=== PATIENT | female | born 1960 ===

== ENCOUNTER 2020-12-13 11:50 | Outpatient (REF) | payer OTHER, SELFPAY ==
--- NOTE | ~2020-12-13 | XR_ITS ---
EXAMINATION: XR ABDOMEN KUB CLINICAL INDICATION: Hematuria COMPARISON: None TECHNIQUE: AP x2 views of the abdomen. FINDINGS: There is a 3 x 4 mm calcification overlying the right medial 12th rib superimposed on upper pole right kidney possibly calculus. There are no other visible urinary tract calculi. The lung bases are clear. There is no gaseous dilatation of bowel or abnormal collections of gas. No acute bony abnormality. XR/XR KUB IMPRESSION: There is a 3 x 4 mm calcification overlying upper pole right kidney.
[2020-12-13 12:15] LABS: Urine Cytology See Pathology rpt
== END 2020-12-13 11:51 | disposition home or self-care (01) ==
LOC: HO.LAB 11:50
PROVIDERS: PCP Internal Medicine; Visit Provider Internal Medicine
DX: R31.9 Hematuria, unspecified (principal)
CPT/HCPCS: 74018; 88112

== ENCOUNTER 2021-01-05 10:13 | Outpatient (REF) | payer OTHER, SELFPAY ==
--- NOTE | ~2021-01-05 | MM_ITS ---
EXAMINATION: MM SCREENING DIGITAL BREAST TOMOSYNTHESIS, BILATERAL CLINICAL INFORMATION: Screening. Asymptomatic. Right lumpectomy for breast cancer 2013 and status post left reduction mammoplasty. COMPARISON: Mammography: 01/29/2020, 10/22/2018, 12/16/2017, 06/17/2017 TECHNIQUE: Digital breast tomosynthesis is performed in both the craniocaudal and mediolateral oblique views along with computer-aided detection (CAD). Synthesized 2D images are generated from the tomosynthesis. FINDINGS: There are scattered areas of fibroglandular density (ACR BI-RADS breast composition Category b). There are no significant masses, abnormal calcifications, or other abnormalities. There are postsurgical changes in both breasts. Surgical clips again seen on the right. Neither breast shows interval mass or architectural abnormality or abnormal calcifications. Bilateral breast calcifications are again noted. The axillary and skin contours are unremarkable. There are no significant changes from prior exams. MM/MM tomosynthesis screening BI IMPRESSION: No significant changes from prior studies. ASSESSMENT: BI-RADS 2: Benign RECOMMENDATION: Routine annual mammography screening. This patient's information was entered into a reminder system with a target due date for their next mammogram.
== END 2021-01-05 10:14 | disposition home or self-care (01) ==
LOC: HO.MAMMO 10:13
PROVIDERS: PCP Internal Medicine; Visit Provider Internal Medicine
DX: Z12.31 Encounter for screening mammogram for malignant neoplasm of breast (principal)
CPT/HCPCS: 77063; 77067

== ENCOUNTER 2021-01-08 10:44 | Emergency (ER) | payer OTHER, SELFPAY ==
--- NOTE | ~2021-01-08 | CT_ITS ---
EXAMINATION: CT ABDOMEN AND PELVIS WITHOUT CONTRAST CLINICAL INFORMATION: Gross hematuria COMPARISON: None TECHNIQUE: Multidetector volumetric imaging was performed from the superior aspect of the liver through the pubic symphysis. Sagittal and coronal reformatted images were obtained on the technologist's workstation. This CT examination was performed using dose optimization techniques as appropriate, variously including the following: *Automated exposure control *Adjustment of mA and/or kV according to patient size (this includes techniques or standardized protocols for targeted exams where dose is matched to indication/reason for exam; i.e. extremities or head) *Use of iterative reconstruction technique DLP: 574 mGy-cm FINDINGS: LUNG BASES: The visualized lung bases are unremarkable. LIVER, GALLBLADDER, AND BILIARY TREE: The liver is normal in size, shape, and attenuation. No focal hepatic lesion or biliary ductal dilatation is present. The gallbladder is unremarkable with no evidence of radiopaque gallstones, gallbladder wall thickening, or obvious pericholecystic inflammatory changes. PANCREAS: Unremarkable. SPLEEN: Unremarkable. ADRENAL GLANDS: Unremarkable. KIDNEYS AND URETERS: The kidneys are normal in size, shape, and attenuation. No hydronephrosis or hydroureter. Right upper pole 0.7 x 0.4 cm calculus is 9 cm from the posterior axillary line. No additional calculi are seen. BLADDER: Unremarkable. GASTROINTESTINAL TRACT: The stomach is unremarkable. Normal caliber small bowel. There is no obstruction. Normal appendix. No colonic wall thickening or acute inflammatory change. Scattered diverticulosis noted without diverticulitis. No free air. No free fluid. ABDOMINAL WALL: No significant hernia is appreciated. LYMPH NODES: Normal. VASCULAR: Normal caliber aorta with mild atherosclerotic calcification. PELVIC VISCERA: Heterogeneous uterus with lobulations. No adnexal mass. OSSEOUS STRUCTURES: No acute or suspicious osseous abnormality. Mild degenerative changes in the spine. Degenerative changes are seen at the hips. Subchondral cyst formation noted. CT/CT abdomen pelvis wo con IMPRESSION: No hydronephrosis. Nonobstructing right upper pole renal calculus. Somewhat lobulated appearance of the heterogeneous uterus. This could represent fibroids.
[2021-01-08 11:00] VITALS: BP 120/74; PULSE 92; RESP 16; TEMP 36.1; O2SAT 96; BMI 28.1
[2021-01-08 12:17] LABS: MANUAL DIFF FLAG NO
[2021-01-08 12:22] LABS: Glucose Urine UA NEG (NEG); Leukocyte Esterase Urine 2+ (NEG); Nitrite Urine NEG (NEG); PH 6.5 (5.0-8.0); Specific Gravity - Urine 1.015 (1.005-1.025); UACC Culture Trigger YES; Urine Blood 3+ (NEG); Urine Ketones NEG (NEG); Urine Protein TRACE MG/DL (NEG-TRACE)
[2021-01-08 12:23] LABS: Appearance Urine CLOUDY; Basophils Absolute Auto 0.1 X10*3/uL (0.0-0.2); Basophils Percent Auto 0.8 % (0-2); Color Urine YELLOW; Eosinophils Absolute Auto 0.2 X10*3/uL (0.0-0.4); Eosinophils Percent Auto 1.8 % (0-4); Hematocrit 39.3 % (37-47); Hemoglobin 12.6 g/dl (12.0-16.0); Imm Gran Abs Auto 0.03 X10*3/uL (0.00-0.03); Imm Gran Pct Auto 0.3 % (0.0-0.4); Lymphocytes Absolute Auto 2.9 X10*3/uL (1.2-4.9); Lymphocytes Percent Auto 28.2 % (20-40); Mean Corpuscular HGB Conc 32.1 g/dl (31.0-35.0); Mean Corpuscular Hemoglobin 28.4 pg (27.0-33.0); Mean Corpuscular Volume 88.7 fL (80-98); Monocytes Absolute Auto 0.6 X10*3/uL (0.1-1.2); Monocytes Percent Auto 5.9 % (2-11); Neutrophils Absolute Auto 6.5 X10*3/uL (2.0-8.3); Platelet Count 311 X10*3/uL (160-400); Red Blood Count 4.43 X10*6/uL (4.20-5.50); Red Cell Distribution Width 13.1 % (11.0-16.0); White Blood Count 10.3 X10*3/uL (4.8-10.8)
[2021-01-08 12:31] LABS: Squamous Epithelial Cell Urine 1+ /LPF; WBC Urine 30-49 /HPF (0-4)
[2021-01-08 12:32] LABS: Bacteria Urine TRACE /LPF; Renal Epithelial Cells Urine 1+ /LPF
[2021-01-08 12:49] LABS: Alanine Aminotransferase 20 U/L (0-31); Albumin Level 4.2 g/dL (3.5-5.0); Alkaline Phosphatase 91 U/L (39-117); Aspartate Amino Transferase 16 U/L (5-31); Bilirubin Total 0.3 mg/dL (0.0-1.0); Blood Urea Nitrogen 15 mg/dL (9-16); Creatinine Clr Calc Pharmacy 73.9; Estimated Glomerular Filt Rate > 60; Glucose Random 100 mg/dL (60-115); Total Protein 6.6 g/dL (6.5-8.0)
[2021-01-08 13:01] LABS: Anion Gap 12 (12-20); Carbon Dioxide 27 mmol/L (22-29); Chloride 105 mmol/L (96-108); Potassium 3.8 mmol/L (3.3-5.1); Sodium 140 mmol/L (135-145)
--- NOTE | 2021-01-08 15:18 | ED_ITS ---
HPI - Female Genitourinary General Chief complaint: Urogenital-Female Stated complaint: blood in urine Time Seen by Provider: 01/08/21 15:14 Source: patient Mode of arrival: ambulatory Limitations: no limitations History of Present Illness HPI Narrative: 60-year-old female walked to the emergency department for few weeks history of painless hematuria, patient was seen by her PCP who ordered outpatient x-ray KUB which showed 3 x 4 mm right upper pole kidney stone, patient was started on antibiotic with no improvement, patient stated that hematuria now is worsening, no abdominal pain, patient confirming that the blood is coming with the urine and not from her vagina. Related Data Home Medications Medication Instructions Recorded Confirmed atorvastatin 80 mg tablet 80 mg PO DAILY 12/13/20 01/02/21 calcium carbonate-vitamin D3 600 600 cap PO 12/13/20 12/13/20 mg calcium-200 unit capsule citalopram 10 mg tablet 10 mg PO DAILY 12/13/20 01/02/21 cyanocobalamin (vitamin B-12) 1,000 mcg PO DAILY 12/13/20 01/02/21 1,000 mcg capsule magnesium oxide 400 mg (241.3 mg 400 mg PO DAILY 12/13/20 01/02/21 magnesium) tablet tamoxifen 20 mg tablet 20 mg PO DAILY 12/13/20 01/02/21 trazodone 50 mg tablet 50 mg PO BEDTIME PRN 12/13/20 01/02/21 Previous Rx's Medication Instructions Recorded varenicline 0.5 mg (11)-1 mg (42) See Rx Instructions PO PER PKG DIR 12/13/20 tablets in a dose pack #53 ea cefuroxime axetil 500 mg PO BID #20 tab 01/08/21 Allergies Allergy/AdvReac Type Severity Reaction Status Date / Time No Known Allergies Allergy Verified 09/08/20 12:10 [No Known Allergies*] Review of Systems Review of Systems: All other systems are reviewed and are negative Constitutional: Reports as per HPI and Reports no additional constitutional complaints Eyes: Reports as per HPI and Reports no additional eye complaints Reports system reviewed and no additional complaints, except as documented Cardiovascular: Reports as per HPI and Reports no additional cardiovascular complaints Respiratory: Reports as per HPI and Reports no additional respiratory complaints Gastrointestinal: Reports as per HPI and Reports no additional gastrointestinal complaints Genitourinary: Reports no additional female genitourinary complaints Musculoskeletal: Reports no additional musculoskeletal complaints Skin/Breast: Reports system reviewed and no additional complaints, except as docu Psychiatric: Reports no additional psychiatric complaints Endocrine: Reports no additional endocrine complaints Hematologic/Lymphatic: Reports no additional hematologic/lymphatic complaints Allergic/Immunologic: Reports no additional allergic/immunologic complaints Reports system reviewed and no additional complaints, except as documented and Reports Abnormal speech present [facility] Past Medical History Medical History Anxiety High cholesterol Surgical History History of open reduction and internal fixation (ORIF) procedure History of reduction surgery of right breast Family History Family History Father Cancer Mother CVD (cardiovascular disease) Social History Social History Alcohol intake: current Alcohol intake frequency: holidays/special occasions only Smoking Status: Current every day smoker Use of substances other than those prescribed or required for medical reasons: No Advance Directives: No Advance Directives Information Provided: No Physical Exam Vital Signs: Vital Signs: Last Vital Signs Temp 98.6 F 01/08/21 15:59 Pulse 99 01/08/21 15:59 Resp 18 01/08/21 15:59 BP 110/76 01/08/21 15:59 Pulse Ox 98 01/08/21 15:59 Body Mass Index 28.1 Vital signs have been reviewed as appeared to be correct. Blood pressure normal. Heart rate normal. Respiration rate normal. Temperature normal. Oxygen saturation normal. Appearance: Alert. Oriented X3. No acute distress. Head: Normal external exam. Normocephalic. Atraumatic. No Acosta signs noted. No raccoon eyes noted Eyes: PERRLA. EOMI. Conjunctiva and sclera normal. Eyelids normal. ENT: TM's Normal. Pharynx normal. Uvula midline. Moist mucous membranes. No trismus noted. No drooling noted. No muffled voice noted. Neck: Normal inspection. Neck supple. FROM. No adenopathy. Thyroid Normal. No meningeal signs. No neck mass noted. CVS: Normal heart rate and rhythm. Heart sound normal. No murmurs noted. Pulses normal throughout. Respiratory: No respiratory distress. Painless inspiration. Breath sounds normal. No wheezes/rales/rhonchi noted. Chest nontender. No accessory muscle usage noted or decreased air movement noted. Abdomen: Soft and nontender. Bowel sounds normal in all 4 quadrants. No distention noted. No organomegaly noted. No visible injury noted. Back: No CVA tenderness. Full range of motion noted. Skin: Skin warm and dry. Normal skin color. Normal skin turgor. No rashes/lesions/lacerations noted. Extremities: No lower extremity edema. Extremities exhibit normal range of motion. Extremities nontender. Neuro: Oriented X 3. No motor deficit. No sensory deficit. Reflexes normal. Course Course Course Narrative: Assessment and plan. 60 years old female with painless hematuria, CT abdomen and pelvis not concerning of kidney stones, uterus concern of fibroid. Will start the patient on antibiotic, instructed to drink plenty of fluids, follow-up with urology/and OBGYN as an outpatient. MDM - Female Genitourinary Lab Data Attestation: I reviewed the patient's lab results. Result diagrams: 01/08/21 12:07 01/08/21 12:07 Labs: Lab Results 01/08/21 01/08/21 01/08/21 Range/Units 12:07 12:07 12:07 WBC 10.3 (4.8-10.8) X10*3/uL RBC 4.43 (4.20-5.50) X10*6/uL Hgb 12.6 (12.0-16.0) g/dl Hct 39.3 (37-47) % MCV 88.7 (80-98) fL MCH 28.4 (27.0-33.0) pg MCHC 32.1 (31.0-35.0) g/dl RDW 13.1 (11.0-16.0) % Plt Count 311 (160-400) X10*3/uL MPV 9.0 L (9.4-12.3) fL Immature Gran % (Auto) 0.3 (0.0-0.4) % Neut % (Auto) 63.0 (45-73) % Lymph % (Auto) 28.2 (20-40) % Garfield % (Auto) 5.9 (2-11) % Eos % (Auto) 1.8 (0-4) % Baso % (Auto) 0.8 (0-2) % Lymph # (Auto) 2.9 (1.2-4.9) X10*3/uL Garfield # (Auto) 0.6 (0.1-1.2) X10*3/uL Eos # (Auto) 0.2 (0.0-0.4) X10*3/uL Baso # (Auto) 0.1 (0.0-0.2) X10*3/uL Abs Immat Gran (auto) 0.03 (0.00-0.03) X10*3/uL Absolute Neuts (auto) 6.5 (2.0-8.3) X10*3/uL Absolute Nucleated RBC 0.000 (0.0-0.012) X10*3/uL Nucleated RBC % (auto) 0.0 (0.0-0.2) /100WBC Hold Blue Top SEE NOTE Sodium 140 (135-145) mmol/L Potassium 3.8 (3.3-5.1) mmol/L Chloride 105 (96-108) mmol/L Carbon Dioxide 27 (22-29) mmol/L Anion Gap 12 (12-20) BUN 15 (9-16) mg/dL Creatinine 0.89 (0.5-1.4) mg/dL Estim Creat Clear Calc 73.9 Estimated GFR > 60 Random Glucose 100 (60-115) mg/dL Calcium 9.0 (8.4-10.2) mg/dL Total Bilirubin 0.3 (0.0-1.0) mg/dL AST 16 (5-31) U/L ALT 20 (0-31) U/L Alkaline Phosphatase 91 (39-117) U/L Total Protein 6.6 (6.5-8.0) g/dL Albumin 4.2 (3.5-5.0) g/dL Urine Color Urine Appearance Urine pH (5.0-8.0) Ur Specific [place] (1.005-1.025) Urine Protein (NEG-TRACE) MG/DL Urine Glucose (UA) (NEG) MG/DL Urine Ketones (NEG) MG/DL Urine Blood (NEG) Urine Nitrite (NEG) Ur Leukocyte Esterase (NEG) Urine RBC (0) /HPF Urine WBC (0-4) /HPF Ur Squamous Epith Cells /LPF Ur Renal Epithelial Cell /LPF Urine Bacteria /LPF 01/08/21 Range/Units 12:07 WBC (4.8-10.8) X10*3/uL RBC (4.20-5.50) X10*6/uL Hgb (12.0-16.0) g/dl Hct (37-47) % MCV (80-98) fL MCH (27.0-33.0) pg MCHC (31.0-35.0) g/dl RDW (11.0-16.0) % Plt Count (160-400) X10*3/uL MPV (9.4-12.3) fL Immature Gran % (Auto) (0.0-0.4) % Neut % (Auto) (45-73) % Lymph % (Auto) (20-40) % Garfield % (Auto) (2-11) % Eos % (Auto) (0-4) % Baso % (Auto) (0-2) % Lymph # (Auto) (1.2-4.9) X10*3/uL Garfield # (Auto) (0.1-1.2) X10*3/uL Eos # (Auto) (0.0-0.4) X10*3/uL Baso # (Auto) (0.0-0.2) X10*3/uL Abs Immat Gran (auto) (0.00-0.03) X10*3/uL Absolute Neuts (auto) (2.0-8.3) X10*3/uL Absolute Nucleated RBC (0.0-0.012) X10*3/uL Nucleated RBC % (auto) (0.0-0.2) /100WBC Hold Blue Top Sodium (135-145) mmol/L Potassium (3.3-5.1) mmol/L Chloride (96-108) mmol/L Carbon Dioxide (22-29) mmol/L Anion Gap (12-20) BUN (9-16) mg/dL Creatinine (0.5-1.4) mg/dL Estim Creat Clear Calc Estimated GFR Random Glucose (60-115) mg/dL Calcium (8.4-10.2) mg/dL Total Bilirubin (0.0-1.0) mg/dL AST (5-31) U/L ALT (0-31) U/L Alkaline Phosphatase (39-117) U/L Total Protein (6.5-8.0) g/dL Albumin (3.5-5.0) g/dL Urine Color YELLOW Urine Appearance CLOUDY Urine pH 6.5 (5.0-8.0) Ur Specific [place] 1.015 (1.005-1.025) Urine Protein TRACE (NEG-TRACE) MG/DL Urine Glucose (UA) NEG (NEG) MG/DL Urine Ketones NEG (NEG) MG/DL Urine Blood 3+ H (NEG) Urine Nitrite NEG (NEG) Ur Leukocyte Esterase 2+ H (NEG) Urine RBC 15-29 H (0) /HPF Urine WBC 30-49 H (0-4) /HPF Ur Squamous Epith Cells 1+ /LPF Ur Renal Epithelial Cell 1+ /LPF Urine Bacteria TRACE /LPF Imaging Data CT scan - abdomen: Radiologist's impression: No hydronephrosis. Nonobstructing right upper pole renal calculus. Somewhat lobulated appearance of the heterogeneous uterus. This could represent fibroids. Discharge Plan Discharge Clinical Impression: Gross hematuria Patient Disposition: Home, Self-Care Instructions: Hematuria (ED) Prescriptions: New cefuroxime axetil 500 mg tablet 500 mg PO BID Qty: 20 RF: 0 No Action cyanocobalamin (vitamin B-12) 1,000 mcg capsule 1,000 mcg PO DAILY RF: 0 magnesium oxide 400 mg (241.3 mg magnesium) tablet 400 mg PO DAILY RF: 0 Calcium 600 + D(3) 600 mg calcium- 200 unit capsule 600 cap PO RF: 0 tamoxifen 20 mg tablet 20 mg PO DAILY RF: 0 atorvastatin 80 mg tablet 80 mg PO DAILY RF: 0 citalopram 10 mg tablet 10 mg PO DAILY RF: 0 trazodone 50 mg tablet 50 mg PO BEDTIME PRN (Reason: Sleep) RF: 0 Chantix Starting Month Box 0.5 mg (11)- 1 mg (42) tablets,dose pack See Rx Instructions PO PER PKG DIR Qty: 53 RF: 0 Referrals: Benji Matias MD [Physician] - 2 days Zoltan Weems MD [Primary Care Provider] - 2 days Fela Noble MD [Physician] - 2 days
[2021-01-08 15:59] VITALS: BP 110/76; PULSE 99; RESP 18; TEMP 37; O2SAT 98
--- NOTE | 2021-01-08 16:03 | PC.NURSE ---
patient a&ox3, labs drawn, urine obtained, ct performed, pt awaiting ct results, vss, will continue to monitor.
== END 2021-01-08 17:32 | disposition home or self-care (01) ==
PROVIDERS: Emergency Provider Emergency Medicine; PCP Internal Medicine
DX: R31.0 Gross hematuria (principal); N20.0 Calculus of kidney; F17.200 Nicotine dependence, unspecified, uncomplicated
CPT/HCPCS: 36415; 74176; 80053; 81001; 81003; 85025; 87086; 99284

== ENCOUNTER → 2021-01-23 15:19 | Outpatient (BNVA) | payer OTHER, SELFPAY | PROVIDERS: PCP Internal Medicine; Visit Provider Urology ==

== ENCOUNTER → 2021-02-02 10:11 | Outpatient (BNVA) | payer OTHER, SELFPAY | PROVIDERS: PCP Internal Medicine; Visit Provider Urology | DX: N20.0 Calculus of kidney (principal); R31.0 Gross hematuria | CPT/HCPCS: 52000; 81002 ==

== ENCOUNTER 2021-02-13 13:11 | Outpatient (REF) | payer OTHER, SELFPAY ==
[2021-02-15 21:36] LABS: HPV mRNA E6/E7 rflx Not Detected (Not Detected)
== END 2021-02-13 13:12 | disposition home or self-care (01) ==
LOC: HO.LAB 13:11
PROVIDERS: PCP Internal Medicine; Visit Provider Obstetrics & Gynecology
DX: Z01.411 Encounter for gynecological examination (general) (routine) with abnormal findings (principal); Z11.51 Encounter for screening for human papillomavirus (HPV); N95.0 Postmenopausal bleeding
CPT/HCPCS: 58100; 87624; 88142; 88305; 88341; 88342

== ENCOUNTER → 2021-02-20 15:01 | Outpatient (BNVA) | payer OTHER, SELFPAY | PROVIDERS: PCP Internal Medicine; Visit Provider Obstetrics & Gynecology ==

== ENCOUNTER 2021-02-21 06:56 | Day surgery (SDC) | payer OTHER, SELFPAY ==
[2021-02-14 13:24] VITALS: BMI 29.0
--- NOTE | ~2021-02-21 | XR_ITS ---
EXAMINATION: XR ABDOMEN KUB CLINICAL INDICATION: Nephrolithiasis COMPARISON: CT abdomen and pelvis noncontrast 01/08/2021, KUB 12/13/2020 TECHNIQUE: AP x 2 views of the abdomen. FINDINGS: Subcentimeter calculus upper pole right kidney again noted similar to prior exams. There are no other visible urinary tract calculi. Calcified phleboliths seen in the central pelvis. Bowel gas unremarkable. Lung bases clear. XR/XR KUB IMPRESSION: Right upper pole renal calculus stable from prior imaging.
[2021-02-21 07:25] VITALS: BP 119/68; PULSE 94; RESP 18; TEMP 36.1; O2SAT 98
[2021-02-21] MEDS: Lactated Ringers 1,000 ML 50 ML IV (07:38)
--- NOTE | 2021-02-21 08:17 | HO.ANESPROP2 ---
[facility] Active Problems Active Problems: All Active Problems (Updated 02/20/21 @ 15:22 by Fela Noble MD) Endometrioid adenocarcinoma (Acute) Nephrolithiasis (Acute) Overweight (BMI 25.0-29.9) (Acute) Anxiety (Acute) Insomnia (Acute) History of breast cancer (Acute) Peripheral polyneuropathy (Acute) Primary osteoarthritis of right hip (Acute) Vitamin D deficiency (Acute) Smoker (Acute) Pure hypercholesterolemia (Acute) Goiter (Acute) Breast cancer (Acute) Anxiety and depression (Acute) Hypercholesterolemia (Acute) Tobacco abuse (Acute) Hematuria (Acute) Renal calculus, right (Acute) Past Medical History Medical History Anxiety Endometrioid adenocarcinoma Goiter High cholesterol History of breast cancer Insomnia Overweight (BMI 25.0-29.9) Peripheral polyneuropathy Primary osteoarthritis of right hip Pure hypercholesterolemia Smoker Vitamin D deficiency Family History Family History Father Cancer Mother CVD (cardiovascular disease) Surgical History Surgical History History of open reduction and internal fixation (ORIF) procedure History of reduction surgery of right breast Social History Social History Alcohol intake: current Alcohol intake frequency: holidays/special occasions only Smoking Status: Current every day smoker Advance Directives Information Provided: No Gender identity: female Meds Allergies Allergy/AdvReac Type Severity Reaction Status Date / Time No Known Allergies Allergy Verified 02/20/21 15:02 [No Known Allergies*] Active Medications: Current Medications Generic Name Dose Route Start Last Admin Trade Name Freq PRN Reason Stop Dose Admin Lactated Ringer's 1,000 mls @ 50 mls/hr 02/21/21 07:15 02/21/21 07:38 Lr IV 50 mls/hr .Q20H DAVE Administration Home Medications Medication Instructions Recorded Confirmed Last Taken Type atorvastatin 80 mg tablet 80 mg PO DAILY 12/13/20 02/14/21 Unknown History calcium carbonate-vitamin D3 600 1 cap PO DAILY 12/13/20 02/14/21 Unknown History mg calcium-200 unit capsule citalopram 10 mg tablet 10 mg PO DAILY 12/13/20 02/14/21 Unknown History cyanocobalamin (vitamin B-12) 1,000 mcg PO DAILY 12/13/20 02/14/21 Unknown History 1,000 mcg capsule magnesium oxide 400 mg (241.3 mg 400 mg PO DAILY 12/13/20 02/14/21 Unknown History magnesium) tablet trazodone 50 mg tablet 50 mg PO BEDTIME PRN 12/13/20 02/14/21 Unknown History Exam Exam Date and Time: February 21, 2021 0817 Height,Weight and Vital Signs: Height 5 ft 6 in Weight 81.647 kg Last Vital Signs Temp 97 F 02/21/21 07:25 Pulse 94 02/21/21 07:25 Resp 18 02/21/21 07:25 BP 119/68 02/21/21 07:25 Pulse Ox 98 02/21/21 07:25 Airway Mallampati Class: II TM Dist: >3cm Neck ROM: Full Assessment and Plan Assessment Anesthesia Assessment: Anesthesia Plan Discussed and Chart Reviewed Final Anesthetic Review NPO: Yes ASA Class: III Final Preanesthetic Review: No Changes in Pt Med Stat, Meds/Allgs Chart Reviewed, Consent Obtained/Reviewed and Anes Risks/Benef Reviewed Patient Risk: Intermediate Procedure Risk: Low Assessment/Block/Sedation in SS: Assess/Block/Sedation-SS Anesthetic Plan Anesthetic Plan: MAC: Disposition: Standard PACU
--- NOTE | 2021-02-21 09:08 | MHC.SHP ---
Pre-Procedural Eval Section A The patient is an INPATIENT: No Changes since office visit: No Cold of Flu in the past 2 weeks, No New Medical Problems, No Changes in Medication and No Patient answered all questions The History & Physical has been completed within 30 days and I have reviewed it.: Yes Section B Chief Complaint: kidney stone Allergies: Allergies Allergy/AdvReac Type Severity Reaction Status Date / Time No Known Allergies Allergy Verified 02/20/21 15:02 [No Known Allergies*] Plan I have reviewed the history and physical and performed a pertinent physical examination on my patient. No changes have occurred unless specified.
--- NOTE | 2021-02-21 09:43 | PM.OP ---
Brief Operative Note Date of Service: 02/21/21 Pre-op diagnosis: right kidney stone Post-op diagnosis: same Procedure: right ESWL Surgeon: Benji Matias MD Anesthesia: MAC Estimated blood loss (mL): 0 Pathology: none sent Condition: stable Disposition: same day
--- NOTE | 2021-02-21 09:44 | W.PM.OPN ---
Operative Note Operative Note Date of Service: 02/21/21 Narrative: PreOperative Diagnosis: right Renal stones Post Operative Diagnosis: right Renal stones Procedure: ESWL Surgeon: Dr Benji Matias Anesthesia: mac/sedation Indications for procedure: They understand ESWL may be a staged procedure and subsequent intervention may be required based on imaging after ESWL. They also understand there is a risk of bleeding, infection, damage to adjacent organs. Procedure: After informed consent was verified the patient was brought to the operating room and placed in a supine position. Anesthesia was performed per protocol. Safety pause time-out was performed. Imaging was in the room and laterality confirmed. ESWL was performed. The 1st 500 shocks were performed at 60 hertz. These were performed with increasing power. Once maximum power was reached the rate was increased to 180 hertz. A total of 2500 shocks were given. Fluoroscopy showed stone disintegration. They tolerated procedure well and was transferred to the recovery area upon completion.
[2021-02-21 10:15] VITALS: BP 103/54; PULSE 90; RESP 16; TEMP 36.3; O2SAT 93
[2021-02-21 10:30] VITALS: BP 115/72; PULSE 83; RESP 16; O2SAT 95
== END 2021-02-21 11:33 ==
LOC: HO.SSS 06:56
PROVIDERS: PCP Internal Medicine; Visit Provider Urology
PROC: (CPT 50590; principal; 2021-02-21 08:40)
DX: N20.0 Calculus of kidney (principal); C50.911 Malignant neoplasm of unspecified site of right female breast; C54.1 Malignant neoplasm of endometrium; Z79.810 Long term (current) use of selective estrogen receptor modulators (SERMs); G62.9 Polyneuropathy, unspecified; E55.9 Vitamin D deficiency, unspecified; Z79.899 Other long term (current) drug therapy; F17.200 Nicotine dependence, unspecified, uncomplicated
CPT/HCPCS: 50590; 74018; J1885; J2250; J2405; J3010

== ENCOUNTER 2021-03-02 15:27 | Outpatient (REF) | payer OTHER, SELFPAY ==
--- NOTE | ~2021-03-02 | US_ITS ---
EXAMINATION: US THYROID CLINICAL INFORMATION: Nontoxic goiter, unspecified. COMPARISON: Ultrasound soft tissue head/neck thyroid dated 09/08/2018 and 12/16/2006. CT neck without contrast dated 09/12/2009. TECHNIQUE: Linear transducer grayscale and color Doppler examination with attention to the region of the thyroid. FINDINGS: SIZE: Measurements of the thyroid lobes and nodules are given in sagittal, anteroposterior and transverse dimensions respectively. Right Thyroid Lobe: 6.8 x 2.8 x 3.7 cm, volume 36 mL. Previously 8.9 x 2.9 x 2.7 cm, volume 36 mL. Parenchyma: The gland echotexture is homogeneous. Thyroid vascularity is normal. Left Thyroid Lobe: 8.0 x 3.8 x 4.0 cm, volume greater than or equal to 63 mL. Previously 9.8 x 3.8 x 3.6 cm, volume 70 mL. Parenchyma: The gland echotexture is homogeneous. Thyroid vascularity is normal. Isthmus: 1.8 cm in maximum AP dimension. Previously 1.6 cm. There are multiple right cystic nodules. These have peripheral calcifications and are suggestive of colloid cysts. Estimated total number of nodules greater than or equal to 1 cm: 2. [employer] nodules are described as follows: 1. Location: Left mid medial. Size: 1.6 x 1.4 x 1.4 cm, volume 1.6 mL. Previously: 2.0 x 1.0 x 1.3 cm, volume 1.4 mL. Nodule characteristics: Composition: Solid/almost completely solid (2). Echogenicity: Hyperechoic (1). Shape: Not taller than wide (0). Margins: Smooth (0). Echogenic Foci: None (0). ACR TI-RADS total points: 3 Previous: n/a. ACR TI-RADS category: 3 Previous: n/a. Significant change in size (>/= 20% in 2 dimensions and minimal increase of 2 mm or 50% or greater increase in volume): No Change in features: No Change in ACR TI-RADS risk category: No. 1. Location: Left inferior Size: 2.1 x 1.7 x 3.2 Cm, volume 3.2 mL. Previously: 2.5 x 2.2 x 2.4, volume Nodule characteristics: Composition: Mixed cystic and solid (1). Echogenicity: Undetermined (1) Shape: Not taller than wide (0). Margins: Smooth (0). Echogenic Foci: None (0). ACR TI-RADS total points: 2 Previous: n/a. ACR TI-RADS category: 1 Previous: n/a. Significant change in size (>/= 20% in 2 dimensions and minimal increase of 2 mm or 50% or greater increase in volume): No Change in features: No Change in ACR TI-RADS risk category: No. NODES: No lymphadenopathy is seen in the tissue surrounding the thyroid gland. US/US thyroid IMPRESSION: Enlarged thyroid gland with multiple nodules. The majority of nodules are compatible with colloid cysts. There are 2 nodules in the left medial lobe near the isthmus and inferior lobe that appear solid and complex cystic and are decreased in size from previous exam. ACR TI-RADS RECOMMENDATION REFERENCE: Ultrasound-guided fine-needle aspiration, followup ultrasound, no further follow up. * TR1 (0 point) and TR 2 (2 points): No FNA or follow up * TR3 (3 points): FNA if more than or equal to 2.5 cm in maximum dimension, followup ultrasound in 1, 3 and 5 years if 1.5 to 2.4 cm in maximum dimension. * TR4 (4-6 points): FNA if more than or equal to 1.5 cm in maximum dimension, followup ultrasound in 1, 2, 3 and 5 years if 1 to 1.4 cm in maximum dimension. * TR5 (more than or equal to 7 points): FNA if more than or equal to 1 cm in maximum dimension, followup ultrasound every year for 5 years if 0.5 to 0.9 cm in maximum dimension. * TR3, TR4 or TR5 nodules that are below the size threshold for follow up receive no follow up.
--- NOTE | ~2021-03-02 | US_ITS ---
EXAMINATION: US RETROPERITONEAL LIMITED (RENAL ONLY) CLINICAL INFORMATION: Calculus of kidney. COMPARISON: KUB dated 02/21/2021 and 12/13/2020. CT abdomen and pelvis without contrast dated 01/08/2021 TECHNIQUE: Real-time imaging of the kidneys. FINDINGS: RIGHT KIDNEY: 9.8 x 4.6 x 5.6 cm (SAG x AP x TRV). The kidney is normal in size, contour, and echogenicity. Renal cortical thickness is normal. There is a 2 x 5 mm echogenic density in the upper pole of the right kidney. Appearance is questionable for a stone as this is similar in location to previous CT and KUB. This does not demonstrate acoustic shadowing or twinkle artifact. No focal parenchymal lesions. No hydronephrosis. LEFT KIDNEY: 10.2 x 5.9 x 4.6 cm (SAG x AP x TRV). The kidney is normal in size, contour, and echogenicity. Renal cortical thickness is normal. No calculi or focal parenchymal lesions. No hydronephrosis. US/US renal BI IMPRESSION: Question small right upper pole renal stone.
== END 2021-03-02 15:28 | disposition home or self-care (01) ==
LOC: HO.US 15:27
PROVIDERS: Visit Provider Urology
DX: E04.9 Nontoxic goiter, unspecified (principal); N20.0 Calculus of kidney
CPT/HCPCS: 76536; 76775

== ENCOUNTER → 2021-03-15 11:44 | Outpatient (BNVA) | payer OTHER, SELFPAY | PROVIDERS: PCP Internal Medicine; Visit Provider Urology ==

== ENCOUNTER 2021-04-04 11:23 | Inpatient (IN) | payer OTHER, SELFPAY ==
--- NOTE | ~2021-04-04 | CT_ITS ---
EXAMINATION: CT ABDOMEN AND PELVIS WITHOUT CONTRAST CLINICAL INFORMATION: Right flank pain. COMPARISON: Right flank pain TECHNIQUE: Multidetector volumetric imaging was performed from the superior aspect of the liver through the pubic symphysis. Sagittal and coronal reformatted images were obtained on the technologist's workstation. This CT examination was performed using dose optimization techniques as appropriate, variously including the following: *Automated exposure control *Adjustment of mA and/or kV according to patient size (this includes techniques or standardized protocols for targeted exams where dose is matched to indication/reason for exam; i.e. extremities or head) *Use of iterative reconstruction technique DLP: 592 mGy-cm FINDINGS: LUNG BASES: There is bibasilar dependent atelectasis. The heart size is normal. LIVER, GALLBLADDER, AND BILIARY TREE: The liver is normal in size, shape, and attenuation. No focal hepatic lesion or biliary ductal dilatation is present. The gallbladder is unremarkable with no evidence of radiopaque gallstones, gallbladder wall thickening, or obvious pericholecystic inflammatory changes. PANCREAS: Unremarkable. SPLEEN: Unremarkable. ADRENAL GLANDS: Unremarkable. KIDNEYS AND URETERS: The kidneys are normal in size, shape, and attenuation. A 5 mm and a 4 mm obstructive 2 radiopaque calculi right distal ureter with mild hydroureteronephrosis. There is mild right mid ureteral fat stranding but no radiopaque calculi seen in the mid ureter. There is no left-sided hydronephrosis. BLADDER: Unremarkable. GASTROINTESTINAL TRACT: There is diffuse colonic diverticulosis without diverticulitis. There is scattered stool and gas seen throughout the colon. The small bowel loops are normal caliber. There is no free air or free fluid. ABDOMINAL WALL: No significant hernia is appreciated. LYMPH NODES: Normal. VASCULAR: Unremarkable. PELVIC VISCERA: Unremarkable. OSSEOUS STRUCTURES: No lytic or sclerotic process seen. CT/CT abdomen pelvis wo con IMPRESSION: 2 obstructed right distal ureteral stone with mild to moderate right hydroureteronephrosis. There is mild right periureteral fat stranding in the mid segment. Colonic diverticulosis without diverticulitis.
--- NOTE | ~2021-04-04 | FL_ITS ---
EXAMINATION: Intraoperative fluoroscopy CLINICAL INFORMATION: Right ureteral stone COMPARISON: CT abdomen pelvis April 04, 2021 TECHNIQUE: Intraoperative fluoroscopy was provided for use by Dr. Matias. A total of 1 image was saved to PACS. A radiologist was not present during imaging. Today's dictation is only for administrative purposes to document intraoperative fluoroscopic usage. TOTAL FLUOROSCOPIC TIME: 4.5 seconds FL/FL guidance in OR FINDINGS~\^^ Intraoperative fluoroscopy provided for use by Dr. Matias. Please see operative note for detailed findings.
[2021-04-04 12:13] VITALS: BP 113/76; PULSE 93; RESP 16; TEMP 37.1; O2SAT 96; BMI 28.1
[2021-04-04 12:51] LABS: MANUAL DIFF FLAG NO
[2021-04-04 12:55] LABS: Basophils Absolute Auto 0.1 X10*3/uL (0.0-0.2); Basophils Percent Auto 0.4 % (0-2); Eosinophils Absolute Auto 0.1 X10*3/uL (0.0-0.4); Eosinophils Percent Auto 0.9 % (0-4); Hematocrit 39.3 % (37-47); Hemoglobin 12.6 g/dl (12.0-16.0); Imm Gran Abs Auto 0.06 X10*3/uL (0.00-0.03); Imm Gran Pct Auto 0.4 % (0.0-0.4); Lymphocytes Absolute Auto 1.5 X10*3/uL (1.2-4.9); Lymphocytes Percent Auto 11.1 % (20-40); Mean Corpuscular HGB Conc 32.1 g/dl (31.0-35.0); Mean Corpuscular Hemoglobin 27.9 pg (27.0-33.0); Mean Corpuscular Volume 86.9 fL (80-98); Mean Platelet Volume 9.1 fL (9.4-12.3); Monocytes Absolute Auto 0.7 X10*3/uL (0.1-1.2); Monocytes Percent Auto 4.8 % (2-11); Neutrophils Absolute Auto 11.2 X10*3/uL (2.0-8.3); Neutrophils Percent Auto 82.4 % (45-73); Platelet Count 363 X10*3/uL (160-400); Red Blood Count 4.52 X10*6/uL (4.20-5.50); Red Cell Distribution Width 13.1 % (11.0-16.0); White Blood Count 13.5 X10*3/uL (4.8-10.8)
[2021-04-04 12:55] LABS: Glucose Urine UA NEG (NEG); Leukocyte Esterase Urine NEG (NEG); Nitrite Urine NEG (NEG); Urine Blood 1+ (NEG); Urine Ketones NEG (NEG); Urine Protein NEG (NEG-TRACE)
[2021-04-04 12:57] LABS: Appearance Urine CLEAR; Color Urine YELLOW
[2021-04-04 13:06] LABS: Bacteria Urine 1+ /LPF; Renal Epithelial Cells Urine 1+ /LPF; Squamous Epithelial Cell Urine 1+ /LPF
--- NOTE | 2021-04-04 13:31 | ED_ITS ---
HPI - Abdominal Pain General Chief Complaint: Abdominal Pain Stated Complaint: back pain Time Seen by Provider: 04/04/21 13:27 Source: patient Mode of arrival: ambulatory Limitations: no limitations History of Present Illness HPI narrative: 61 yo female with laparascopic vaginal total hysterectomy with lymph node removal for uterine cancer, plan for future radiation - patient was told it did not spread, had UTI after catheter placement completed cipro 2 days ago, catheter is out, at this time c/o n/v R flank pain for 4 days cannot keep PO down MD elicited complaint: abdominal pain Pertinent past history: kidney stones and past UTI Onset (ago): day(s) (4) Pain Consistency: constant Location: R flank Quality: stabbing Radiation: none Migration to: no migration Exacerbating factors: movement Relieving factors: nothing Context: recent antibiotic use and recent surgery/procedure Associated symptoms: nausea and vomiting Related Data Home Medications Medication Instructions Recorded Confirmed atorvastatin 80 mg tablet 80 mg PO DAILY 12/13/20 04/04/21 citalopram 10 mg tablet 10 mg PO DAILY 12/13/20 04/04/21 cyanocobalamin (vitamin B-12) 1,000 mcg PO DAILY 12/13/20 04/04/21 1,000 mcg capsule magnesium oxide 400 mg (241.3 mg 400 mg PO DAILY 12/13/20 04/04/21 magnesium) tablet trazodone 50 mg tablet 50 mg PO BEDTIME 12/13/20 04/04/21 acetaminophen 650 mg PO Q5H PRN 04/04/21 04/04/21 calcium carbonate 600 mg PO BEDTIME 04/04/21 04/04/21 cholecalciferol (vitamin D3) 25 mcg PO DAILY 04/04/21 04/04/21 [Vitamin D3] ibuprofen 600 mg PO Q6H PRN 04/04/21 04/04/21 sennosides-docusate sodium [Senna 1 tab PO DAILY 04/04/21 04/04/21 Plus] simethicone 80 mg PO QIDACHS PRN 04/04/21 04/04/21 varenicline [Chantix] 1 mg PO BID 04/04/21 04/04/21 Allergies Allergy/AdvReac Type Severity Reaction Status Date / Time No Known Allergies Allergy Verified 04/04/21 12:18 [No Known Allergies*] Review of Systems Review of Systems Constitutional : No Fever, No Chills ENT/Mouth : No sore throat Eyes: No Eye Pain, No Swelling, No Redness Cardiovascular : No Chest Pain, No SOB Respiratory : No Cough, No Sputum, No Wheezing Gastrointestinal : positive Nausea, positive Vomiting, No Diarrhea, positive abdominal pain Genitourinary : no Dysuria, no urinary frequency, no Hematuria, positive Flank Pain, no hesitancy Musculoskeletal : No joint pain, No Myalgias Skin : No Skin Lesions, No rash Neuro : No Weakness, No Numbness, No Headache Psych : No Anxiety/Panic, No Depression Heme/Lymph: No Bruising, No Lymphadenopathy Endocrine : No Polyuria, No Polydipsia All other systems reviewed and are negative Physical Exam Vital Signs: Vital Signs: Last Vital Signs Temp 98.8 F 04/04/21 12:13 Pulse 81 04/04/21 15:45 Resp 14 04/04/21 15:45 BP 114/64 04/04/21 15:45 Pulse Ox 96 04/04/21 12:13 Body Mass Index 28.1 Appearance: Alert. Oriented X3. No acute distress. Eyes: Pupils equal, round and reactive to light. ENT: Pharynx dry MM Neck: Normal inspection. Neck supple. CVS: Normal heart rate and rhythm. Pulses normal. Respiratory: No respiratory distress. Breath sounds normal. Abdomen: Soft and nontender. incisions c/d/i Back: R mild CVA ttp Skin: Skin warm and dry. Normal skin color. Normal skin turgor. Extremities: No lower extremity edema. No calf ttp Neuro: Oriented X 3. No motor deficit. No sensory deficit. Course Course Course Narrative: discussed with Dr. Matias hydrate and admit to medicine 330pm at this time possible infection in urine suspected 330pm given recent cipro, pain, nausea/vomiting and WBC count it could be masked added on ceftriaxone MDM - Abdominal Pain MDM Narrative Medical decision making narrative: 61 yo female with laparascopic vaginal total hysterectomy with lymph node removal for uterine cancer, plan for future radiation - patient was told it did not spread, had UTI after catheter placement completed cipro 2 days ago, catheter is out, at this time c/o n/v R flank pain for 4 days cannot keep PO down at this time labs, IVF, IV morphine for pain CT scan for renal colic, UA for UTI dispo per results and findings. Lab Data Result diagrams: 04/04/21 12:45 04/04/21 12:45 Labs: Lab Results 04/04/21 04/04/21 04/04/21 Range/Units 12:41 12:45 12:45 WBC 13.5 H (4.8-10.8) X10*3/uL RBC 4.52 (4.20-5.50) X10*6/uL Hgb 12.6 (12.0-16.0) g/dl Hct 39.3 (37-47) % MCV 86.9 (80-98) fL MCH 27.9 (27.0-33.0) pg MCHC 32.1 (31.0-35.0) g/dl RDW 13.1 (11.0-16.0) % Plt Count 363 (160-400) X10*3/uL MPV 9.1 L (9.4-12.3) fL Immature Gran % (Auto) 0.4 (0.0-0.4) % Neut % (Auto) 82.4 H (45-73) % Lymph % (Auto) 11.1 L (20-40) % [place] % (Auto) 4.8 (2-11) % Eos % (Auto) 0.9 (0-4) % Baso % (Auto) 0.4 (0-2) % Lymph # (Auto) 1.5 (1.2-4.9) X10*3/uL [place] # (Auto) 0.7 (0.1-1.2) X10*3/uL Eos # (Auto) 0.1 (0.0-0.4) X10*3/uL Baso # (Auto) 0.1 (0.0-0.2) X10*3/uL Abs Immat Gran (auto) 0.06 H (0.00-0.03) X10*3/uL Absolute Neuts (auto) 11.2 H (2.0-8.3) X10*3/uL Absolute Nucleated RBC 0.000 (0.0-0.012) X10*3/uL Nucleated RBC % (auto) 0.0 (0.0-0.2) /100WBC Hold Blue Top Sodium 136 (135-145) mmol/L Potassium 4.4 (3.3-5.1) mmol/L Chloride 100 (96-108) mmol/L Carbon Dioxide 27 (22-29) mmol/L Anion Gap 13 (12-20) BUN 18 H (9-16) mg/dL Creatinine 1.61 H (0.5-1.4) mg/dL Estim Creat Clear Calc 40.3 Estimated GFR 33 Random Glucose 99 (60-115) mg/dL Lactic Acid (0.5-2.0) mmol/L Calcium 9.8 D (8.4-10.2) mg/dL Magnesium (1.6-2.6) mg/dL Total Bilirubin (0.0-1.0) mg/dL Direct Bilirubin (0.0-0.5) mg/dL AST (5-31) U/L ALT (0-31) U/L Alkaline Phosphatase (39-117) U/L Total Protein (6.5-8.0) g/dL Albumin (3.5-5.0) g/dL Lipase (8-78) U/L Urine Color YELLOW Urine Appearance CLEAR Urine pH 6.0 (5.0-8.0) Ur Specific [place] 1.010 (1.005-1.025) Urine Protein NEG (NEG-TRACE) MG/DL Urine Glucose (UA) NEG (NEG) MG/DL Urine Ketones NEG (NEG) MG/DL Urine Blood 1+ H (NEG) Urine Nitrite NEG (NEG) Ur Leukocyte Esterase NEG (NEG) Urine RBC 5-9 H (0) /HPF Urine WBC 1-4 (0-4) /HPF Ur Squamous Epith Cells 1+ /LPF Ur Renal Epithelial Cell 1+ /LPF Urine Bacteria 1+ /LPF COVID-19 (THAIS) (Negative) COVID-19 Clin Com 04/04/21 04/04/21 04/04/21 Range/Units 14:10 14:49 14:49 WBC (4.8-10.8) X10*3/uL RBC (4.20-5.50) X10*6/uL Hgb (12.0-16.0) g/dl Hct (37-47) % MCV (80-98) fL MCH (27.0-33.0) pg MCHC (31.0-35.0) g/dl RDW (11.0-16.0) % Plt Count (160-400) X10*3/uL MPV (9.4-12.3) fL Immature Gran % (Auto) (0.0-0.4) % Neut % (Auto) (45-73) % Lymph % (Auto) (20-40) % [place] % (Auto) (2-11) % Eos % (Auto) (0-4) % Baso % (Auto) (0-2) % Lymph # (Auto) (1.2-4.9) X10*3/uL [place] # (Auto) (0.1-1.2) X10*3/uL Eos # (Auto) (0.0-0.4) X10*3/uL Baso # (Auto) (0.0-0.2) X10*3/uL Abs Immat Gran (auto) (0.00-0.03) X10*3/uL Absolute Neuts (auto) (2.0-8.3) X10*3/uL Absolute Nucleated RBC (0.0-0.012) X10*3/uL Nucleated RBC % (auto) (0.0-0.2) /100WBC Hold Blue Top SEE NOTE Sodium (135-145) mmol/L Potassium (3.3-5.1) mmol/L Chloride (96-108) mmol/L Carbon Dioxide (22-29) mmol/L Anion Gap (12-20) BUN (9-16) mg/dL Creatinine (0.5-1.4) mg/dL Estim Creat Clear Calc Estimated GFR Random Glucose (60-115) mg/dL Lactic Acid (0.5-2.0) mmol/L Calcium (8.4-10.2) mg/dL Magnesium 2.0 (1.6-2.6) mg/dL Total Bilirubin 0.5 (0.0-1.0) mg/dL Direct Bilirubin 0.2 (0.0-0.5) mg/dL AST 17 (5-31) U/L ALT 16 (0-31) U/L Alkaline Phosphatase 82 (39-117) U/L Total Protein 6.8 (6.5-8.0) g/dL Albumin 4.2 (3.5-5.0) g/dL Lipase 30 (8-78) U/L Urine Color Urine Appearance Urine pH (5.0-8.0) Ur Specific [place] (1.005-1.025) Urine Protein (NEG-TRACE) MG/DL Urine Glucose (UA) (NEG) MG/DL Urine Ketones (NEG) MG/DL Urine Blood (NEG) Urine Nitrite (NEG) Ur Leukocyte Esterase (NEG) Urine RBC (0) /HPF Urine WBC (0-4) /HPF Ur Squamous Epith Cells /LPF Ur Renal Epithelial Cell /LPF Urine Bacteria /LPF COVID-19 (THAIS) Negative (Negative) COVID-19 Clin Com See Note 04/04/21 04/04/21 Range/Units 14:49 15:13 WBC (4.8-10.8) X10*3/uL RBC (4.20-5.50) X10*6/uL Hgb (12.0-16.0) g/dl Hct (37-47) % MCV (80-98) fL MCH (27.0-33.0) pg MCHC (31.0-35.0) g/dl RDW (11.0-16.0) % Plt Count (160-400) X10*3/uL MPV (9.4-12.3) fL Immature Gran % (Auto) (0.0-0.4) % Neut % (Auto) (45-73) % Lymph % (Auto) (20-40) % [place] % (Auto) (2-11) % Eos % (Auto) (0-4) % Baso % (Auto) (0-2) % Lymph # (Auto) (1.2-4.9) X10*3/uL [place] # (Auto) (0.1-1.2) X10*3/uL Eos # (Auto) (0.0-0.4) X10*3/uL Baso # (Auto) (0.0-0.2) X10*3/uL Abs Immat Gran (auto) (0.00-0.03) X10*3/uL Absolute Neuts (auto) (2.0-8.3) X10*3/uL Absolute Nucleated RBC (0.0-0.012) X10*3/uL Nucleated RBC % (auto) (0.0-0.2) /100WBC Hold Blue Top Sodium (135-145) mmol/L Potassium (3.3-5.1) mmol/L Chloride (96-108) mmol/L Carbon Dioxide (22-29) mmol/L Anion Gap (12-20) BUN (9-16) mg/dL Creatinine (0.5-1.4) mg/dL Estim Creat Clear Calc Estimated GFR Random Glucose (60-115) mg/dL Lactic Acid 1.0 (0.5-2.0) mmol/L Calcium (8.4-10.2) mg/dL Magnesium (1.6-2.6) mg/dL Total Bilirubin (0.0-1.0) mg/dL Direct Bilirubin (0.0-0.5) mg/dL AST (5-31) U/L ALT (0-31) U/L Alkaline Phosphatase (39-117) U/L Total Protein (6.5-8.0) g/dL Albumin (3.5-5.0) g/dL Lipase (8-78) U/L Urine Color STRAW Urine Appearance CLEAR Urine pH 6.0 (5.0-8.0) Ur Specific [place] <= 1.005 (1.005-1.025) Urine Protein NEG (NEG-TRACE) MG/DL Urine Glucose (UA) NEG (NEG) MG/DL Urine Ketones NEG (NEG) MG/DL Urine Blood TRACE (NEG) Urine Nitrite NEG (NEG) Ur Leukocyte Esterase NEG (NEG) Urine RBC 0-2 (0) /HPF Urine WBC 0 (0-4) /HPF Ur Squamous Epith Cells 1+ /LPF Ur Renal Epithelial Cell /LPF Urine Bacteria 1+ /LPF COVID-19 (THAIS) (Negative) COVID-19 Clin Com Discharge Plan Discharge Clinical Impression: DEAN (acute kidney injury), Ureterolithiasis Leukocytosis Qualifiers: Leukocytosis type: unspecified Qualified Code(s): D72.829 - Elevated white blood cell count, unspecified Vomiting Qualifiers: Vomiting type: unspecified Vomiting Intractability: non-intractable Nausea presence: with nausea Qualified Code(s): R11.2 - Nausea with vomiting, unspecified Patient Disposition: Admitted As Inpatient [facility] Past Medical History Attestation statement: The following information was validated with the patient. Medical History Anxiety Endometrioid adenocarcinoma Goiter High cholesterol History of breast cancer Insomnia Overweight (BMI 25.0-29.9) Peripheral polyneuropathy Primary osteoarthritis of right hip Pure hypercholesterolemia Smoker Vitamin D deficiency Surgical History H/O: hysterectomy History of open reduction and internal fixation (ORIF) procedure History of reduction surgery of right breast Family History Family History Father Cancer Mother CVD (cardiovascular disease) Social History Social History Alcohol intake: current Alcohol intake frequency: holidays/special occasions only Patient Tobacco Use Status: Never used Tobacco Use of substances other than those prescribed or required for medical reasons: No Advance Directives: Yes Advance Directives Information Provided: No Advance Directives on File: No Patient : No Gender identity: female
[2021-04-04 13:36] LABS: Anion Gap 13 (12-20); Blood Urea Nitrogen 18 mg/dL (9-16); Calcium 9.8 mg/dL (8.4-10.2); Carbon Dioxide 27 mmol/L (22-29); Chloride 100 mmol/L (96-108); Creatinine Clr Calc Pharmacy 40.3; Estimated Glomerular Filt Rate 33; Glucose Random 99 mg/dL (60-115); Potassium 4.4 mmol/L (3.3-5.1); Sodium 136 mmol/L (135-145)
[2021-04-04 14:00] VITALS: BP 108/60; PULSE 78; RESP 16
[2021-04-04] MEDS: ondansetron HCL 4 MG/2 ML VIAL IVPUSH ×2 (14:00→15:38)
[2021-04-04] MEDS: Morphine Sulfate 4 MG/ML CARTRIDGE IVPUSH (14:00)
[2021-04-04] MEDS: 0.9 % Sodium Chloride 1,000 ML 999 ML IVCONT ×2 (14:05→15:43)
--- NOTE | 2021-04-04 14:30 | HE.PHANOTE ---
Pharmacy Consult ? Medication Reconciliation Pharmacy has completed the medication reconciliation and the following issue requires provider intervention: patient reports the she ran out of Atorvastatin 80mg. She has not taken it for over 3 weeks. Arabella Yates, TevinD
[2021-04-04 14:33] LABS: COVID-19 Test Negative (Negative)
[2021-04-04 15:22] LABS: Alanine Aminotransferase 16 U/L (0-31); Albumin Level 4.2 g/dL (3.5-5.0); Alkaline Phosphatase 82 U/L (39-117); Aspartate Amino Transferase 17 U/L (5-31); Bilirubin Direct 0.2 mg/dL (0.0-0.5); Bilirubin Total 0.5 mg/dL (0.0-1.0); Lipase 30 U/L (8-78); Total Protein 6.8 g/dL (6.5-8.0)
[2021-04-04] MEDS: Tamsulosin HCL 0.4 MG CAPSULE PO (15:25)
[2021-04-04] MEDS: methylPREDNISolone Sod Succ 125 MG/2 ML VIAL 60 MG IVPUSH (15:27)
[2021-04-04 15:30] LABS: Glucose Urine UA NEG (NEG); Leukocyte Esterase Urine NEG (NEG); Nitrite Urine NEG (NEG); Specific Gravity - Urine <= 1.005 (1.005-1.025); Urine Blood TRACE (NEG); Urine Ketones NEG (NEG); Urine Protein NEG (NEG-TRACE)
[2021-04-04 15:31] LABS: Appearance Urine CLEAR; Color Urine STRAW
[2021-04-04] MEDS: HYDROmorphone HCl 0.5 MG/0.5 ML SYRINGE IVPUSH (15:38)
[2021-04-04 15:40] LABS: Bacteria Urine 1+ /LPF; RBC Urine 0-2 /HPF (0); Squamous Epithelial Cell Urine 1+ /LPF; WBC Urine 0 /HPF (0-4)
[2021-04-04] MEDS: cefTRIAXone sodium 1 GM in 0.9 % Sodium Chloride 50 ML IV (15:43)
[2021-04-04 15:45] VITALS: BP 114/64; PULSE 81; RESP 14
--- NOTE | 2021-04-04 17:01 | PM.IMHP ---
History of Present Illness Date of Service: 04/04/21 <GEORGE Paul - Last Filed: 04/04/21 17:11> Chief Complaint: Right flank pain <GEORGE Paul Last Filed: 04/04/21 17:11> This is a 61-year-old female who presents to the emergency department with right flank pain. The pain started on Friday and is associated with nausea and decreased appetite. She denies any associated fever, chills, dysuria, hematuria. On February [address] Matias. Three weeks ago she underwent total abdominal hysterectomy followed by treatment for urinary tract infection. She has some residual abdominal pain from her surgery. She had been doing well until Friday. Today her lab work was significant for leukocytosis of 13.5 and a creatinine of 1.6 with a baseline of 0.9. She had a CT scan of the abdomen and pelvis which showed to obstructed right distal ureteral stones with mild to moderate right hydroureteronephrosis. The case was discussed with Urology who recommended admission to the medical service with Urology intervention in the morning. She was treated with Antiemetics, pain medication, empiric antibiotics as well as Flomax in the decision was made to admit her to the medical service. <GEORGE Paul - Last Filed: 04/04/21 17:11> Review of Systems Review of Systems: Yes all other systems are reviewed and are negative <GEORGE Paul - Last Filed: 04/04/21 17:11> Constitutional: Constitutional: Denies chills and Denies fever(s) <GEORGE Paul Last Filed: 04/04/21 17:11> Cardiovascular: Cardiovascular: Denies chest pain <GEORGE Paul Last Filed: 04/04/21 17:11> Respiratory: Respiratory: Denies cough <GEORGE Paul Last Filed: 04/04/21 17:11> Gastrointestinal: Gastrointestinal: Denies diarrhea, Reports nausea and Denies vomiting <GEORGE Paul Last Filed: 04/04/21 17:11> Genitourinary: Genitourinary: Denies hematuria, Denies dysuria, Denies urinary incontinence and Denies urinary urgency <GEORGE Paul - Last Filed: 04/04/21 17:11> [facility] Medical History: Medical History Anxiety Endometrioid adenocarcinoma Goiter High cholesterol History of breast cancer Insomnia Overweight (BMI 25.0-29.9) Peripheral polyneuropathy Primary osteoarthritis of right hip Pure hypercholesterolemia Smoker Vitamin D deficiency <GEORGE Paul - Last Filed: 04/04/21 17:11> Functional capacity: independent ambulation <GEORGE Paul - Last Filed: 04/04/21 17:11> Family History: Family History Father Cancer Mother CVD (cardiovascular disease) <GEORGE Paul - Last Filed: 04/04/21 17:11> Family history: reviewed and not pertinent <GEORGE Paul - Last Filed: 04/04/21 17:11> Surgical History: Surgical History H/O: hysterectomy History of open reduction and internal fixation (ORIF) procedure History of reduction surgery of right breast <GEORGE Paul - Last Filed: 04/04/21 17:11> Social History: Social History (Updated 04/04/21 @ 17:05 by GEORGE Paul) Alcohol intake: current Alcohol intake frequency: holidays/special occasions only Patient Tobacco Use Status: Current someday Tobacco user Tobacco use type: Cigarette Use of substances other than those prescribed or required for medical reasons: No Advance Directives: Yes Advance Directives Information Provided: No Advance Directives on File: No Patient : No Gender identity: female <GEORGE Paul - Last Filed: 04/04/21 17:11> Meds Allergies/Adverse reactions: Allergies Allergy/AdvReac Type Severity Reaction Status Date / Time No Known Allergies Allergy Verified 04/04/21 12:18 [No Known Allergies*] <GEORGE Paul - Last Filed: 04/04/21 17:11> Active Medications: Current Medications Generic Name Dose Route Start Last Admin Trade Name Freq PRN Reason Stop Dose Admin Morphine Sulfate 2 mg 04/04/21 16:53 Morphine Sulfate 2 Mg/Ml Cartridge IVPUSH Q4H PRN Pain, Severe (Pain Scale 7-10) Oxycodone HCl 5 mg 04/04/21 16:53 Oxycodone Hcl Immed Release 5 Mg Tablet PO Q6H PRN Pain, Moderate (Pain Scale 4-6 Pharmacy Consult 1 each 04/04/21 13:40 Consult Rx Perform Med Rec MISCELLANE ONCE PRN Consult order <GEORGE Paul - Last Filed: 04/04/21 17:11> Home medications: Home Medications Medication Instructions Recorded Confirmed Last Taken Type atorvastatin 80 mg tablet 80 mg PO DAILY 12/13/20 04/04/21 03/12/21 History citalopram 10 mg tablet 10 mg PO DAILY 12/13/20 04/04/21 04/04/21 History cyanocobalamin (vitamin B-12) 1,000 mcg PO DAILY 12/13/20 04/04/21 04/04/21 History 1,000 mcg capsule magnesium oxide 400 mg (241.3 mg 400 mg PO DAILY 12/13/20 04/04/21 04/04/21 History magnesium) tablet trazodone 50 mg tablet 50 mg PO BEDTIME 12/13/20 04/04/21 04/04/21 History acetaminophen 650 mg PO Q5H PRN 04/04/21 04/04/21 04/04/21 History calcium carbonate 600 mg PO BEDTIME 04/04/21 04/04/21 04/04/21 History cholecalciferol (vitamin D3) 25 mcg PO DAILY 04/04/21 04/04/21 04/04/21 History [Vitamin D3] ibuprofen 600 mg PO Q6H PRN 04/04/21 04/04/21 04/04/21 History sennosides-docusate sodium [Senna 1 tab PO DAILY 04/04/21 04/04/21 04/04/21 History Plus] simethicone 80 mg PO QIDACHS PRN 04/04/21 04/04/21 04/04/21 History varenicline [Chantix] 1 mg PO BID 04/04/21 04/04/21 04/04/21 History <GEORGE Paul - Last Filed: 04/04/21 17:11> Physical Exam Vital Signs and Narrative: Vital Signs: Last Vital Signs Temp 98.8 F 04/04/21 12:13 Pulse 81 04/04/21 15:45 Resp 14 04/04/21 15:45 BP 114/64 04/04/21 15:45 Pulse Ox 96 04/04/21 12:13 Body Mass Index 28.1 <GEORGE Paul - Last Filed: 04/04/21 17:11> Const: General: alert and awake <GEORGE Paul - Last Filed: 04/04/21 17:11> Nutritional Appearance: well nourished <GEORGE Paul - Last Filed: 04/04/21 17:11> Orientation/consciousness: patient oriented x3 <GEORGE Paul - Last Filed: 04/04/21 17:11> HENMT: Head: Yes normocephalic and Yes atraumatic <GEORGE Paul - Last Filed: 04/04/21 17:11> Eyes: Sclerae: sclerae normal <GEORGE Paul - Last Filed: 04/04/21 17:11> Chest: Chest palpation & inspection: normal inspection of the chest <GEORGE Paul - Last Filed: 04/04/21 17:11> Resp: Effort & Inspection: normal respiratory effort and no respiratory distress <GEORGE Paul - Last Filed: 04/04/21 17:11> Auscultation: clear to auscultation bilaterally <GEORGE Paul - Last Filed: 04/04/21 17:11> Cardio: Rate: regular rate <GEORGE Paul - Last Filed: 04/04/21 17:11> Rhythm: regular rhythm <GEORGE Paul - Last Filed: 04/04/21 17:11> GI: Other: Steri-Strips present from previous laparoscopic procedure. Abdomen is soft, nondistended, nontender <GEORGE Paul - Last Filed: 04/04/21 17:11> Palpation (GI): Soft to palpation and nontender <GEORGE Paul - Last Filed: 04/04/21 17:11> : General: Yes CVA tenderness on the right <GEORGE Paul - Last Filed: 04/04/21 17:11> Back/Spine/Pelvis: Back: CVA tenderness <GEORGE Paul - Last Filed: 04/04/21 17:11> Neuro: General: patient oriented x3 <GEORGE Paul - Last Filed: 04/04/21 17:11> Cranial nerves: Yes CN's II-XII intact bilaterally and Yes Bilaterally intact EOM present <GEORGE Paul - Last Filed: 04/04/21 17:11> Results Labs CBC and Chem 7: : 04/04/21 12:45 04/04/21 12:45 <GEORGE Paul - Last Filed: 04/04/21 17:11> Labs: Laboratory Results - last 24 hr 04/04/21 04/04/21 04/04/21 12:41 12:45 12:45 MCV 86.9 MCH 27.9 MCHC 32.1 RDW 13.1 Plt Count 363 MPV 9.1 L Immature Gran % (Auto) 0.4 Neut % (Auto) 82.4 H Lymph % (Auto) 11.1 L [place] % (Auto) 4.8 Eos % (Auto) 0.9 Baso % (Auto) 0.4 Lymph # (Auto) 1.5 [place] # (Auto) 0.7 Eos # (Auto) 0.1 Baso # (Auto) 0.1 Abs Immat Gran (auto) 0.06 H Absolute Neuts (auto) 11.2 H Absolute Nucleated RBC 0.000 Nucleated RBC % (auto) 0.0 Hold Blue Top Anion Gap 13 Estim Creat Clear Calc 40.3 Estimated GFR 33 Random Glucose 99 Lactic Acid Calcium 9.8 D Magnesium Total Bilirubin Direct Bilirubin AST ALT Alkaline Phosphatase Total Protein Albumin Lipase Urine Color YELLOW Urine Appearance CLEAR Urine pH 6.0 Ur Specific [place] 1.010 Urine Protein NEG Urine Glucose (UA) NEG Urine Ketones NEG Urine Blood 1+ H Urine Nitrite NEG Ur Leukocyte Esterase NEG Urine RBC 5-9 H Urine WBC 1-4 Ur Squamous Epith Cells 1+ Ur Renal Epithelial Cell 1+ Urine Bacteria 1+ COVID-19 (THAIS) COVID-19 Clin Com 04/04/21 04/04/21 04/04/21 14:10 14:49 14:49 MCV MCH MCHC RDW Plt Count MPV Immature Gran % (Auto) Neut % (Auto) Lymph % (Auto) [place] % (Auto) Eos % (Auto) Baso % (Auto) Lymph # (Auto) [place] # (Auto) Eos # (Auto) Baso # (Auto) Abs Immat Gran (auto) Absolute Neuts (auto) Absolute Nucleated RBC Nucleated RBC % (auto) Hold Blue Top SEE NOTE Anion Gap Estim Creat Clear Calc Estimated GFR Random Glucose Lactic Acid Calcium Magnesium 2.0 Total Bilirubin 0.5 Direct Bilirubin 0.2 AST 17 ALT 16 Alkaline Phosphatase 82 Total Protein 6.8 Albumin 4.2 Lipase 30 Urine Color Urine Appearance Urine pH Ur Specific [place] Urine Protein Urine Glucose (UA) Urine Ketones Urine Blood Urine Nitrite Ur Leukocyte Esterase Urine RBC Urine WBC Ur Squamous Epith Cells Ur Renal Epithelial Cell Urine Bacteria COVID-19 (THAIS) Negative COVID-19 [employer] Com See Note 04/04/21 04/04/21 14:49 15:13 MCV MCH MCHC RDW Plt Count MPV Immature Gran % (Auto) Neut % (Auto) Lymph % (Auto) [place] % (Auto) Eos % (Auto) Baso % (Auto) Lymph # (Auto) [place] # (Auto) Eos # (Auto) Baso # (Auto) Abs Immat Gran (auto) Absolute Neuts (auto) Absolute Nucleated RBC Nucleated RBC % (auto) Hold Blue Top Anion Gap Estim Creat Clear Calc Estimated GFR Random Glucose Lactic Acid 1.0 Calcium Magnesium Total Bilirubin Direct Bilirubin AST ALT Alkaline Phosphatase Total Protein Albumin Lipase Urine Color STRAW Urine Appearance CLEAR Urine pH 6.0 Ur Specific [place] <= 1.005 Urine Protein NEG Urine Glucose (UA) NEG Urine Ketones NEG Urine Blood TRACE Urine Nitrite NEG Ur Leukocyte Esterase NEG Urine RBC 0-2 Urine WBC 0 Ur Squamous Epith Cells 1+ Ur Renal Epithelial Cell Urine Bacteria 1+ COVID-19 (THAIS) COVID-19 [employer] Com <GEORGE Paul - Last Filed: 04/04/21 17:11> Imaging Radiologist's Impressions: Impressions Abdomen/Pelvis CT 04/04/21 13:41 IMPRESSION: 2 obstructed right distal ureteral stone with mild to moderate right hydroureteronephrosis. There is mild right periureteral fat stranding in the mid segment. Colonic diverticulosis without diverticulitis. <GEORGE Paul - Last Filed: 04/04/21 17:11> Assessment and Plan (1) DEAN (acute kidney injury): Status: Acute <GEORGE Paul - Last Filed: 04/04/21 17:11> (2) Hydronephrosis with obstructing calculus: Status: Acute <GEORGE Paul - Last Filed: 04/04/21 17:11> This is a 61-year-old female with history of endometrial adenocarcinoma status post laparoscopic hysterectomy who presents the emergency department with right flank pain and nausea found to have DEAN and to obstructing renal stones Right Hydroureteronephrosis due to obstructing stones -flomax -pain management, antiemetics -empiric abx -urology consult -NPO at midnight Hyperlipidemia -continue statin Tobacco dependence Has recently quit smoking -continue Chantix DVT prophylaxis-mechanical devices Code status-full code Attending-Dr. Lawler <GEORGE Paul - Last Filed: 04/04/21 17:11> Addendum to documentation by midlevel I saw and examined the patient and participated in the mcpherson portion of the E/M service. I agree with the history and exam as documented by GEORGE. Has hydronephrosis, possible UTI, will admit for work up and IV Abx otherwise I agree with above <Jose Lawler MD - Last Filed: 04/04/21 17:46>
[2021-04-04] MEDS: Morphine Sulfate 2 MG/ML CARTRIDGE IVPUSH ×2 (18:23→22:37)
[2021-04-04] MEDS: Lactated Ringers 1,000 ML 80 ML IVCONT (18:43)
[2021-04-04 19:36] VITALS: BP 113/62; PULSE 77; RESP 20; TEMP 36.2; O2SAT 94
[2021-04-04] MEDS: traZODone HCL 50 MG TABLET PO (21:46)
[2021-04-04 22:38] VITALS: BP 109/64; PULSE 75; RESP 20
[2021-04-04 22:59] VITALS: BP 112/62; PULSE 85; RESP 20
[2021-04-05] VITALS (19 sets, daily range): BP systolic 92–116; BP diastolic 50–69; PULSE 65–83; RESP 15–20; TEMP 36.1–37; O2SAT 93–100
[2021-04-05] MEDS: ondansetron HCL 4 MG/2 ML VIAL IVPUSH (00:41)
[2021-04-05] MEDS: Lactated Ringers 1,000 ML 80 ML IVCONT ×2 (06:11→20:56)
[2021-04-05 07:15] LABS: MANUAL DIFF FLAG NO
[2021-04-05 07:20] LABS: Basophils Percent Auto 0.2 % (0-2); Hematocrit 34.5 % (37-47); Hemoglobin 11.2 g/dl (12.0-16.0); Imm Gran Abs Auto 0.07 X10*3/uL (0.00-0.03); Imm Gran Pct Auto 0.6 % (0.0-0.4); Lymphocytes Percent Auto 8.6 % (20-40); Mean Corpuscular HGB Conc 32.5 g/dl (31.0-35.0); Mean Corpuscular Hemoglobin 28.4 pg (27.0-33.0); Mean Corpuscular Volume 87.6 fL (80-98); Mean Platelet Volume 9.3 fL (9.4-12.3); Monocytes Absolute Auto 0.3 X10*3/uL (0.1-1.2); Monocytes Percent Auto 2.9 % (2-11); Neutrophils Absolute Auto 10.3 X10*3/uL (2.0-8.3); Neutrophils Percent Auto 87.7 % (45-73); Platelet Count 326 X10*3/uL (160-400); Red Blood Count 3.94 X10*6/uL (4.20-5.50); Red Cell Distribution Width 12.8 % (11.0-16.0); White Blood Count 11.8 X10*3/uL (4.8-10.8)
[2021-04-05 08:02] LABS: Anion Gap 13 (12-20); Blood Urea Nitrogen 19 mg/dL (9-16); Carbon Dioxide 26 mmol/L (22-29); Chloride 105 mmol/L (96-108); Creatinine Clr Calc Pharmacy 47.3; Estimated Glomerular Filt Rate 39; Glucose Random 108 mg/dL (60-115); Potassium 4.6 mmol/L (3.3-5.1); Sodium 139 mmol/L (135-145)
[2021-04-05 08:13] LABS: Calcium 9.1 mg/dL (8.4-10.2)
--- NOTE | 2021-04-05 08:28 | P.CNUR_ITS ---
History of Present Illness Consult details Consult date: 04/05/21 Narrative: Ellyn is a pleasant 61-year-old female. Known nephrolithiasis Underwent right ESWL in February 2021 Ultrasound in shown small fragments It appears the fragments have descended down into her right ureteric orifice. CT scan shows distal ureteric stone with mild hydroureteronephrosis [facility] with elevated creatinine, elevated white count Was admitted for 24 hours of hydration Given stone location and degree of hydronephrosis recommend intervention with ureteroscopy laser lithotripsy and stone removal Had recently undergone hysterectomy for uterine cancer [facility] Past Medical History Medical History Anxiety Endometrioid adenocarcinoma Goiter High cholesterol History of breast cancer Insomnia Overweight (BMI 25.0-29.9) Peripheral polyneuropathy Primary osteoarthritis of right hip Pure hypercholesterolemia Smoker Vitamin D deficiency Functional capacity: independent ambulation Family History Family History Father Cancer Mother CVD (cardiovascular disease) Family history: reviewed and not pertinent Surgical History Surgical History H/O: hysterectomy History of open reduction and internal fixation (ORIF) procedure History of reduction surgery of right breast Social History Social History (Updated 04/04/21 @ 17:05 by GEORGE Paul) Household Members: Family Alcohol intake: current Alcohol intake frequency: holidays/special occasions only Patient Tobacco Use Status: Current someday Tobacco user Tobacco use type: Cigarette Smoked in Last 30 Days: Yes Patient Given Instructions on How to Stop Smoking: Yes Date Education Initiated: 04/04/21 Second Hand Smoke Exposure: Yes Use of substances other than those prescribed or required for medical reasons: No Currently Displaying Signs/Symptoms of Drug Intoxication Withdrawal: No Have you been hit, kicked, punched, or otherwise hurt by someone within the past year? If so, by whom?: No Do you feel safe in your current relationship?: Yes Is there a partner from a previous relationship who is making you feel unsafe now?: No Are you made to feel afraid or neglected: No Advance Directives: Yes Advance Directives Information Provided: No Advance Directives on File: No Do you have thoughts of harming others: None Do you have a plan to hurt others: No Plan Nutrition Risks: No Nutritional Risk Patient : No : No Gender identity: female Meds Allergies Allergy/AdvReac Type Severity Reaction Status Date / Time No Known Allergies Allergy Verified 04/04/21 12:18 [No Known Allergies*] Active Medications: Current Medications Generic Name Dose Route Start Last Admin Trade Name Freq PRN Reason Stop Dose Admin Acetaminophen 650 mg 04/04/21 17:57 Acetaminophen 325 Mg Tablet PO Q6H PRN Pain, Mild (Pain Scale 1-3) Atorvastatin Calcium 80 mg 04/05/21 09:00 Atorvastatin Calcium 80 Mg Tablet PO DAILY [facility] Calcium Carbonate 500 mg 04/04/21 21:00 04/04/21 21:46 Calcium Carbonate 500 Mg Tablet PO 500 mg BEDTIME [facility] Administration Cyanocobalamin 1,000 mcg 04/05/21 09:00 Cyanocobalamin (Vitamin B-12) 1,000 Mcg Tablet PO DAILY [facility] Escitalopram Oxalate 5 mg 04/05/21 09:00 Escitalopram Oxalate 5 Mg Tablet PO DAILY [facility] Ceftriaxone Sodium 1 gm/ 50 mls @ 100 mls/hr 04/05/21 16:00 Sodium Chloride IV Q24H [facility] Lactated Ringer's 1,000 mls @ 80 mls/hr 04/04/21 17:57 04/05/21 06:11 Lr IVCONT 80 mls/hr .[id number] [facility] Administration Levofloxacin 500 mg 04/05/21 09:00 Levofloxacin 500 Mg Tablet PO 04/05/21 09:01 ONCE ONE Magnesium Oxide 400 mg 04/05/21 09:00 Magnesium Oxide 400 Mg Tablet PO DAILY [facility] Morphine Sulfate 2 mg 04/04/21 16:53 04/04/21 22:37 Morphine Sulfate 2 Mg/Ml Cartridge IVPUSH 2 mg Q4H PRN Administration Pain, Severe (Pain Scale 7-10) Non-Formulary Medication 1 mg 04/04/21 21:00 Varenicline [Chantix] PO BID [facility] Ondansetron HCl 4 mg 04/04/21 17:57 04/05/21 00:41 Ondansetron Hcl 4 Mg/2 Ml Vial IVPUSH 4 mg Q8H PRN Administration Nausea and Vomiting Oxycodone HCl 5 mg 04/04/21 16:53 Oxycodone Hcl Immed Release 5 Mg Tablet PO Q6H PRN Pain, Moderate (Pain Scale 4-6 Pharmacy Consult 1 each 04/04/21 13:40 Consult Rx Perform Med Rec MISCELLANE ONCE PRN Consult order Senna/Docusate Sodium 1 tab 04/05/21 09:00 Sennosides/Docusate Sodium Tablet PO DAILY [facility] Simethicone 80 mg 04/04/21 17:57 Simethicone 80 Mg Tab.Chew PO QIDACHS PRN Gastric Reflux Sodium Chloride 3 ml 04/05/21 00:00 04/05/21 07:58 0.9 % Sodium Chloride Flush 3 Ml Syringe IVFLUSH Not Given QSHIFT [facility] Tamsulosin HCl 0.4 mg 04/05/21 09:00 Tamsulosin Hcl 0.4 Mg Capsule PO DAILY [facility] Trazodone HCl 50 mg 04/04/21 21:00 04/04/21 21:46 Trazodone Hcl 50 Mg Tablet PO 50 mg BEDTIME [facility] Administration Vitamin D 25 mcg 04/05/21 09:00 Cholecalciferol (Vitamin D3) 25 Mcg Tablet PO DAILY [facility] Home Medications Medication Instructions Recorded Confirmed Last Taken Type atorvastatin 80 mg tablet 80 mg PO DAILY 12/13/20 04/04/21 03/12/21 History citalopram 10 mg tablet 10 mg PO DAILY 12/13/20 04/04/21 04/04/21 History cyanocobalamin (vitamin B-12) 1,000 mcg PO DAILY 12/13/20 04/04/21 04/04/21 History 1,000 mcg capsule magnesium oxide 400 mg (241.3 mg 400 mg PO DAILY 12/13/20 04/04/21 04/04/21 History magnesium) tablet trazodone 50 mg tablet 50 mg PO BEDTIME 12/13/20 04/04/21 04/04/21 History acetaminophen 650 mg PO Q5H PRN 04/04/21 04/04/21 04/04/21 History calcium carbonate 600 mg PO BEDTIME 04/04/21 04/04/21 04/04/21 History cholecalciferol (vitamin D3) 25 mcg PO DAILY 04/04/21 04/04/21 04/04/21 History [Vitamin D3] ibuprofen 600 mg PO Q6H PRN 04/04/21 04/04/21 04/04/21 History sennosides-docusate sodium [Senna 1 tab PO DAILY 04/04/21 04/04/21 04/04/21 History Plus] simethicone 80 mg PO QIDACHS PRN 04/04/21 04/04/21 04/04/21 History varenicline [Chantix] 1 mg PO BID 04/04/21 04/04/21 04/04/21 History Physical Exam Vital Signs: Vital Signs: Last Vital Signs Temp 97.5 F 04/05/21 07:24 Pulse 71 04/05/21 07:24 Resp 18 04/05/21 07:24 BP 105/55 L 04/05/21 07:24 Pulse Ox 94 04/05/21 07:24 Body Mass Index 28.1 Const: General: cooperative, healthy appearing, comfortable and no acute distress Nutritional Appearance: average body habitus Orientation/consciousness: oriented to person, oriented to place and oriented to time Eyes: General: appearance normal, both eyes and all related structures Chest: Chest palpation & inspection: normal inspection of the chest Resp: Effort & Inspection: normal respiratory effort Cardio: Rate: regular rate GI: Inspection: Yes normal to inspection Skin: Hair: normal Neuro: General: oriented to person, oriented to place and oriented to time Extrem: General: Yes normal to inspection Results Labs Result diagrams: 04/05/21 06:38 04/05/21 06:38 Labs: Abnormal lab results 04/04/21 04/04/21 04/04/21 Range/Units 12:41 12:45 12:45 WBC 13.5 H (4.8-10.8) X10*3/uL RBC (4.20-5.50) X10*6/uL Hgb (12.0-16.0) g/dl Hct (37-47) % MPV 9.1 L (9.4-12.3) fL Immature Gran % (Auto) (0.0-0.4) % Neut % (Auto) 82.4 H (45-73) % Lymph % (Auto) 11.1 L (20-40) % Lymph # (Auto) (1.2-4.9) X10*3/uL Abs Immat Gran (auto) 0.06 H (0.00-0.03) X10*3/uL Absolute Neuts (auto) 11.2 H (2.0-8.3) X10*3/uL BUN 18 H (9-16) mg/dL Creatinine 1.61 H (0.5-1.4) mg/dL Urine Blood 1+ H (NEG) Urine RBC 5-9 H (0) /HPF 04/05/21 04/05/21 Range/Units 06:38 06:38 WBC 11.8 H (4.8-10.8) X10*3/uL RBC 3.94 L (4.20-5.50) X10*6/uL Hgb 11.2 L (12.0-16.0) g/dl Hct 34.5 L (37-47) % MPV 9.3 L (9.4-12.3) fL Immature Gran % (Auto) 0.6 H (0.0-0.4) % Neut % (Auto) 87.7 H (45-73) % Lymph % (Auto) 8.6 L (20-40) % Lymph # (Auto) 1.0 L (1.2-4.9) X10*3/uL Abs Immat Gran (auto) 0.07 H (0.00-0.03) X10*3/uL Absolute Neuts (auto) 10.3 H (2.0-8.3) X10*3/uL BUN 19 H (9-16) mg/dL Creatinine (0.5-1.4) mg/dL Urine Blood (NEG) Urine RBC (0) /HPF Short CBC 04/04/21 04/05/21 Range/Units 12:45 06:38 WBC 13.5 H 11.8 H (4.8-10.8) X10*3/uL Hgb 12.6 11.2 L (12.0-16.0) g/dl Hct 39.3 34.5 L (37-47) % Plt Count 363 326 (160-400) X10*3/uL BMP 04/04/21 04/05/21 12:45 06:38 Sodium 136 139 Potassium 4.4 4.6 Chloride 100 105 Carbon Dioxide 27 26 BUN 18 H 19 H Creatinine 1.61 H 1.37 Calcium 9.8 D 9.1 D Liver Function 04/04/21 Range/Units 14:49 Total Bilirubin 0.5 (0.0-1.0) mg/dL Direct Bilirubin 0.2 (0.0-0.5) mg/dL AST 17 (5-31) U/L ALT 16 (0-31) U/L Alkaline Phosphatase 82 (39-117) U/L Albumin 4.2 (3.5-5.0) g/dL Urine 04/04/21 04/04/21 Range/Units 12:41 15:13 Urine Color YELLOW STRAW Urine Appearance CLEAR CLEAR Urine pH 6.0 6.0 (5.0-8.0) Ur Specific [place] 1.010 <= 1.005 (1.005-1.025) Urine Protein NEG NEG (NEG-TRACE) MG/DL Urine Glucose (UA) NEG NEG (NEG) MG/DL All other labs normal. Assessment and Plan (1) Hydronephrosis with obstructing calculus: Status: Acute (2) DEAN (acute kidney injury): Status: Acute (3) Nephrolithiasis: Status: Acute Ureteroscopy We discussed the nature of the decision and reasonable alternatives for performing the above surgery. Interventions include chemical dissolution, ESWL, ureteroscopy with laser lithotripsy and stent placement, PCNL. Options such as medical therapy were discussed. The relative uncertainties and benefits related to each alternate procedure were adequately discussed. General surgical risks including, but not limited to, pain, bleeding, infection, myocardial infarction, pulmonary embolus, deep vein thrombosis and cerebrovascular accident which may result in further hospitalization were discussed. Full disclosure of the procedure as well as all major risks, benefits and complications were discussed including but not limited to damage to the urethra, bladder and kidney infection, damage to the ureter, stent migration or malposition, scarring to the renal pelvis, remnant stone fragments, subsequent stone passage with need for secondary procedures. The overall secondary procedur e rate is approximately 10-15%. The success rate of the procedure was discussed. Success of the procedure in the short-term does not necessarily guarantee that long-term success will be maintained. Suitable follow up will need to be maintained. The patient showed understanding of discussion and wishes to proceed with - cystoscopy, retrograde, ureteroscopy, possible lithotripsy/stone basketing and stent on the right side Procedures Date of Service Date of Service: 04/05/21
[2021-04-05] MEDS: levoFLOXacin 500 MG TABLET PO (10:34)
[2021-04-05] MEDS: Morphine Sulfate 2 MG/ML CARTRIDGE IVPUSH (10:35)
--- NOTE | 2021-04-05 11:03 | P.PNIM_ITS ---
Subjective Subjective Date of Service: 04/05/21 <GEORGE Paul - Last Filed: 04/05/21 11:11> 04/05/21 <Jose Lawler MD - Last Filed: 04/05/21 18:12> Interval History: seen and examined this morning Still having right flank pain Denies nausea, vomiting <GEORGE Paul - Last Filed: 04/05/21 11:11> Review of Systems Review of Systems: Yes all other systems are reviewed and are negative <GEORGE Paul - Last Filed: 04/05/21 11:11> Constitutional Constitutional: Denies chills and Denies fever(s) <GEORGE Paul - Last Filed: 04/05/21 11:11> Cardiovascular Cardiovascular: Denies chest pain <GEORGE Paul - Last Filed: 04/05/21 11:11> Respiratory Respiratory: Denies cough <GEORGE Paul - Last Filed: 04/05/21 11:11> Gastrointestinal Gastrointestinal: Denies diarrhea, Denies nausea and Denies vomiting <GEORGE Paul - Last Filed: 04/05/21 11:11> Physical Exam Vital Signs: Vital Signs: Last Vital Signs Temp 97.5 F 04/05/21 07:24 Pulse 71 04/05/21 07:24 Resp 18 04/05/21 07:24 BP 105/55 L 04/05/21 07:24 Pulse Ox 94 04/05/21 07:24 Body Mass Index 28.1 <GEORGE Paul - Last Filed: 04/05/21 11:11> Const: General: alert and awake <GEORGE Paul - Last Filed: 04/05/21 11:11> Nutritional Appearance: well nourished <GEORGE Paul - Last Filed: 04/05/21 11:11> Orientation/consciousness: patient oriented x3 <GEORGE Paul - Last Filed: 04/05/21 11:11> HENMT: Head: Yes normocephalic and Yes atraumatic <GEORGE Paul - Last Filed: 04/05/21 11:11> Eyes: Sclerae: sclerae normal <GEORGE Paul Last Filed: 04/05/21 11:11> Chest: Chest palpation & inspection: normal inspection of the chest <GEORGE Paul Last Filed: 04/05/21 11:11> Resp: Effort & Inspection: normal respiratory effort and no respiratory distress <GEORGE Paul Last Filed: 04/05/21 11:11> Auscultation: clear to auscultation bilaterally <GEORGE Paul Last Filed: 04/05/21 11:11> Cardio: Rate: regular rate <GEORGE Paul Last Filed: 04/05/21 11:11> Rhythm: regular rhythm <GEORGE Paul Last Filed: 04/05/21 11:11> GI: Other: Steri-Strips present from previous laparoscopic procedure. Abdomen is soft, nondistended, nontender <GEORGE Paul Last Filed: 04/05/21 11:11> Palpation (GI): Soft to palpation and nontender <GEORGE Paul ast Filed: 04/05/21 11:11> : General: Yes CVA tenderness on the right <GEORGE Paul Last Filed: 04/05/21 11:11> Back/Spine/Pelvis: Back: CVA tenderness <GEORGE Paul Last Filed: 04/05/21 11:11> Neuro: General: patient oriented x3 <GEORGE Paul Last Filed: 04/05/21 11:11> Cranial nerves: Yes CN's II-XII intact bilaterally and Yes Bilaterally intact EOM present <GEORGE Paul Last Filed: 04/05/21 11:11> Objective Data Current Medications Generic Name Dose Route Start Last Admin Trade Name Freq PRN Reason Stop Dose Admin Acetaminophen 650 mg 04/04/21 17:57 Acetaminophen 325 Mg Tablet PO Q6H PRN Pain, Mild (Pain Scale 1-3) Atorvastatin Calcium 80 mg 04/05/21 09:00 04/05/21 10:27 Atorvastatin Calcium 80 Mg Tablet PO Not Given DAILY [facility] Calcium Carbonate 500 mg 04/04/21 21:00 04/04/21 21:46 Calcium Carbonate 500 Mg Tablet PO 500 mg BEDTIME [facility] Administration Cyanocobalamin 1,000 mcg 04/05/21 09:00 04/05/21 10:27 Cyanocobalamin (Vitamin B-12) 1,000 Mcg Tablet PO Not Given DAILY [facility] Escitalopram Oxalate 5 mg 04/05/21 09:00 04/05/21 10:27 Escitalopram Oxalate 5 Mg Tablet PO Not Given DAILY [facility] Ceftriaxone Sodium 1 gm/ 50 mls @ 100 mls/hr 04/05/21 16:00 Sodium Chloride IV Q24H [facility] Lactated Ringer's 1,000 mls @ 80 mls/hr 04/04/21 17:57 04/05/21 06:11 Lr IVCONT 80 mls/hr .[id number] [facility] Administration Magnesium Oxide 400 mg 04/05/21 09:00 04/05/21 10:27 Magnesium Oxide 400 Mg Tablet PO Not Given DAILY [facility] Morphine Sulfate 2 mg 04/04/21 16:53 04/05/21 10:35 Morphine Sulfate 2 Mg/Ml Cartridge IVPUSH 2 mg Q4H PRN Administration Pain, Severe (Pain Scale 7-10) Non-Formulary Medication 1 mg 04/04/21 21:00 Varenicline [Chantix] PO BID [facility] Ondansetron HCl 4 mg 04/04/21 17:57 04/05/21 00:41 Ondansetron Hcl 4 Mg/2 Ml Vial IVPUSH 4 mg Q8H PRN Administration Nausea and Vomiting Oxycodone HCl 5 mg 04/04/21 16:53 Oxycodone Hcl Immed Release 5 Mg Tablet PO Q6H PRN Pain, Moderate (Pain Scale 4-6 Pharmacy Consult 1 each 04/04/21 13:40 Consult Rx Perform Med Rec MISCELLANE ONCE PRN Consult order Senna/Docusate Sodium 1 tab 04/05/21 09:00 04/05/21 10:27 Sennosides/Docusate Sodium Tablet PO Not Given DAILY [facility] Simethicone 80 mg 04/04/21 17:57 Simethicone 80 Mg Tab.Chew PO QIDACHS PRN Gastric Reflux Sodium Chloride 3 ml 04/05/21 00:00 04/05/21 07:58 0.9 % Sodium Chloride Flush 3 Ml Syringe IVFLUSH Not Given QSHIFT [facility] Tamsulosin HCl 0.4 mg 04/05/21 09:00 04/05/21 10:28 Tamsulosin Hcl 0.4 Mg Capsule PO Not Given DAILY [facility] Trazodone HCl 50 mg 04/04/21 21:00 04/04/21 21:46 Trazodone Hcl 50 Mg Tablet PO 50 mg BEDTIME [facility] Administration Vitamin D 25 mcg 04/05/21 09:00 04/05/21 10:27 Cholecalciferol (Vitamin D3) 25 Mcg Tablet PO Not Given DAILY [facility] <GEORGE Paul - Last Filed: 04/05/21 11:11> Labs CBC & Chem 7: : 04/05/21 06:38 04/05/21 06:38 <GEORGE Paul - Last Filed: 04/05/21 11:11> Assessment and Plan (1) DEAN (acute kidney injury): Status: Acute <GEORGE Paul - Last Filed: 04/05/21 11:11> (2) Hydronephrosis with obstructing calculus: Status: Acute <GEORGE Paul - Last Filed: 04/05/21 11:11> Assessment and Plan: This is a 61-year-old female with history of endometrial adenocarcinoma status post laparoscopic hysterectomy who presents the emergency department with right flank pain and nausea found to have DEAN and 2 obstructing renal stones Right Hydroureteronephrosis due to obstructing stones -flomax -pain management, antiemetics -empiric abx -seen by urology, procedure planned for this afternoon DEAN r/t above & decreased PO intake SCr down from 1.61 to 1.37. -IVF -follow renal function Hyperlipidemia -continue statin Tobacco dependence Has recently quit smoking -continue Chantix DVT prophylaxis-mechanical devices Code status-full code Attending-Dr. Lawler <GEORGE Paul - Last Filed: 04/05/21 11:11> I have seen and evaluated this patient. I have discussed the case and its management with the [facility] [employer] and I agree with the findings and plan as documented in the [employer] [employer] [employer]?s note <Jose Lawler MD - Last Filed: 04/05/21 18:12>
--- NOTE | 2021-04-05 14:02 | MHC.CM.PN ---
CM MET WITH PT WHO REPORTS SHE LIVES AT HOME WITH HER SON AND DAUGHTER AND IS INDEPENDENT WITH CARE AND MOBILITY. PT REPORTS SHE IS ACTIVE WITH [facility] FOR ONE TIME A WEEK GROUP HOME VISITS. PT REPORTS SHE HAS NO DME. PT CONFIRMS HER PCP IS WEN PETERSEN. SHE REPORTS SHE DOES NOT HAVE A HCP COMPLETED YET BUT SHE DOES HAVE THE DOCUMENT AND PLANS TO COMPLETE IT. CURRENT DC PLAN IS HOME WITH NO SERVICES FAMILY WILL TRANSPORT
[2021-04-05] MEDS: 0.9 % Sodium Chloride Flush 3 ML SYRINGE IVFLUSH (16:04)
[2021-04-05] MEDS: cefTRIAXone sodium 1 GM in 0.9 % Sodium Chloride 50 ML IV (16:04)
--- NOTE | 2021-04-05 16:51 | P.CONAN_ITS ---
[facility] Active Problems Active Problems: All Active Problems (Updated 04/04/21 @ 17:07 by GEORGE Trevino) Hydronephrosis with obstructing calculus (Acute) Breast cancer (Acute) Anxiety and depression (Acute) Hypercholesterolemia (Acute) Tobacco abuse (Acute) Hematuria (Acute) Renal calculus, right (Acute) Nephrolithiasis (Acute) DEAN (acute kidney injury) (Acute) Leukocytosis (Acute) Vomiting (Acute) Ureterolithiasis (Acute) Endometrioid adenocarcinoma (Acute) Overweight (BMI 25.0-29.9) (Acute) Anxiety (Acute) Insomnia (Acute) History of breast cancer (Acute) Peripheral polyneuropathy (Acute) Primary osteoarthritis of right hip (Acute) Vitamin D deficiency (Acute) Smoker (Acute) Pure hypercholesterolemia (Acute) Goiter (Acute) Past Medical History Medical History Anxiety Endometrioid adenocarcinoma Goiter High cholesterol History of breast cancer Insomnia Overweight (BMI 25.0-29.9) Peripheral polyneuropathy Primary osteoarthritis of right hip Pure hypercholesterolemia Smoker Vitamin D deficiency Functional capacity: independent ambulation Family History Family History Father Cancer Mother CVD (cardiovascular disease) Surgical History Surgical History H/O: hysterectomy History of open reduction and internal fixation (ORIF) procedure History of reduction surgery of right breast Social History Social History Household Members: Family Alcohol intake: current Alcohol intake frequency: holidays/special occasions only Patient Tobacco Use Status: Current someday Tobacco user Tobacco use type: Cigarette Smoked in Last 30 Days: Yes Patient Given Instructions on How to Stop Smoking: Yes Date Education Initiated: 04/04/21 Second Hand Smoke Exposure: Yes Use of substances other than those prescribed or required for medical reasons: No Currently Displaying Signs/Symptoms of Drug Intoxication Withdrawal: No Have you been hit, kicked, punched, or otherwise hurt by someone within the past year? If so, by whom?: No Do you feel safe in your current relationship?: Yes Is there a partner from a previous relationship who is making you feel unsafe now?: No Are you made to feel afraid or neglected: No Advance Directives: Yes Advance Directives Information Provided: No Advance Directives on File: No Do you have thoughts of harming others: None Do you have a plan to hurt others: No Plan Nutrition Risks: No Nutritional Risk Patient : No : No service: No Current occupational status: employed Gender identity: female Meds Allergies Allergy/AdvReac Type Severity Reaction Status Date / Time No Known Allergies Allergy Verified 04/04/21 12:18 [No Known Allergies*] Active Medications: Current Medications Generic Name Dose Route Start Last Admin Trade Name Freq PRN Reason Stop Dose Admin Acetaminophen 650 mg 04/04/21 17:57 Acetaminophen 325 Mg Tablet PO Q6H PRN Pain, Mild (Pain Scale 1-3) Acetaminophen 650 mg 04/05/21 16:50 Acetaminophen 325 Mg Tablet PO ONCE PRN Pain, Mild (Pain Scale 1-3) Atorvastatin Calcium 80 mg 04/05/21 09:00 04/05/21 10:27 Atorvastatin Calcium 80 Mg Tablet PO Not Given DAILY [facility] Calcium Carbonate 500 mg 04/04/21 21:00 04/04/21 21:46 Calcium Carbonate 500 Mg Tablet PO 500 mg BEDTIME DAVE Administration Cyanocobalamin 1,000 mcg 04/05/21 09:00 04/05/21 10:27 Cyanocobalamin (Vitamin B-12) 1,000 Mcg Tablet PO Not Given DAILY DAVE Escitalopram Oxalate 5 mg 04/05/21 09:00 04/05/21 10:27 Escitalopram Oxalate 5 Mg Tablet PO Not Given DAILY DAVE Fentanyl 50 mcg 04/05/21 16:50 Fentanyl Citrate/Pf 100 Mcg/2 Ml Vial IVPUSH Q5M PRN Pain, Severe (Pain Scale 7-10) Ceftriaxone Sodium 1 gm/ 50 mls @ 100 mls/hr 04/05/21 16:00 04/05/21 16:04 Sodium Chloride IV 100 mls/hr Q24H DAVE Administration Lactated Ringer's 1,000 mls @ 80 mls/hr 04/04/21 17:57 04/05/21 16:08 Lr IVCONT 0 mls/hr .[id number] DAVE Infusion Magnesium Oxide 400 mg 04/05/21 09:00 04/05/21 10:27 Magnesium Oxide 400 Mg Tablet PO Not Given DAILY DAVE Morphine Sulfate 2 mg 04/04/21 16:53 04/05/21 10:35 Morphine Sulfate 2 Mg/Ml Cartridge IVPUSH 2 mg Q4H PRN Administration Pain, Severe (Pain Scale 7-10) Non-Formulary Medication 1 mg 04/04/21 21:00 Varenicline [Chantix] PO BID DAVE Ondansetron HCl 4 mg 04/04/21 17:57 04/05/21 00:41 Ondansetron Hcl 4 Mg/2 Ml Vial IVPUSH 4 mg Q8H PRN Administration Nausea and Vomiting Ondansetron HCl 4 mg 04/05/21 16:50 Ondansetron Hcl 4 Mg/2 Ml Vial IVPUSH ONCE PRN Nausea and Vomiting Oxycodone HCl 5 mg 04/04/21 16:53 Oxycodone Hcl Immed Release 5 Mg Tablet PO Q6H PRN Pain, Moderate (Pain Scale 4-6 Oxycodone HCl 5 mg 04/05/21 16:50 Oxycodone Hcl Immed Release 5 Mg Tablet PO ONCE PRN Pain, Severe (Pain Scale 7-10) Pharmacy Consult 1 each 04/04/21 13:40 Consult Rx Perform Med Rec MISCELLANE ONCE PRN Consult order Senna/Docusate Sodium 1 tab 04/05/21 09:00 04/05/21 10:27 Sennosides/Docusate Sodium Tablet PO Not Given DAILY [facility] Simethicone 80 mg 04/04/21 17:57 Simethicone 80 Mg Tab.Chew PO QIDACHS PRN Gastric Reflux Sodium Chloride 3 ml 04/05/21 00:00 04/05/21 16:04 0.9 % Sodium Chloride Flush 3 Ml Syringe IVFLUSH 3 ml QSHIFT [facility] Administration Tamsulosin HCl 0.4 mg 04/05/21 09:00 04/05/21 10:28 Tamsulosin Hcl 0.4 Mg Capsule PO Not Given DAILY [facility] Trazodone HCl 50 mg 04/04/21 21:00 04/04/21 21:46 Trazodone Hcl 50 Mg Tablet PO 50 mg BEDTIME [facility] Administration Vitamin D 25 mcg 04/05/21 09:00 04/05/21 10:27 Cholecalciferol (Vitamin D3) 25 Mcg Tablet PO Not Given DAILY [facility] Home Medications Medication Instructions Recorded Confirmed Last Taken Type atorvastatin 80 mg tablet 80 mg PO DAILY 12/13/20 04/04/21 03/12/21 History citalopram 10 mg tablet 10 mg PO DAILY 12/13/20 04/04/21 04/04/21 History cyanocobalamin (vitamin B-12) 1,000 mcg PO DAILY 12/13/20 04/04/21 04/04/21 History 1,000 mcg capsule magnesium oxide 400 mg (241.3 mg 400 mg PO DAILY 12/13/20 04/04/21 04/04/21 History magnesium) tablet trazodone 50 mg tablet 50 mg PO BEDTIME 12/13/20 04/04/21 04/04/21 History acetaminophen 650 mg PO Q5H PRN 04/04/21 04/04/21 04/04/21 History calcium carbonate 600 mg PO BEDTIME 04/04/21 04/04/21 04/04/21 History cholecalciferol (vitamin D3) 25 mcg PO DAILY 04/04/21 04/04/21 04/04/21 History [Vitamin D3] ibuprofen 600 mg PO Q6H PRN 04/04/21 04/04/21 04/04/21 History sennosides-docusate sodium [Senna 1 tab PO DAILY 04/04/21 04/04/21 04/04/21 History Plus] simethicone 80 mg PO QIDACHS PRN 04/04/21 04/04/21 04/04/21 History varenicline [Chantix] 1 mg PO BID 04/04/21 04/04/21 04/04/21 History Exam Exam Date and Time: April 05, 2021 1651 Height,Weight and Vital Signs: Height 5 ft 7 in Weight 81.647 kg Last Vital Signs Temp 97.8 F 04/05/21 16:29 Pulse 74 04/05/21 16:29 Resp 20 04/05/21 16:29 BP 107/53 L 04/05/21 16:29 Pulse Ox 95 04/05/21 16:29 Pertinent Lab Results Pertinent Lab Results: Laboratory Tests 04/04/21 04/04/21 04/04/21 12:41 12:45 12:45 WBC 13.5 H RBC 4.52 Hgb 12.6 Hct 39.3 MCV 86.9 MCH 27.9 MCHC 32.1 RDW 13.1 Plt Count 363 MPV 9.1 L Immature Gran % (Auto) 0.4 Neut % (Auto) 82.4 H Lymph % (Auto) 11.1 L [place] % (Auto) 4.8 Eos % (Auto) 0.9 Baso % (Auto) 0.4 Lymph # (Auto) 1.5 [place] # (Auto) 0.7 Eos # (Auto) 0.1 Baso # (Auto) 0.1 Abs Immat Gran (auto) 0.06 H Absolute Neuts (auto) 11.2 H Absolute Nucleated RBC 0.000 Nucleated RBC % (auto) 0.0 Hold Blue Top Sodium 136 Potassium 4.4 Chloride 100 Carbon Dioxide 27 Anion Gap 13 BUN 18 H Creatinine 1.61 H Estim Creat Clear Calc 40.3 Estimated GFR 33 Random Glucose 99 Lactic Acid Calcium 9.8 D Magnesium Total Bilirubin Direct Bilirubin AST ALT Alkaline Phosphatase Total Protein Albumin Lipase Urine Color YELLOW Urine Appearance CLEAR Urine pH 6.0 Ur Specific [place] 1.010 Urine Protein NEG Urine Glucose (UA) NEG Urine Ketones NEG Urine Blood 1+ H Urine Nitrite NEG Ur Leukocyte Esterase NEG Urine RBC 5-9 H Urine WBC 1-4 Ur Squamous Epith Cells 1+ Ur Renal Epithelial Cell 1+ Urine Bacteria 1+ COVID-19 (THAIS) COVID-[employer] 04/04/21 04/04/21 04/04/21 14:10 14:49 14:49 WBC RBC Hgb Hct MCV MCH MCHC RDW Plt Count MPV Immature Gran % (Auto) Neut % (Auto) Lymph % (Auto) [place] % (Auto) Eos % (Auto) Baso % (Auto) Lymph # (Auto) [place] # (Auto) Eos # (Auto) Baso # (Auto) Abs Immat Gran (auto) Absolute Neuts (auto) Absolute Nucleated RBC Nucleated RBC % (auto) Hold Blue Top SEE NOTE Sodium Potassium Chloride Carbon Dioxide Anion Gap BUN Creatinine Estim Creat Clear Calc Estimated GFR Random Glucose Lactic Acid Calcium Magnesium 2.0 Total Bilirubin 0.5 Direct Bilirubin 0.2 AST 17 ALT 16 Alkaline Phosphatase 82 Total Protein 6.8 Albumin 4.2 Lipase 30 Urine Color Urine Appearance Urine pH Ur Specific [place] Urine Protein Urine Glucose (UA) Urine Ketones Urine Blood Urine Nitrite Ur Leukocyte Esterase Urine RBC Urine WBC Ur Squamous Epith Cells Ur Renal Epithelial Cell Urine Bacteria COVID-19 (THAIS) Negative COVID-[employer] See Note 04/04/21 04/04/21 04/05/21 14:49 15:13 06:38 WBC 11.8 H RBC 3.94 L Hgb 11.2 L Hct 34.5 L MCV 87.6 MCH 28.4 MCHC 32.5 RDW 12.8 Plt Count 326 MPV 9.3 L Immature Gran % (Auto) 0.6 H Neut % (Auto) 87.7 H Lymph % (Auto) 8.6 L [place] % (Auto) 2.9 Eos % (Auto) 0.0 Baso % (Auto) 0.2 Lymph # (Auto) 1.0 L [place] # (Auto) 0.3 Eos # (Auto) 0.0 Baso # (Auto) 0.0 Abs Immat Gran (auto) 0.07 H Absolute Neuts (auto) 10.3 H Absolute Nucleated RBC 0.000 Nucleated RBC % (auto) 0.0 Hold Blue Top Sodium Potassium Chloride Carbon Dioxide Anion Gap BUN Creatinine Estim Creat Clear Calc Estimated GFR Random Glucose Lactic Acid 1.0 Calcium Magnesium Total Bilirubin Direct Bilirubin AST ALT Alkaline Phosphatase Total Protein Albumin Lipase Urine Color STRAW Urine Appearance CLEAR Urine pH 6.0 Ur Specific [place] <= 1.005 Urine Protein NEG Urine Glucose (UA) NEG Urine Ketones NEG Urine Blood TRACE Urine Nitrite NEG Ur Leukocyte Esterase NEG Urine RBC 0-2 Urine WBC 0 Ur Squamous Epith Cells 1+ Ur Renal Epithelial Cell Urine Bacteria 1+ COVID-19 (THAIS) COVID-19 [employer] Com 04/05/21 06:38 WBC RBC Hgb Hct MCV MCH MCHC RDW Plt Count MPV Immature Gran % (Auto) Neut % (Auto) Lymph % (Auto) [place] % (Auto) Eos % (Auto) Baso % (Auto) Lymph # (Auto) [place] # (Auto) Eos # (Auto) Baso # (Auto) Abs Immat Gran (auto) Absolute Neuts (auto) Absolute Nucleated RBC Nucleated RBC % (auto) Hold Blue Top Sodium 139 Potassium 4.6 Chloride 105 Carbon Dioxide 26 Anion Gap 13 BUN 19 H Creatinine 1.37 Estim Creat Clear Calc 47.3 Estimated GFR 39 Random Glucose 108 Lactic Acid Calcium 9.1 D Magnesium Total Bilirubin Direct Bilirubin AST ALT Alkaline Phosphatase Total Protein Albumin Lipase Urine Color Urine Appearance Urine pH Ur Specific [place] Urine Protein Urine Glucose (UA) Urine Ketones Urine Blood Urine Nitrite Ur Leukocyte Esterase Urine RBC Urine WBC Ur Squamous Epith Cells Ur Renal Epithelial Cell Urine Bacteria COVID-19 (THAIS) COVID-19 Clin Com Airway Mallampati Class: II TM Dist: >3cm Neck ROM: Full Assessment and Plan Assessment Anesthesia Assessment: Anesthesia Plan Discussed and Chart Reviewed Final Anesthetic Review NPO: Yes ASA Class: III Final Preanesthetic Review: No Changes in Pt Med Stat, Meds/Allgs Chart Reviewed, Consent Obtained/Reviewed and Anes Risks/Benef Reviewed Patient Risk: Intermediate Procedure Risk: Low Assessment/Block/Sedation in SS: Assess/Block/Sedation-SS Anesthetic Plan Anesthetic Plan: GA Disposition: Standard PACU
[2021-04-05] MEDS: fentaNYL citrate/PF 100 MCG/2 ML VIAL 50 MCG IVPUSH ×3 (16:59→18:18)
--- NOTE | 2021-04-05 19:24 | MHC.SHP ---
Pre-Procedural Eval Section A The patient is an INPATIENT: Yes Changes since office visit: No Cold of Flu in the past 2 weeks, No New Medical Problems, No Changes in Medication and No Patient answered all questions The History & Physical has been completed within 30 days and I have reviewed it.: Yes Section B Chief Complaint: back pain Allergies: Allergies Allergy/AdvReac Type Severity Reaction Status Date / Time No Known Allergies Allergy Verified 04/04/21 12:18 [No Known Allergies*] Plan Diagnosis/Plan: Unchanged (Right retrograde, ureteroscopy, stone basketing, laser, stent) I have reviewed the history and physical and performed a pertinent physical examination on my patient. No changes have occurred unless specified.
--- NOTE | 2021-04-05 20:02 | W.PM.OPN ---
Operative Note Operative Note Date of Service: 04/05/21 Narrative: PreOperative Diagnosis: Right distal ureteric stones with hydronephrosis Post Operative Diagnosis: Right distal ureteric stones with hydronephrosis Procedure: - right cystoscopy, retrograde - dilatation of ureteric orifice under fluoroscopy - right ureteroscopy,stone basketing Surgeon: Dr Benji Matias Anesthesia: General Indications for procedure: This is a 61-year-old female. Underwent ESWL for right kidney stones approximately 8 weeks ago. Re-presented to the emergency room yesterday with right-sided flank pain. CT showed distal ureteric stones with mild hydroureteronephrosis. Elevated creatinine. Recommendation for surgical intervention. Procedure: After informed consent was verified patient was brought to the operating placed in supine position. Anesthesia was administered per protocol. Patient was placed in modified dorsal lithotomy position and prepped and draped in a sterile fashion. Safety pause time-out and side of surgery confirmed. Antibiotics confirmed. Twenty-two Sinhala cystoscope inserted per urethra. Bladder was examined. It was normal. Both ureteric orifices normal position. Right ureteric orifice was cannulated and a retrograde examination was performed. Filling defects seen in distal portion of the right ureter. Sensor guidewire placed. Cystoscope removed. [place] dilator used under fluoroscopy to dilate ureteric orifice. Semi rigid short ureteral scope placed alongside wire. Stones were encountered. There were 3 fragments that had clearly come down after the ESWL. We were able to use a flat wire basket to remove these fragments and they were sent for pathology. There were multiple passes involved. Since there was minimal dilatation of the ureter a decision was made not to leave a stent. Her bladder was emptied in its entirety. She tolerated the procedure well was extubated in operating room and transferred in a stable condition to the recovery area. Pathology: Stones Drains:
--- NOTE | 2021-04-05 20:11 | P.DS_ITS ---
DS: Providers Provider Date of Service: 04/05/21 Date of admission: 04/04/21 16:53 Primary care physician: Zoltan Weems MD Consults: 04/04/21 17:57 Consult to Urology Routine Consulting Provider: Benji Matias Reason for consultation: 2 obstructed right distal ureteral stones Has provider been notified: No Underwent ureteroscopy with stone removal 04/05/2021 - see operative note for more details DS: Diagnosis Discharge Diagnosis (1) Hydronephrosis with obstructing calculus: Status: Acute Problem details: Stent placed DS: Medications Discharge Medications Home Medications: Home Medications Medication Instructions Recorded Confirmed atorvastatin 80 mg tablet 80 mg PO DAILY 12/13/20 04/04/21 citalopram 10 mg tablet 10 mg PO DAILY 12/13/20 04/04/21 cyanocobalamin (vitamin B-12) 1,000 mcg PO DAILY 12/13/20 04/04/21 1,000 mcg capsule magnesium oxide 400 mg (241.3 mg 400 mg PO DAILY 12/13/20 04/04/21 magnesium) tablet trazodone 50 mg tablet 50 mg PO BEDTIME 12/13/20 04/04/21 Chantix 1 mg PO BID 04/04/21 04/04/21 acetaminophen 650 mg PO Q5H PRN 04/04/21 04/04/21 calcium carbonate 600 mg PO BEDTIME 04/04/21 04/04/21 cholecalciferol (vitamin D3) 25 mcg PO DAILY 04/04/21 04/04/21 [Vitamin D3] ibuprofen 600 mg PO Q6H PRN 04/04/21 04/04/21 sennosides-docusate sodium [Senna 1 tab PO DAILY 04/04/21 04/04/21 Plus] simethicone 80 mg PO QIDACHS PRN 04/04/21 04/04/21 Previous Rx's Medication Instructions Recorded tamsulosin 0.4 mg PO DAILY 14 Days #14 cap 04/05/21 tramadol 50 mg PO Q6H PRN 7 Days #14 tab 04/05/21 trimethoprim 100 mg PO Q12H 10 Days #20 tab 04/05/21 DS: Summary Time Spent with Patient Time attestation: Total time spent providing and/or coordinating discharge services: Discharge coordination time: Less than 30 minutes Quality: Stroke Does the patient have a stroke diagnosis?: No Physical Exam Vital Signs: Vital Signs: Last Vital Signs Temp 98.6 F 04/05/21 20:00 Pulse 65 04/05/21 20:05 Resp 18 04/05/21 20:05 BP 112/58 L 04/05/21 20:05 Pulse Ox 93 04/05/21 20:05 Body Mass Index 28.1 DS: Data Data Completed and Pending Pending studies at discharge: Pending at discharge 04/05/21 19:58 Surgical Path [Surgical] [PTH] Routine Labs on day of discharge: Laboratory Results - last 24 hr 04/05/21 04/05/21 06:38 06:38 WBC 11.8 H RBC 3.94 L Hgb 11.2 L Hct 34.5 L MCV 87.6 MCH 28.4 MCHC 32.5 RDW 12.8 Plt Count 326 MPV 9.3 L Immature Gran % (Auto) 0.6 H Neut % (Auto) 87.7 H Lymph % (Auto) 8.6 L [place] % (Auto) 2.9 Eos % (Auto) 0.0 Baso % (Auto) 0.2 Lymph # (Auto) 1.0 L [place] # (Auto) 0.3 Eos # (Auto) 0.0 Baso # (Auto) 0.0 Abs Immat Gran (auto) 0.07 H Absolute Neuts (auto) 10.3 H Absolute Nucleated RBC 0.000 Nucleated RBC % (auto) 0.0 Sodium 139 Potassium 4.6 Chloride 105 Carbon Dioxide 26 Anion Gap 13 BUN 19 H Creatinine 1.37 Estim Creat Clear Calc 47.3 Estimated GFR 39 Random Glucose 108 Calcium 9.1 D Preliminary micro results at discharge 04/04/21 14:49 Blood Culture - Preliminary Blood - Venous No growth after 24 hours. 04/04/21 14:07 Blood Culture - Preliminary Blood - Venous No growth after 24 hours. Discharge Plan Discharge Patient Disposition: Home, Self-Care Discharge Diagnosis: obstructing distal right stone with DEAN Referrals: Zoltan Weems MD [Primary Care Provider] - None Benji Matias MD [Physician] - 1 Month (With renal ultrasound and labs prior) Discharge Medications: New tramadol 50 mg Tablet 50 mg PO Q6H PRN (Reason: Pain, Moderate (Pain Scale 4-6) 7 Days Qty: 14 RF: 0 tamsulosin 0.4 mg Capsule 0.4 mg PO DAILY 14 Days Qty: 14 RF: 0 trimethoprim 100 mg tablet 100 mg PO Q12H 10 Days Qty: 20 RF: 0 Continued acetaminophen 325 mg Tablet 650 mg PO Q5H PRN (Reason: Pain) RF: 0 sennosides-docusate sodium [Senna Plus] 8.6-50 mg Tablet 1 tab PO DAILY RF: 0 calcium carbonate 600 mg calcium (1,500 mg) Tablet 600 mg PO BEDTIME RF: 0 ibuprofen 600 mg Tablet 600 mg PO Q6H PRN (Reason: Pain) RF: 0 simethicone 80 mg Tablet,Chewable 80 mg PO QIDACHS PRN (Reason: Gastric Reflux) RF: 0 Chantix 1 mg Tablet 1 mg PO BID RF: 0 cholecalciferol (vitamin D3) [Vitamin D3] 25 mcg (1,000 unit) Tablet 25 mcg PO DAILY RF: 0 cyanocobalamin (vitamin B-12) 1,000 mcg capsule 1,000 mcg PO DAILY RF: 0 magnesium oxide 400 mg (241.3 mg magnesium) tablet 400 mg PO DAILY RF: 0 atorvastatin 80 mg tablet 80 mg PO DAILY RF: 0 citalopram 10 mg tablet 10 mg PO DAILY RF: 0 trazodone 50 mg tablet 50 mg PO BEDTIME RF: 0 Discharge Orders: Discharge Order (Routine); Ordered 04/05/21 Ordered By: Benji Matias Diet: advance to usual diet Activity on Discharge: As tolerated Stand Alone Forms: Patient Portal Discharge page Care Plan Goals: Manage stones Health Concerns: Manage stones Plan of Treatment: Manage stones Assessment: Manage stones
[2021-04-05] MEDS: traZODone HCL 50 MG TABLET PO (20:55)
[2021-04-05] MEDS: Acetaminophen 325 MG TABLET 650 MG PO (20:55)
[2021-04-05] MEDS: Phenazopyridine HCL 100 MG TABLET PO (21:04)
[2021-04-06 03:45] VITALS: BP 110/59; PULSE 63; RESP 17; TEMP 36.2; O2SAT 94
--- NOTE | 2021-04-06 06:47 | HO.POSTANES ---
Post Anesthesia Evaluation Post Anesthesia Evaluation Vital Signs: Vital Signs Temp Pulse Resp BP Pulse Ox 04/06/21 03:45 97.2 F 63 17 110/59 L 94 04/05/21 23:51 97.0 F 70 15 92/60 94 04/05/21 20:38 97.2 F 65 20 116/60 100 04/05/21 20:30 68 16 110/61 96 04/05/21 20:15 98.6 F 69 18 113/50 L 96 04/05/21 20:10 67 18 104/56 L 94 04/05/21 20:05 65 18 112/58 L 93 04/05/21 20:00 98.6 F 70 15 110/59 L 94 Anesthesia: General Mental Status: Awake Pain Control: Satisfactory Nausea/Vomiting: None Hydration: Adequate Anesthesia-Related Issues: No Anes. Related Issues
[2021-04-06 07:01] LABS: Hematocrit 34.6 % (37-47); Hemoglobin 10.9 g/dl (12.0-16.0); Mean Corpuscular HGB Conc 31.5 g/dl (31.0-35.0); Mean Corpuscular Hemoglobin 27.9 pg (27.0-33.0); Mean Corpuscular Volume 88.5 fL (80-98); Mean Platelet Volume 11.2 fL (9.4-12.3); Platelet Count 197 X10*3/uL (160-400); Red Blood Count 3.91 X10*6/uL (4.20-5.50); Red Cell Distribution Width 13.4 % (11.0-16.0); White Blood Count 8.7 X10*3/uL (4.8-10.8)
[2021-04-06 07:22] LABS: Anion Gap 13 (12-20); Blood Urea Nitrogen 20 mg/dL (9-16); Carbon Dioxide 25 mmol/L (22-29); Chloride 108 mmol/L (96-108); Creatinine Clr Calc Pharmacy 52.4; Estimated Glomerular Filt Rate 44; Glucose Random 81 mg/dL (60-115); Potassium 4.6 mmol/L (3.3-5.1); Sodium 141 mmol/L (135-145)
[2021-04-06 07:46] VITALS: BP 117/61; PULSE 63; RESP 18; TEMP 36.4; O2SAT 95
--- NOTE | 2021-04-06 08:39 | MHC.CM.PN ---
DISCHARGE HOME WITH THE RESUMPTION OF HER PREVIOUS VNA ORDERS FOR NRUSIGN , VIA [employer] FAXED OVER THE H/P D/C SUMMARY AND D/C INSTRUCTIONS PATIENT INSTRUCTED TO CALL PCP FOR POST HOSPITAL DISCHARGE FOLLOW UP TRANSPORTATION FAMILY FOLLOW UP WITH UROLOGIST INDICATED ON THE DISCHARGE INSTRUCTIONS
[2021-04-06] MEDS: Tamsulosin HCL 0.4 MG CAPSULE PO (09:20)
--- NOTE | 2021-04-06 10:18 | HO.PM.IMPN ---
Subjective Subjective Date of Service: 04/06/21 <GEORGE Paul - Last Filed: 04/06/21 10:23> 04/06/21 <Jose Lawler MD - Last Filed: 04/06/21 11:20> Interval History: seen and examined this morning feels well, no abdominal pain, nausea, vomiting Tolerating regular diet <GEORGE Paul - Last Filed: 04/06/21 10:23> Physical Exam Vital Signs: Vital Signs: Last Vital Signs Temp 97.6 F 04/06/21 07:46 Pulse 63 04/06/21 07:46 Resp 18 04/06/21 07:46 BP 117/61 04/06/21 07:46 Pulse Ox 95 04/06/21 07:46 Body Mass Index 28.1 <GEORGE Paul - Last Filed: 04/06/21 10:23> Const: General: alert and awake <GEORGE Paul - Last Filed: 04/06/21 10:23> Nutritional Appearance: well nourished <GEORGE Paul - Last Filed: 04/06/21 10:23> Orientation/consciousness: patient oriented x3 <GEORGE Paul - Last Filed: 04/06/21 10:23> HENMT: Head: Yes normocephalic and Yes atraumatic <GEORGE Paul - Last Filed: 04/06/21 10:23> Eyes: Sclerae: sclerae normal <GEORGE Paul - Last Filed: 04/06/21 10:23> Chest: Chest palpation & inspection: normal inspection of the chest <GEORGE Paul - Last Filed: 04/06/21 10:23> Resp: Effort & Inspection: normal respiratory effort and no respiratory distress <GEORGE Paul Last Filed: 04/06/21 10:23> Auscultation: clear to auscultation bilaterally <GEORGE Paul Last Filed: 04/06/21 10:23> Cardio: Rate: regular rate <GEORGE Paul Last Filed: 04/06/21 10:23> Rhythm: regular rhythm <GEORGE Paul Last Filed: 04/06/21 10:23> GI: Other: Steri-Strips present from previous laparoscopic procedure. Abdomen is soft, nondistended, nontender <GEORGE Paul Last Filed: 04/06/21 10:23> Palpation (GI): Soft to palpation and nontender <GEORGE Paul Last Filed: 04/06/21 10:23> Neuro: General: patient oriented x3 <GEORGE Paul Last Filed: 04/06/21 10:23> Cranial nerves: Yes CN's II-XII intact bilaterally and Yes Bilaterally intact EOM present <GEORGE Paul Last Filed: 04/06/21 10:23> Objective Data Current Medications Generic Name Dose Route Start Last Admin Trade Name Freq PRN Reason Stop Dose Admin Acetaminophen 650 mg 04/04/21 17:57 Acetaminophen 325 Mg Tablet PO Q6H PRN Pain, Mild (Pain Scale 1-3) Acetaminophen 650 mg 04/05/21 16:50 Acetaminophen 325 Mg Tablet PO ONCE PRN Pain, Mild (Pain Scale 1-3) Atorvastatin Calcium 80 mg 04/05/21 09:00 04/06/21 09:22 Atorvastatin Calcium 80 Mg Tablet PO Not Given DAILY DAVE Calcium Carbonate 500 mg 04/04/21 21:00 04/05/21 20:57 Calcium Carbonate 500 Mg Tablet PO 500 mg BEDTIME DAVE Administration Cyanocobalamin 1,000 mcg 04/05/21 09:00 04/06/21 09:22 Cyanocobalamin (Vitamin B-12) 1,000 Mcg Tablet PO Not Given DAILY DAVE Escitalopram Oxalate 5 mg 04/05/21 09:00 04/06/21 09:22 Escitalopram Oxalate 5 Mg Tablet PO Not Given DAILY DAVE Fentanyl 50 mcg 04/05/21 16:50 04/05/21 18:18 Fentanyl Citrate/Pf 100 Mcg/2 Ml Vial IVPUSH 50 mcg Q5M PRN Administration Pain, Severe (Pain Scale 7-10) Ceftriaxone Sodium 1 gm/ 50 mls @ 100 mls/hr 04/05/21 16:00 04/05/21 18:22 Sodium Chloride IV Infused Q24H DAVE Infusion Lactated Ringer's 1,000 mls @ 80 mls/hr 04/04/21 17:57 04/06/21 09:22 Lr IVCONT Not Given .[id number] [facility] Magnesium Oxide 400 mg 04/05/21 09:00 04/06/21 09:22 Magnesium Oxide 400 Mg Tablet PO Not Given DAILY [facility] Morphine Sulfate 2 mg 04/04/21 16:53 04/05/21 10:35 Morphine Sulfate 2 Mg/Ml Cartridge IVPUSH 2 mg Q4H PRN Administration Pain, Severe (Pain Scale 7-10) Non-Formulary Medication 1 mg 04/04/21 21:00 Varenicline [Chantix] PO BID [facility] Ondansetron HCl 4 mg 04/04/21 17:57 04/05/21 00:41 Ondansetron Hcl 4 Mg/2 Ml Vial IVPUSH 4 mg Q8H PRN Administration Nausea and Vomiting Ondansetron HCl 4 mg 04/05/21 16:50 Ondansetron Hcl 4 Mg/2 Ml Vial IVPUSH ONCE PRN Nausea and Vomiting Oxycodone HCl 5 mg 04/04/21 16:53 Oxycodone Hcl Immed Release 5 Mg Tablet PO Q6H PRN Pain, Moderate (Pain Scale 4-6 Oxycodone HCl 5 mg 04/05/21 16:50 Oxycodone Hcl Immed Release 5 Mg Tablet PO ONCE PRN Pain, Severe (Pain Scale 7-10) Pharmacy Consult 1 each 04/04/21 13:40 Consult Rx Perform Med Rec MISCELLANE ONCE PRN Consult order Senna/Docusate Sodium 1 tab 04/05/21 09:00 04/06/21 09:23 Sennosides/Docusate Sodium Tablet PO Not Given DAILY [facility] Simethicone 80 mg 04/04/21 17:57 Simethicone 80 Mg Tab.Chew PO QIDACHS PRN Gastric Reflux Sodium Chloride 3 ml 04/05/21 00:00 04/06/21 09:22 0.9 % Sodium Chloride Flush 3 Ml Syringe IVFLUSH Not Given QSHIFT [facility] Tamsulosin HCl 0.4 mg 04/05/21 09:00 04/06/21 09:20 Tamsulosin Hcl 0.4 Mg Capsule PO 0.4 mg DAILY DAVE Administration Tramadol HCl 50 mg 04/05/21 20:01 Tramadol Hcl 50 Mg Tablet PO Q6H PRN Pain, Moderate (Pain Scale 4-6 Trazodone HCl 50 mg 04/04/21 21:00 04/05/21 20:55 Trazodone Hcl 50 Mg Tablet PO 50 mg BEDTIME DAVE Administration Vitamin D 25 mcg 04/05/21 09:00 04/06/21 09:22 Cholecalciferol (Vitamin D3) 25 Mcg Tablet PO Not Given DAILY DAVE <GEORGE Paul - Last Filed: 04/06/21 10:23> Labs CBC & Chem 7: : 04/06/21 06:16 04/06/21 06:16 <GEORGE Paul - Last Filed: 04/06/21 10:23> Microbiology Microbiology Results: Microbiology 04/04/21 14:49 Blood - Venous Blood Culture - Preliminary No growth after 24 hours. 04/04/21 14:07 Blood - Venous Blood Culture - Preliminary No growth after 24 hours. <GEORGE Paul - Last Filed: 04/06/21 10:23> Assessment and Plan (1) DEAN (acute kidney injury): Status: Acute <GEORGE Paul - Last Filed: 04/06/21 10:23> (2) Hydronephrosis with obstructing calculus: Status: Acute <GEORGE Paul - Last Filed: 04/06/21 10:23> Assessment and Plan: This is a 61-year-old female with history of endometrial adenocarcinoma status post laparoscopic hysterectomy who presents the emergency department with right flank pain and nausea found to have DEAN and 2 obstructing renal stones Right Hydroureteronephrosis due to obstructing stones Underwent cystoscopy with right ureteroscopy and stone basketing with removal of stones yesterday with Dr. Matias Outpatient follow up with Dr. Matias DEAN improving Pt eager to return home Hyperlipidemia -continue statin Tobacco dependence Has recently quit smoking -continue Chantix DVT prophylaxis-mechanical devices Code status-full code Attending-Dr. Lawler <GEORGE Paul - Last Filed: 04/06/21 10:23> I saw patient and discussed with GEORGE and I agree with finding, management and plan. Uro has discharged patient and to follow up on outpatient basisis <Jose Lawler MD - Last Filed: 04/06/21 11:20>
== END 2021-04-06 10:38 | disposition home or self-care (01) | DRG 446 ==
LOC: HO.ED 15:35 → HO.EDOVER 17:31 → HO.S3 18:39
PROVIDERS: Urology; Admitting Provider Physician Assistant Medical; Emergency Provider Emergency Medicine; PCP Internal Medicine; Visit Provider Internal Medicine
PROC: 0TC68ZZ Extirpation of Matter from Right Ureter, Via Natural or Artificial Opening Endoscopic (ICD-10-PCS; principal; 2021-04-05 16:40)
DX: N13.6 Pyonephrosis (principal); N17.9 Acute kidney failure, unspecified; E78.5 Hyperlipidemia, unspecified; D72.829 Elevated white blood cell count, unspecified; F17.210 Nicotine dependence, cigarettes, uncomplicated; Z20.822 Contact with and (suspected) exposure to COVID-19; Z87.442 Personal history of urinary calculi; Z85.42 Personal history of malignant neoplasm of other parts of uterus; Z87.440 Personal history of urinary (tract) infections; Z71.6 Tobacco abuse counseling; Z79.1 Long term (current) use of non-steroidal anti-inflammatories (NSAID); Z79.899 Other long term (current) drug therapy
CPT/HCPCS: 36415; 74176; 80048; 80076; 81001; 82365; 83605; 83690; 83735; 85025; 85027; 87040; 87635; 88300; 96365; 96375; 99285; C1769; J0696; J1170; J2270; J2405; J2930; J3010; Q9967

== ENCOUNTER 2021-05-03 11:24 | Outpatient (REF) | payer OTHER, SELFPAY ==
--- NOTE | ~2021-05-03 | US_ITS ---
EXAMINATION: US RETROPERITONEAL LIMITED (RENAL ONLY) CLINICAL INFORMATION: Calculus of kidney. COMPARISON: CT abdomen and pelvis 04/04/2021. Renal ultrasound 03/02/2021. KUB 02/21/2021 and 12/13/2020. TECHNIQUE: Real-time imaging of the kidneys. FINDINGS: RIGHT KIDNEY: 9.5 x 4.6 x 4.9 cm (SAG x AP x TRV). The kidney is normal in size, contour, and echogenicity. Renal cortical thickness is normal. No calculi or focal parenchymal lesions. No hydronephrosis. LEFT KIDNEY: 10.3 x 5.0 x 3.7 cm (SAG x AP x TRV). The kidney is normal in size, contour, and echogenicity. Renal cortical thickness is normal. No calculi or focal parenchymal lesions. No hydronephrosis. US/US renal BI IMPRESSION: Normal renal ultrasound.
== END 2021-05-03 11:25 | disposition home or self-care (01) ==
LOC: HO.US 11:24
PROVIDERS: PCP Internal Medicine; Visit Provider Urology
DX: N20.0 Calculus of kidney (principal)
CPT/HCPCS: 76775

== ENCOUNTER → 2021-05-11 14:35 | Outpatient (BNVA) | payer OTHER, SELFPAY | PROVIDERS: PCP Internal Medicine; Visit Provider Urology ==

== ENCOUNTER 2021-08-07 07:50 | Outpatient (REF) | payer OTHER, SELFPAY ==
--- NOTE | ~2021-08-07 | US_ITS ---
EXAMINATION: US RETROPERITONEAL LIMITED (RENAL ONLY) CLINICAL INFORMATION: Calculus of kidney. COMPARISON: Bilateral renal ultrasound dated 05/03/2021 and 03/02/2021. CT abdomen and pelvis without contrast dated 04/04/2021. KUB dated 02/21/2021 and 12/13/2020. TECHNIQUE: Real-time imaging of the kidneys. FINDINGS: RIGHT KIDNEY: 10.3 x 4.6 x 4.3 cm (SAG x AP x TRV). The kidney is normal in size, contour, and echogenicity. Renal cortical thickness is normal. No calculi or focal parenchymal lesions. No hydronephrosis. LEFT KIDNEY: 11.2 x 5.3 x 5.1 cm (SAG x AP x TRV). The kidney is normal in size, contour, and echogenicity. Renal cortical thickness is normal. No calculi or focal parenchymal lesions. No hydronephrosis. US/US renal BI IMPRESSION: Normal renal ultrasound.
== END 2021-08-07 07:51 | disposition home or self-care (01) ==
LOC: HO.US 07:50
PROVIDERS: PCP Internal Medicine; Visit Provider Urology
DX: N20.0 Calculus of kidney (principal)
CPT/HCPCS: 76775

== ENCOUNTER → 2021-09-21 11:24 | Outpatient (BNVA) | payer OTHER, SELFPAY | PROVIDERS: PCP Internal Medicine; Visit Provider Urology ==

== ENCOUNTER 2022-01-15 08:27 | Outpatient (REF) | payer OTHER, SELFPAY ==
[2022-01-15 09:49] LABS: MANUAL DIFF FLAG NO
[2022-01-15 10:30] LABS: Basophils Absolute Auto 0.1 X10*3/uL (0.0-0.2); Basophils Percent Auto 0.8 % (0-2); Eosinophils Absolute Auto 0.2 X10*3/uL (0.0-0.4); Eosinophils Percent Auto 2.7 % (0-4); Hematocrit 38.2 % (37.0-47.0); Hemoglobin 12.1 g/dl (12.0-16.0); Imm Gran Abs Auto 0.02 X10*3/uL (0.00-0.03); Imm Gran Pct Auto 0.3 % (0.0-0.4); Lymphocytes Absolute Auto 0.9 X10*3/uL (1.2-4.9); Lymphocytes Percent Auto 12.7 % (20-40); Mean Corpuscular HGB Conc 31.7 g/dl (31.0-35.0); Mean Corpuscular Hemoglobin 28.3 pg (27.0-33.0); Mean Corpuscular Volume 89.5 fL (80.0-98.0); Mean Platelet Volume 9.3 fL (9.4-12.3); Monocytes Absolute Auto 0.5 X10*3/uL (0.1-1.2); Monocytes Percent Auto 7.4 % (2-11); Neutrophils Absolute Auto 5.4 x10*3/uL (2.0-8.3); Neutrophils Percent Auto 76.1 % (45-73); Platelet Count 311 X10*3/uL (160-400); Red Blood Count 4.27 X10*6/uL (4.20-5.50); Red Cell Distribution Width 14.4 % (11.0-16.0); White Blood Count 7.1 X10*3/uL (4.8-10.8)
[2022-01-15 11:15] LABS: Alanine Aminotransferase 58 U/L (0-31); Albumin Level 4.3 g/dL (3.5-5.0); Alkaline Phosphatase 145 U/L (39-117); Anion Gap 14 (12-20); Aspartate Amino Transferase 36 U/L (5-31); Bilirubin Total 0.3 mg/dL (0.0-1.0); Blood Urea Nitrogen 19 mg/dL (9-16); C Reactive Protein 1.51 mg/dL (< or = 0.50); Calcium 9.8 mg/dL (8.4-10.2); Carbon Dioxide 26 mmol/L (22-29); Chloride 104 mmol/L (96-108); Cholesterol 155 mg/dL; Estimated Glomerular Filt Rate 36; Glucose Fasting 88 mg/dL (60-99); HDL Cholesterol 43 mg/dL; LDL Cholesterol Calculated 84 mg/dl; Potassium 4.3 mmol/L (3.3-5.1); Sodium 140 mmol/L (135-145); Total Protein 7.1 g/dL (6.5-8.0); Triglycerides 144 mg/dL
[2022-01-15 11:18] LABS: Free T4 (Free Thyroxine) 0.92 ng/dL (0.71-1.85); Thyroid Stimulating Hormone 1.29 uIU/mL (0.32-4.0); Vitamin D 25-OH Total 31.7 ng/mL (>30)
[2022-01-15 11:38] LABS: Folate 7.3 ng/mL (> or = 4.0); Vitamin B12 1630 pg/mL (200-900)
[2022-01-16 22:41] LABS: Transglutaminase Ab IgG <1.0 U/mL; Transglutaminase IgA <1.0 U/mL
== END 2022-01-15 08:28 | disposition home or self-care (01) ==
LOC: HO.LAB 08:27
PROVIDERS: PCP Internal Medicine; Referring Provider Internal Medicine; Visit Provider Nurse Practitioner Family
DX: R10.11 Right upper quadrant pain (principal); R14.0 Abdominal distension (gaseous); G62.9 Polyneuropathy, unspecified; E04.9 Nontoxic goiter, unspecified; E78.00 Pure hypercholesterolemia, unspecified; E55.9 Vitamin D deficiency, unspecified; I10 Essential (primary) hypertension; R19.7 Diarrhea, unspecified; K58.2 Mixed irritable bowel syndrome
CPT/HCPCS: 36415; 80053; 80061; 82306; 82607; 82746; 84439; 84443; 85025; 86140; 86364

== ENCOUNTER 2022-02-01 11:53 | Outpatient (REF) | payer OTHER, SELFPAY ==
--- NOTE | ~2022-02-01 | MM_ITS ---
EXAMINATION: MM SCREENING DIGITAL BREAST TOMOSYNTHESIS, BILATERAL CLINICAL INFORMATION: Breast cancer status post right lumpectomy 2013. Left reduction mammoplasty, 2014. Due for yearly. COMPARISON: Mammography: 01/05/2021, 12/31/2019, 10/22/2018 TECHNIQUE: Digital breast tomosynthesis is performed in both the craniocaudal and mediolateral oblique views along with computer-aided detection (CAD). Synthesized 2D images are generated from the tomosynthesis. FINDINGS: There are scattered areas of fibroglandular density (ACR BI-RADS breast composition Category b). There is minor scarring consistent with the prior surgery. Parenchymal pattern is similar to prior studies. There is no developing density or interval mass or architectural abnormality. Surgical clips are again seen on the right and there are scattered benign round and rim and dystrophic calcifications, predominantly on the right. There are no significant changes from prior studies. MM/MM tomosynthesis screening BI IMPRESSION: No mammographic evidence of malignancy. ASSESSMENT: BI-RADS 2: Benign RECOMMENDATION: Routine annual mammography screening. This patient's information was entered into a reminder system with a target due date for their next mammogram.
== END 2022-02-01 11:54 | disposition home or self-care (01) ==
LOC: HO.MAMMO 11:53
PROVIDERS: Visit Provider Internal Medicine
DX: Z12.31 Encounter for screening mammogram for malignant neoplasm of breast (principal)
CPT/HCPCS: 77063; 77067

== ENCOUNTER 2022-09-02 15:30 | Outpatient (REF) | payer OTHER, SELFPAY ==
--- NOTE | ~2022-09-02 | US_ITS ---
EXAMINATION: US RETROPERITONEAL LIMITED (RENAL ONLY) CLINICAL INFORMATION: Calculus of kidney. COMPARISON: Renal ultrasound 08/07/2021 and 05/03/2021. CT abdomen and pelvis 04/04/2021. X-ray abdomen KUB 02/21/2021. TECHNIQUE: Real-time imaging of the kidneys. FINDINGS: RIGHT KIDNEY: 10.6 x 6.0 x 5.4 cm (SAG x AP x TRV). The kidney is normal in size, contour, and echogenicity. Renal cortical thickness is normal. No calculi or focal parenchymal lesions. No hydronephrosis. LEFT KIDNEY: 10.5 x 5.7 x 4.7 cm (SAG x AP x TRV). The kidney is normal in size, contour, and echogenicity. Renal cortical thickness is normal. No calculi or focal parenchymal lesions. No hydronephrosis. US/US renal BI IMPRESSION: Normal renal ultrasound. No stone seen.
== END 2022-09-02 15:31 | disposition home or self-care (01) ==
LOC: HO.US 15:30
PROVIDERS: PCP Internal Medicine; Visit Provider Urology
DX: N20.0 Calculus of kidney (principal)
CPT/HCPCS: 76775

== ENCOUNTER 2023-06-25 15:17 | Outpatient (AMB) | payer OTHER, SELFPAY ==
[2023-06-25 15:24] VITALS: BP 120/82; PULSE 92; O2SAT 98; BMI 26.9
--- NOTE | 2023-06-25 15:24 | MHC.PC.OV ---
Vital Signs 06/25/23 15:24 Height 5 ft 6 in Weight 166 lb 6 oz BMI 26.9 BP 120/82 Blood Pressure Location Lt brachial Position Sitting Pulse 92 Pulse Source Pulse Oximeter Pulse Oximetry (%) 98 Oxygen Delivery Method Room Air Intake Visit Reasons: 4 month f/u Sprayer Automatic Spray Machine Required: No Accompanied by: Self / Same As Patient Allergies No Known Allergies [No Known Allergies*] Allergy (Verified 06/25/23 22:22) Medication List - Last Reconciled 06/25/23 by Zoltan Weems MD acetaminophen 650 mg PO Q5H PRN albuterol sulfate 90 mcg/actuation (Ventolin HFA) 2 puffs inhalation Q6H PRN 30 days apixaban (Eliquis) 5 mg PO BID atorvastatin 80 mg PO DAILY calcium carbonate 600 mg PO BEDTIME cefpodoxime 200 mg PO Q12H cholecalciferol (vitamin D3) (Vitamin D3) 25 mcg PO DAILY citalopram 10 mg PO DAILY 30 days cyanocobalamin (vitamin B-12) 1,000 mcg PO DAILY furosemide 10 mg PO DAILY gabapentin 300 mg PO BID gabapentin 400 mg PO BEDTIME magnesium oxide 400 mg PO DAILY methylcellulose (laxative) (Citrucel) 500 mg PO DAILY morphine ER 30 mg PO BID PRN potassium chloride ER 10 mEq PO DAILY pyridoxine (vitamin B6) 100 mg PO DAILY simethicone (Gas Relief (simethicone)) 125 mg PO TID-QID PRN trazodone 50 - 100 mg (1 - 2 x 50 mg) PO BEDTIME PRN 90 days varenicline 0.5 mg PO BID 3 days varenicline 1 mg PO BID 28 days Tobacco use date assessed: 06/25/23 Dental Screening Dental Screen Date: 06/25/23 Did you have a dental visit in the last 12 months?: Yes Did you have a dental problem in the last 6 months where you did not have access to dental care?: No Was dental information given to patient?: Patient has dentist HPI 4 month f/u HPI Details Patient comes in today for her follow up visit States that she currently feels okay although she still has some good days and bad days Relates (+) nausea, occasional vomiting and abdominal pain/discomfort every so often but feels that she is doing well overall States that she eats okay and has not lost any weight and in fact has gained some weight lately She completed her most recent radiation therapy for recurrent metastatic endometrial cancer on 04/03/[address] done at the time revealed a significant interval decrease in the size of the known metastases involving the infrarenal IVC She is scheduled for a PET scan next friday at [facility] for her 3 month follow-up and the results of these will help determine her need for adjuvant chemotherapy or not She also had a Bx of her thyroid nodule at [facility] last week - results came back benign She denies any headaches or dizziness Denies any chest pains, no shortness of breath Has no follow-up labs done recently although she states that she just had some labs done at [facility] a few weeks ago and was advised that her labs all came back okay Needs a few of her Rx refilled today [facility] Medical History Anxiety 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 Goiter History of breast cancer Insomnia Overweight (BMI 25.0-29.9) Peripheral polyneuropathy Primary osteoarthritis of right hip Pure hypercholesterolemia Smoker Vitamin D deficiency Surgical History H/O: hysterectomy (~03/13/21) History of open reduction and internal fixation (ORIF) procedure History of reduction surgery of right breast Family History Father Cancer Mother CVD (cardiovascular disease) Social History Household Members: Family Housing: House Alcohol intake: current Alcohol intake frequency: holidays/special occasions only Patient Tobacco Use Status: Current everyday Tobacco user Tobacco use type: Cigarette Cigarettes Per Day: 5 e-Cigarette/Vaping Use: Never Used Second Hand Smoke Exposure: Yes service: No Current occupational status: employed 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 1. Little interest or pleasure in doing things: nearly every day 2. Feeling down, depressed, or hopeless: nearly every day 3. Trouble falling or staying asleep, or sleeping too much: not at all 4. Feeling tired or having little energy: not at all 5. Poor appetite or overeating: not at all 6. Feeling bad about yourself - or that you are a failure or have let yourself or your family down: not at all 7. Trouble concentrating on things, such as reading the newspaper or watching television: not at all 8. Moving or speaking so slowly that other people could have noticed. Or the opposite - being so fidgety or restless that you have been moving around a lot more than usual: not at all 9. Thoughts that you would be better off or of hurting yourself in some way: not at all Total score: 6 Depression Screening Interpretation: Positive Depression Screening Follow-up: Existing condition and In treatment [address]5039 - PHQ-9 Billing: Yes Source: Developed by Drs. Shay Chen, Charley Xiong, Russ Franco and colleagues, with an educational caridad from [employer]. Thrive Questionnaire Date Thrive assessed: 06/25/23 I am a: Patient What is your living situation today?: I have a steady place to live Within the past 12 months, did the food you bought not last and you didn't have the money to get more?: Never true Within the past 12 months, did you worry whether your food would run out before you got money to buy more?: Never true Do you have trouble paying for medicines?: No Do you have trouble getting transportation to medical appointments?: No Do you have trouble paying your heating and electricity bill?: No Do you have trouble taking care of your child, family member or friend?: No Do you have trouble with day-to-day activities such as bathing, preparing meals, shopping, managing finances, etc.?: No Are you currently unemployed and looking for a job?: No Are you interested in more education?: No Please select the resources that you would like help with: None Currently or been in a relationship where the following occur: no concerns reported AUDIT C Alcohol Use Questionnaire (AUDIT-C) 1. How often do you have a drink containing alcohol?: Monthly or less 2. How many drinks containing alcohol do you have on a typical day when you are drinking?: 1 or 2 3. How often do you have six or more drinks on one occasion?: Never Total Score: 1 Score Reviewed/Action Taken: Yes GABRIEL-7 AMB Questionnaire GABRIEL-7 Date GABRIEL - 7 assessed: 06/25/23 Feeling nervous, anxious, or on edge: 0 = Not at all Not being able to stop or control worryin = Not at all Worrying too much about different things: 0 = Not at all Trouble relaxin = Not at all Being so restless that it is hard to sit still: 0 = Not at all Becoming easily annoyed or irritable: 0 = Not at all Feeling afraid as if something awful might happen: 0 = Not at all Total GABRIEL-7 score (0-4 normal; 5-9 mild; 10-14 moderate; 15-21 severe): 0 Source: Developed by Drs. Shay Chen, Charley Xiong, Russ Franco and colleagues, with an educational caridad from [employer]. Review of Systems Const Denies chills, Reports fatigue, Denies fever(s) and Denies headache(s) ENT Denies dysphagia, Denies dizziness, Denies otalgia, Denies headache(s), Denies odynophagia and Denies sore throat Card Denies chest pain, Denies palpitations and Reports dyspnea (at times, mild) Resp Denies chest congestion, Denies cough, Reports dyspnea (at times, mild) and Denies wheezing GI Denies abdominal pain, Reports bloating (at times), Denies constipation, Denies dysphagia, Denies heartburn, Reports diarrhea (often postprandial), Reports nausea (on and off), Denies odynophagia and Denies vomiting Denies difficulty voiding, Denies nocturia and Denies dysuria Musc Reports back pain (on and off) Neuro Denies dizziness and Denies headache(s) Endo Reports fatigue and Denies palpitations Aller/Immun Denies wheezing Physical exam (Primary Care) Vital Signs: Last Vital Signs Pulse 92 06/25/23 15:24 BP 120/82 06/25/23 15:24 Pulse Ox 98 06/25/23 15:24 Oxygen Delivery Method Room Air 06/25/23 15:24 BMI result Body Mass Index 26.9 Tobacco/Smoking Status: Tobacco use Status Tobacco use date assessed 06/25/23 06/25/23 15:34 Patient Tobacco Use Status Current everyday Tobacco 06/25/23 15:34 Tobacco use type Cigarette 06/25/23 15:34 e-Cigarette/Vaping Use Never Used 06/25/23 15:34 PHQ-9: PHQ-9 Score PHQ-9: Total score 6 06/25/23 22:24 Depression Screening Interpretation: Positive Depression Screening Follow-up: Existing condition and In treatment Thrive Assessment: Date of Thrive Assessment Date Thrive assessed 06/25/23 06/25/23 15:34 Currently or been in a relationship where the following occur: no concerns reported Const General: no acute distress and alert HENMT Ears: TM's normal bilaterally and EAC's normal Throat: Yes posterior oropharynx normal and Yes tonsils normal (no TP congestion) Neck Neck: Yes no lymphadenopathy and Yes supple Thyroid: diffusely enlarged Resp Auscultation: clear to auscultation bilaterally, no rales and no wheezes Cardio Rate: regular rate Rhythm: regular rhythm Heart sounds: no murmurs GI Palpation (GI): Soft to palpation, nontender, no guarding and No hepatosplenomegaly present Auscultation: normal bowel sounds Skin General skin exam: no rashes or lesions noted Extrem General: Yes no clubbing, cyanosis or edema Assessment and Plan Assessment & Plan (1) Deep vein thrombosis of iliac vein of right lower extremity: Comment: Most likely provoked DVT secondary to recurrent endometrioid adenocarcinoma Code(s): I82.421 - Acute embolism and thrombosis of right iliac vein Plan: Incidentally seen on outpatient CT in January 2023 - (+) thrombus in the right iliac vein, extending through the distal IVC and common iliac vein bifurcation Continue Eliquis 5 mg BID (2) Endometrioid adenocarcinoma: Comment: S/P radical hysterectomy, bilateral salpingo-oophorectomy and lymph node dissection by Dr. Arturo Nye on 03/13/2021 - pathology came out as endometrioid adenocarcinoma of the endometrium with extensive squamous cell differentiation, FIGO grade 3 - underwent adjuvant radiation therapy Follow up CT and Bx done in 2021 revealed (+) RECURRENT DISEASE Plan: (+) recurrent disease, despite completing chemotherapy with Pembrolizumab, Carboplatin and Paclitaxel and concurrent immunotherapy Has been previously advised that her cancer is now incurable and that the goal of treatment is to prolong her life and reduce her cancer volume and symptoms Was also on immunotherapy as part of a clinical trial ([id number]) but this was discontinued and she has recently opted for aggressive radiation therapy to her PA vitaliy chain - she has been reportedly advised of potential damage to the small bowels given their proximity to the treatment area She completed her most recent radiation therapy for recurrent metastatic endometrial cancer on 04/03/[address] done at the time revealed a significant interval decrease in the size of the known metastases involving the infrarenal IVC She is scheduled for a PET scan next Friday at [facility] for her 3 month follow-up and the results of these will help determine her need for adjuvant chemotherapy or not Follow-up with gynecologic oncology and radiation oncology as scheduled (3) Goiter: Code(s): E04.9 - Nontoxic goiter, unspecified Plan: Thyroid US done back in September 2018 revealed (+) multiple cystic nodules bilaterally Repeat US done in February 2021 showed enlarged thyroid gland with multiple nodules - the majority of nodules are compatible with colloid cysts and there are 2 nodules in the left medial lobe near the isthmus and inferior lobe that appear solid and complex cystic and are decreased in size from previous exam Biopsies done in the past were all reportedly benign She had another thyroid biopsy done last week that also came back benign Recent thyroid US done on 09/27/2022 at [facility] revealed a generalized thyromegaly with multiple colloid cysts within both lobes and the isthmus, especially in the midportion of the right lobe. There is a 1.6 cm TI-RADS category 4 nodule in the lower pole of the left lobe and a 1 year follow-up exam is recommended to assess stability of this States that her TFTs redone at [facility] a few months ago were reportedly within normal limits Follow up with [facility] Endocrinology as scheduled (4) Pure hypercholesterolemia: Code(s): E78.00 - Pure hypercholesterolemia, unspecified Plan: Continue Atorvastatin 80 mg QD States that she had some follow-up labs done at [facility] a few weeks ago that were reportedly normal (5) History of breast cancer: Code(s): Z85.3 - Personal history of malignant neoplasm of breast Plan: Tamoxifen 20 mg QD has been held due to her recurrent endometrial cancer Follow up with oncology as scheduled for continuing surveillance (6) Anxiety: Code(s): F41.9 - Anxiety disorder, unspecified Plan: Continue Citalopram 10 mg QD and Lorazepam 1 mg 2 to 3 times a day as needed (7) Smoker: Code(s): F17.200 - Nicotine dependence, unspecified, uncomplicated Plan: Counseled again on smoking cessation Plan Follow up in 3 months Medications: Refilled citalopram 10 mg PO DAILY 30 days 90 tabs 1RF atorvastatin 80 mg PO DAILY 90 tabs 1RF trazodone 50 - 100 mg (1 - 2 x 50 mg) PO BEDTIME 90 days PRN 180 tabs 1RF insomnia Coding Level of Care Code Est Pt Level 3 (21737) Diagnoses Deep vein thrombosis of iliac vein of right lower extremity I82.421 Endometrioid adenocarcinoma Goiter E04.9 Pure hypercholesterolemia E78.00 History of breast cancer Z85.3 Anxiety F41.9 Smoker F17.200
== END 2023-06-25 16:27 | disposition home or self-care (01) ==
PROVIDERS: PCP Internal Medicine; Visit Provider Internal Medicine
DX: E04.9 Nontoxic goiter, unspecified (principal); F41.9 Anxiety disorder, unspecified; F17.210 Nicotine dependence, cigarettes, uncomplicated; Z85.3 Personal history of malignant neoplasm of breast; I82.421 Acute embolism and thrombosis of right iliac vein; E78.00 Pure hypercholesterolemia, unspecified
CPT/HCPCS: 99213

== ENCOUNTER 2023-08-08 13:30 | Outpatient (REF) | payer OTHER, SELFPAY | END 2023-08-08 13:31 | disposition home or self-care (01) | LOC: HO.US 13:30 | PROVIDERS: PCP Internal Medicine; Visit Provider Urology | DX: N20.0 Calculus of kidney (principal) | CPT/HCPCS: 76775 ==

== ENCOUNTER 2023-09-19 13:34 | Outpatient (AMB) | payer OTHER, SELFPAY ==
--- NOTE | 2023-09-19 13:38 | MHC.OFFVIS ---
Intake Intake Visit Reasons: 1Y US(SET) Intake Note: Patient is Present for Follow Up Urology Medication: Vitamin B6 Antibiotic Allergies:None Blood Thinners: Eliquis Allergies No Known Allergies [No Known Allergies*] Allergy (Verified 09/29/23 17:01) Medication List - Last Reconciled 11/05/23 by Benji Matias MD acetaminophen 650 mg PO Q5H PRN albuterol sulfate 90 mcg/actuation (Ventolin HFA) 2 puffs inhalation Q6H PRN 30 days apixaban (Eliquis) 5 mg PO BID atorvastatin 80 mg PO DAILY calcium carbonate 600 mg PO BEDTIME cholecalciferol (vitamin D3) (Vitamin D3) 25 mcg PO DAILY citalopram 10 mg PO DAILY 30 days cyanocobalamin (vitamin B-12) 1,000 mcg PO DAILY gabapentin 400 mg PO BEDTIME pyridoxine (vitamin B6) 100 mg PO DAILY trazodone 50 - 100 mg (1 - 2 x 50 mg) PO BEDTIME PRN 90 days HPI HPI Comments History of Present Illness Details Ellyn is a pleasant female. She is a patient of Dr. 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 been diagnosed as uterine cancer Twelve month follow-up Imaging shows no stones Encouraged lemon juice, encourage fluids Last scan shows no recurrence of endometrial cancer Has enrolled for immunotherapy trial Nephrolithiasis Minimal symptoms Imaging - 01/21 CT SCAN right 9 mm stone - 02/21 renal ultrasound 4 mm - 05/23 renal ultrasound no evidence of stones - 08/23 renal ultrasound no evidence of stones - 08/24 renal ultrasound no evidence of stones - 08/25 renal ultrasound evidence of stones Intervention - 02/21 R ESWL - 04/23 right ureteroscopy for distal stone Cytology - NAD Cystoscopy - February 2021 NAD Therapeutic plan - encourage fluids PFSH Medical History 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 Overweight (BMI 25.0-29.9) Insomnia History of breast cancer Peripheral polyneuropathy Primary osteoarthritis of right hip Vitamin D deficiency Smoker Pure hypercholesterolemia Goiter Anxiety Surgical History H/O: hysterectomy (~03/13/21) History of reduction surgery of right breast History of open reduction and internal fixation (ORIF) procedure Family History Father Cancer Mother CVD (cardiovascular disease) Social History Household Members: Family Housing: House Alcohol intake: current Alcohol intake frequency: holidays/special occasions only Patient Tobacco Use Status: Current everyday Tobacco user Tobacco use type: Cigarette Cigarettes Per Day: 5 e-Cigarette/Vaping Use: Never Used Second Hand Smoke Exposure: Yes service: No Current occupational status: employed 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 Gender identity: Female Cognitive needs: No Hearing needs: No Vision needs: No Review of Systems Const Denies chills and Denies fever(s) Card Reports no additional complaints and Denies syncope Resp Denies cough GI Denies abdominal pain and Denies heartburn Reports as per HPI and Denies change in libido Neuro Denies syncope Psych Denies change in libido Endo Denies change in libido Physical Exam Const General: cooperative, healthy appearing, comfortable and no acute distress Orientation/consciousness: patient oriented x3 HEENT Face and sinus: Yes normal facial exam Mouth: moist mucous membranes Neck Neck: Yes normal visual inspection, Yes full ROM and Yes trachea midline Chest Chest palpation & inspection: normal inspection of the chest Resp Effort & Inspection: normal respiratory effort, able to speak in complete sentences and no respiratory distress GI Inspection: Yes normal to inspection Back/Spine/Pelvis Cervical Spine: normal cervical lordosis Thoracic/Lumbar Spine: thoracic and lumbar spine normal to inspection Skin General skin exam: no rashes or lesions noted Neuro General: patient oriented x3, gait normal, tone normal and moves all extremities Extrem General: Yes normal to inspection and Yes capillary refill normal Assessment & Plan Assessment & Plan (1) Nephrolithiasis: Comment: 02/21 right ESWL, 04/23 right ureteroscopy for fragments Code(s): N20.0 - Calculus of kidney Plan Continue to follow Refill vitamin B6 Patient Instructions: Imaging studies, laboratory and physical exam results were discussed and reviewed in detail. No major barriers to patient understanding were identified. An opportunity to ask questions regarding the treatment plan was provided. All questions were answered. The patient expressed understanding and agreement with the above treatment plan. The patient is aware they should contact our office by phone for worsening of their current condition or the appearance of new urologic symptoms. Compliance is encouraged with any medications and followup testing that is ordered. It is a privilege to participate in the urologic care of your patient. If you have any questions or concerns regarding treatment for the above conditions, or other urologic issues, please do not hesitate to contact me. The office telephone contact is [phone]. This note is constructed using voice recognition software. While every effort has been made to ensure accuracy ct scan technician errors may have been included. Yours sincerely, Dr Benji Matias MD, [facility] - Urology Providers of Expert, Compassionate Care for the Genitourinary System Coding Level of Care Code Est Pt Level 4 (79317) Diagnoses Nephrolithiasis N20.0
== END 2023-09-19 14:08 | disposition home or self-care (01) ==
PROVIDERS: Visit Provider Urology
DX: N20.0 Calculus of kidney (principal)
CPT/HCPCS: 99213

== ENCOUNTER → 2023-09-19 13:34 | Outpatient (BNVA) | payer OTHER, SELFPAY | PROVIDERS: Visit Provider Urology ==

== ENCOUNTER 2023-09-29 16:44 | Outpatient (AMB) | payer OTHER, SELFPAY ==
[2023-09-29 16:46] VITALS: BP 118/80; PULSE 102; O2SAT 96; BMI 27.8
--- NOTE | 2023-09-29 16:46 | MHC.PC.OV ---
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 Accompanied by: Self / Same As Patient Allergies No Known Allergies [No Known Allergies*] Allergy (Verified 01/30/24 17:06) Medication List - Last Reconciled 09/29/23 by Zoltan Weems MD acetaminophen 650 mg PO Q5H PRN albuterol sulfate 90 mcg/actuation (Ventolin HFA) 2 puffs inhalation Q6H PRN 30 days apixaban (Eliquis) 5 mg PO BID atorvastatin 80 mg PO DAILY calcium carbonate 600 mg PO BEDTIME cholecalciferol (vitamin D3) (Vitamin D3) 25 mcg PO DAILY citalopram 10 mg PO DAILY 30 days cyanocobalamin (vitamin B-12) 1,000 mcg PO DAILY gabapentin 400 mg PO BEDTIME pyridoxine (vitamin B6) 100 mg PO DAILY trazodone 50 - 100 mg (1 - 2 x 50 mg) PO BEDTIME PRN 90 days Tobacco use date assessed: 09/29/23 Dental Screening Dental Screen Date: 09/29/23 Did you have a dental visit in the last 12 months?: Yes Did you have a dental problem in the last 6 months where you did not have access to dental care?: No Was dental information given to patient?: Patient has dentist HPI endometrial CA, hyperlipidemia, depression HPI Details Patient comes in today for her follow up visit States that she has been on no other Tx since her radiation therapy was completed back on 04/03/23 Reports that her recent PET CT done on 09/18/23 showed no change/progression in her cancer Her next follow up appointment with Dr. Nye in on 12/04/23 and she will reportedly be getting a repeat chest CT done around that time Recalls that she passed some blood clot twice while urinating sometime in July to August 2023 - does not know if these are due to kidney stones; states that these have not recurred since and she's had no acute urinary symptoms or flank pains lately States that she feels okay overall She denies any headaches or dizziness Denies any chest pains, no SOB No nausea/vomiting, no abdominal pain Relates (+) on and off loose stools and thinks that these are a consequence of her radiation therapy earlier this year Her her follow up labs done in July 2023 at [facility] - to discuss her results [facility] Medical History 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 Overweight (BMI 25.0-29.9) Insomnia History of breast cancer Peripheral polyneuropathy Primary osteoarthritis of right hip Vitamin D deficiency Smoker Pure hypercholesterolemia Goiter Anxiety Surgical History H/O: hysterectomy (~03/13/21) History of reduction surgery of right breast History of open reduction and internal fixation (ORIF) procedure Family History Father Cancer Mother CVD (cardiovascular disease) Social History Household Members: Family Housing: House Alcohol intake: current Alcohol intake frequency: holidays/special occasions only Patient Tobacco Use Status: Current everyday Tobacco user Tobacco use type: Cigarette Cigarette Packs Per Day: 0.5 Cigarettes Per Day: 10 e-Cigarette/Vaping Use: Never Used Second Hand Smoke Exposure: Yes service: No Current occupational status: employed 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 1. Little interest or pleasure in doing things: nearly every day 2. Feeling down, depressed, or hopeless: nearly every day 3. Trouble falling or staying asleep, or sleeping too much: not at all 4. Feeling tired or having little energy: not at all 5. Poor appetite or overeating: not at all 6. Feeling bad about yourself - or that you are a failure or have let yourself or your family down: not at all 7. Trouble concentrating on things, such as reading the newspaper or watching television: not at all 8. Moving or speaking so slowly that other people could have noticed. Or the opposite - being so fidgety or restless that you have been moving around a lot more than usual: not at all 9. Thoughts that you would be better off or of hurting yourself in some way: not at all Total score: 6 Depression Screening Interpretation: Positive Depression Screening Follow-up: Existing condition and In treatment Depression Screening Done: Yes 56701 - PHQ-9 Billing: Yes Source: Developed by Drs. Shay Chen, Charley Xiong, Russ Franco and colleagues, with an educational caridad from [employer]. Thrive Questionnaire Date Thrive assessed: 09/29/23 I am a: Patient What is your living situation today?: I have a steady place to live Within the past 12 months, did the food you bought not last and you didn't have the money to get more?: Never true Within the past 12 months, did you worry whether your food would run out before you got money to buy more?: Never true Do you have trouble paying for medicines?: No Do you have trouble getting transportation to medical appointments?: No Do you have trouble paying your heating and electricity bill?: No Do you have trouble taking care of your child, family member or friend?: No Do you have trouble with day-to-day activities such as bathing, preparing meals, shopping, managing finances, etc.?: No Are you currently unemployed and looking for a job?: No Are you interested in more education?: No Please select the resources that you would like help with: None Currently or been in a relationship where the following occur: no concerns reported AUDIT C Alcohol Use Questionnaire (AUDIT-C) 1. How often do you have a drink containing alcohol?: Monthly or less 2. How many drinks containing alcohol do you have on a typical day when you are drinking?: 1 or 2 3. How often do you have six or more drinks on one occasion?: Never Total Score: 1 Score Reviewed/Action Taken: Yes GABRIEL-7 AMB Questionnaire GABRIEL-7 Date GABRIEL - 7 assessed: 09/29/23 Feeling nervous, anxious, or on edge: 0 = Not at all Not being able to stop or control worryin = Not at all Worrying too much about different things: 0 = Not at all Trouble relaxin = Not at all Being so restless that it is hard to sit still: 0 = Not at all Becoming easily annoyed or irritable: 0 = Not at all Feeling afraid as if something awful might happen: 0 = Not at all Total GABRIEL-7 score (0-4 normal; 5-9 mild; 10-14 moderate; 15-21 severe): 0 Source: Developed by Drs. Shay Chen, Charley Xiong, Russ Franco and colleagues, with an educational caridad from [employer]. Review of Systems Const Denies chills, Reports fatigue, Denies fever(s) and Denies headache(s) ENT Denies dysphagia, Denies dizziness, Denies otalgia, Denies headache(s), Denies neck pain, Denies odynophagia and Denies sore throat Card Denies chest pain, Denies palpitations and Reports dyspnea (at times, mild) Resp Denies chest congestion, Denies cough, Reports dyspnea (at times, mild) and Denies wheezing GI Denies abdominal pain, Denies constipation, Denies dysphagia, Denies heartburn, Reports diarrhea (often postprandial - states this depends mostly on what she eats), Denies nausea, Denies odynophagia and Denies vomiting Denies difficulty voiding, Denies nocturia, Denies dysuria and Denies urinary urgency Musc Denies back pain and Denies neck pain Skin/Breast Denies rash Neuro Denies dizziness and Denies headache(s) Endo Reports fatigue and Denies palpitations Aller/Immun Denies wheezing Physical exam (Primary Care) Vital Signs: Last Vital Signs Pulse 102 H 09/29/23 16:46 BP 118/80 09/29/23 16:46 Pulse Ox 96 09/29/23 16:46 Oxygen Delivery Method Room Air 09/29/23 16:46 BMI result Body Mass Index 27.8 Tobacco/Smoking Status: Tobacco use Status Tobacco use date assessed 09/29/23 09/29/23 16:54 Patient Tobacco Use Status Current everyday Tobacco 09/29/23 16:49 Tobacco use type Cigarette 09/29/23 16:49 e-Cigarette/Vaping Use Never Used 09/29/23 16:49 PHQ-9: PHQ-9 Score PHQ-9: Total score 6 09/29/23 17:17 Depression Screening Interpretation: Positive Depression Screening Follow-up: Existing condition and In treatment Thrive Assessment: Date of Thrive Assessment Date Thrive assessed 09/29/23 09/29/23 16:54 Currently or been in a relationship where the following occur: no concerns reported Const General: no acute distress and alert HENMT Ears: TM's normal bilaterally and EAC's normal Throat: Yes posterior oropharynx normal and Yes tonsils normal (no TP congestion) Neck Neck: Yes no lymphadenopathy and Yes supple Thyroid: diffusely enlarged and nontender Resp Auscultation: clear to auscultation bilaterally, no rales and no wheezes Cardio Rate: regular rate Rhythm: regular rhythm Heart sounds: no murmurs GI Palpation (GI): Soft to palpation and nontender Auscultation: normal bowel sounds General: Yes no CVA tenderness Back/Spine/Pelvis Back: no CVA tenderness Skin Rashes: no rashes Extrem General: Yes no clubbing, cyanosis or edema Assessment and Plan Assessment & Plan (1) Endometrioid adenocarcinoma: Comment: S/P radical hysterectomy, bilateral salpingo-oophorectomy and lymph node dissection by Dr. Arturo Nye on 03/13/2021 - pathology came out as endometrioid adenocarcinoma of the endometrium with extensive squamous cell differentiation, FIGO grade 3 - underwent adjuvant radiation therapy Follow up CT and Bx done in 2021 revealed (+) RECURRENT DISEASE Plan: (+) recurrent disease, despite completing chemotherapy with Pembrolizumab, Carboplatin and Paclitaxel and concurrent immunotherapy She has been previously advised that her cancer is now incurable and that the goal of treatment is to prolong her life and reduce her cancer volume and symptoms She was also on immunotherapy as part of a clinical trial ([id number]) but this was discontinued and she has recently opted for aggressive radiation therapy to her PA vitaliy chain - she has been reportedly advised of potential damage to the small bowels given their proximity to the treatment area She completed her most recent radiation therapy for recurrent metastatic endometrial cancer on 04/03/[address] done at the time revealed a significant interval decrease in the size of the known metastases involving the infrarenal IVC She is scheduled for a PET scan next Friday at [facility] for her 3 month follow-up and the results of these will help determine her need for adjuvant chemotherapy or not Follow-up with gynecologic oncology and radiation oncology as scheduled (2) Deep vein thrombosis of iliac vein of right lower extremity: Comment: Most likely provoked DVT secondary to recurrent endometrioid adenocarcinoma Code(s): I82.421 - Acute embolism and thrombosis of right iliac vein Qualifiers: Chronicity: unspecified Qualified Code(s): I82.421 - Acute embolism and thrombosis of right iliac vein Plan: Incidentally seen on outpatient CT in January 2023 - (+) thrombus in the right iliac vein, extending through the distal IVC and common iliac vein bifurcation Continue Eliquis 5 mg BID (3) Goiter: Code(s): E04.9 - Nontoxic goiter, unspecified Plan: Thyroid US done back in September 2018 revealed (+) multiple cystic nodules bilaterally Repeat US done in February 2021 showed enlarged thyroid gland with multiple nodules - the majority of nodules are compatible with colloid cysts and there are 2 nodules in the left medial lobe near the isthmus and inferior lobe that appear solid and complex cystic and are decreased in size from previous exam Biopsies done in the past were all reportedly benign She had another thyroid biopsy done in June 2023 that also reportedly came back benign Recent thyroid US done on 09/27/2022 at [facility] revealed a generalized thyromegaly with multiple colloid cysts within both lobes and the isthmus, especially in the midportion of the right lobe. There is a 1.6 cm TI-RADS category 4 nodule in the lower pole of the left lobe and a 1 year follow-up exam is recommended to assess stability of this States that her TFTs redone at [facility] a few months ago were reportedly within normal limits Follow up with [facility] as scheduled (4) Pure hypercholesterolemia: Code(s): E78.00 - Pure hypercholesterolemia, unspecified Plan: Continue Atorvastatin 80 mg QD States that she had some follow-up labs done at [facility] a few weeks ago that were reportedly normal Reinforced low cholesterol diet (5) History of breast cancer: Code(s): Z85.3 - Personal history of malignant neoplasm of breast Plan: Tamoxifen 20 mg QD has been held due to her recurrent endometrial cancer Follow up with oncology as scheduled for continuing surveillance (6) Anxiety: Code(s): F41.9 - Anxiety disorder, unspecified Plan: Continue Citalopram 10 mg QD and Lorazepam 1 mg 2 to 3 times a day as needed (7) Smoker: Code(s): F17.200 - Nicotine dependence, unspecified, uncomplicated Plan: Counseled again on smoking cessation Plan Follow up in 4 months Orders: Orders UA CC w/rflx Micro + Cult 4 Months R30.0 - Dysuria Vitamin D 25-OH Total 4 Months E55.9 - Vitamin D deficiency, unspecified Complete Blood Count Auto Diff 4 Months I10 - Essential (primary) hypertension Comprehensive [place]. Panel Fast 4 Months E78.00 - Pure hypercholesterolemia, unspecified Lipid Panel 4 Months E78.00 - Pure hypercholesterolemia, unspecified TSH reflex Free T4 4 Months E78.00 - Pure hypercholesterolemia, unspecified Coding Level of Care Code Est Pt Level 4 (96069) Diagnoses Endometrioid adenocarcinoma Deep vein thrombosis (DVT) of iliac vein of right lower extremity, unspecified chronicity I82.421 Chronicity: unspecified Goiter E04.9 Pure hypercholesterolemia E78.00 History of breast cancer Z85.3 Anxiety F41.9 Smoker F17.200
== END 2023-09-29 17:20 | disposition home or self-care (01) ==
PROVIDERS: PCP Internal Medicine; Visit Provider Internal Medicine
DX: I82.421 Acute embolism and thrombosis of right iliac vein (principal); E04.9 Nontoxic goiter, unspecified; E78.00 Pure hypercholesterolemia, unspecified; Z85.3 Personal history of malignant neoplasm of breast; F41.9 Anxiety disorder, unspecified; F17.200 Nicotine dependence, unspecified, uncomplicated
CPT/HCPCS: 99499

== ENCOUNTER 2024-01-30 16:48 | Outpatient (AMB) | payer OTHER, SELFPAY ==
--- NOTE | 2024-01-30 16:50 | A.OFFPC_ITS ---
Vital Signs 01/30/24 16:52 Height 5 ft 6 in Weight 181 lb 8 oz BMI 29.3 BP 110/58 L Blood Pressure Location Lt brachial Position Sitting Pulse 84 Pulse Source Pulse Oximeter Pulse Oximetry (%) 98 Oxygen Delivery Method Room Air Intake Visit Reasons: endometrial CA, hyperlipidemia, neuropathy Intake Note: Patient is here to follow up on Endometrial CA, Hyperlipidemia, Neuropathy. 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 Miner Blasting: Not Required per policy Accompanied by: Self / Same As Patient Allergies No Known Allergies [No Known Allergies*] Allergy (Verified 01/30/24 17:06) Medication List - Last Reconciled 01/30/24 by Zoltan Weems MD acetaminophen 650 mg PO Q5H PRN albuterol sulfate 90 mcg/actuation (Ventolin HFA) 2 puffs inhalation Q6H PRN 30 days apixaban (Eliquis) 5 mg PO BID atorvastatin 80 mg PO DAILY calcium carbonate 600 mg PO BEDTIME cholecalciferol (vitamin D3) (Vitamin D3) 25 mcg PO DAILY citalopram 10 mg PO DAILY 30 days cyanocobalamin (vitamin B-12) 1,000 mcg PO DAILY gabapentin 400 mg PO BEDTIME pyridoxine (vitamin B6) 100 mg PO DAILY trazodone 50 - 100 mg (1 - 2 x 50 mg) PO BEDTIME PRN 90 days Tobacco use date assessed: 01/30/24 Dental Screening Dental Screen Date: 01/30/24 Did you have a dental visit in the last 12 months?: Yes Did you have a dental problem in the last 6 months where you did not have access to dental care?: No Was dental information given to patient?: Patient has dentist HPI endometrial CA, hyperlipidemia, neuropathy HPI Details Patient comes in today for her follow up visit States that she currently feels okay but reports experiencing increasing pain in both of her legs, especially at night, and has noticed that she has been having a hard time walking much lately due to her leg symptoms Had a follow up chest CT done last month that came out negative States that she is scheduled for a repeat PET scan again in a couple of month for follow up She denies any headaches or dizziness Denies any chest pains, no SOB No nausea/vomiting, no abdominal pain No change in bowel habits noted Needs a few of her Rx refilled She had some follow up labs done at [facility] last week and brought in copies of her lab results for review Admits that she has not been compliant with her diet recently (has been eating a lot of popcorn as well lately) and has gained a lot of weight as a result [facility] Medical History 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 Overweight (BMI 25.0-29.9) Insomnia History of breast cancer Peripheral polyneuropathy Primary osteoarthritis of right hip Vitamin D deficiency Smoker Pure hypercholesterolemia Goiter Anxiety Surgical History H/O: hysterectomy (~03/13/21) History of reduction surgery of right breast History of open reduction and internal fixation (ORIF) procedure Family History Father Cancer Mother CVD (cardiovascular disease) Social History Household Members: Family Housing: House Alcohol intake: current Alcohol intake frequency: holidays/special occasions only Patient Tobacco Use Status: Current everyday Tobacco user Tobacco use type: Cigarette Cigarette Packs Per Day: 0.5 Cigarettes Per Day: 10 e-Cigarette/Vaping Use: Never Used Second Hand Smoke Exposure: Yes service: No Current occupational status: employed 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 1. Little interest or pleasure in doing things: not at all 2. Feeling down, depressed, or hopeless: not at all 3. Trouble falling or staying asleep, or sleeping too much: not at all 4. Feeling tired or having little energy: not at all 5. Poor appetite or overeating: not at all 6. Feeling bad about yourself - or that you are a failure or have let yourself or your family down: not at all 7. Trouble concentrating on things, such as reading the newspaper or watching television: not at all 8. Moving or speaking so slowly that other people could have noticed. Or the opposite - being so fidgety or restless that you have been moving around a lot more than usual: not at all 9. Thoughts that you would be better off or of hurting yourself in some way: not at all Total score: 0 Depression Screening Interpretation: Negative Depression Screening Done: Yes 75407 - PHQ-9 Billing: Yes Source: Developed by Drs. Shay Chen, Charley Xiong, Russ Franco and colleagues, with an educational caridad from [employer]. Thrive Questionnaire Date Thrive assessed: 01/30/24 I am a: Patient What is your living situation today?: I have a steady place to live Within the past 12 months, did the food you bought not last and you didn't have the money to get more?: Never true Within the past 12 months, did you worry whether your food would run out before you got money to buy more?: Never true Do you have trouble paying for medicines?: No Do you have trouble getting transportation to medical appointments?: No Do you have trouble paying your heating and electricity bill?: No Do you have trouble taking care of your child, family member or friend?: No Do you have trouble with day-to-day activities such as bathing, preparing meals, shopping, managing finances, etc.?: No Are you currently unemployed and looking for a job?: No Are you interested in more education?: No Currently or been in a relationship where the following occur: no concerns reported THRIVE Score: 0 AUDIT C Alcohol Use Questionnaire (AUDIT-C) 1. How often do you have a drink containing alcohol?: Monthly or less 2. How many drinks containing alcohol do you have on a typical day when you are drinking?: 1 or 2 3. How often do you have six or more drinks on one occasion?: Never Total Score: 1 Score Reviewed/Action Taken: Yes GABRIEL-7 AMB Questionnaire GABRIEL-7 Date GABRIEL - 7 assessed: 01/30/24 Feeling nervous, anxious, or on edge: 0 = Not at all Not being able to stop or control worryin = Not at all Worrying too much about different things: 0 = Not at all Trouble relaxin = Not at all Being so restless that it is hard to sit still: 0 = Not at all Becoming easily annoyed or irritable: 0 = Not at all Feeling afraid as if something awful might happen: 0 = Not at all Total GABRIEL-7 score (0-4 normal; 5-9 mild; 10-14 moderate; 15-21 severe): 0 Source: Developed by Drs. Shay Chen, Charley Xiong, Russ Franco and colleagues, with an educational caridad from [employer]. Review of Systems Const Denies chills, Reports fatigue, Denies fever(s) and Denies headache(s) ENT Denies dysphagia, Denies dizziness, Denies otalgia, Denies headache(s), Denies neck pain, Denies odynophagia and Denies sore throat Card Denies chest pain, Denies palpitations and Denies dyspnea Resp Denies chest congestion, Denies cough, Denies dyspnea and Denies wheezing GI Denies abdominal pain, Denies constipation, Denies dysphagia, Denies heartburn, Reports diarrhea (often postprandial - states this depends mostly on what she eats), Denies nausea, Denies odynophagia and Denies vomiting Denies difficulty voiding, Denies nocturia, Denies dysuria and Denies urinary urgency Musc Denies back pain and Denies neck pain Skin/Breast Denies rash Neuro Denies dizziness and Denies headache(s) Endo Reports fatigue and Denies palpitations Aller/Immun Denies wheezing Physical exam (Primary Care) Vital Signs: Last Vital Signs Pulse 84 01/30/24 16:52 BP 110/58 L 01/30/24 16:52 Pulse Ox 98 01/30/24 16:52 Oxygen Delivery Method Room Air 01/30/24 16:52 BMI result Body Mass Index 29.3 Tobacco/Smoking Status: Tobacco use Status Tobacco use date assessed 01/30/24 01/30/24 16:58 Patient Tobacco Use Status Current everyday Tobacco 01/30/24 16:58 Tobacco use type Cigarette 01/30/24 16:58 e-Cigarette/Vaping Use Never Used 01/30/24 16:58 PHQ-9: PHQ-9 Score PHQ-9: Total score 0 01/31/24 22:36 Depression Screening Interpretation: Negative Thrive Assessment: Date of Thrive Assessment Date Thrive assessed 01/30/24 01/30/24 16:58 Currently or been in a relationship where the following occur: no concerns reported Const General: no acute distress and alert HENMT Ears: TM's normal bilaterally and EAC's normal Throat: Yes posterior oropharynx normal and Yes tonsils normal (no TP congestion) Neck Neck: Yes no lymphadenopathy and Yes supple Thyroid: diffusely enlarged and nontender Resp Auscultation: clear to auscultation bilaterally, no rales and no wheezes Cardio Rate: regular rate Rhythm: regular rhythm Heart sounds: no murmurs GI Palpation (GI): Soft to palpation and nontender Auscultation: normal bowel sounds General: Yes no CVA tenderness Back/Spine/Pelvis Back: no CVA tenderness Skin Rashes: no rashes Extrem General: Yes no clubbing, cyanosis or edema Assessment and Plan Assessment & Plan (1) Lower extremity pain, bilateral: Code(s): M79.604 - Pain in right leg; M79.605 - Pain in left leg Plan: Discussed that this is most likely due to expected progression of her neuropathy Can consider sending her for EMG & NCV for further evaluation/confirmation - patient declined offer at this time Will start her on a trial of Duloxetine 30 mg QD to see if this will help with her symptoms - have advised patient to stop taking her Citalopram 10 mg when she starts Duloxetine Continue Gabapentin 400 mg Q HS - prefers not to take this during the day as it makes her feel tired and drowsy so unable to increase dosing at this time (2) Deep vein thrombosis of iliac vein of right lower extremity: Comment: Most likely provoked DVT secondary to recurrent endometrioid adenocarcinoma Code(s): I82.421 - Acute embolism and thrombosis of right iliac vein Qualifiers: Chronicity: unspecified Qualified Code(s): I82.421 - Acute embolism and thrombosis of right iliac vein Plan: Incidentally seen on outpatient CT in January 2023 - (+) thrombus in the right iliac vein, extending through the distal IVC and common iliac vein bifurcation Continue Eliquis 5 mg BID (3) Endometrioid adenocarcinoma: Comment: S/P radical hysterectomy, bilateral salpingo-oophorectomy and lymph node dissection by Dr. Arturo Nye on 03/13/2021 - pathology came out as endometrioid adenocarcinoma of the endometrium with extensive squamous cell differentiation, FIGO grade 3 - underwent adjuvant radiation therapy Follow up CT and Bx done in 2021 revealed (+) RECURRENT DISEASE Plan: (+) recurrent disease, despite completing chemotherapy with Pembrolizumab, Carboplatin and Paclitaxel and concurrent immunotherapy Has been previously advised that her cancer is now incurable and that the goal of treatment is to prolong her life and reduce her cancer volume and symptoms Was also on immunotherapy as part of a clinical trial ([id number]) but this was discontinued and she has recently opted for aggressive radiation therapy to her PA vitaliy chain - she has been reportedly advised of potential damage to the small bowels given their proximity to the treatment area She completed her most recent radiation therapy for recurrent metastatic endometrial cancer on 04/03/[address] done at the time revealed a significant interval decrease in the size of the known metastases involving the infrarenal IVC Her PET scan done at [facility] in October 2023 (for her 3 month follow-up) came out negative and she is scheduled for her repeat PET scan in a couple of months for her next follow up surveillance imaging Chest CT done on 11/19/2023 revealed was stable with NO progression of her cancer Follow-up with gynecologic oncology and radiation oncology as scheduled (4) Goiter: Code(s): E04.9 - Nontoxic goiter, unspecified Plan: Thyroid US done back in September 2018 revealed (+) multiple cystic nodules bilaterally Repeat US done in February 2021 showed enlarged thyroid gland with multiple nodules - the majority of nodules are compatible with colloid cysts and there are 2 nodules in the left medial lobe near the isthmus and inferior lobe that appear solid and complex cystic and are decreased in size from previous exam Biopsies done in the past were all reportedly benign She had another thyroid biopsy done in September 2023 that also came back benign Recent thyroid US done on 09/27/2022 at [facility] revealed a generalized thyromegaly with multiple colloid cysts within both lobes and the isthmus, especially in the midportion of the right lobe. There is a 1.6 cm TI-RADS category 4 nodule in the lower pole of the left lobe and a 1 year follow-up exam is recommended to assess stability of this Her most recent TFTs redone at [facility] a few months ago were reportedly within normal limits Follow up with [facility] Endocrinology as scheduled (5) Pure hypercholesterolemia: Code(s): E78.00 - Pure hypercholesterolemia, unspecified Plan: Results of her labs done at [facility] last week reviewed and discussed with patient - advised that these again did not include a fasting lipid profile Reinforced low cholesterol diet Continue Atorvastatin 80 mg QD Will recheck her labs and fasting lipids in 4 months for follow up (6) History of breast cancer: Code(s): Z85.3 - Personal history of malignant neoplasm of breast Plan: Tamoxifen 20 mg QD has been held due to her recurrent endometrial cancer Follow up with oncology as scheduled for continuing surveillance Repeat chest CT done in November 2023 showed NO progression of her cancer (7) Anxiety: Code(s): F41.9 - Anxiety disorder, unspecified Plan: Continue Lorazepam 1 mg 2 to 3 times a day as needed She was also on Citalopram 10 mg QD but as she is being started on Duloxetine for her increasing neuropathic symptoms in her legs, have advised her to stop taking this when she starts taking Duloxetine 30 mg QD (8) Smoker: Code(s): F17.200 - Nicotine dependence, unspecified, uncomplicated Plan: Counseled again on smoking cessation Plan Follow up in 4 months Orders: Orders Complete Blood Count Auto Diff 4 Months D64.9 - Anemia, unspecified, M79.604 - Pain in right leg, M79.605 - Pain in left leg Comprehensive [place]. Panel Fast 4 Months E78.00 - Pure hypercholesterolemia, unspecified, M79.604 - Pain in right leg, M79.605 - Pain in left leg Lipid Panel 4 Months E78.00 - Pure hypercholesterolemia, unspecified, M79.604 - Pain in right leg, M79.605 - Pain in left leg TSH reflex Free T4 4 Months E78.00 - Pure hypercholesterolemia, unspecified, M79.604 - Pain in right leg, M79.605 - Pain in left leg UA CC w/rflx Micro + Cult 4 Months M79.604 - Pain in right leg, M79.605 - Pain in left leg, R30.0 - Dysuria Vitamin D 25-OH Total 4 Months E55.9 - Vitamin D deficiency, unspecified, M79.604 - Pain in right leg, M79.605 - Pain in left leg C Reactive Protein 4 Months M79.604 - Pain in right leg, M79.605 - Pain in left leg Vitamin B12 and Folate 4 Months E53.8 - Deficiency of other specified B group vitamins, M79.604 - Pain in right leg, M79.605 - Pain in left leg Erythrocyte Sedimentation Rate 4 Months M79.604 - Pain in right leg, M79.605 - Pain in left leg, M79.7 - Fibromyalgia Medications: New acetaminophen 650 mg (2 x 325 mg) PO Q5H PRN 90 tabs 5RF Pain duloxetine 30 mg PO DAILY 90 days 90 caps 3RF Changed From pyridoxine (vitamin B6) 100 mg PO DAILY To pyridoxine (vitamin B6) 100 mg PO DAILY 90 days 90 tabs 3RF From cyanocobalamin (vitamin B-12) 1,000 mcg PO DAILY To cyanocobalamin (vitamin B-12) 1,000 mcg PO DAILY 90 days 90 caps 3RF Refilled atorvastatin 80 mg PO DAILY 90 tabs 3RF Coding Level of Care Code Est Pt Level 4 (28801) Diagnoses Lower extremity pain, bilateral M79.604; M79.605 Deep vein thrombosis (DVT) of iliac vein of right lower extremity, unspecified chronicity I82.421 Chronicity: unspecified Endometrioid adenocarcinoma Goiter E04.9 Pure hypercholesterolemia E78.00 History of breast cancer Z85.3 Anxiety F41.9 Smoker F17.200
[2024-01-30 16:52] VITALS: BP 110/58; PULSE 84; O2SAT 98; BMI 29.3
== END 2024-01-30 17:30 | disposition home or self-care (01) ==
PROVIDERS: PCP Internal Medicine; Visit Provider Internal Medicine
DX: M79.604 Pain in right leg (principal); M79.605 Pain in left leg; I82.421 Acute embolism and thrombosis of right iliac vein; E04.9 Nontoxic goiter, unspecified; E78.00 Pure hypercholesterolemia, unspecified; Z85.3 Personal history of malignant neoplasm of breast; F41.9 Anxiety disorder, unspecified; F17.200 Nicotine dependence, unspecified, uncomplicated
CPT/HCPCS: 99214

== ENCOUNTER → 2024-07-13 10:25 | Outpatient (RCR) | payer OTHER, SELFPAY ==
[2021-01-02 08:04] LABS: MANUAL DIFF FLAG NO
[2021-01-02 08:05] VITALS: BP 121/68; PULSE 98; RESP 12; TEMP 36.1; O2SAT 97; BMI 29.0
--- NOTE | 2021-01-02 08:13 | PM.HEMONCPN ---
Medical Summary - Medical Summary Date of Service: 01/02/21 Chief complaint: Follow-up For breast cancer. Medical Summary: DIAGNOSIS: Breast carcinoma 2.9 x 1.7 cm. ER positive, DC positive, HER-2/va negative. CURRENT THERAPY: 1. Neoadjuvant chemotherapy started January 26, 2014 and dose-dense AC x4, completed on March 09, 2014. 2. Weekly Taxol started on January 21, 2014, completed on June 08, 2014. 3. Lumpectomy on July 19, [address] Margot Coulter at [facility]. PATHOLOGY: Pathology showed infiltrating ductal carcinoma 1.7 cm, grade 2 with DCIS. Reexcision of inferior superolateral and lateral subcutaneous margins were all negative and lymph nodes were negative. No lymphatic invasion. No blood vessel invasion. No lymphoplasmacytic response. Stage [id number]. CURRENT THERAPY: Tamoxifen 20 mg started July 2014. Interval History Interval history: This is a pleasant 60-year-old lady, here for a follow-up visit. She tells me that since November she has noted blood in the urine. Her urine is mostly red in color. She has had pain towards the right side of her back. She denies any dysuria nor suprapubic pain. Denies fever nor chills. She had an x-ray taken on 12/13: There is a 3 x 4 mm calcification overlying upper pole right kidney. She denies any major complaints. She has residual numbness in her feet. Sometimes she notices her legs swell up. Left more than right. She uses compression socks. She denies any breast related complaints. She denies headache no dizziness. Denies chest pain or trouble breathing. No abdominal pain nausea vomiting heartburn indigestion. Bowels are working without any gross blood in it. She does not have a good appetite. She cannot eat a big helping. She has gained some weight. Energy level is low. She is in good spirits. Rest of the review of systems is unremarkable. She tells me that she has been working. She works at the [employer]. They have been only seeing clients by appointment. Other than that she has been home. Review of Systems - Constitutional Reports no additional constitutional complaints - Eyes Reports no additional eye complaints - ENT Reports no additional ear, nose, mouth, and throat complaints - Cardiovascular Reports no additional cardiovascular complaints - Respiratory Reports no additional respiratory complaints - Gastrointestinal Reports no additional gastrointestinal complaints - Genitourinary Reports no additional female genitourinary complaints - Musculoskeletal Reports no additional musculoskeletal complaints - Integumentary/Breasts Skin/Breast: Reports no additional skin complaints - Neurologic Reports no additional neurologic complaints - Psychiatric Reports no additional psychiatric complaints - Endocrine Reports no additional endocrine complaints - Hematologic/Lymphatic Reports no additional hematologic/lymphatic complaints - Allergic/Immunologic Reports no additional allergic/immunologic complaints PMFSH Family History: Family History (Last Updated 09/08/20 @ 12:11 by JOSE EDUARDO Henderson) Father Cancer Mother CVD (cardiovascular disease) Surgical History: Surgical History (Last Updated 09/08/20 @ 12:11 by JOSE EDUARDO Henderson) History of open reduction and internal fixation (ORIF) procedure History of reduction surgery of right breast Home Medications and Allergies Home Medications Medication Instructions Recorded Confirmed Type atorvastatin 80 mg tablet 80 mg PO DAILY 12/13/20 01/02/21 History calcium carbonate-vitamin D3 600 600 cap PO 12/13/20 12/13/20 History mg calcium-200 unit capsule citalopram 10 mg tablet 10 mg PO DAILY 12/13/20 01/02/21 History cyanocobalamin (vitamin B-12) 1,000 mcg PO DAILY 12/13/20 01/02/21 History 1,000 mcg capsule magnesium oxide 400 mg (241.3 mg 400 mg PO DAILY 12/13/20 01/02/21 History magnesium) tablet tamoxifen 20 mg tablet 20 mg PO DAILY 12/13/20 01/02/21 History trazodone 50 mg tablet 50 mg PO BEDTIME PRN 12/13/20 01/02/21 History Allergies Allergy/AdvReac Type Severity Reaction Status Date / Time No Known Allergies Allergy Verified 09/08/20 12:10 [No Known Allergies*] Exam Vital signs: Vital Signs Temp 97 F 01/02/21 08:05 Pulse 98 01/02/21 08:05 Resp 12 01/02/21 08:05 BP 121/68 01/02/21 08:05 Pulse Ox 97 01/02/21 08:05 Intake & Output 01/01/21 01/02/21 01/02/21 18:59 06:59 18:59 Other: Weight 83.9 kg [place] Weight in Grams [id number] Weight 83.9 kg Body Mass Index 29.0 - Constitutional Present: no acute distress - Routine HEENT Exam Head: Present: normal inspection Eye: Present: normal appearance ENT: Present: mucous membranes moist - Routine Neck Exam Present: full ROM - Routine Respiratory Exam Present: CTAB - Routine Cardiovascular Exam Cardiovascular: Present: RRR, S1, S2 - Routine Abdominal Exam Present: soft, nontender - Routine Rectal Exam Patient deferred: digital exam - Routine Extremities Exam Present: nontender - Routine Back/Spine/Pelvis Exam Back/Spine: Present: full ROM - Routine Skin Exam Present: intact - Routine Neurological Exam Present: alert, oriented X3 - Routine Psychiatric Exam Present: normal affect Data - Labs CBC & Chem 7: 01/02/21 08:03 01/02/21 08:03 Progress Note: A/P (1) Breast cancer Problem details: 12/[address] Perez Status: Acute Assessment and plan: This is a 60 year-old with Breast Cancer, ypT1c, pN0, i negative. ER +, DC+, Her 2 va _. The patient completed at neoadjuvant chemotherapy followed by surgery and is currently on antiestrogen therapy with Tamoxifen, since July 2014. She is on Tamoxifen for 7 years now. She has been tolerating it well. She had Bilateral mammography in December was benign. She is scheduled for repeat mammogram on Friday. She had a bone density back in July. That revealed a T-score of -1.8. It has improved. Previous bone density from 2015 revealed a T-score of -2. She had been started on Zometa for osteopenia. She did not like the side effects. She does not wish to get it again. I had offered to switch to Denusumab. However, she declined. She is clinically well. We have discussed the option of switching over to an aromatase inhibitor, however she said she feels comfortable taking the Tamoxifen. So does not wish to switch. She has had hematuria lately. PLAN: She will continue the Tamoxifen since she is tolerating it well. She was advised to take calcium and vitamin D supplements. I will proceed with an ultrasound of the kidneys and bladder, to look for any stones or other problems. Will refer her for further urological evaluation. An appointment has been set up with Dr. Parsons for 01/23. She will return in 6 months for a followup visit. Cc: Zoltan Weems M.D. Margot Coulter M.D. Dr. Benji parsons. - Time Spent With Patient Total time spent is greater than 50% in coordination of care (as documented) at patient's floor/unit and/or counseling patient: 25 - 35 minutes
[2021-01-02 08:20] LABS: Basophils Absolute Auto 0.1 X10*3/uL (0.0-0.2); Eosinophils Absolute Auto 0.3 X10*3/uL (0.0-0.4); Eosinophils Percent Auto 3.1 % (0-4); Hematocrit 40.4 % (37-47); Hemoglobin 13.2 g/dl (12.0-16.0); Imm Gran Abs Auto 0.02 X10*3/uL (0.00-0.03); Imm Gran Pct Auto 0.2 % (0.0-0.4); Lymphocytes Absolute Auto 2.4 X10*3/uL (1.2-4.9); Lymphocytes Percent Auto 24.6 % (20-40); Mean Corpuscular HGB Conc 32.7 g/dl (31.0-35.0); Mean Corpuscular Hemoglobin 29.2 pg (27.0-33.0); Mean Corpuscular Volume 89.4 fL (80-98); Mean Platelet Volume 9.4 fL (9.4-12.3); Monocytes Absolute Auto 0.6 X10*3/uL (0.1-1.2); Monocytes Percent Auto 6.2 % (2-11); Neutrophils Absolute Auto 6.2 X10*3/uL (2.0-8.3); Neutrophils Percent Auto 64.9 % (45-73); Platelet Count 315 X10*3/uL (160-400); Red Blood Count 4.52 X10*6/uL (4.20-5.50); Red Cell Distribution Width 13.1 % (11.0-16.0); White Blood Count 9.6 X10*3/uL (4.8-10.8)
[2021-01-02 08:57] LABS: Alanine Aminotransferase 20 U/L (0-31); Albumin Level 4.2 g/dL (3.5-5.0); Alkaline Phosphatase 95 U/L (39-117); Anion Gap 12 (12-20); Aspartate Amino Transferase 17 U/L (5-31); Bilirubin Total 0.6 mg/dL (0.0-1.0); Blood Urea Nitrogen 11 mg/dL (9-16); Calcium 9.2 mg/dL (8.4-10.2); Carbon Dioxide 28 mmol/L (22-29); Chloride 104 mmol/L (96-108); Creatinine Clr Calc Pharmacy 67.9; Estimated Glomerular Filt Rate 58; Glucose Random 99 mg/dL (60-115); Sodium 140 mmol/L (135-145); Total Protein 6.8 g/dL (6.5-8.0)
[2021-01-02 09:17] LABS: Vitamin D 25-OH Total 42.2 ng/mL (>30)
--- NOTE | 2021-01-02 09:54 | MHC.HEMONCMA ---
Patient present to f/u on breast cancer. History reviewed, labs drawn and urology appointment was made for 01/23/21 @ 3:15 pm. Patient also to f/u in 6 months. Ultrasound also ordered.
[2021-01-03 12:38] LABS: CA 27.29 11 U/mL (<38)
--- NOTE | 2021-01-05 08:44 | MHC.HEMONCMA ---
U/S order placed through order teacher assistant.
--- NOTE | 2021-03-02 12:45 | MHC.HEMONC ---
Pt called to say that she is scheduled for Lap Hyst next week by Dr Nye at [facility]. She has new dx endometrial cancer. She wanted to know what to do re: Tamoxifen. I spoke with Dr Mittal and she said she should hold Tamoxifen and that she should come in for f/u after that. I scheduled her for f/u later in March to see Dr Mittal. Pt aware of all of this.
--- NOTE | 2021-03-23 11:33 | P.PNHO_ITS ---
Medical Summary - Medical Summary Date of Service: 03/23/21 Chief complaint: Follow-up for: Breast cancer. Medical Summary: DIAGNOSIS: Breast carcinoma 2.9 x 1.7 cm. ER positive, IN positive, HER-2/va negative. CURRENT THERAPY: 1. Neoadjuvant chemotherapy started January 26, 2014 and dose-dense AC x4, completed on March 09, 2014. 2. Weekly Taxol started on January 21, 2014, completed on June 08, 2014. 3. Lumpectomy on July 19, [address] Margot Coulter at [facility]. PATHOLOGY: Pathology showed infiltrating ductal carcinoma 1.7 cm, grade 2 with DCIS. Reexcision of inferior superolateral and lateral subcutaneous margins were all negative and lymph nodes were negative. No lymphatic invasion. No blood vessel invasion. No lymphoplasmacytic response. Stage [id number]. CURRENT THERAPY: Tamoxifen 20 mg started July 2014. Interval History Interval history: This is a pleasant 60-year-old lady, here for a follow-up visit. She developed postmenopausal bleeding. In January she had a CT scan of the abdomen which revealed: No hydronephrosis. Nonobstructing right upper pole renal calculus. Somewhat lobulated appearance of the heterogeneous uterus. This could represent fibroids. She had an endometrial biopsy done on 02/13. This revealed: Endometrial carcinoma with squamous differentiation, favor endometrioid adenocarcinoma, FIGO grade 2. Immunostain for vimentin, ER, p.r. and CEA show patchy positivity within the tumor cells. Strong just immuno positivity 1st P 16 in the tumor cells raise the possibility of a high-grade serous component. CT scan of the abdomen from [facility] revealed: Peritoneum, omentum and mesentery: No ascites or pneumoperitoneum. No omental or mesenteric lesions. Lymph nodes: Enlarged left para-aortic lymph node now measuring 1.2 cm in short axis. Abdominal and pelvic wall: Unremarkable. Reproductive organs: Heterogeneously enhancing endometrial mass measuring 4.2 x 3.9 x 3.8 cm. Extends through more than 50% of the myometrium with focal region of hypoattenuation extending to the serosal surface. She saw Dr. Nye. She underwent gynecological surgery on March 13. Final pathology: Pelvic washings: Negative for malignant cells. Uterus, cervix, bilateral ovaries and fallopian tubes, sentinel lymph nodes, left pelvic and right pelvic lymph nodes, right para-aortic and left para- aortic, radical hysterectomy, bilateral salpingo-oophorectomy and lymph node dissection. 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 Histologic grade: Grade 3. Myometrial invasion: Present. Depth of invasion: 24 mm. Myometrial thickness: 25 mm. Percentage of myometrial invasion: 90%. Lymphovascular space invasion: Present, extensive. Uterine serosal involvement: Not identified. Lower uterine segment involvement: Not identified. Cervical stromal involvement: Not identified. Peritoneal/ascitic fluid: Negative for malignant cells. Other tissue involvement: Lymphovascular tumor invasion is present in posterior parametrium. This does not change tumor staging. Margins: Ectocervical/vaginal cuff margin: Not involved by carcinoma. Parametrial margin: Not involved by carcinoma. Regional lymph nodes: [place] lymph nodes right pelvic: Number examined 1: Number positive 0. [place] lymph node right periaortic: Number examined: 1. Number positive 0. Lymph node left para-aortic: Number examined: 1. Number positive: 0. Cervix: Squamous it atrophy. Chronic cervicitis with reactive epithelial changes. Ovaries: Right serous cystadenofibroma. Left surface epithelium inclusion cyst. Fallopian tube: Right: Mesonephric cyst. Transitional cell metaplasia. Left: Cystic waulthard rest. . Ancillary testing: MSI panel was performed. Demonstrated preserved a nuclear expression of MLH1, MSH2, MSH6, and p.m. S to in the tumor cells. Stage: pT1b. pN0. : It appeared that the surgery was complete and successful achieving negative margins. No lymph node involvement. Stage: 1 B. Radiation has been recommended. No chemotherapy. She is still recuperating from the surgery. The surgery was laparoscopic. Her pain is well controlled. She denies any other major complaints. She has good energy level. She denies any breast related complaints. She denies headache no dizziness. Denies chest pain or trouble breathing. No abdominal pain nausea vomiting heartburn indigestion. Bowels are working without any gross blood in it. She does not have a good appetite. She cannot eat a big helping. She has lost some weight. She is in reasonable spirits. Rest of the review of systems is unremarkable. . Review of Systems - Constitutional Reports system reviewed and no additional complaints, except as documented, Reports lack of energy - Eyes Reports system reviewed and no additional complaints, except as documented, Denies blurry vision - ENT Reports system reviewed and no additional complaints, except as documented - Cardiovascular Reports system reviewed and no additional complaints, except as documented, De nies chest pain at rest - Respiratory Reports no additional respiratory complaints, Denies chest congestion - Gastrointestinal Reports system reviewed and no additional complaints, except as documented, Reports abdominal pain, Reports change in bowel habits - Genitourinary Reports no additional female genitourinary complaints - Musculoskeletal Reports system reviewed and no additional complaints, except as documented, Reports back pain - Integumentary/Breasts Skin/Breast: Reports no additional skin complaints, Denies bleeding lesions - Neurologic Reports system reviewed and no additional complaints, except as documented - Psychiatric Reports system reviewed and no additional complaints, except as documented, Reports anxiety - Endocrine Reports no additional endocrine complaints, Denies excessive sweating - Hematologic/Lymphatic Reports system reviewed and no additional complaints, except as documented, Denies easy bruising - Allergic/Immunologic Reports system reviewed and no additional complaints, except as documented, Reports GI upset with certain foods PMFSH Medical History: Medical History (Last Reviewed 03/23/21 @ 11:43 by Zeinab Pace) Anxiety Endometrioid adenocarcinoma Goiter High cholesterol History of breast cancer Insomnia Overweight (BMI 25.0-29.9) Peripheral polyneuropathy Primary osteoarthritis of right hip Pure hypercholesterolemia Smoker Vitamin D deficiency Functional capacity: independent ambulation Patient : No Family History: Family History (Last Reviewed 03/23/21 @ 11:43 by Zeinab Pace) Father Cancer Mother CVD (cardiovascular disease) Surgical History: Surgical History (Last Reviewed 03/23/21 @ 11:43 by Zeinab Pace) H/O: hysterectomy History of open reduction and internal fixation (ORIF) procedure History of reduction surgery of right breast Social History: Social History (Last Reviewed 03/23/21 @ 11:43 by Zeinab Pace) Alcohol History: Alcohol intake: current Alcohol History Details: Alcohol intake frequency: holiday/special occasion Tobacco History: Smoking Status: Current every day smoker Nutrition Assessment: Patient : No Sex/Gender Assessment: Gender identity: female Smoking status: Current every day smoker Oncology Screenings - ECOG Performance Status ECOG Performance Status: 0 Home Medications and Allergies Home Medications Medication Instructions Recorded Confirmed Type atorvastatin 80 mg tablet 80 mg PO DAILY 12/13/20 02/14/21 History calcium carbonate-vitamin D3 600 1 cap PO DAILY 12/13/20 03/23/21 History mg calcium-200 unit capsule citalopram 10 mg tablet 10 mg PO DAILY 12/13/20 02/14/21 History cyanocobalamin (vitamin B-12) 1,000 mcg PO DAILY 12/13/20 02/14/21 History 1,000 mcg capsule magnesium oxide 400 mg (241.3 mg 400 mg PO DAILY 12/13/20 02/14/21 History magnesium) tablet trazodone 50 mg tablet 50 mg PO BEDTIME PRN 12/13/20 02/14/21 History Allergies Allergy/AdvReac Type Severity Reaction Status Date / Time No Known Allergies Allergy Verified 02/20/21 15:02 [No Known Allergies*] Exam Vital signs: Vital Signs Temp 97 F 01/02/21 08:05 Pulse 98 01/02/21 08:05 Resp 12 01/02/21 08:05 BP 121/68 01/02/21 08:05 Pulse Ox 97 01/02/21 08:05 Weight 83.9 kg Body Mass Index 29.0 - Constitutional Present: no acute distress - Routine HEENT Exam Head: Present: normal inspection Eye: Present: normal appearance ENT: Present: mucous membranes moist - Routine Neck Exam Present: full ROM - Routine Respiratory Exam Present: CTAB - Routine Cardiovascular Exam Cardiovascular: Present: RRR, S1, S2 - Routine Abdominal Exam Present: soft, nontender - Routine Rectal Exam Patient deferred: digital exam - Routine Extremities Exam Present: nontender - Routine Back/Spine/Pelvis Exam Back/Spine: Present: full ROM - Routine Skin Exam Present: intact - Routine Neurological Exam Present: alert, oriented X3 - Routine Psychiatric Exam Present: normal affect Data - Labs CBC & Chem 7: 01/02/21 08:03 01/02/21 08:03 Labs: 01/02/21 08:03 CA 27.29 Routine Complete Blood Count Auto Diff Routine Comprehensive Met. Panel Routine Vitamin D 25-OH Total Routine Laboratory Last Values WBC 9.6 X10*3/uL (4.8-10.8) 01/02/21 08:03 RBC 4.52 X10*6/uL (4.20-5.50) 01/02/21 08:03 Hgb 13.2 g/dl (12.0-16.0) 01/02/21 08:03 Hct 40.4 % (37-47) 01/02/21 08:03 MCV 89.4 fL (80-98) 01/02/21 08:03 MCH 29.2 pg (27.0-33.0) 01/02/21 08:03 MCHC 32.7 g/dl (31.0-35.0) 01/02/21 08:03 RDW 13.1 % (11.0-16.0) 01/02/21 08:03 Plt Count 315 X10*3/uL (160-400) 01/02/21 08:03 MPV 9.4 fL (9.4-12.3) 01/02/21 08:03 Immature Gran % (Auto) 0.2 % (0.0-0.4) 01/02/21 08:03 Neut % (Auto) 64.9 % (45-73) 01/02/21 08:03 Lymph % (Auto) 24.6 % (20-40) 01/02/21 08:03 [place] % (Auto) 6.2 % (2-11) 01/02/21 08:03 Eos % (Auto) 3.1 % (0-4) 01/02/21 08:03 Baso % (Auto) 1.0 % (0-2) 01/02/21 08:03 Lymph # (Auto) 2.4 X10*3/uL (1.2-4.9) 01/02/21 08:03 [place] # (Auto) 0.6 X10*3/uL (0.1-1.2) 01/02/21 08:03 Eos # (Auto) 0.3 X10*3/uL (0.0-0.4) 01/02/21 08:03 Baso # (Auto) 0.1 X10*3/uL (0.0-0.2) 01/02/21 08:03 Abs Immat Gran (auto) 0.02 X10*3/uL (0.00-0.03) 01/02/21 08:03 Absolute Neuts (auto) 6.2 X10*3/uL (2.0-8.3) 01/02/21 08:03 Absolute Nucleated RBC 0.000 X10*3/uL (0.0-0.012) 01/02/21 08:03 Nucleated RBC % (auto) 0.0 /100WBC (0.0-0.2) 01/02/21 08:03 Sodium 140 mmol/L (135-145) 01/02/21 08:03 Potassium 4.0 mmol/L (3.3-5.1) 01/02/21 08:03 Chloride 104 mmol/L (96-108) 01/02/21 08:03 Carbon Dioxide 28 mmol/L (22-29) 01/02/21 08:03 Anion Gap 12 (12-20) 01/02/21 08:03 BUN 11 mg/dL (9-16) 01/02/21 08:03 Creatinine 0.98 mg/dL (0.5-1.4) 01/02/21 08:03 Estim Creat Clear Calc 67.9 01/02/21 08:03 Estimated GFR 58 01/02/21 08:03 Random Glucose 99 mg/dL (60-115) 01/02/21 08:03 Calcium 9.2 mg/dL (8.4-10.2) 01/02/21 08:03 Total Bilirubin 0.6 mg/dL (0.0-1.0) 01/02/21 08:03 AST 17 U/L (5-31) 01/02/21 08:03 ALT 20 U/L (0-31) 01/02/21 08:03 Alkaline Phosphatase 95 U/L (39-117) 01/02/21 08:03 Total Protein 6.8 g/dL (6.5-8.0) 01/02/21 08:03 Albumin 4.2 g/dL (3.5-5.0) 01/02/21 08:03 CA 27-29 11 U/mL (<38) 01/02/21 08:03 25-OH Vitamin D Total 42.2 ng/mL (>30) 01/02/21 08:03 Progress Note: A/P (1) Breast cancer Problem details: 12/[address] Perez Status: Acute Assessment and plan: Database: From for 02/28: CBC: WBC 10.9, HGB 12.4, HCT 38.9, PLT 350. CMP: Lytes: WNL. BUN 13, BUILDING CLEANER 1.3, Ca L9 0.5, ALP 4.1. LFTs: 0.2/95/22/25. CA 125:16. This is a 60 year-old with Breast Cancer, ypT1c, pN0, i negative. ER +, IN+, Her 2 va _. The patient completed at neoadjuvant chemotherapy followed by surgery and is cu rrently on antiestrogen therapy with Tamoxifen, since July 2014. She is on Tamoxifen for 7 years now. She has been tolerating it well. She had Bilateral mammography in December was benign. She is scheduled for repeat mammogram on Friday. She had a bone density back in July. That revealed a T-score of -1.8. It has improved. Previous bone density from 2015 revealed a T-score of -2. She had been started on Zometa for osteopenia. She did not like the side effects. She does not wish to get it again. I had offered to switch to Denusumab. However, she declined. She is recuperating from her endometrial carcinoma surgery. The tamoxifen was on hold the since end of February, while she was undergoing the workup, for postmenopausal bleeding. In the past, we have discussed the option of switching over to an aromatase inhibitor, however she said she feels comfortable taking the Tamoxifen. Now that she has had hysterectomy, it would be reasonable to resume the tamoxifen. She has been on it for 6 and half years. Needs it for another 3 in a half. PLAN: She will resume the Tamoxifen, in a couple of weeks. She was advised to take calcium and vitamin D supplements. She will return in 2 months for a followup visit. Cc: Zoltan Weems M.D. Margot Coulter M.D. Dr. Benji parsons. (2) Endometrioid adenocarcinoma Problem details: Scheduled for consult with [facility] [employer] [facility] Onc 02/26 Status: Acute Assessment and plan: 60-year-old lady with recent diagnosis of endometrial carcinoma. Status post TAHBSO. Surgery was March 13. She still in the process of recuperating. PLAN: I have summarized her pat pathology records from [facility], in [place]. She had stage pT1b, endometrial carcinoma. That is early stage and reassuring. Further radiation therapy is being planned, over the next 4-6 weeks. I have advised her to hold the Tamoxifen for another couple weeks. Then to resume it, now that uterus has already been removed. There is no further concerns. She will return in a couple months for a follow-up visit. Thank you CC: Dr. Nye. - Time Spent With Patient Total time spent is greater than 50% in coordination of care (as documented) at patient's floor/unit and/or counseling patient: 25 - 35 minutes
[2021-03-23 11:41] VITALS: BP 113/57; PULSE 92; RESP 12; TEMP 36.8; O2SAT 96; BMI 28.0
--- NOTE | 2021-03-23 13:27 | MHC.HEMONCMA ---
Pt presents to f/u on breast cancer. History reviewed and pt to return in 4 months.
[2021-07-03 09:06] VITALS: BP 105/64; PULSE 93; RESP 20; TEMP 36.4; O2SAT 98; BMI 27.3
[2021-07-03 09:14] LABS: MANUAL DIFF FLAG NO
[2021-07-03 09:19] LABS: Basophils Percent Auto 0.5 % (0-2); Eosinophils Absolute Auto 0.2 X10*3/uL (0.0-0.4); Eosinophils Percent Auto 3.3 % (0-4); Hematocrit 39.2 % (37-47); Hemoglobin 12.8 g/dl (12.0-16.0); Imm Gran Abs Auto 0.03 X10*3/uL (0.00-0.03); Imm Gran Pct Auto 0.5 % (0.0-0.4); Lymphocytes Absolute Auto 0.4 X10*3/uL (1.2-4.9); Lymphocytes Percent Auto 6.7 % (20-40); Mean Corpuscular HGB Conc 32.7 g/dl (31.0-35.0); Mean Corpuscular Hemoglobin 28.8 pg (27.0-33.0); Mean Corpuscular Volume 88.3 fL (80-98); Monocytes Absolute Auto 0.6 X10*3/uL (0.1-1.2); Monocytes Percent Auto 8.9 % (2-11); Neutrophils Absolute Auto 5.1 X10*3/uL (2.0-8.3); Neutrophils Percent Auto 80.1 % (45-73); Platelet Count 246 X10*3/uL (160-400); Red Blood Count 4.44 X10*6/uL (4.20-5.50); Red Cell Distribution Width 14.6 % (11.0-16.0); White Blood Count 6.4 X10*3/uL (4.8-10.8)
[2021-07-03 09:34] LABS: Alanine Aminotransferase 43 U/L (0-31); Albumin Level 4.3 g/dL (3.5-5.0); Alkaline Phosphatase 108 U/L (39-117); Anion Gap 11 (12-20); Aspartate Amino Transferase 26 U/L (5-31); Bilirubin Total 0.8 mg/dL (0.0-1.0); Blood Urea Nitrogen 13 mg/dL (9-16); Calcium 9.6 mg/dL (8.4-10.2); Carbon Dioxide 27 mmol/L (22-29); Chloride 105 mmol/L (96-108); Creatinine Clr Calc Pharmacy 72.7; Estimated Glomerular Filt Rate > 60; Glucose Random 96 mg/dL (60-115); Potassium 3.8 mmol/L (3.3-5.1); Sodium 139 mmol/L (135-145); Total Protein 6.9 g/dL (6.5-8.0)
--- NOTE | 2021-07-03 10:02 | P.PNHO_ITS ---
Medical Summary - Medical Summary Date of Service: 07/03/21 Chief complaint: Follow-up for: 1. Endometrial carcinoma. 2. History of breast cancer. Medical Summary: DIAGNOSIS: Breast carcinoma 2.9 x 1.7 cm. ER positive, OH positive, HER-2/va negative. CURRENT THERAPY: 1. Neoadjuvant chemotherapy started January 26, 2014 and dose-dense AC x4, completed on March 09, 2014. 2. Weekly Taxol started on January 21, 2014, completed on June 08, 2014. 3. Lumpectomy on July 19, [address] Margot Coulter at [facility]. PATHOLOGY: Pathology showed infiltrating ductal carcinoma 1.7 cm, grade 2 with DCIS. Reexcision of inferior superolateral and lateral subcutaneous margins were all negative and lymph nodes were negative. No lymphatic invasion. No blood vessel invasion. No lymphoplasmacytic response. Stage [id number]. CURRENT THERAPY: Tamoxifen 20 mg started July 2014. Completed XRT to pelvis yesterday, under the care of Dr. Penaloza at [facility]. Interval History Interval history: This is a pleasant 61 year-old lady, here for a follow-up visit. She tells me that she completed her last radiation therapy yesterday. She got it over 28 days. She had some GI upset with the it. She felt rather gassy. She had some medication at home that she took which helped. It does not appear to be related to her diet. She also developed diarrhea. Especially first thing in the morning for 2 hours she would go back and forth to the bathroom. She has been taking Imodium for that. She just feels tired. Denies any skin changes related to the radiation. She denies any breast related complaints. She denies headache no dizziness. Denies chest pain or trouble breathing. No abdominal pain nausea vomiting heartburn indigestion. Bowels are working without any gross blood in it. She does not have a good appetite. She cannot eat a big helping. She has lost some weight. She is in reasonable spirits. Rest of the review of systems is unremarkable. She has follow-up appointments scheduled. She has an appointment with Dr. Nye on 08/02. She was advised to use a dilator twice a week for 10-15 minutes to prevent vaginal wall stricture. She has a tele visit with the radiation therapist on 08/08. She has an appointment with Dr. Parsons in September. She has an ultrasound of the kidneys scheduled on 08/23. Previous history: She developed postmenopausal bleeding. In January she had a CT scan of the abdomen which revealed: No hydronephrosis. Nonobstructing right upper pole renal calculus. Somewhat lobulated appearance of the heterogeneous uterus. This could represent fibroids. She had an endometrial biopsy done on 02/13. This revealed: Endometrial carcinoma with squamous differentiation, favor endometrioid adenocarcinoma, FIGO grade 2. Immunostain for vimentin, ER, p.r. and CEA show patchy positivity within the tumor cells. Strong just immuno positivity 1st P 16 in the tumor cells raise the possibility of a high-grade serous component. CT scan of the abdomen from [facility] revealed: Peritoneum, omentum and mesentery: No ascites or pneumoperitoneum. No omental or mesenteric lesions. Lymph nodes: Enlarged left para-aortic lymph node now measuring 1.2 cm in short axis. Abdominal and pelvic wall: Unremarkable. Reproductive organs: Heterogeneously enhancing endometrial mass measuring 4.2 x 3.9 x 3.8 cm. Extends through more than 50% of the myometrium with focal region of hypoattenuation extending to the serosal surface. She saw Dr. Nye. She underwent gynecological surgery on March 13. Final pathology: Pelvic washings: Negative for malignant cells. Uterus, cervix, bilateral ovaries and fallopian tubes, sentinel lymph nodes, left pelvic and right pelvic lymph nodes, right para-aortic and left para-aorti c, radical hysterectomy, bilateral salpingo-oophorectomy and lymph node dissection. 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 Histologic grade: Grade 3. Myometrial invasion: Present. Depth of invasion: 24 mm. Myometrial thickness: 25 mm. Percentage of myometrial invasion: 90%. Lymphovascular space invasion: Present, extensive. Uterine serosal involvement: Not identified. Lower uterine segment in volvement: Not identified. Cervical stromal involvement: Not identified. Peritoneal/ascitic fluid: Negative for malignant cells. Other tissue involvement: Lymphovascular tumor invasion is present in posterior parametrium. This does not change tumor staging. Margins: Ectocervical/vaginal cuff margin: Not involved by carcinoma. Parametrial margin: Not involved by carcinoma. Regional lymph nodes: [place] lymph nodes right pelvic: Number examined 1: Number positive 0. [place] lymph node right periaortic: Number examined: 1. Number positive 0. Lymph node left para-aortic: Number examined: 1. Number positive: 0. Cervix: Squamous it atrophy. Chronic cervicitis with reactive epithelial changes. Ovaries: Right serous cystadenofibroma. Left surface epithelium inclusion cyst. Fallopian tube: Right: Mesonephric cyst. Transitional cell metaplasia. Lef t: Cystic waulthard rest. . Ancillary testing: MSI panel was performed. Demonstrated preserved a nuclear expression of MLH1, MSH2, MSH6, and p.m. S to in the tumor cells. Stage: pT1b. pN0. : It appeared that the surgery was complete and successful achieving negative margins. No lymph node involvement. Stage: 1 B. Radiation has been recommended. No chemotherapy. . Review of Systems - Constitutional Reports system reviewed and no additional complaints, except as documented, Reports fatigue, Reports lack of energy, Reports poor appetite, Reports weight loss - Eyes Reports system reviewed and no additional complaints, except as documented - ENT Reports system reviewed and no additional complaints, except as documented - Cardiovascular Reports system reviewed and no additional complaints, except as documented - Respiratory Reports no additional respiratory complaints - Gastrointestinal Reports system reviewed and no additional complaints, except as documented - Genitourinary Reports no additional female genitourinary complaints - Musculoskeletal Reports system reviewed and no additional complaints, except as documented - Integumentary/Breasts Skin/Breast: Reports no additional skin complaints - Neurologic Reports system reviewed and no additional complaints, except as documented - Psychiatric Reports system reviewed and no additional complaints, except as documented - Endocrine Reports no additional endocrine complaints - Hematologic/Lymphatic Reports system reviewed and no additional complaints, except as documented - Allergic/Immunologic Reports system reviewed and no additional complaints, except as documented PMFSH Medical History: Medical History (Last Reviewed 07/03/21 @ 09:14 by Candi Doe) Anxiety Endometrioid adenocarcinoma Goiter High cholesterol History of breast cancer Insomnia Overweight (BMI 25.0-29.9) Peripheral polyneuropathy Primary osteoarthritis of right hip Pure hypercholesterolemia Smoker Vitamin D deficiency Functional capacity: independent ambulation Patient : No Family History: Family History (Last Reviewed 07/03/21 @ 09:14 by Candi Doe) Father Cancer Mother CVD (cardiovascular disease) Surgical History: Surgical History (Last Reviewed 07/03/21 @ 09:14 by Candi Doe) H/O: hysterectomy Onset Date: ~03/13/21 History of open reduction and internal fixation (ORIF) procedure History of reduction surgery of right breast Social History: Social History (Last Reviewed 07/03/21 @ 09:14 by Candi Doe) Living Situation History: Household Members: Family Housing: House Alcohol History: Alcohol intake: current Alcohol History Details: Alcohol intake frequency: holiday/special occasion Tobacco History: Patient Tobacco Use Status: Current everyday Tobacco Tobacco use type: Cigarette Nutrition Assessment: Patient : No Occupation Assessmet: service: No Current occupational status: employed 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 Sex/Gender Assessment: Gender identity: Female Oncology Screenings - ECOG Performance Status ECOG Performance Status: 0 Home Medications and Allergies Home Medications Medication Instructions Recorded Confirmed Type citalopram 10 mg tablet 10 mg PO DAILY 12/13/20 07/03/21 History cyanocobalamin (vitamin B-12) 1,000 mcg PO DAILY 12/13/20 07/03/21 History 1,000 mcg capsule magnesium oxide 400 mg (241.3 mg 400 mg PO DAILY 12/13/20 07/03/21 History magnesium) tablet acetaminophen 325 mg tablet 650 mg PO Q5H PRN 04/04/21 07/03/21 History calcium carbonate 600 mg calcium 600 mg PO BEDTIME 04/04/21 07/03/21 History (1,500 mg) tablet cholecalciferol (vitamin D3) 25 25 mcg PO DAILY 04/04/21 07/03/21 History mcg (1,000 unit) tablet (Vitamin D3) ibuprofen 600 mg tablet 600 mg PO Q6H PRN 04/04/21 07/03/21 History simethicone 80 mg chewable tablet 80 mg PO QIDACHS PRN 04/04/21 07/03/21 History Allergies Allergy/AdvReac Type Severity Reaction Status Date / Time No Known Allergies Allergy Verified 05/11/21 15:00 [No Known Allergies*] Exam Vital signs: Vital Signs Temp 97.6 F 07/03/21 09:06 Pulse 93 07/03/21 09:06 Resp 20 07/03/21 09:06 BP 105/64 07/03/21 09:06 Pulse Ox 98 07/03/21 09:06 Intake & Output 07/02/21 07/03/21 07/03/21 18:59 06:59 18:59 Other: Weight 79.2 kg Weight in Grams [id number] Weight 79.2 kg Body Mass Index 27.3 - Constitutional Present: no acute distress - Routine HEENT Exam Head: Present: normal inspection Eye: Present: normal appearance ENT: Present: mucous membranes moist - Routine Neck Exam Present: full ROM - Routine Respiratory Exam Present: CTAB - Routine Cardiovascular Exam Cardiovascular: Present: RRR, S1, S2 - Routine Abdominal Exam Present: soft, nontender - Routine Rectal Exam Patient deferred: digital exam - Routine Extremities Exam Present: nontender - Routine Back/Spine/Pelvis Exam Back/Spine: Present: full ROM - Routine Skin Exam Present: intact - Routine Neurological Exam Present: alert, oriented X3 - Routine Psychiatric Exam Present: normal affect Data - Labs CBC & Chem 7: 07/03/21 09:10 07/03/21 09:10 Labs: 01/02/21 08:03 CA 27.29 Routine Complete Blood Count Auto Diff Routine Comprehensive Met. Panel Routine Vitamin D 25-OH Total Routine Laboratory Last Values WBC 9.6 X10*3/uL (4.8-10.8) 01/02/21 08:03 RBC 4.52 X10*6/uL (4.20-5.50) 01/02/21 08:03 Hgb 13.2 g/dl (12.0-16.0) 01/02/21 08:03 Hct 40.4 % (37-47) 01/02/21 08:03 MCV 89.4 fL (80-98) 01/02/21 08:03 MCH 29.2 pg (27.0-33.0) 01/02/21 08:03 MCHC 32.7 g/dl (31.0-35.0) 01/02/21 08:03 RDW 13.1 % (11.0-16.0) 01/02/21 08:03 Plt Count 315 X10*3/uL (160-400) 01/02/21 08:03 MPV 9.4 fL (9.4-12.3) 01/02/21 08:03 Immature Gran % (Auto) 0.2 % (0.0-0.4) 01/02/21 08:03 Neut % (Auto) 64.9 % (45-73) 01/02/21 08:03 Lymph % (Auto) 24.6 % (20-40) 01/02/21 08:03 [place] % (Auto) 6.2 % (2-11) 01/02/21 08:03 Eos % (Auto) 3.1 % (0-4) 01/02/21 08:03 Baso % (Auto) 1.0 % (0-2) 01/02/21 08:03 Lymph # (Auto) 2.4 X10*3/uL (1.2-4.9) 01/02/21 08:03 [place] # (Auto) 0.6 X10*3/uL (0.1-1.2) 01/02/21 08:03 Eos # (Auto) 0.3 X10*3/uL (0.0-0.4) 01/02/21 08:03 Baso # (Auto) 0.1 X10*3/uL (0.0-0.2) 01/02/21 08:03 Abs Immat Gran (auto) 0.02 X10*3/uL (0.00-0.03) 01/02/21 08:03 Absolute Neuts (auto) 6.2 X10*3/uL (2.0-8.3) 01/02/21 08:03 Absolute Nucleated RBC 0.000 X10*3/uL (0.0-0.012) 01/02/21 08:03 Nucleated RBC % (auto) 0.0 /100WBC (0.0-0.2) 01/02/21 08:03 Sodium 140 mmol/L (135-145) 01/02/21 08:03 Potassium 4.0 mmol/L (3.3-5.1) 01/02/21 08:03 Chloride 104 mmol/L (96-108) 01/02/21 08:03 Carbon Dioxide 28 mmol/L (22-29) 01/02/21 08:03 Anion Gap 12 (12-20) 01/02/21 08:03 BUN 11 mg/dL (9-16) 01/02/21 08:03 Creatinine 0.98 mg/dL (0.5-1.4) 01/02/21 08:03 Estim Creat Clear Calc 67.9 01/02/21 08:03 Estimated GFR 58 01/02/21 08:03 Random Glucose 99 mg/dL (60-115) 01/02/21 08:03 Calcium 9.2 mg/dL (8.4-10.2) 01/02/21 08:03 Total Bilirubin 0.6 mg/dL (0.0-1.0) 01/02/21 08:03 AST 17 U/L (5-31) 01/02/21 08:03 ALT 20 U/L (0-31) 01/02/21 08:03 Alkaline Phosphatase 95 U/L (39-117) 01/02/21 08:03 Total Protein 6.8 g/dL (6.5-8.0) 01/02/21 08:03 Albumin 4.2 g/dL (3.5-5.0) 01/02/21 08:03 CA 27-29 11 U/mL (<38) 01/02/21 08:03 25-OH Vitamin D Total 42.2 ng/mL (>30) 01/02/21 08:03 Assessment and Plan Patient Active problem list reviewed?: Yes (1) Breast cancer Problem details: 12/[address] Perez Status: Acute Assessment and plan: Database: From for 02/28: CBC: WBC 10.9, HGB 12.4, HCT 38.9, PLT 350. CMP: Lytes: WNL. 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 LFTs: 0.2//. CA 125:16. This is a 60 year-old with Breast Cancer, ypT1c, pN0, i negative. ER +, OH+, Her 2 va _. The patient completed at neoadjuvant chemotherapy followed by surgery and is currently on antiestrogen therapy with Tamoxifen, since July 2014. She is on Tamoxifen for 7 years now. She has been tolerating it well. She had Bilateral mammography in December was benign. She is scheduled for repeat mammogram on Friday. She had a bone density back in July. That revealed a T-score of -1.8. It has improved. Previous bone density from 2016 revealed a T-score of -2. She had been started on Zometa for osteopenia. She did not like the side effects. She does not wish to get it again. I had offered to switch to Denusumab. However, she declined. She is recuperating from her endometrial carcinoma surgery. The tamoxifen was on hold the since end of February, while she was undergoing the workup, for postmenopausal bleeding. In the past, we have discussed the option of switching over to an aromatase inhibitor, however she said she feels comfortable taking the Tamoxifen. Now that she has had hysterectomy, it would be reasonable to resume the tamoxifen. She has been on it for 6 and half years. Needs it for another 3 in a half. I had advised her to hold the Tamoxifen for another couple weeks. Then to resume it, now that uterus has already been removed. There is no further concerns. PLAN: However the patient is rather afraid of restarting it. She is worried about potential more toxicity. I offered her an AI however she is very reluctant to consider it at this point. She would like to review the information and then decide. She will call me back with a decision. She was advised to take calcium and vitamin D supplements. She will return in 6 months for a followup visit. Cc: Zoltan Weems M.D. Margot Coulter M.D. Dr. Benji parsons. (2) Endometrioid adenocarcinoma Problem details: S/P radical hysterectomy, bilateral salpingo-oophorectomy and lymph node dissection by Dr. Arturo Nye on 03/13/2021 - pathology came out as endometrioid adenocarcinoma of the endometrium with extensive squamous cell differentiation, FIGO grade 3 Status: Acute Assessment and plan: 61 year-old lady with recent diagnosis of endometrial carcinoma. Status post TAHB. Surgery was March 13. I have summarized her pat pathology records from [facility], in [place]. She had stage pT1b, endometrial carcinoma. That is early stage and reassuring. She received adjuvant radiation therapy just completed it yesterday. PLAN: I have advised her to hold the Tamoxifen for another couple weeks. Then to resume it, now that uterus has already been removed. There is no further concerns. However the patient is rather afraid of restarting it. She is worried about potential more toxicity. I offered her an AI however she is very reluctant to consider it at this point. She would like to review the information and then decide. She will call me back with a decision. She would like to return in 6 months for a follow-up visit. Thank you CC: Dr. Nye. - Time Spent With Patient Time Spent with Patient (in minutes): 35
--- NOTE | 2021-07-03 16:18 | MHC.HEMONCMA ---
Pt came in for onc follow up and states she is doing well. clinical summary was updated and labs were drawn. pt will be in 6 months for follow up on 01/01/2022.
[2021-07-05 14:11] LABS: CA 27.29 <10 U/mL (<38)
--- NOTE | 2022-01-01 09:44 | HE.ONCSEC ---
PATIENT CALLED TO CANCEL 01/11/22 APPT . SHE STATED THAT SHE HAS OTHER HEALTH ISSUES GOING ON AND NEEDS TO DEAL W/ THAT FIRST ETC THEN SHE WILL CALL BACK TO MAKE AN APPT WITH TO FILL HER IN ABOUT WHAT'S GOING ON . I TOLD PATIENT TO MAKE A FOLLLOW BUT INSISTED SHE WILL DEFINITLEY CALL BACK TO MAKE A APPT .
--- NOTE | 2022-01-01 09:46 | HE.ONCSEC ---
PATIENT CALLED TO CANCEL 01/11/22 APPT . PT STATED SHE HAS OTHER HEALTH ISSUES THAT SHE NEEDS TO DEAL W/ FIRST . SHE STATES SHE WILL CALL BACK TO RESCHEDULE W/ TO FILL HER IN ONCE SHE HAS THE CHANCE .
== END | disposition home or self-care (01) ==
LOC: HO.ONC 01-02 07:56
PROVIDERS: PCP Internal Medicine; Visit Provider Internal Medicine Medical Oncology
DX: Z85.3 Personal history of malignant neoplasm of breast (principal); Z85.42 Personal history of malignant neoplasm of other parts of uterus; M85.80 Other specified disorders of bone density and structure, unspecified site; Z92.21 Personal history of antineoplastic chemotherapy; Z92.3 Personal history of irradiation; Z90.710 Acquired absence of both cervix and uterus; Z90.722 Acquired absence of ovaries, bilateral
CPT/HCPCS: 36415; 80053; 82306; 85025; 86300; 99214

== ENCOUNTER 2024-08-30 15:31 | Outpatient (AMB) | payer OTHER, SELFPAY ==
--- NOTE | 2024-08-30 15:35 | A.OFFPC_ITS ---
Vital Signs 08/30/24 15:36 Height 5 ft 6 in Weight 171 lb 8 oz BMI 27.7 BP 120/70 Blood Pressure Location Lt brachial Position Sitting Pulse 80 Pulse Source Pulse Oximeter Pulse Oximetry (%) 97 Oxygen Delivery Method Room Air Intake Visit Reasons: 3M - F/U - see comments Intake Note: Patient is here to follow up on Hypercholesterolemia, Hx of brfeast cancer. Pt decline flu shot today. 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: No Gullet Slitter: Not Required per policy Accompanied by: Self / Same As Patient Allergies duloxetine Allergy (Intermediate, Verified 08/30/24 16:37) Stomach Upset Medication List - Last Reconciled 08/30/24 by Zoltan Weems MD acetaminophen 650 mg (2 x 325 mg) PO Q5H PRN albuterol sulfate 90 mcg/actuation (Ventolin HFA) 2 puffs inhalation Q6H PRN 30 days apixaban (Eliquis) 5 mg PO BID atorvastatin 80 mg PO DAILY calcium carbonate 600 mg PO BEDTIME cholecalciferol (vitamin D3) (Vitamin D3) 25 mcg PO DAILY cyanocobalamin (vitamin B-12) 1,000 mcg PO DAILY 90 days everolimus (antineoplastic) 10 mg PO DAILY gabapentin 300 mg PO TID letrozole 2.5 mg PO DAILY mometasone 0.1% 1 appl topical DAILY PRN oxycodone 5 mg PO Q6H PRN prochlorperazine maleate 10 mg PO Q6H PRN pyridoxine (vitamin B6) 100 mg PO DAILY 90 days trazodone 50 - 100 mg (1 - 2 x 50 mg) PO BEDTIME PRN 90 days Tobacco use date assessed: 08/30/24 Fall risk assessment: No Falls in past year Last assessed Fall Risk: 08/30/24 Dental Screening Dental Screen Date: 01/30/24 [facility] Medical History 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 Overweight (BMI 25.0-29.9) Insomnia History of breast cancer Peripheral polyneuropathy Primary osteoarthritis of right hip Vitamin D deficiency Smoker Pure hypercholesterolemia Goiter Anxiety Surgical History H/O: hysterectomy (~05/11/21) History of reduction surgery of right breast History of open reduction and internal fixation (ORIF) procedure Family History Father Cancer Mother CVD (cardiovascular disease) Social History Household Members: Family Housing: House Alcohol intake: current Alcohol intake frequency: holidays/special occasions only Patient Tobacco Use Status: Current everyday Tobacco user Tobacco use type: Cigarette Cigarette Packs Per Day: 0.5 Cigarettes Per Day: 10 e-Cigarette/Vaping Use: Never Used Second Hand Smoke Exposure: Yes service: No Current occupational status: employed 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 Shay Chen, Charley Xiong, Russ Franco and colleagues, with an educational caridad from [employer]. Physical exam (Primary Care) Vital Signs: Last Vital Signs Pulse 80 08/30/24 15:36 BP 120/70 08/30/24 15:36 Pulse Ox 97 08/30/24 15:36 Oxygen Delivery Method Room Air 08/30/24 15:36 BMI result Body Mass Index 27.7 Tobacco/Smoking Status: Tobacco use Status Tobacco use date assessed 08/30/24 08/30/24 15:46 Patient Tobacco Use Status Current everyday Tobacco 08/30/24 15:46 Tobacco use type Cigarette 08/30/24 15:46 e-Cigarette/Vaping Use Never Used 08/30/24 15:46 Thrive Assessment: Date of Thrive Assessment Date Thrive assessed 01/30/24 08/30/24 15:46 Results AMB Hemoglobin A1c AMB Hemoglobin A1c 6.5 % Last Edit by JOSE EDUARDO Ace on 08/30/24 16:37 Coding Assessment & Plan Assessment & Plan Orders: Orders AMB Hemoglobin A1c Today Z13.9 - Encounter for screening, unspecified Complete Blood Count Auto Diff 4 Months D64.9 - Anemia, unspecified Comprehensive [place]. Panel Fast 4 Months E78.00 - Pure hypercholesterolemia, unspecified UA CC w/rflx Micro + Cult 4 Months R30.0 - Dysuria Hemoglobin A1c 4 Months E11.9 - Type 2 diabetes mellitus without complications Lipid Panel 4 Months E78.00 - Pure hypercholesterolemia, unspecified TSH reflex Free T4 4 Months E78.00 - Pure hypercholesterolemia, unspecified Vitamin D 25-OH Total 4 Months E55.9 - Vitamin D deficiency, unspecified Medications: New mometasone 0.1% 1 appl topical DAILY PRN 45 grams 2RF rash Refilled atorvastatin 80 mg PO DAILY 90 tabs 3RF trazodone 50 - 100 mg (1 - 2 x 50 mg) PO BEDTIME 90 days PRN 180 tabs 1RF insomnia
[2024-08-30 15:36] VITALS: BP 120/70; PULSE 80; O2SAT 97; BMI 27.7
== END 2024-08-30 16:49 | disposition home or self-care (01) ==
LOC: HO.HMCH 15:32
PROVIDERS: PCP Internal Medicine; Visit Provider Internal Medicine
DX: Z13.9 Encounter for screening, unspecified (principal)

== ENCOUNTER → 2024-08-30 15:31 | Outpatient (BNVA) | payer OTHER, SELFPAY | PROVIDERS: PCP Internal Medicine; Visit Provider Internal Medicine | DX: G62.9 Polyneuropathy, unspecified (principal); I82.421 Acute embolism and thrombosis of right iliac vein; E04.9 Nontoxic goiter, unspecified; E78.00 Pure hypercholesterolemia, unspecified; R73.01 Impaired fasting glucose; E55.9 Vitamin D deficiency, unspecified; R21 Rash and other nonspecific skin eruption; G47.00 Insomnia, unspecified; F41.9 Anxiety disorder, unspecified; F17.200 Nicotine dependence, unspecified, uncomplicated; Z85.3 Personal history of malignant neoplasm of breast; Z85.42 Personal history of malignant neoplasm of other parts of uterus; Z79.01 Long term (current) use of anticoagulants; Z79.899 Other long term (current) drug therapy; Z90.710 Acquired absence of both cervix and uterus; Z90.722 Acquired absence of ovaries, bilateral | CPT/HCPCS: 83036 ==

== ENCOUNTER 2024-11-10 13:23 | Outpatient (REF) | payer OTHER, SELFPAY ==
[2024-11-10 18:00] LABS: Appearance Urine Clear; Color Urine Yellow; Glucose Urine UA Negative (Negative); Leukocyte Esterase Urine Negative (Negative); Nitrite Urine Negative (Negative); Specific Gravity - Urine 1.025 (1.005-1.025); UMIC TRIGGER UACC YES; Urine Blood Small (1+) (Negative); Urine Ketones Negative (Negative); Urine Protein 300 (3+) mg/dL (Neg-Trace)
[2024-11-10 18:31] LABS: Bacteria Urine None Seen (None Seen); Hyaline Casts Urine 0-2 /LPF (0-2); RBC Urine 0-2 /HPF (0-2); WBC Urine 0-5 /HPF (0-5)
== END 2024-11-10 13:24 | disposition home or self-care (01) ==
LOC: HO.HKASLDS 13:23
PROVIDERS: Visit Provider Nurse Practitioner Family
DX: R39.9 Unspecified symptoms and signs involving the genitourinary system (principal)
CPT/HCPCS: 81001; 87086

== ENCOUNTER 2024-11-11 10:14 | Outpatient (REF) | payer OTHER, SELFPAY ==
--- OUTSIDE RECORDS SUMMARY | 2024-11-11 10:48 | XMS_ITS | Continuity of Care Document ---
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 Name Role Phone Dank DE LEÓN, Zoltan Black Primary Care Physician [phone] [place] [facility] [place](s): 10/08/24 - 11/07/24 [facility] [address] [place] [id number] Encounter Type: Triage Allergies, Adverse Reactions, Alerts No Known Allergies Immunizations Given and Recorded Vaccine Date Status Refusal Reason SARS-CoV-2 (COVID-19) mRNA-1273 vaccine 04/19/21 G iven SARS-CoV-2 (COVID-19) mRNA-1273 vaccine 04/19/21 R ecorded SARS-CoV-2 (COVID-19) mRNA-1273 vaccine 03/22/21 G iven SARS-CoV-2 (COVID-19) mRNA-1273 vaccine 03/22/21 R ecorded Problem List Condition Confirmation Course Effective Dates Status H ealth Status Informant Anxiety Confirmed Active Hematuria Confirmed Active Breast asymmetry between [place] breast and reconstructed breast Confirmed Active Diarrhea Confirmed Active Chemotherapy induced diarrhea Confirmed Active Recurrent carcinoma of endometrium Confirmed Active Goiter Confirmed Active History of insomnia Confirmed Active Shingles rash Confirmed Active Elevated cholesterol Confirmed Active Endometrial cancer Confirmed Active Malignant tumor of breast Confirmed Active Elevated triglycerides with high cholesterol Confirmed Active Neck pain, acute Confirmed Active Neuropathic pain Confirmed Active Chemotherapy-induced neuropathy Confirmed Active Osteoarthritis of right hip Confirmed Active Peripheral polyneuropathy Confirmed Active Chest congestion Confirmed Active 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 UTI symptoms Confirmed Active Vitamin D deficiency Confirmed Active Social History Social History Type Response Smoking Status 5-9 cigarettes (betw een 11/06 to 11/04 pack)/day in last 30 days; Other: around 5 cigaretts per day, in the process of quitting; entered on: 07/29/22 Sex Female Sex Representation Female (finding) Patient Care team information Care Team Personnel Name: Jessica Keith RN Position: S RN Member Role: Primary Care Nurse Name: Meryl Balderrama RN Position: S RN Member Role: Primary Care Nurse Name: Dank DE LEÓN, Zoltan Black Position: Reference Physician Member Role: PCP Address: [address] [place] [address] [place] [id number] Telecom: Name: Kadie Norris RN Position: S RN Member Role: Primary Care Nurse Name: Nisha Miller RN Position: S RN Member Role: Primary Care Nurse Name: Sandra Root RN Position: S RN Member Role: Primary Care Nurse Name: Stella Chacko RN Position: S Onco RN Member Role: Primary Care Nurse Name: Guillermina Bradford RN Position: S Onco RN Member Role: Primary Care Nurse Name: Anita Maldonado RN Position: S RN Member Role: Primary Care Nurse Name: Gilmar Trevizo RN Position: S Onco RN Member Role: Primary Care Nurse Name: Maria T Gaston LPN Position: S RN Member Role: Primary Care Nurse Name: Libby Zaman LPN Position: S RN Member Role: Primary Care Nurse Name: Anibal Courtney RN Position: S RN Member Role: Primary Care Nurse Care Team Related Persons Name: ASHISH, PATRICE Name: CLIVE DELUCA Name: TREVA DELUCA Name: LEO DELUCA Insurance Providers Guarantor name: EMERALD SANDRINE Health Plan Information #: 1 Payer: [facility] HMO [employer] Member Number: NA Policy Number: NA Group Number: NA Health Plan Information #: 2 Payer: [employer] FF NON BHP HMO Member Number: NA Policy Number: NA Group Number: NA
--- OUTSIDE RECORDS SUMMARY | 2024-11-11 10:48 | XMS_ITS | Continuity of Care Document ---
Author Organization [facility] ter Address [address] [place] [id number]- Care Team Providers Care Chief Deputy Clerk/Bailiff Name Role Phone Zoltan Weems MD Primary Care Phys[id number] Date(s): 10/15/24 - 10/17/[address] [address]- Discharge Disposition: A-D/C Home Attending Physician: Arturo Nye MD Admitting Physician: Arturo Nye MD Referring Physician: Arturo Nye MD Encounter Type: Disch IP Allergies, Adverse Reactions, Alerts No Known Allergies [...] Active Hematuria Confirmed Active Breast asymmetry between [place] breast and reconstructed breast Confirmed Active Diarrhea [...] Confirmed Active Vitamin D deficiency Confirmed Active Results Radiology Reports * Exam Date Time Procedure Performing Provider Status 10/16/24 3:[address] Abdomen and Pelvi s W/O Contrast Shweta Skinner; Ivon (Verified) Notes: (CT Abdomen and Pelvis W/O Contrast) Reason For Exam: Hx recurrent endometrial cancer. Flank pain, rule-out pyelonephritis. Cough.;Pain RESULT: CT Abdomen and Pelvis W/O Contrast CT Chest W/O Contrast, CT Abdomen and Pelvis W/O Contrast INDICATION: Reason: Pain; Hx recurrent endometrial cancer. Flank pain, rule-out pyelonephritis. Cough.; Clinical Question(s): Other:; Order Comment: TECHNIQUE: Helical CT scan of the chest, abdomen, and pelvis without IV contrast, formatted in 3 planes. This study was performed without oral contrast. Weight-based protocol was performed using automatic exposure control. CTDIvol Body: 7.10 mGy, DLP Body: 511 mGy*cm. COMPARISON: 06/14/2024 CT angiography of the chest, abdomen and pelvis. FINDINGS: Evaluation of the abdominal and pelvic viscera is suboptimal without intravenous contrast. Can Runner view findings, lines and tubes: Right-sided chest port terminates at the lower SVC. Trachea and airways: Patent without evidence of tracheal or endobronchial lesion. Lungs and pleura: Mild dependent atelectasis. No focal consolidation. Numerous tiny nodules predominantly in the upper lobes, best appreciated on the MIP images, similar to prior study. No effusion or pneumothorax. Mediastinum and janel: No mass or hematoma. No mediastinal or hilar lymphadenopathy. No esophageal abnormality. Asymmetric enlargement of the left thyroid lobe, previously evaluated with thyroid ultrasound. Heart: Heart is normal in size. No pericardial effusion. Mild coronary artery calcification. Aorta: Mild vascular calcification but no aneurysm. Pulmonary arteries: Normal caliber. Chest wall soft tissues: Posttreatment changes in the right breast. Diaphragm: Intact. Liver: Normal in attenuation and morphology. No suspicious lesion. Gallbladder: No CT evidence of gallbladder pathology. Bile ducts: No biliary ductal dilation. Spleen: Normal in size. Pancreas: No suspicious lesion or ductal dilatation. Adrenal glands: No nodule. Kidneys and ureters: No right hydronephrosis or calculi. Mild left hydronephrosis, new from prior study. No obstructing etiology is seen on noncontrast CT. No renal or ureteral calculi. Bladder: Bladder is underdistended and demonstrates moderate diffuse wall thickening, similar to prior study. Correlate with urinalysis. Reproductive organs: Prior hysterectomy. No adnexal masses. Stomach, small bowel, and large bowel: The stomach is normal. The small bowel is normal in caliber,with no evidence of bowel obstruction. The rectum is normal. Mild colonic diverticulosis predominantly affecting the sigmoid colon, without evidence of an acute diverticulitis. Appendix: No evidence of acute appendicitis. Peritoneum and retroperitoneum: Trace perihepatic and pelvic ascites, new from prior study. Mild presacral soft tissue thickening, unchanged. No omental or mesenteric lesions. Lymph nodes: Ill-defined soft tissue thickening in the retroperitoneum (image 131 series 201) corresponding to previously seen ill-defined retroperitoneal lymph nodes, similar to the prior examination. A discrete left periaortic lymph node (image 119 series 201) measures 0.8 cm, unchanged. Blood vessels: Mild vascular calcifications but no aneurysm. Abdominal and pelvic wall soft tissues: No acute abnormality. Bones: No acute abnormality. Degenerative changes of the spine. IMPRESSION: CT chest No acute findings in the chest. CT abdomen and pelvis 1. Mild left hydronephrosis, new from prior CT. The left ureter difficult to follow beyond the siteof ill-defined retroperitoneal soft tissue thickening, and some degree of obstruction of the left ureter at this level is not excluded, particularly if patient is having left-sided flank pain and this finding is not transient. 2. Trace abdominal and pelvic ascites, new from prior study of uncertain etiology, though given history of endometrial cancer, malignant ascites is not excluded. 3. Moderate bladder wall thickening could be part related to underdistention. Correlate with urinalysis. Preliminary findings were reported by virtual radiology. The virtual radiology report did not describe the finding of new left-sided hydronephrosis. An actionable message ([facility]) has been communicated via the [employer] system on 10/16/2024 9:25 AM, Message ID [id number]. WSN: [id number] Ordering Physician: Fela Milian Dictated By: Leon Ibanez MD Dictated Date/Time: 10/16/24 9:27 am Reviewed By: Leon Ibanez MD Signed By: Leon Ibanez MD Signed Date/Time: 10/16/24 9:27 am Transcribed By: MARKOS Transcribed Date/Time: 10/16/24 9:07 am * Exam Date Time Procedure Performing Provider Status 10/16/24 3:[address] Chest W/O Contrast Verena Skinner gh; Auth (Verified) Notes: (CT Chest W/O Contrast) Reason For Exam: Hx recurrent endometrial cancer. Flank pain, rule-out pyelonephritis. Cough.;Pain RESULT: CT Chest W/O Contrast CT Chest W/O Contrast, CT Abdomen and Pelvis W/O Contrast INDICATION: Reason: Pain; Hx recurrent endometrial cancer. Flank pain, rule-out pyelonephritis. Cough.; Clinical Question(s): Other:; Order Comment: TECHNIQUE: Helical CT scan of the chest, abdomen, and pelvis without IV contrast, formatted in 3 planes. This study was performed without oral contrast. Weight-based protocol was performed using automatic exposure control. CTDIvol Body: 7.10 mGy, DLP Body: 511 mGy*cm. COMPARISON: 06/14/2024 CT angiography of the chest, abdomen and pelvis. FINDINGS: Evaluation of the abdominal and pelvic viscera is suboptimal without intravenous contrast. Can Runner view findings, lines and tubes: Right-sided chest port terminates at the lower SVC. Trachea and airways: Patent without evidence of tracheal or endobronchial lesion. Lungs and pleura: Mild dependent atelectasis. No focal consolidation. Numerous tiny nodules predominantly in the upper lobes, best appreciated on the MIP images, similar to prior study. No effusion or pneumothorax. Mediastinum and janel: No mass or hematoma. No mediastinal or hilar lymphadenopathy. No esophageal abnormality. Asymmetric enlargement of the left thyroid lobe, previously evaluated with thyroid ultrasound. Heart: Heart is normal in size. No pericardial effusion. Mild coronary artery calcification. Aorta: Mild vascular calcification but no aneurysm. Pulmonary arteries: Normal caliber. Chest wall soft tissues: Posttreatment changes in the right breast. Diaphragm: Intact. Liver: Normal in attenuation and morphology. No suspicious lesion. Gallbladder: No CT evidence of gallbladder pathology. Bile ducts: No biliary ductal dilation. Spleen: Normal in size. Pancreas: No suspicious lesion or ductal dilatation. Adrenal glands: No nodule. Kidneys and ureters: No right hydronephrosis or calculi. Mild left hydronephrosis, new from prior study. No obstructing etiology is seen on noncontrast CT. No renal or ureteral calculi. Bladder: Bladder is underdistended and demonstrates moderate diffuse wall thickening, similar to prior study. Correlate with urinalysis. Reproductive organs: Prior hysterectomy. No adnexal masses. Stomach, small bowel, and large bowel: The stomach is normal. The small bowel is normal in caliber,with no evidence of bowel obstruction. The rectum is normal. Mild colonic diverticulosis predominantly affecting the sigmoid colon, without evidence of an acute diverticulitis. Appendix: No evidence of acute appendicitis. Peritoneum and retroperitoneum: Trace perihepatic and pelvic ascites, new from prior study. Mild presacral soft tissue thickening, unchanged. No omental or mesenteric lesions. Lymph nodes: Ill-defined soft tissue thickening in the retroperitoneum (image 131 series 201) corresponding to previously seen ill-defined retroperitoneal lymph nodes, similar to the prior examination. A discrete left periaortic lymph node (image 119 series 201) measures 0.8 cm, unchanged. Blood vessels: Mild vascular calcifications but no aneurysm. Abdominal and pelvic wall soft tissues: No acute abnormality. Bones: No acute abnormality. Degenerative changes of the spine. IMPRESSION: CT chest No acute findings in the chest. CT abdomen and pelvis 1. Mild left hydronephrosis, new from prior CT. The left ureter difficult to follow beyond the siteof ill-defined retroperitoneal soft tissue thickening, and some degree of obstruction of the left ureter at this level is not excluded, particularly if patient is having left-sided flank pain and this finding is not transient. 2. Trace abdominal and pelvic ascites, new from prior study of uncertain etiology, though given history of endometrial cancer, malignant ascites is not excluded. 3. Moderate bladder wall thickening could be part related to underdistention. Correlate with urinalysis. Preliminary findings were reported by virtual radiology. The virtual radiology report did not describe the finding of new left-sided hydronephrosis. An actionable message ([facility]) has been communicated via the [employer] system on 10/16/2024 9:25 AM, Message ID [id number]. WSN: [id number] Ordering Physician: Fela Milian Dictated By: Leon Ibanez MD Dictated Date/Time: 10/16/24 9:27 am Reviewed By: Leon Ibanez MD Signed By: Leon Ibanez MD Signed Date/Time: 10/16/24 9:27 am Transcribed By: MARKOS Transcribed Date/Time: 10/16/24 9:07 am Vital Signs Most recent to oldest [Reference Range]: 1 2 3 4 Oxygen Saturation [94-100 %] 94 % (10/17/24 4:00 AM) 97 % (10/16/24 7:00 PM) 98 % (10/16/24 4:41 PM) Pulse Rate [55-90 bpm] 102 bpm *H* (10/17/24 4:00 AM) 99 bpm *H* (10/16/24 7:00 PM) 91 bpm *H* (10/16/24 4:41 PM) Blood Pressure [90-138/55-84 mm Hg] 120/80mm Hg (10/17/24 4:00 AM) 133/73mm Hg (10/16/24 7:00 PM) 127/78mm Hg (10/16/24 4:41 PM) Respiratory Rate [16-30 br/min] 16 br/min (10/17/24 10:03 AM) 18 br/min (10/17/24 4:00 AM) 20 br/min (10/16/24 9:36 PM) 20 br/min (10/16/24 9:36 PM) Temperature [96.8-100.4 DegF] 97.5 DegF (10/17/24 4:00 AM) 97.9 DegF (10/16/24 7:00 PM) 98.4 DegF (10/16/24 4:41 PM) Mode of Delivery (Oxygen) Room air (10/17/24 4:00 AM) Room air (10/16/24 7:00 PM) Room air (10/16/24 4:41 PM) Blood pressure sites Arm, left (10/17/24 4:00 AM) Arm, left (10/16/24 7:00 PM) Arm, right (10/16/24 4:41 PM) Temperature Route Axillary (10/17/24 4:00 AM) Oral (10/16/24 7:00 PM) Oral (10/16/24 4:41 PM) Social History Social History Type Response Smoking Status 5-9 cigarettes (betw een 1/4 to 1/2 pack)/day in last 30 days; Other: around 5 cigaretts per day, in the process of quitting; entered on: 07/29/22 Sex Female Sex Representation Female (finding) History and physical note * Fela Milian MD: MODIFY, PERFORM, MODIFY Event Display: History and Physical Hospital Authored Date: [id number] Patient: ??EMERALD DELUCA ? Age:??64 Years?Sex:??Female?:??1960?? History of Present Illness Patient is a 64 yo with recurrent endometrial cancer??directly admitted after office visit in the setting of flank pain and fevers. ?? She reports flank pain and urgency since before . She was initially treated with Macrobid 3 weeks ago for suspected UTI with no improvement in her symptoms, and her urinalysis was never sent for culture. She was also prescribed Pyridium, which initially helped but then stopped working. She notes worsening of her symptoms over the past few days, now with fevers (101 this morning before Tylenol), chills, and tremors. She is also now having cough, congestion, and chest pain. She did have some spit-up with coughing when she first got here, but she has otherwise had no nausea or vomiting. She has been tolerating liquids, but she has not had much appetite for food. She denies any other symptoms. She notes her Everolimus has been held for the past 7 days due to her symptoms, and she does not want to restart this until she is feeling better.? TREATMENT HISTORY: 1.??Robotic modified radical hysterectomy, bilateral salpingo-oophorectomy, pelvic, para-aortic andsentinel lymphadenectomy on 03/13/[address] 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 -??Primary Tumor Features: ??A.?Histologic Grade:?FIGO grade 3 ??B.?Myometrial Invasion:??Present. ?1.?Depth of invasion: 24 mm ?2.?Myometrial thickness: 25 mm ?3.?Percentage of myometrial invasion: 90% ??C.??Lymphovascular space invasion:??Present, extensive. ?? -??FIGO Stage (FIGO 2015):?IB 2.??Radiation treatment; EBRT from 05/24/21- 07/02/[address] scan Dec 2021 4. Initiated treatment with GY-018 on 02/11/22 [1] - 10/2022 Progression 5. GY012, Olaparib/Capivasertib 6. Doxil 1 cycle 7. Radiation to PA nodes-??02/18/2023 - 04/03/2023 (44 days) 8. Recurrence on imaging in May 2024 9. Initiation of Letrozole 2.5mg/Everolimus 10mg- 07/27/24 Review of Systems Negative except as stated in above HPI. Physical Exam Vitals & Measurements T:??98.5?F?? HR:??131??(Peripheral)?? RR:??18?? BP:??155/89?? SpO2:??97%?? Constitutional:??Normal affect, no acute distress, well-developed. Resting comfortably in bed. Respiratory:??No increased work of breathing. Lungs clear to auscultation, breath sounds equal bilaterally without crackles or wheezing.? Cardiovascular:??Regular rate and rhythm. No audible murmurs.?? Abdomen/GI:??Soft, non-tender throughout, non-distended. No guarding or rebound tenderness.??Patient's abdomen feels hot to touch.?? :??Mild bilateral CVA tenderness. Extremities:??No edema in bilateral lower extremities. Skin:??No rash or jaundice. Normal for ethnicity. Neurological/Psychiatric:??Appearance appropriate, mood and affect stable. Answers questions appropriately. Assessment/Plan Assessment:??Patient is a 64 yo with recurrent endometrial cancer??directly admitted after office visit in the setting of flank pain and fevers concerning for pyelonephritis. Upon admission, she is febrile to 102.9, tachycardic to 130s, and mildly hypertensive to 150s/80s. Discussed plan to obtain CT abdomen/pelvis without contrast to evaluate for both pyelonephritis, as well as nephrolithiasis. CBC w/ differential, CMP, and urine studies ordered.??We will also obtain CT chest to complete interval survey. Given upper respiratory symptoms and chest pain, we will also obtain respiratory panel, EKG, and troponin. At this time, she is tolerating??fluids and small amounts of food, no indication for IVF. At this time, we will manage the fever with Tylenol. Will consider starting antibiotics pending what work-up reveals regarding the etiology of the patient's fever. ?? Plan discussed with Dr. Nye, attending. ?? Fever (R50.9):? Flank pain (R10.9):? - Diet: Regular - (p) CT chest/abdomen/pelvis without contrast - (p) Urinalysis, urine culture - (p) CBC w/ differential, CMP - Pain management: Tylenol 975mg q6 hr. Oxycodone 5mg q6 hr PRN.?? - Anti-emetics: IV Compazine 10mg q6 hr PRN - Bowel regimen: Miralax,??Senna daily - Code status: Full code (confirmed on admission) ?? Recurrent carcinoma of endometrium (C54.1):? - Currently on Letrozole 2.5 mg daily (not on formulary) and Everolimus 10 mg daily (Held for past week in setting of symptoms) ?? Chest pain (R07.9):? - (p) EKG, troponin on admission ?? Cough (R05.9):? - (p) Respiratory panel ?? History of DVT (deep vein thrombosis) (Z86.718):? - Continue home Eliquis (Ordered for 5mg BID as prescribed, but patient reports she only takes thisnightly) ?? 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 - Continue home gabapentin ?? Elevated cholesterol (E78.00):? - Continue home atorvastatin ?? Anxiety (F41.9):? - Continue home Trazadone ?? VTE Prophylaxis:? - Continue home Eliquis due to hx??of DVT ?VTE Prophylaxis Assessment:??VTE Prophylaxis Ordered ? Addendum at 0130 on 10/16/24: Patient's respiratory panel returned with Rhinovirus, which could explain her fever, and her repeattemperature is 98.5. She also has an DEAN (Cr 1.52, up from 1.26 on 09/20). UA??suggestive of infection or stone (no squams,??24 WBC, 14 RBC, 1+ leukocyte). EKG??sinus tachycardia, but troponin was 32. She is already on telemetry due to K 2.8 (being repleted), and another troponin is ordered stat atthis time. Curbsided cardiology, who believes her elevated troponin may be related to pleuritis in the setting of upper respiratory illness. They??recommend reaching back out to them if her troponin is >40.??Her CT C/A/P without contrast is still pending. Given DEAN, will administer 1L fluid bolus followed by mIVF??(ok'd for??bolus per cardiology). We will also monintor I/Os??(no urine output recorded yet). ?? Dr. Nye, attending, updated on plan. ?? OB History History?(2,0,0,2)? # 1 ?Baby 1 ?Outcome Date:??2100 ?Outcome or Result:??Unknown Outcome ?Gest Age:??-- ? Outcome:??-- ? Sex:??-- ?? # 2 ?Baby 1 ?Outcome Date:??2100 ?Outcome or Result:??Unknown Outcome ?Gest Age:??-- ? Outcome:??-- ? 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) Neck pain, acute: (Medical) Neuropathic pain: (Medical) Osteoarthritis of right hip: (Medical) Peripheral polyneuropathy: (Medical) Recurrent carcinoma of endometrium: (Medical) Shingles rash: (Medical) UTI symptoms: (Medical) Vitamin D deficiency: (Medical) Procedure/Surgical History Left Breast Reduction for symmetry: 02/2015 [place] lymph node biopsy: 07/19/14 Excisional biopsy of breast with preoperative localization: 07/19/14 ORIF - Open reduction and internal fixation of fracture Home Medications Acetaminophen: 975 mg = 3 tablet, By Mouth, Every 6 hours apixaban: 5 mg = 1 tablet, By Mouth, 2 times a day Ascorbic Acid Atorvastatin: 80 mg = 1 tablet, By Mouth, Daily at bedtime Barium Sulfate: See Instructions, If scan before 12PM; drink one bottle before bed, second bottle 90 mins before scan. If scan after noon; drink one bottle at 8 AM, second bottle 90 mins before scan.If scan after 4PM; drink one bottle 6 hours before, second bottle 90 mins before scan. Cholecalciferol: 1,000 International_Units, By Mouth, Daily Cyanocobalamin: 1,000 mcg, By Mouth, Daily in AM Durable Medical Equipment (Juzo Dynamic knee high compression socks): See Instructions, size 2 regular, [id number] pairs everolimus: 10 mg = 1 tablet, By Mouth, Daily Gabapentin: 1 capsule, By Mouth, 2 times a day, I capsule in anand morning and 2 capsules at bedtime Letrozole: 2.5 mg = 1 tablet, By Mouth, Daily Lidocaine/Prilocaine Topical: 1 application, Topically, Once Oxycodone: 5 mg = 1 tablet, By Mouth, Every 6 hours, PRN (for pain) Polyethylene Glycol 3350: 17 Gm, By Mouth, Daily, dissolve in water before taking PROCHLORperazine: 10 mg = 1 tablet, By Mouth, Every 6 hours, PRN (Nausea) Pt.'s Own Meds: MAGNESIUM 500MG AM ;250 MG PM, By Mouth Senna: 1 tablet, By Mouth, Daily at bedtime Trazodone: 50 mg = 1 tablet, By Mouth, Daily at bedtime Allergies NKA No Known Medication Allergies Social History Alcohol Use: Past. Electronic Cigarette/Vaping Electronic Cigarette Use: Never. Employment/School Status: Employed. Exercise Regular exercise: No. Home/Environment Lives with: Spouse. Nutrition/Health Diet: Regular. Caffeine intake amount: coke 2 a day. Other Name: [place] descent. Sexual Other contraceptive use: post menopausal. Substance Abuse Use: Never. Tobacco Use: 5-9 cigarettes (between 1/4 to 1/2 pack)/day in last 30 days. Other: around 5 cigaretts per day, in the process of quitting. Family History Mother: Heart disease Father: Cancer Hospital Progress note * Fela Milian MD: PERFORM Event Display: Progress Note Hospital Authored Date: Patient: ??EMERALD DELUCA ? Age:??64 Years?Sex:??Female?:??1960?? Subjective In to see patient for morning rounds. She reports her pain is ok this morning. She is still tolerating mostly water. Denies any chest pain, shortness of breath, nausea, or vomiting. No other symptomsor concerns this morning.?? Review of Systems Negative except as stated in above HPI. Physical Exam Vitals & Measurements T:??98.4?F?? HR:??90??(Peripheral)?? RR:??16?? BP:??112/66?? SpO2:??94%?? Constitutional:??Normal affect, no acute distress, well-developed. Resting comfortably in bed. Respiratory:??No increased work of breathing. Lungs clear to auscultation with slightly diminished breath sounds in bilateral upper lung [place], otherwise clear without any wheezing or crackles. Cardiovascular:??Regular rate and rhythm. No audible murmurs.?? Abdomen/GI:??Soft, non-tender throughout, non-distended. No guarding or rebound tenderness.?? Extremities:??No edema in bilateral lower extremities. Mild lower back (lumbar paraspinal muscles) tenderness bilaterally. Skin:??No rash or jaundice. Normal for ethnicity. Neurological/Psychiatric:??Appearance appropriate, mood and affect stable. Answers questions appropriately. Assessment/Plan Assessment:??Patient is a 64 yo with recurrent endometrial cancer??admitted in the setting of flankpain and fevers initially concerning for pyelonephritis or nephrolithiasis.??The patient was initially febrile to 102.9 during admission, but she tested positive for Rhinovirus and has remained afebrile since receiving Tylenol. Urinalysis with signs of possible UTI (+WBC, +RBCs), with urine culturepending. She did undergo CT chest/abdomen/pelvis with no acute findings other than a few very tiny nodules in bilateral upper lung lobes. No evidence of nephrolithiasis. Of note, the patient also hasan DEAN and is now receiving IVF, with repeat labs pending for this morning.? Regarding patient's elevated troponin, this was stable on repeat (went from 32 to 29), and she no longer has any chest pain. She remains on telemetry for hypokalemia, will continue telemetry until labs show improvement in electrolytes.?? The patient's pain is currently well controlled. Will consider starting antibiotics depending on patient's fever course. ?? Plan to be discussed with Dr. Nye, attending. ?? Fever (R50.9):? Flank pain (R10.9):? - Diet: Regular - CT chest/abdomen/pelvis without contrast: No acute findings. Few 3mm or less nodules in bilateralupper lung lobes. Small amount ascites. - Urinalysis with possible infection. (p) Urine culture, collected 10/15. - (p) CBC w/ differential, CMP this morning - Pain management: Tylenol 975mg q6 hr. Oxycodone 5mg q6 hr PRN.?? - Anti-emetics: IV Compazine 10mg q6 hr PRN - Bowel regimen: Miralax,??Senna daily ?? Recurrent carcinoma of endometrium (C54.1):? - Currently on Letrozole 2.5 mg daily (not on formulary) and Everolimus 10 mg daily (Held for past week in setting of symptoms) ?? DEAN (acute kidney injury) (N17.9):? - Cr 1.52 on admission - s/p 1L fluid bolus, continue 120 mL/hr - Monitor I/Os - (p) Repeat Cr this AM - Avoid nephrotoxic medications ?? Chest pain (R07.9):? - Resolved - EKG: Sinus tachycardia - Troponin 32 --> 29. s/p curbside cardiology, likely from pleuritis and??nothing further to do.Re-contact if troponin >40. - Continue telemetry until proven improvement in hypokalemia ?? Cough (R05.9):? - Positive Rhinovirus, likely source of fever - Contact precautions ?? History of DVT (deep vein thrombosis) (Z86.718):? - Continue home Eliquis (Ordered for 5mg BID as prescribed, but patient reports she only takes thisnightly) ?? 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 - Continue home gabapentin ?? Elevated cholesterol (E78.00):? - Continue home atorvastatin ?? Anxiety (F41.9):? - Continue home Trazodone ?? VTE Prophylaxis:? - Continue home Eliquis due to hx??of DVT ?VTE Prophylaxis Assessment:??VTE Prophylaxis Ordered ?? Intake and Output Intake and Output Results?? This visit (24 hour periods starting at 07:00 EST)? 10/15/24 *?? 10/14/24?? 10/13/24?? Total Summary?Intake mL?? 1,573.34?? --?? --?Output mL?? --?? --?? --?Fluid Balance ?? 1,573.34?? --?? --?? Intake (2)?Lactated Ringers Injection 1,000 mL mL?? 1,000?? --?? --?Potassium Chloride mL?? 573.34?? --?? --?Total?? 1,573.34?? --?? --?? Output (0)? Counts (1)?Urine Count ?? 4?? --?? --? * This column has not completed the indicated time period.?? Note * Mason Larson: PERFORM Event Display: Discharge/Transfer Note Hospital Authored Date: [id number] Nursing Discharge Note Entered On: 10/17/2024 13:51 EST Performed On: 10/17/2024 13:50 EST by Mason Larson Nursing Discharge Note 2 Discharge Time : 10/17/2024 12:00 EST Discharge Level of Care at Discharge : Home/Correction/Foster Care Patient Left Unit Via : Ambulance Patient Accompanied Off Unit with : Responsible adult DC Instructions Provided & Signed by Pt : Yes Patient Understands D/C Instructions : Yes Patient Instructions Discharge Signed : Yes Did Pt have Specialty Bed or Wound Vac : Yes Mason Larson - 10/17/2024 13:50 EST * Michel Larry DO: PERFORM Event Display: Discharge/Transfer Note Hospital Authored Date: [id number] Patient: ??EMERALD DELUCA ? Age:??64 Years?Sex:??Female?:??1960?? Admit Date Admission Date: 10/15/2024 Discharge Date 10/17/2024 Discharge Diagnoses 1.??Chemotherapy-induced neuropathy, 10/16/2024 2.??Elevated cholesterol, 10/16/2024 3.??Recurrent carcinoma of endometrium, 10/16/2024 DEAN (acute kidney injury), 10/16/2024 Anxiety, 10/16/2024 Cancer related pain, 10/15/2024 Chest pain, 10/16/2024 Cough, 10/16/2024 Fever, 10/16/2024 Flank pain, 10/16/2024 History of DVT (deep vein thrombosis), 10/16/2024 [facility] Course Patient is a 64 yo with recurrent endometrial cancer??directly admitted after office visit in the setting of flank pain and fevers concerning for pyelonephritis. Upon admission, she is febrile to 102.9, tachycardic to 130s, and mildly hypertensive to 150s/80s. She had no leukocytosis, but UA was notable for WBCs and RBCs, CT abdomen and pelvis performed and negative for acute intra-abdominal process but did demonstrate mild left hydronephrosis, but she did test positive for Rhinovirus. The patient also had an DEAN upon admission.?? She also had hypokalemia for which she was repleted and placedon telemetry for. Her Hypokalemia improved and she was taken off telemetry.?? Objective/Physical Exam on Day of Discharge Vitals & Measurements T:??97.9?F?? HR:??99??(Peripheral)?? RR:??17?? BP:??133/73?? SpO2:??97%?? General: pleasant, alert, cooperative, NAD HEENT: Normocephalic/atraumatic Cardiac: Regular rate and rhythm.?? No murmurs Respiratory: unlabored breathing, clear to auscultation bilaterally Abdominal: Soft, non-distended. No guarding or rebound. Neurologic: No focal neurological deficits.??Moves all extremities spontaneously. Extremities: Symmetrical muscle bulk, no visible erythema or edema.?? Psych: Mood and affect stable, appearance appropriate, good eye contact, talkative ?? Assessment/Plan Assessment:??Patient is a 64 yo with recurrent endometrial cancer??admitted in the setting of flankpain and fevers initially concerning for pyelonephritis or nephrolithiasis.??The patient was initially febrile to 102.9 during admission, but she tested positive for Rhinovirus and has remained afebrile since receiving Tylenol. Urinalysis with signs of possible UTI (+WBC, +RBCs), with urine culturepending. She did undergo CT chest/abdomen/pelvis with mild left hydronephrosis but no evidence of stone or obstruction. It also demonstrated??tiny nodules in bilateral upper lung lobes. Of note, the patient also has an DEAN and is now receiving IVF, with repeat labs pending for this morning.? Regarding patient's elevated troponin, this was stable on repeat (went from 32 to 29), and she no longer has any chest pain.?? On 10/16 she received repletion for electrolyte derangement and her hypokalemia improved that she was taken off telemetry.??She has remained afebrile throughout the remainder of her hospitalization.??Her DEAN has been downtrending but not??resolved.??She??may be a candidate for discharge today pending her??a.m. labs??which are still pending. ?? Suspect that her fever was related??to rhinovirus rather than any??underlying bacterial infection or pyelonephritis as??she has continued to improve??throughout hospitalization without??antibiotics. ?? Plan to be discussed with Dr. Nye, attending. ?? Discharge Planning:? Flank pain (R10.9):? - Diet: Regular - CT chest/abdomen/pelvis without contrast: Mild??left??hydronephrosis.??No acute findings. Few 3mmor less nodules in bilateral upper lung lobes. Small amount ascites. - Urinalysis with possible infection. (p) Urine culture, collected 10/15. - (p) CBC w/ differential, CMP this morning - Pain management: Tylenol 975mg q6 hr. Oxycodone 5mg q6 hr PRN.?? - Anti-emetics: IV Compazine 10mg q6 hr PRN - Bowel regimen: Miralax,??Senna daily ?? Fever (R50.9):??- Likely secondary to rhinovirus - Afebrile throughout rest of hospitalization without any antibioics ?? 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 - Continue home gabapentin ?? Elevated cholesterol (E78.00):? - Continue home atorvastatin ?? Recurrent carcinoma of endometrium (C54.1):? - Holding Letrozole and??Everolimus ?? History of DVT (deep vein thrombosis) (Z86.058):? - Continue home Eliquis (Ordered for 5mg BID as prescribed, but patient reports she only takes thisnightly) ?? Chest pain (R07.9):? - Resolved - EKG: Sinus tachycardia - Troponin 32 --> 29. s/p curbside cardiology, likely from pleuritis and??nothing further to do.Re-contact if troponin >40. - s/p telemertry ?? Cough (R05.9):? - Positive Rhinovirus, likely source of fever - Contact precautions ?? Anxiety (F41.9):? - Continue home Trazadone ?? DEAN (acute kidney injury) (N17.9):? - Cr 1.52 on admission --> 1.46 - s/p 1L fluid bolus, continue 120 mL/hr - Monitor I/Os - (p) Repeat Cr this AM - Avoid nephrotoxic medications ?? VTE Prophylaxis:? - Continue home Eliquis due to hx??of DVT ?VTE Prophylaxis Assessment:??VTE Prophylaxis Ordered ?? Discharge Medications ???Acetaminophen (acetaminophen 325 mg oral tablet)???Ascorbic Acid???Atorvastatin (atorvastatin 80mg oral tablet)???Barium Sulfate (Readi-Cat 2 Smoothie Creamy Vanilla 2% oral suspension)???Cholecalciferol (Vitamin D3)???Cyanocobalamin (Vitamin B12)???Durable Medical Equipment (Juzo Dynamic knee high compression socks)???Gabapentin (gabapentin 300 mg oral capsule)???Letrozole (letrozole 2.5 mg oral tablet)???Lidocaine/Prilocaine Topical (lidocaine-prilocaine 2.5%-2.5% topical cream)???Oxycodone (oxyCODONE 5 mg oral tablet)???PROCHLORperazine (prochlorperazine 10 mg oral tablet)???Polyethylene Glycol 3350 (MiraLax oral powder for reconstitution)???Pt.'s Own Meds (Patient's Own Meds)???Senna (senna - oral tablet)???Trazodone (trazodone 50 mg oral tablet)???apixaban (Eliquis 5 mg oral tablet)???everolimus (everolimus 10 mg oral tablet) Immunizations during Hospitalization Vaccine Date Status SARS-CoV-2 (COVID-19) mRNA-1273 vaccine 04/19/2021 Given SARS-CoV-2 (COVID-19) mRNA-1273 vaccine 04/19/2021 Recorded SARS-CoV-2 (COVID-19) mRNA-1273 vaccine 03/22/2021 Given SARS-CoV-2 (COVID-19) mRNA-1273 vaccine 03/22/2021 Recorded * Marsha Mason: PERFORM Event Display: Patient Education/Instruction Authored Date: [id number] Inpatient Adult Discharge Instructions. [address] [address] Name: EMERALD DELUCA : 1960?? Visit: 10/15/2024 19:02?? Current Date: 10/17/2024 11:47 ?? Account: [id number]?? Inpatient Adult Discharge Instructions We would like to thank you for allowing us to assist you with your healthcare needs. The following includes patient education materials and information regarding your injury/illness. Our entire staffstrives to provide an excellent experience for our patients and their families. PLEASE ENSURE YOU FOLLOW-UP PER THE INSTRUCTIONS BELOW! ?? YOUR OPINION IS IMPORTANT TO US! Please complete the survey you may receive by mail or email. Your feedback will be used to make improvements to the healthcare experiences of our patients and their families. Surveys are administered by [employer] ?? If further treatment with your primary care physician or another doctor is recommended, it is important for you to keep the appointment. Call your primary care physician or return to the Emergency Department immediately if your condition worsens, fails to improve, or new symptoms develop. If you need to find a doctor, you can call [facility] Link for a referral at [phone] or toll free at [phone] ([phone]) or log in to [email or web address].. ?? [facility], in keeping with [facility] guidance, no longer requires face masks for staff, patientsor visitors in most situations. Similiar to time spent indoors at other locations, there is the chance that you were exposed to repiratory viruses during your time with us (such as flu or COVID-19). If you develop symptoms concerning for a viral respiratory infection, please seek testing (and treatment if indicated) from your medical provider or home test kit. ?? You can view and manage your care through the patient portal or by using a health care merline of your choosing. [employer] is a website that allows you to securely view your medical information including your hospital discharge summary, office visit summaries, medications and follow-up visits. You can also request appointments, renew medications, and request access to your medical information using a health care merline of your choosing, or just ask a question. You can enroll at [email or web address] or register during your next office visit. You have been discharged from [facility], Patient Care Unit: S3??. If you have any questions regarding these instructions, including results of studies pending, afteryou leave, please call us and we will be happy to assist you 26/05. [facility] Your Care Team Attending Physician Arturo Nye MD?? Consulting Providers Arturo Nye MD?? Discharging Providers Rosalinda Guzman MD Your Diagnosis Chemotherapy-induced neuropathy Elevated cholesterol Recurrent carcinoma of endometrium DEAN (acute kidney injury) Anxiety Cancer related pain Chest pain Cough Fever Flank pain History of DVT (deep vein thrombosis) Tests Performed Below is a partial list of the tests performed during your hospitalization. You may have had other tests and procedures not included in this list. Please discuss all test results with your provider. Basic Metabolic Panel Calcium Ionized CBC CBC w/ Differential Comprehensive Metabolic Panel High Sensitivity Troponin T HOLD GEL TUBE Magnesium Level Phosphorus Level Respiratory Pathogen PCR with COVID-19 Troponin T, High Sensitivity Urinalysis Complete Urine Culture Urine Culture Result Chest CT W/O Contrast CT Abdomen and Pelvis W/O Contrast Basic Metabolic Panel?? CBC?? CBC w/ Differential?? CT Abdomen and Pelvis W/O Contrast?? CT Chest W/O Contrast (Chest CT W/O Contrast)?? Complete Urinalysis (Urinalysis Complete)?? Comprehensive Metabolic Panel?? High??Sensitivity??Troponin T (Troponin T, High Sensitivity)?? Hold Gel Top Tube (HOLD GEL TUBE)?? Ionized Calcium (Calcium Ionized)?? Magnesium Level?? Phosphorus Level?? Respiratory Pathogen PCR with COVID-19?? Urine Culture?? Urine Culture Result?? Primary Care Provider Zoltan Weems MD? Advance Directive Health Care Proxy on File No Patient refuses to discuss Discharge Vitals Temperature: 97.5 DegF Pulse Rate:??102 bpm??High Respiratory Rate: 18 br/min Systolic Blood Pressure: 120 mm Hg Diastolic Blood Pressure: 80 mm Hg Oxygen Saturation: 94 % Studies Pending All studies ordered during this hospital stay have been completed unless listed below. Please discuss all pending results with your provider listed above in these instructions. ?? CBC?? Comprehensive Metabolic Panel?? Ionized Calcium (Calcium Ionized)?? Magnesium Level?? Phosphorus Level?? What to do next Instructions From Your Doctor ?? Orders? 10/17/24 10:35:00 EST?? 10/17/24 6:28:00 EST?? Discharge Medications EMERALD DELUCA :1960 Visit Date:10/15/2024 Medications: Please continue your medications until treatment is completed or stopped by your provider. Medications not listed below should be discontinued. Discuss any questions related to medications with your provider. What How Much When Why Instructions Next Dose Unchanged Acetaminophen (acetaminophen 325 mg oral tablet) 3 tab(s) Oral Every 6 hours as needed Unchanged apixaban (Eliquis 5 mg oral tablet) 1 tab(s) Oral Twice a day 10/17 9pm Unchanged Ascorbic Acid Unchanged Atorvastatin (atorvastatin 80 mg oral tablet) 1 tab(s) Oral Daily at Bedtime 10/17 9pm Unchanged Barium Sulfate (Readi-Cat 2 Smoothie Creamy Vanilla 2% oral suspension) See instructions If scan before 12PM; drink one bottle before bed, second bottle 90 mins before scan. If scan after noon; drink one bottle at 8 AM, second bottle 90 mins before scan. If scan after 4PM; drink one bottle 6 hours before, second bottle 90 mins before scan. ?? Unchanged Cholecalciferol (Vitamin D3) 1,000 International Unit Oral Daily 10/18 9am Unchanged Cyanocobalamin (Vitamin B12) 1,000 Microgram Oral Daily in the morning 10/18 9am Unchanged Durable Medical Equipment (Juzo Dynamic knee high compression socks) See instructions Endometrial ca Lymphedema size 2 regular, 30-40mmHg 2 pairs ?? Unchanged everolimus (everolimus 10 mg oral tablet) 1 tab(s) Oral Daily 10/18 9am Unchanged Gabapentin (gabapentin 300 mg oral capsule) 1 capsule Oral Twice a day I capsule in anand morning and 2 capsules at bedtime ?? 10/17 9pm Unchanged Letrozole (letrozole 2.5 mg oral tablet) 1 tab(s) Oral Daily 10/18 9am Unchanged Lidocaine/ Prilocaine Topical (lidocaine-prilocaine 2.5%-2.5% topical cream) 1 merline Topically Once Unchanged Oxycodone (oxyCODONE 5 mg oral tablet) 1 tab(s) Oral Every 6 hours as needed for for pain Cancer related pain as needed Unchanged Polyethylene Glycol 3350 (MiraLax oral powder for reconstitution) 17 gram Oral Daily dissolve in water before taking ?? Unchanged PROCHLORperazine (prochlorperazine 10 mg oral tablet) 1 tab(s) Oral Every 6 hours as needed for Nausea as needed Unchanged Pt.'s Own Meds (Patient's Own Meds) MAGNESIUM 500MG AM ;250 MG PM Oral Unchanged Senna (senna - oral tablet) 1 tab(s) Oral Daily at Bedtime 10/17 9pm Unchanged Trazodone (trazodone 50 mg oral tablet) 1 tab(s) Oral Daily at Bedtime 10/17 9pm Prescription Given During Visit No new medications prescribed at time of discharge.?? Laboratory Results Below is a partial list of the most recent Laboratory test results done prior to this discharge. You may have had other tests and procedures not included in this list. Please discuss all test resultswith your provider. Basic Metabolic Panel (10/17/2024) ???Sodium - 141 mmol/L???Potassium - 3.7 mmol/L???Chloride - 104 mmol/L???Bicarbonate Level - 26 mmol/L???Anion Gap - 11???Glucose Level - 106 mg/dL???BUN - 17 mg/dL???Creatinine-Blood - 1.31 mg/dL???Estimated GFR Creatinine - 45 ML/MIN/1.73 M2???Calcium - 8.6 mg/dL Calcium Ionized (10/16/2024) ???Calcium, Ionized pH Corrected - 1.21 mmol/L CBC (10/17/2024) ???WBC - 5.8 k/mm3???RBC - 3.48 m/mm3???Hgb - 9.2 Gm/dL???Hct - 29.3 %???MCV - 84.2 femtoliters???MCH - 26.4 pg???MCHC - 31.4 Gm/dL???Platelet Count - 229 k/mm3???RDW-SD - 43.8 femtoliters???MPV - 9.4 femtoliters???Nucleated RBC (Automated) - 0.0 #/100 WBC'S???Abs. NRBC - 0.0 k/mm3 CBC w/ Differential (10/15/2024) ???WBC - 7.8 k/mm3???RBC - 3.49 m/mm3???Hgb - 9.5 Gm/dL???Hct - 29.0 %???MCV - 83.1 femtoliters???MCH - 27.2 pg???MCHC - 32.8 Gm/dL???Platelet Count - 240 k/mm3???RDW-SD - 42.4 femtoliters???MPV - 9.9 femtoliters???Nucleated RBC (Automated) - 0.0 #/100 WBC'S???Abs. NRBC - 0.0 k/mm3???Abs. Neut - 6.7 k/mm3???Abs. Lymph - 0.5 k/mm3???Abs. [place] - 0.5 k/mm3???Abs. Eo - 0.1 k/mm3???Abs. Baso - 0.0 k/mm3???Neut % - 85.7 %???Lymph % - 6.4 %???[place] % - 6.2 %???Eos % - 1.0 %???Baso % - 0.3 %???Imm Gran - 0.4 %???Abs. Imm Gran - 0.0 k/mm3 Comprehensive Metabolic Panel (10/16/2024) ???Sodium - 139 mmol/L???Potassium - 3.3 mmol/L???Chloride - 104 mmol/L???Bicarbonate Level - 25 mmol/L???Anion Gap - 10???Glucose Level - 121 mg/dL???BUN - 16 mg/dL???Creatinine-Blood - 1.46 mg/dL???Estimated GFR Creatinine - 40 ML/MIN/1.73 M2???Calcium - 8.6 mg/dL???Protein, Total - 5.6 Gm/dL???Albumin - 3.3 Gm/dL???AG Ratio - 1.4???Alkaline Phosphatase - 150 units/L???AST (SGOT) - 26 units/L???ALT (SGPT) - 34 units/L???Bilirubin, Total - 0.5 mg/dL High Sensitivity Troponin T (10/15/2024) ???High Sensitivity Troponin (HSTnT) - 32 ng/L HOLD GEL TUBE (10/15/2024) ???Hold Gel Top - SPECIMEN DISCARDED AFTER 1 WEEK Magnesium Level (10/17/2024) ???Magnesium - 2.0 mg/dL Phosphorus Level (10/17/2024) ???Phosphorus - 2.2 mg/dL Respiratory Pathogen PCR with COVID-19 (10/15/2024) ???Adenovirus by PCR - NEGATIVE???Coronavirus 229E by PCR (not COVID-19) - NEGATIVE???Coronavirus HKU1 by PCR (not COVID-19) - NEGATIVE???Coronavirus NL63 by PCR (not COVID-19) - NEGATIVE???Coronavirus OC43 by PCR (not COVID-19) - NEGATIVE???Human Metapneumovirus by PCR - NEGATIVE???Rhinovirus/Enterovirus by PCR - POSITIVE???Influenza A by PCR - NEGATIVE???Influenza B by PCR - NEGATIVE???Parainfluenza 1 by PCR - NEGATIVE???Parainfluenza 2 by PCR - NEGATIVE???Parainfluenza 3 by PCR - NEGATIVE???Parainfluenza 4 by PCR - NEGATIVE???RSV by PCR - NEGATIVE???Bordetella Pertussis by PCR - NEGATIVE??? Chlamydophila Pneumoniae by PCR - NEGATIVE???Mycoplasma Pneumoniae by PCR - NEGATIVE???COVID-19 (SARS-CoV-2) by PCR - NEGATIVE???Bordetella Parapertussis by PCR - NEGATIVE Troponin T, High Sensitivity (10/16/2024) ???High Sensitivity Troponin (HSTnT) - 29 ng/L Urinalysis Complete (10/15/2024) ???Appear/Color, Urine - LIGHT YELLOW???Specific [place], Urine - 1.011???pH, Urine - 6.0???Albumin, Urine - 1+???Glucose, Urine - NEGATIVE???Ketones, Urine - NEGATIVE???Bilirubin, Urine - NEGATIVE???Hemoglobin, Urine - 2+???Nitrite, Urine - NEGATIVE???Leukocyte, Urine - 1+???Urobilinogen - NORMAL???WBC's, Urine - 24 /HPF? ?RBC's, Urine - 14 /HPF? ?Bacteria - SLIGHT? ?Squamous Epith - <1 /HPF? ?Mucus - SLIGHT Urine Culture (10/15/2024) ???Urine Culture Results - Preliminary report???Urine Culture Specimen Source - URINE Urine Culture Result (10/15/2024) ???Urine Culture Isolate 1 - Gram negative rods You will be contacted within 72 hours with your results. Allergies (NKA means No Known Allergies) NKA No Known Medication Allergies Problems Active Problems??(22) Anxiety?? Breast asymmetry between [place] breast and reconstructed breast?? Chemotherapy induced diarrhea?? Chemotherapy-induced neuropathy?? Chest congestion?? Diarrhea?? Elevated cholesterol?? Elevated triglycerides with high cholesterol?? Endometrial cancer?? Goiter?? Hematuria?? History of insomnia?? Malignant tumor of breast?? 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 Neck pain, acute?? Neuropathic pain?? Osteoarthritis of right hip?? Peripheral polyneuropathy?? Recurrent carcinoma of endometrium?? Shingles rash?? UTI symptoms?? Vitamin D deficiency?? Education Materials Below is the list of Educational Leaflet Providered with your Discharge Instructions. Valuables and Belongings I fully understand and agree that [facility] accepts no responsibility for all my personal property including clothing, toilet articles, radios, jewelry, dentures, hearing aids, rings, money, or any other property that is in my possession or is brought to me after admission. I understand certain valuables may be placed in a hospital safe for a short period of time. I understand that the hospital is not liable for loss or damage due to accident, fire, or other natural occurrence while said property is in the safe. I accept full responsibility for any personal property that I keep with me, and will not hold the hospital responsible in case of loss or disappearance. I acknowledge that i have been encouraged to send valuables and belongings home. ?? Review of Valuable and Belonging List: With patient Date for Pt to Sign Valuables/Belongings: 10/16/24 02:19:00 ?? Other Discharge Information ? Pulmonary Rehab Status?? Pulmonary Rehab Discharge Status?? Respiratory Rate: 18 br/min ? Common Emergency Awareness Tips IS IT A STROKE? Act FAST and Check for these signs: FACE Does the face look uneven? ARM Does one arm drift down? SPEECH Does their speech sound strange? TIME Call at any sign of stroke ?? Heart Attack Signs Chest discomfort: Most heart attacks involve discomfort in the center of the chest and lasts more than a few minutes, or goes away and comes back. It can feel like uncomfortable pressure, squeezing, fullness or pain. Discomfort in upper body: Symptoms can include pain or discomfort in one or both arms, back, neck, jaw or stomach. Shortness of breath: With or without discomfort. Other signs: Breaking out in a cold sweat, nausea, or lightheaded. Remember, MINUTES DO MATTER. If you experience any of these heart attack warning signs, call to get immediate medical attention! ?? Smoking can increase your chances of developing chronic health problems and can cause harmful effects to other family members in your house. If you smoke, you are strongly encouraged to quit. Please call [facility] Link at [phone] or [phone]-[facility] ([phone]) or log in to [email or web address] for referrals to smoking cessation programs. ?? 539 Suicide & Crisis Lifeline is available 26/05 if you or someone you know needs to find a reason to keep living. By calling 408 you'll be connected to a skilled, trained counselor at a crisis center in your area. INPATIENT DISCHARGE INSTRUCTIONS SIGNATURE PAGE SANDRINEGENESIS DozierA Location:[facility] Registration Date and Time:10/15/2024 19:02 EST Primary Care Physician: Dank DE LEÓN, Zoltan Black, Attending Physician: Popeye DE LEÓN, Arturo Wick, I EMERALD DELUCA, have received the above patient education materials/instructions and have verbalized understanding. If ambulance or transport services are being used I further acknowledge being given a choice of service. ?? If you need to contact me, please call me at this number: . Patient/Systems Accountant Name: Patient/Systems Accountant Signature: Relationship to Patient: Witness Name/Signature: Date: Patient Care team information Care Team Personnel Name: Jessica Keith RN Position: S RN Member Role: Primary Care Nurse Name: Meryl Balderrama RN Position: S RN Member Role: Primary Care Nurse Name: Dank DE LEÓN, Zoltan Black Position: Reference Physician Member Role: PCP Address: [address] [place] [address] [address] [place] [id number] Telecom: Name: Kadie Norris RN Position: S RN Member Role: Primary Care Nurse Name: Nisha Miller RN Position: S RN Member Role: Primary Care Nurse Name: Sandra Root RN Position: [facility] RN Member Role: Primary Care Nurse Name: Stella Cahcko RN Position: [facility] [place] RN Member Role: Primary Care Nurse Name: Guillermina Bradford RN Position: [facility] [employer] RN Member Role: Primary Care Nurse Name: Anita Maldonado RN Position: S RN Member Role: Primary Care Nurse Name: Gilmar Trevizo RN Position: [facility] Onco RN Member Role: Primary Care Nurse Name: Maria T Gaston LPN Position: [facility] RN Member Role: Primary Care Nurse Name: Libby Zaman LPN Position: [facility] RN Member Role: Primary Care Nurse Name: Anibal Courtney RN Position: [facility] RN Member Role: Primary Care Nurse Care Team Related Persons Name: PATRICE HINOJOSA Name: CLIVE DELUCA Name: TREVA DELUCA Name: LEO DELUCA Insurance Providers Guarantor name: EMERALD DELUCA Health Plan Information #: 1 Payer: [employer] O [employer] Member Number: [id number] Policy Number: NA Group Number: [id number] Health Plan Information #: 2 Payer: [employer] O [employer] Member Number: [id number] Policy Number: NA Group Number: NA Health Plan Information #: 3 Payer: HNE FF NON BHP HMO Member Number: NA Policy Number: NA Group Number: NA
--- OUTSIDE RECORDS SUMMARY | 2024-11-11 10:48 | XMS_ITS | Continuity of Care Document ---
Author Organization [facility] ACQUISITION CONSULTANT Oncolog y Address [address] [place] [address]- Care Team Providers Care Studio Director Name Role Phone Dank DE LEÓN, Zoltan Black Primary Care Physician Encounter [facility] [place] Date(s): 09/29/24 - 10/29/24 [facility] ACQUISITION CONSULTANT Oncology [address] [place] [id number] Encounter Type: Triage Allergies, Adverse Reactions, Alerts [...] Active Hematuria Confirmed Active Breast asymmetry between [place] breast and reconstructed breast Confirmed Active Diarrhea [...] Position: Reference Physician Member Role: PCP Address: [address] [place] [address] [place] [id number] Telecom: Name: Kadie Norris RN Position: S [...]
--- OUTSIDE RECORDS SUMMARY | 2024-11-11 10:48 | XMS_ITS | Continuity of Care Document ---
Author Organization [facility] SHRINK PIT OPERATOR Oncolog y Address [address] [place] [address]- Care Team Providers Care Film Librarian Name Role Phone Zoltan Weems MD Primary Care Physician Encounter [facility] [place] Date(s): 09/27/24 - 10/27/24 [facility] SHRINK PIT OPERATOR Oncology [address] [place] [id number] Encounter Type: Triage Allergies, Adverse Reactions, Alerts [...] Active Hematuria Confirmed Active Breast asymmetry between [place] breast and reconstructed breast Confirmed Active Diarrhea [...] RN Member Role: Primary Care Nurse Name: Zoltan Weems MD Position: Reference Physician Member Role: PCP Address: [address] [place] [address] [place] [address] Telecom: Name: Kadie Norris RN Position: S [...]
--- OUTSIDE RECORDS SUMMARY | 2024-11-11 10:48 | XMS_ITS | Continuity of Care Document ---
Author Organization [facility] ancer Care Address [address] [place] [address]- Care Team Providers Care Abrasive Band Winder Name Role Phone Zoltan Weems MD Primary Care Physician Encounter [facility] [place] [place] Date(s): 09/16/24 - 10/16/24 [facility] [address] [place] [id number] Attending Physician: Shaylee Hi Admitting Physician: AdmtrShaylee Referring Physician: Admtr, [id number] Encounter Type: Triage Allergies, Adverse Reactions, Alerts [...] Active Hematuria Confirmed Active Breast asymmetry between [place] breast and reconstructed breast Confirmed Active Diarrhea [...] Care team information Care Team Personnel Name: eJssica Keith RN Position: S RN Member Role: Primary Care Nurse Name: Meryl Balderrama RN Position: S RN Member Role: Primary Care Nurse Name: Dank DE LEÓN, Zoltan Black Position: Reference Physician Member Role: PCP Address: [address] [place] [address] [address] [place] [address] Telecom: Name: Kadie Norris RN Position: S [...]
== END 2024-11-11 10:15 | disposition home or self-care (01) ==
LOC: HO.LAB 10:14
PROVIDERS: Visit Provider Nurse Practitioner Family
DX: Z13.89 Encounter for screening for other disorder (principal)

== ENCOUNTER 2024-12-03 08:31 | Outpatient (AMB) | payer OTHER, SELFPAY ==
--- NOTE | 2024-12-03 08:33 | A.OFFVIS_ITS ---
Intake Visit Reasons: UTI/ kidney infection Intake Note: Patient is present for UTI/KIDNEY INFECTION Urology Medication:VITAMIN B6,VITAMIN B12 Antibiotic Allergy:DULOXETINE Blood Thinner:APIXABAN Agile Business Analyst Required: No Allergies duloxetine Allergy (Intermediate, Verified 12/03/24 08:35) Stomach Upset Medication List - Last Reconciled 12/03/24 by Benji Matias MD acetaminophen 650 mg (2 x 325 mg) PO Q5H PRN albuterol sulfate 90 mcg/actuation (Ventolin HFA) 2 puffs inhalation Q6H PRN 30 days apixaban (Eliquis) 5 mg PO BID ascorbic acid (vitamin C) 1 g PO DAILY 90 days atorvastatin 80 mg PO DAILY calcium carbonate 600 mg PO BEDTIME cholecalciferol (vitamin D3) (Vitamin D3) 25 mcg PO DAILY cyanocobalamin (vitamin B-12) 1,000 mcg PO DAILY 90 days estradiol 0.01%(0.1mg/gram) pea-sized to urethra daily for 2 weeks then 3 times a week 30 days everolimus (antineoplastic) 10 mg PO DAILY gabapentin 300 mg PO TID letrozole 2.5 mg PO DAILY methenamine hippurate 1 g PO DAILY 90 days mometasone 0.1% 1 appl topical DAILY PRN oxycodone 5 mg PO Q6H PRN prochlorperazine maleate 10 mg PO Q6H PRN pyridoxine (vitamin B6) 100 mg PO DAILY 90 days trazodone 50 - 100 mg (1 - 2 x 50 mg) PO BEDTIME PRN 90 days HPI Comments Details: Ellyn is a pleasant female. She is a patient of Dr. 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 Last seen just over a year ago No recent imaging Has been on therapy for recurrence of endometrial cancer Recent pyelonephritis CT scan with question left hydronephrosis Has vitaliy disease Given setting of high-risk immunosuppression and pyelonephritis recommend vitamin-C and methenamine chemo suppression Also would recommend topical urethral estrogen Recent data supports use of topical estrogen in setting of genitourinary syndrome of menopause Large scale data from [facility] shows no increase in recurrence rate for breast, ovarian, or uterine cancer Nephrolithiasis Minimal symptoms Imaging - 01/21 CT SCAN right 9 mm stone - 02/21 renal ultrasound 4 mm - 05/23 renal ultrasound no evidence of stones - 08/23 renal ultrasound no evidence of stones - 08/24 renal ultrasound no evidence of stones - 08/25 renal ultrasound evidence of stones Intervention - 02/21 R ESWL - 04/23 right ureteroscopy for distal stone Cytology - NAD Cystoscopy - February 2021 NAD Therapeutic plan - encourage fluids PFSH Medical History 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 Overweight (BMI 25.0-29.9) Insomnia History of breast cancer Peripheral polyneuropathy Primary osteoarthritis of right hip Vitamin D deficiency Smoker Pure hypercholesterolemia Goiter Anxiety Surgical History H/O: hysterectomy (~03/13/21) History of reduction surgery of right breast History of open reduction and internal fixation (ORIF) procedure Family History Father Cancer Mother CVD (cardiovascular disease) Social History Household Members: Family Housing: House Alcohol intake: current Alcohol intake frequency: holidays/special occasions o nly Patient Tobacco Use Status: Current everyday Tobacco user Tobacco use type: Cigarette Cigarette Packs Per Day: 0.5 Cigarettes Per Day: 10 e-Cigarette/Vaping Use: Never Used Second Hand Smoke Exposure: Yes service: No Current occupational status: employed 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 Gender identity: Female Cognitive needs: No Hearing needs: No Vision needs: No Review of Systems Const Denies chills and Denies fever(s) Card Reports no additional complaints and Denies syncope Resp Denies cough GI Denies abdominal pain and Denies heartburn Reports as per HPI and Denies change in libido Neuro Denies syncope Psych Denies change in libido Endo Denies change in libido Physical Exam Const General: cooperative, healthy appearing, comfortable and no acute distress Orientation/consciousness: patient oriented x3 HEENT Face and sinus: Yes normal facial exam Mouth: moist mucous membranes Neck Neck: Yes normal visual inspection, Yes full ROM and Yes trachea midline Chest Chest palpation & inspection: normal inspection of the chest Resp Effort & Inspection: normal respiratory effort, able to speak in complete sentences and no respiratory distress GI Inspection: Yes normal to inspection Back/Spine/Pelvis Cervical Spine: normal cervical lordosis Thoracic/Lumbar Spine: thoracic and lumbar spine normal to inspection Skin General skin exam: no rashes or lesions noted Neuro General: patient oriented x3, gait normal, tone normal and moves all extremities Extrem General: Yes normal to inspection and Yes capillary refill normal Results AMB Urinalysis, Automated UA Leukoctes 0 Maxim/uL Last Edit by MINI Howard on 12/03/24 08:44 UA Nitrite Negative Last Edit by MINI Howard on 12/03/24 08:44 UA Urobilinogen 0.2 mg/dL Last Edit by MINI Howard on 12/03/24 08:4 4 UA Protein 100 mg/dL Last Edit by MINI Howard on 12/03/24 08:44 UA pH 5.0 Last Edit by MINI Howard on 12/03/24 08:44 UA Blood 80 Hugo/uL Last Edit by MINI Howard on 12/03/24 08:44 UA Specific [place] 1.025 Last Edit by MINI Howard on 12/03/24 08: 44 UA Ketone Negative Last Edit by MINI Howard on 12/03/24 08:44 UA Bilirubin 1 mg/dL Last Edit by MINI Howard on 12/03/24 08:44 UA Glucose 0 mg/dL Last Edit by Cory Montalvo CCM on 12/03/24 08:44 Assessment & Plan Assessment & Plan (1) Recurrent UTI: Code(s): N39.0 - Urinary tract infection, site not specified Category: Medical (2) Genitourinary syndrome of menopause: Code(s): N95.8 - Other specified menopausal and perimenopausal disorders Category: Medical Plan Vitamin-C, methenamine Topical estradiol Follow-up imaging Orders: Orders AMB Urinalysis Automated Today Z13.9 - Encounter for screening, unspecified US renal BI 3 Months N20.0 - Calculus of kidney Medications: New ascorbic acid (vitamin C) 1 g PO DAILY 90 days 90 tabs 1RF N39.0 - Urinary tract infection, site not specified, N95.8 - Other specified menopausal and perimenopausal disorders estradiol 0.01%(0.1mg/gram) pea-sized to urethra daily for 2 weeks then 3 times a week 30 days 42.5 grams 2RF N95.8 - Other specified menopausal and perimenopausal disorders methenamine hippurate 1 g PO DAILY 90 days 90 tabs 1RF N39.0 - Urinary tract infection, site not specified, N95.8 - Other specified menopausal and perimenopausal disorders Patient Instructions: Imaging studies, laboratory and physical exam results were discussed and reviewed in detail. No major barriers to patient understanding were identified. An opportunity to ask questions regarding the treatment plan was provided. All questions were answered. The patient expressed understanding and agreement with the above treatment plan. The patient is aware they should contact our office by phone for worsening of their current condition or the appearance of new urologic symptoms. Compliance is encouraged with any medications and followup testing that is ordered. It is a privilege to participate in the urologic care of your patient. If you have any questions or concerns regarding treatment for the above conditions, or other urologic issues, please do not hesitate to contact me. The office telephone contact is [phone]. This note is constructed using voice recognition software. While every effort has been made to ensure accuracy service desk associate errors may have been included. Yours sincerely, Dr Benji Matias MD, [facility] - Urology Providers of Expert, Compassionate Care for the Genitourinary System Coding Level of Care Code Est Pt Level 4 (06088) Diagnoses Recurrent UTI N39.0 Genitourinary syndrome of menopause N95.8
--- OUTSIDE RECORDS SUMMARY | 2024-12-03 08:40 | XMS_ITS | Continuity of Care Document ---
Author Organization [facility] LOCAL BULK DRIVER Oncolog y Address [address] [place] [address]- Care Team Providers Care Crime Specialist Name Role Phone Zoltan Weems MD Primary Care Physician [phone] Encounter [facility] [place] Date(s): 10/18/24 - 11/17/24 [facility] LOCAL BULK DRIVER Oncology [address] [place] [id number] Encounter Type: Triage Allergies, Adverse Reactions, Alerts [...] Active Hematuria Confirmed Active Breast asymmetry between [place] breast and reconstructed breast Confirmed Active Diarrhea [...] Position: Reference Physician Member Role: PCP Address: [address] [place] [address] [place] [id number] Telecom: Name: Kadie Norris RN Position: S [...] Health Plan Information #: 1 Payer: HNE FF NON [employer] HMO Member Number: NA Policy Number: NA Group Number: NA
== END 2024-12-03 09:03 | disposition home or self-care (01) ==
PROVIDERS: PCP Internal Medicine; Visit Provider Urology
DX: N39.0 Urinary tract infection, site not specified (principal); N95.8 Other specified menopausal and perimenopausal disorders; Z13.9 Encounter for screening, unspecified
CPT/HCPCS: 99214

== ENCOUNTER → 2024-12-03 08:31 | Outpatient (BNVA) | payer OTHER, SELFPAY | PROVIDERS: PCP Internal Medicine; Visit Provider Urology | DX: N39.0 Urinary tract infection, site not specified (principal); N95.8 Other specified menopausal and perimenopausal disorders | CPT/HCPCS: 81003 ==

== ENCOUNTER 2024-12-10 15:44 | Outpatient (AMB) | payer OTHER, SELFPAY ==
--- NOTE | 2024-12-10 15:52 | MHC.PC.OV ---
Vital Signs 12/10/24 15:54 Height 5 ft 6 in Weight 157 lb 8 oz BMI 25.4 BP 130/62 Blood Pressure Location Lt brachial Position Sitting Pulse 102 H Pulse Source Pulse Oximeter Temp 96.9 F Temp Source Skin Pulse Oximetry (%) 96 Oxygen Delivery Method Room Air Intake Visit Reasons: hyperlipidemia, DM, endometrial CA Intake Note: Patient is here to follow up on DM, HLD, Endometrial CA. Retail Seasonal Specialist Required: No Unit Reactor Operator: Not Required per policy Accompanied by: Self / Same As Patient Allergies duloxetine Allergy (Intermediate, Verified 12/10/24 16:08) Stomach Upset Medication List - Last Reconciled 12/10/24 by Zoltan Weems MD acetaminophen 650 mg (2 x 325 mg) PO Q5H PRN albuterol sulfate 90 mcg/actuation (Ventolin HFA) 2 puffs inhalation Q6H PRN 30 days apixaban (Eliquis) 5 mg PO BID ascorbic acid (vitamin C) 1 g PO DAILY 90 days atorvastatin 80 mg PO DAILY calcium carbonate 600 mg PO BEDTIME cholecalciferol (vitamin D3) (Vitamin D3) 25 mcg PO DAILY cyanocobalamin (vitamin B-12) 1,000 mcg PO DAILY 90 days estradiol 0.01%(0.1mg/gram) pea-sized to urethra daily for 2 weeks then 3 times a week 30 days everolimus (antineoplastic) 10 mg PO DAILY gabapentin 300 mg PO TID letrozole 2.5 mg PO DAILY methenamine hippurate 1 g PO DAILY 90 days mometasone 0.1% 1 appl topical DAILY PRN oxycodone 5 mg PO Q6H PRN prochlorperazine maleate 10 mg PO Q6H PRN pyridoxine (vitamin B6) 100 mg PO DAILY 90 days trazodone 50 - 100 mg (1 - 2 x 50 mg) PO BEDTIME PRN 90 days Tobacco use date assessed: 12/10/24 Fall risk assessment: No Falls in past year Last assessed Fall Risk: 12/10/24 Dental Screening Dental Screen Date: 12/10/24 Did you have a dental visit in the last 12 months?: Yes Did you have a dental problem in the last 6 months where you did not have access to dental care?: No Was dental information given to patient?: Patient has dentist HPI hyperlipidemia, DM, endometrial CA HPI Details Patient comes in today for her follow up visit States that she was admitted to [facility] for a couple of days back in October 2024 when she presented to the ER with fever and flank pains Work ups done revealed (+) DEAN and mild left hydronephrosis; she also tested positive for rhinovirus She was treated symptomatically and her renal function improved back to baseline with hydration and she was eventually discharged home a couple of days later when her condition improved States that she is currently still undergoing immunotherapy with Everolimus and will be getting a follow up PET scan again next Friday at [facility] She has stopped taking her Letrozole recently due to increasing abdominal pain and back pain while on the medication She also continues to experience neuropathic symptoms especially in her lower extremities, which she finds bothersome often States that her Gabapentin is not really helping much with her symptoms of neuropathy Adds that she has not really had much appetite for the past few months She has lost almost 15 lbs since her last visit and she feels frustrated at the lack of help and support from [facility] when she reached out to them to look for help with regards to nutrition counseling - was supposedly advised that there are other people worse off than her and have also not been able to see a loan supervisor yet Patient currently denies any headaches or dizziness Denies any exertional chest pains but patient continues to c/o SOB with increased exertion, which she states has been going on for a while now but does not think that this has gotten worse lately No nausea/vomiting and states that her abdominal pain appears to have subsided when her Letrozole was held No change in bowel habits noted Patient brought in a copy of her follow-up labs done at [facility] from 2-3 weeks ago for review and these will be scanned into her chart as well for documentation States that she also needs her Trazodone Rx refilled today [facility] Medical History (Updated 12/12/24 @ 04:03 by Zoltan Weems MD) Impaired fasting glucose Neuropathy 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 Overweight (BMI 25.0-29.9) Insomnia History of breast cancer Peripheral polyneuropathy Primary osteoarthritis of right hip Vitamin D deficiency Smoker Pure hypercholesterolemia Goiter Anxiety Surgical History H/O: hysterectomy (~03/13/21) History of reduction surgery of right breast History of open reduction and internal fixation (ORIF) procedure Family History Father Cancer Mother CVD (cardiovascular disease) Social History Household Members: Family Housing: House Alcohol intake: current Alcohol intake frequency: holidays/special occasions only Patient Tobacco Use Status: Current everyday Tobacco user Tobacco use type: Cigarette Cigarette Packs Per Day: 0.5 Cigarettes Per Day: 5 e-Cigarette/Vaping Use: Never Used Second Hand Smoke Exposure: Yes service: No Current occupational status: employed 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 1. Little interest or pleasure in doing things: not at all 2. Feeling down, depressed, or hopeless: not at all 3. Trouble falling or staying asleep, or sleeping too much: not at all 4. Feeling tired or having little energy: not at all 5. Poor appetite or overeating: not at all 6. Feeling bad about yourself - or that you are a failure or have let yourself or your family down: not at all 7. Trouble concentrating on things, such as reading the newspaper or watching television: not at all 8. Moving or speaking so slowly that other people could have noticed. Or the opposite - being so fidgety or restless that you have been moving around a lot more than usual: not at all 9. Thoughts that you would be better off or of hurting yourself in some way: not at all Total score: 0 Depression Screening Interpretation: Negative Depression Screening Done: Yes 65452 - PHQ-9 Billing: Yes Source: Developed by Drs. Shay Chen, Charley Xiong, Russ Franco and colleagues, with an educational caridad from [employer]. Thrive Questionnaire Date Thrive assessed: 12/10/24 I am a: Patient What is your living situation today?: I have a steady place to live Within the past 12 months, did the food you bought not last and you didn't have the money to get more?: Never true Within the past 12 months, did you worry whether your food would run out before you got money to buy more?: Never true Do you have trouble paying for medicines?: No Do you have trouble getting transportation to medical appointments?: No Do you have trouble paying your heating and electricity bill?: No Do you have trouble taking care of your child, family member or friend?: No Do you have trouble with day-to-day activities such as bathing, preparing meals, shopping, managing finances, etc.?: No Are you currently unemployed and looking for a job?: No Are you interested in more education?: No Please select the resources that you would like help with: None Currently or been in a relationship where the following occur: No concerns reported THRIVE Score: 0 AUDIT C Alcohol Use Questionnaire (AUDIT-C) 1. How often do you have a drink containing alcohol?: Monthly or less 2. How many drinks containing alcohol do you have on a typical day when you are drinking?: 1 or 2 Total Score: 1 Score Reviewed/Action Taken: Yes GABRIEL-7 AMB Questionnaire GABRIEL-7 Date GABRIEL - 7 assessed: 12/10/24 Feeling nervous, anxious, or on edge: 0 = Not at all Not being able to stop or control worryin = Not at all Worrying too much about different things: 0 = Not at all Trouble relaxin = Not at all Being so restless that it is hard to sit still: 0 = Not at all Becoming easily annoyed or irritable: 0 = Not at all Feeling afraid as if something awful might happen: 0 = Not at all Total GABRIEL-7 score (0-4 normal; 5-9 mild; 10-14 moderate; 15-21 severe): 0 Source: Developed by Drs. Shay Chne, Charley Xiong, Russ Franco and colleagues, with an educational caridad from [employer]. Review of Systems Const Denies chills, Reports fatigue, Denies fever(s), Denies headache(s), Reports poor appetite and Reports weight loss ENT Denies dysphagia, Denies dizziness, Denies otalgia, Denies headache(s), Denies neck pain, Denies odynophagia and Denies sore throat Card Denies chest pain, Denies palpitations and Reports dyspnea on exertion Resp Denies chest congestion, Denies cough and Reports dyspnea on exertion GI Denies abdominal pain, Denies constipation, Denies dysphagia, Denies heartburn, Reports diarrhea (often postprandial - states this depends mostly on what she eats), Denies nausea, Denies odynophagia and Denies vomiting Denies difficulty voiding, Denies nocturia, Denies dysuria and Denies urinary urgency Musc Reports back pain and Denies neck pain Skin/Breast Denies rash Neuro Denies dizziness and Denies headache(s) Endo Reports fatigue and Denies palpitations Physical exam (Primary Care) Vital Signs: Last Vital Signs Temp 96.9 F 12/10/24 15:54 Pulse 102 H 12/10/24 15:54 BP 130/62 12/10/24 15:54 Pulse Ox 96 12/10/24 15:54 Oxygen Delivery Method Room Air 12/10/24 15:54 BMI result Body Mass Index 25.4 Tobacco/Smoking Status: Tobacco use Status Tobacco use date assessed 12/10/24 12/10/24 15:54 Patient Tobacco Use Status Current everyday Tobacco 12/10/24 15:54 Tobacco use type Cigarette 12/10/24 15:54 e-Cigarette/Vaping Use Never Used 12/10/24 15:54 PHQ-9: PHQ-9 Score PHQ-9: Total score 0 12/10/24 16:09 Depression Screening Interpretation: Negative Thrive Assessment: Date of Thrive Assessment Date Thrive assessed 12/10/24 12/10/24 15:54 Currently or been in a relationship where the following occur: No concerns reported Const General: no acute distress and alert HENMT Ears: TM's normal bilaterally and EAC's normal Throat: Yes posterior oropharynx normal and Yes tonsils normal (no TP congestion) Neck Neck: Yes no lymphadenopathy and Yes supple Thyroid: diffusely enlarged and nontender Resp Auscultation: clear to auscultation bilaterally, no rales and no wheezes Cardio Rate: regular rate Rhythm: regular rhythm Heart sounds: no murmurs GI Palpation (GI): Soft to palpation and nontender Auscultation: normal bowel sounds General: Yes no CVA tenderness Back/Spine/Pelvis Back: no CVA tenderness Skin Rashes: no rashes Extrem General: Yes no clubbing, cyanosis or edema Results AMB Hemoglobin A1c AMB Hemoglobin A1c 5.3 % Last Edit by JOSE EDUARDO Ace on 12/10/24 16:12 Results Reviewed Results Reviewed: Laboratory Last Values Hgb A1c (Clinic) 5.3 % (4.0-6.0) 12/10/24 15:54 Coding Level of Care Code Est Pt Level 4 (18782) Diagnoses Endometrioid adenocarcinoma Neuropathy G62.9 Deep vein thrombosis (DVT) of iliac vein of right lower extremity, unspecified chronicity I82.421 Chronicity: unspecified Weight loss R63.4 Goiter E04.9 Pure hypercholesterolemia E78.00 Exertional dyspnea R06.09 Impaired fasting glucose R73.01 Vitamin D deficiency E55.9 History of breast cancer Z85.3 Insomnia, unspecified type G47.00 Insomnia type: unspecified Anxiety F41.9 Smoker F17.200 Additional Codes PHQ-9 - 79918 - PHQ-9 Billing: Yes ([id number]) Assessment & Plan Assessment & Plan (1) Endometrioid adenocarcinoma: Comment: S/P radical hysterectomy, bilateral salpingo-oophorectomy and lymph node dissection by Dr. Arturo Nye on 03/13/2021 - pathology came out as endometrioid adenocarcinoma of the endometrium with extensive squamous cell differentiation, FIGO grade 3 - underwent adjuvant radiation therapy Follow up CT and Bx done in 2021 revealed (+) RECURRENT DISEASE Category: Medical Plan: (+) recurrent disease, despite completing chemotherapy with Pembrolizumab, Carboplatin and Paclitaxel and concurrent immunotherapy She has been previously advised that her cancer is now incurable and that the goal of treatment is to prolong her life and reduce her cancer volume and symptoms She was also on immunotherapy as part of a clinical trial ([id number]) but this was discontinued and she has opted for aggressive radiation therapy to her PA vitaliy chain - she has been reportedly advised of potential damage to the small bowels given their proximity to the treatment area She completed her most recent radiation therapy for recurrent metastatic endometrial cancer on 04/03/[address] done at the time revealed a significant interval decrease in the size of the known metastases involving the infrarenal IVC Her PET scan done at [facility] in October 2023 (for her 3 month follow-up) came out negative and her subsequent imaging studies since have revealed NO progression of her cancer so far She is again scheduled for her follow up PET scan at [facility] Friday on 12/13/2024 Follow-up with gynecologic oncology and radiation oncology as scheduled (2) Neuropathy: Code(s): G62.9 - Polyneuropathy, unspecified Category: Medical Plan: Continue Gabapentin 300 mg TID but patient feels that this is not helping much She was previously tried on Duloxetine but could not tolerate Rx due to side effects (stomach upset) Have advised patient there is no curative treatment for neuropathy and the best that we can do is to try to help control her symptoms so they are at least tolerable She prefers not to increase her Gabapentin dose as she recalls feeling very sedated while on 400 mg in the past (3) Deep vein thrombosis of iliac vein of right lower extremity: Comment: Most likely provoked DVT secondary to recurrent endometrioid adenocarcinoma Code(s): I82.421 - Acute embolism and thrombosis of right iliac vein Category: Medical Qualifiers: Chronicity: unspecified Qualified Code(s): I82.421 - Acute embolism and thrombosis of right iliac vein Plan: This was incidentally seen on outpatient CT in January 2023 - (+) thrombus in the right iliac vein, extending through the distal IVC and common iliac vein bifurcation Continue Eliquis 5 mg BID (4) Weight loss: Code(s): R63.4 - Abnormal weight loss Category: Medical Plan: Patient has apparently lost about 15 lbs since her last visit She reports that she has not really had much on an appetite for the past few months States that she tried reaching out for help with regards to nutrition counseling at [facility] a few weeks ago and feels frustrated at the lack of help and support as she was supposedly advised that there are other people worse off than her and have not been able to see a loan supervisor yet Will try referring her to oncology here at [facility] to see if they can help get her on the cancer support programs offered by [facility], including nutrition counseling (5) Goiter: Code(s): E04.9 - Nontoxic goiter, unspecified Category: Medical Plan: Thyroid US done back in September 2018 revealed (+) multiple cystic nodules bilaterally Repeat US done in February 2021 showed enlarged thyroid gland with multiple nodules - the majority of nodules are compatible with colloid cysts and there are 2 nodules in the left medial lobe near the isthmus and inferior lobe that appear solid and complex cystic and are decreased in size from previous exam Biopsies done in the past were all reportedly benign She had another thyroid biopsy done in September 2023 that also came back benign Recent thyroid US done on 09/27/2022 at [facility] revealed a generalized thyromegaly with multiple colloid cysts within both lobes and the isthmus, especially in the midportion of the right lobe. There is a 1.6 cm TI-RADS category 4 nodule in the lower pole of the left lobe and a 1 year follow-up exam is recommended to assess stability of this Her most recent TFTs redone at [facility] a few months ago were reportedly within normal limits; she has had no follow-up TFTs done since Follow up with [facility] Endocrinology as scheduled (6) Pure hypercholesterolemia: Code(s): E78.00 - Pure hypercholesterolemia, unspecified Category: Medical Plan: Results of her labs done about 2-3 weeks ago reviewed and discussed with patient - her serum triglyceride level was at 371 mg/dl then Reinforced low cholesterol diet Continue Atorvastatin 80 mg QD Will recheck her labs and fasting lipids in 4 months for follow up (7) Exertional dyspnea: Code(s): R06.09 - Other forms of dyspnea Category: Medical Plan: Will send patient for echocardiogram for further evaluation of her GARCIA CT chest done over the past couple of years have mentioned that patient has a borderline heart size She has also undergone Tx with Carboplatin and Paclitaxel for her endometrial carcinoma and these are known to be associated with cardiac side effects, including CHF and myocardial toxicity (8) Impaired fasting glucose: Code(s): R73.01 - Impaired fasting glucose Category: Medical Plan: Her serum glucose was slightly elevated at 104 mg/dl on her labs done about 3 weeks ago In-office HgbA1c done today is normal at 5.3% Reinforced low calorie/low carb diet (9) Vitamin D deficiency: Code(s): E55.9 - Vitamin D deficiency, unspecified Category: Medical Plan: Continue Vitamin D3 1000 units QD (10) History of breast cancer: Code(s): Z85.3 - Personal history of malignant neoplasm of breast Category: Medical Plan: She was previously on Tamoxifen 20 mg QD but this was held due to her recurrent endometrial cancer She was eventually switched over to Letrozole 2.5 mg QD but this was also held recently due to side effects - (+) abdominal pain and back pain while on the medication Follow up with oncology as scheduled for continuing surveillance (11) Insomnia: Code(s): G47.00 - Insomnia, unspecified Category: Medical Qualifiers: Insomnia type: unspecified Qualified Code(s): G47.00 - Insomnia, unspecified Plan: Sleep hygiene reinforced Continue Trazodone 50 mg 1 to 2 tablets Q HS PRN (12) Anxiety: Code(s): F41.9 - Anxiety disorder, unspecified Category: Medical Plan: Continue Lorazepam 1 mg 2 to 3 times a day as needed She was also on Citalopram 10 mg QD in the past but this was discontinued when she was started on Duloxetine for her increasing neuropathic symptoms in her legs a few months ago Duloxetine has since been discontinued due to side effects (upset stomach) Will consider starting her back on Citalopram if her anxiety symptoms get worse (13) Smoker: Code(s): F17.200 - Nicotine dependence, unspecified, uncomplicated Category: Social Hx Plan: Patient is again counseled on complete smoking cessation Plan Follow up in 4 months Orders: Orders AMB Hemoglobin A1c 12/10/24 Z13.9 - Encounter for screening, unspecified CA echo transthoracic complete 12/10/24 I77.810 - Thoracic aortic ectasia, R06.00 - Dyspnea, unspecified, R07.9 - Chest pain, unspecified Lipid Panel 4 Months E78.00 - Pure hypercholesterolemia, unspecified UA CC w/rflx Micro + Cult 4 Months R30.0 - Dysuria Complete Blood Count Auto Diff 4 Months D64.9 - Anemia, unspecified Comprehensive Twain. Panel Fast 4 Months E78.00 - Pure hypercholesterolemia, unspecified TSH reflex Free T4 4 Months E78.00 - Pure hypercholesterolemia, unspecified Referrals Hematology & Oncology Referral C55 - Malignant neoplasm of uterus, part unspecified Medications: Refilled trazodone 50 - 100 mg (1 - 2 x 50 mg) PO BEDTIME 90 days PRN 180 tabs 1RF insomnia
[2024-12-10 15:54] VITALS: BP 130/62; PULSE 102; TEMP 36.1; O2SAT 96; BMI 25.4
== END 2024-12-10 16:43 | disposition home or self-care (01) ==
PROVIDERS: PCP Internal Medicine; Visit Provider Internal Medicine
DX: G62.9 Polyneuropathy, unspecified (principal); I82.421 Acute embolism and thrombosis of right iliac vein; R63.4 Abnormal weight loss; E04.9 Nontoxic goiter, unspecified; E78.00 Pure hypercholesterolemia, unspecified; R06.09 Other forms of dyspnea; R73.01 Impaired fasting glucose; E55.9 Vitamin D deficiency, unspecified; Z85.3 Personal history of malignant neoplasm of breast; G47.00 Insomnia, unspecified; F41.9 Anxiety disorder, unspecified; F17.200 Nicotine dependence, unspecified, uncomplicated

== ENCOUNTER → 2024-12-10 15:44 | Outpatient (BNVA) | payer OTHER, SELFPAY | PROVIDERS: PCP Internal Medicine; Visit Provider Internal Medicine | DX: C54.1 Malignant neoplasm of endometrium (principal); G62.9 Polyneuropathy, unspecified; I82.421 Acute embolism and thrombosis of right iliac vein; R63.4 Abnormal weight loss; E04.9 Nontoxic goiter, unspecified; E78.00 Pure hypercholesterolemia, unspecified; R06.09 Other forms of dyspnea; R73.01 Impaired fasting glucose; E55.9 Vitamin D deficiency, unspecified; G47.00 Insomnia, unspecified; F41.9 Anxiety disorder, unspecified; F17.210 Nicotine dependence, cigarettes, uncomplicated; Z85.3 Personal history of malignant neoplasm of breast; Z79.01 Long term (current) use of anticoagulants; Z79.899 Other long term (current) drug therapy; Z90.710 Acquired absence of both cervix and uterus; Z90.722 Acquired absence of ovaries, bilateral | CPT/HCPCS: 83036; 96127 ==

== ENCOUNTER → 2024-12-22 14:01 | Outpatient (REF) | payer OTHER, SELFPAY ==
--- NOTE | 2024-12-22 14:03 | CA_ITS ---
Transthoracic Echocardiogram Patient (Last, First, Middle): Ellyn Acosta, Gender: Female Date of : 1960 Age: 64 Procedure Date: 12/22/2024 Procedure Type: Transthoracic Echocardiogram Location: OP Height: 167.64 cm Weight: 71.22 kg BSA: 1.80 m2 Heart Rate: bpm BP: 130 / 62 mmHg Follow Up Manager: RD Referring MD: Zoltan Weems MD Symptoms: R06.00 - Dyspnea, unspecified Study Quality: Adequate ECG Rhythm: Sinus Conclusions: - The left ventricular systolic function is mildly decreased. The calculated ejection fraction is 52% by biplane method. - Possible basal inferior hypokinesis. - Aortic valve sclerosis but no significant stenosis. - There is mild mitral valve regurgitation. - There is mild dilatation of the ascending aorta measuring 4.10 cm. Findings Left Ventricle Normal left ventricular cavity size. There is normal left ventricular wall thickness. The left ventricular systolic function is mildly decreased. The calculated ejection fraction is 52% by biplane method. Possible basal inferior hypokinesis. LV peak GLS -16.9% (mildly reduced). Right Ventricle Normal right ventricular cavity size and systolic function. Atria Both atria are normal in size. Aortic Valve There is a normal trileaflet aortic valve. There is mild calcification of the aortic valve. There is no aortic valve stenosis. There is trace (trivial) aortic valve regurgitation. Mitral Valve The mitral valve appears normal. There is mild mitral valve regurgitation. There is no mitral valve stenosis. Pulmonic Valve The pulmonic valve is likely normal. Tricuspid Valve There is trace tricuspid valve regurgitation. There is no evidence of pulmonary hypertension. Great Vessels There is mild dilatation of the ascending aorta measuring 4.10 cm. Venous The inferior vena cava is normal in size and collapses greater than 50% with inspiration. Pericardium/Pleural There is no evidence of pericardial effusion. Prior Study Comparison Changes noted compared to prior study dated: 01/12/2014. LVEF slightly lower; see comment on wall motion, ascending aorta. Measurements 2D Linear Measurements IVSd: 0.82 0.6-0.9/0.6-1.0 cm LVIDd: 5.09 3.9-5.3/4.2-5.9 cm LVIDd Index: 2.83 2.4-3.2/2.2-3.1 cm/m2 LVIDs: 3.61 2.0-3.6 cm LVPWd: 0.84 0.7-1.1 cm LA Diam: 3.20 2.7-3.8/3.0-4.0 cm LAIDs Index: 1.78 1.5-2.3 cm/m2 LV Mass: 183.41 67-162/88-224 g LV Mass Index: 101.90 43-95/49-115 g/m2 LVOT Diam: 2.10 3.0+(-)1.3 cm 2D Systolic Function EF 4C: 56.20 >55% EF 2C: 48.20 >55% EF BiP: 52.20 >55% Mitral Valve MV Pk E: 0.99 MV PK A: 1.28 MV Decel Time: 148.00 E/A: 0.80 E'Lateral: 8.70 E'Medial: 7.18 E/E' Med: 13.70 E/E' Lat: 11.30 PHT: 43.00 MVA PHT: 5.12 Decel [place]: 6.66 Aortic Valve AoV Pk Vinicius: 2.17 AoV Mn Vinicius: 1.66 AoV VTI: 0.50 AoV Pk Grad: 19.00 Aov Mn Grad: 12.00 MATTHIEU Cont.VTI: 1.99 AI Pk Vinicius: 4.07 AI [place]: 2.78 LVOT LVOT Pk Vinicius: 1.28 LVOT Mn Vinicius: 0.90 LVOT VTI: 0.29 LVOT Pk Grad: 7.00 LVOT Mn Grad: 4.00 LVOT Diam: 2.10 LVOT Area: 3.46 Diastolic Function MV Pk E: 0.99 MV Pk A: 1.28 E/A: 0.80 E'Medial: 7.18 E/E' Med: 13.70 E' Laterial: 8.70 E/E' Lat: 11.30 Right Ventricle TAPSE (mm): 24.00 TVS' Vinicius: 9.68 Tricuspid Valve TR Pk Vinicius: 1.98 TR Pk Grad: 16.00 RA Press: 3.00 RVSP: 19.00 Great Vessels Aorta Sinus of Valsalva: 3.14 2.0-3.[address] [place]: 2.54 1.7-3.4 cm Ao Asc: 4.10 2.1-3.4 cm Updated in Other Vendor System with Status of Final Damien Iyer MD electronically signed on 12/23/2024 10:36:16 AM with status of Final
--- OUTSIDE RECORDS SUMMARY | 2024-12-22 14:17 | XMS_ITS | Continuity of Care Document ---
Author Organization [facility] DONOR TECHNICIAN Oncolog y Address [address] [place] [address]- Care Team Providers Care Baster Hand Name Role Phone Zoltan Weems MD Primary Care Physician [phone] [place] [facility] [place](s): 11/04/24 - 12/04/24 [facility] DONOR TECHNICIAN Oncology [address] [place] [id number] Encounter Type: Triage Allergies, Adverse Reactions, Alerts [...] Active Hematuria Confirmed Active Breast asymmetry between [place] breast and reconstructed breast Confirmed Active Elevated CA-125 Confirmed Active Diarrhea Confirmed Active Chemotherapy induced diarrhea Confirmed Active Recurrent carcinoma of endometrium Confirmed Active Goiter Confirmed Active History of insomnia Confirmed Active Shingles rash Confirmed Active Hydronephrosis of left kidney Confirmed Active Elevated cholesterol Confirmed Active Hypokalemia Confirmed Active Endometrial cancer Confirmed Active Malignant [...] Position: Reference Physician Member Role: PCP Address: [address] [place] [address] [place] [address] Telecom: Name: Kadie Norris RN Position: S RN Member Role: Primary Care Nurse Name: Nisha Milelr RN Position: S RN Member Role: Primary [...] [place] Health Plan Information #: 1 Payer: [facility] FF NON P HMO Member Number: NA Policy Number: NA Group Number: NA
--- OUTSIDE RECORDS SUMMARY | 2024-12-22 14:17 | XMS_ITS | Continuity of Care Document ---
Author Organization [facility] SOLICITING FREIGHT AGENT Oncolog y Address [address] [place] [address]- Care Team Providers Care Hypoid Gear Tester Name Role Phone Zoltan Weems MD Primary Care Physician [phone] Encounter [facility] [place] Date(s): 11/10/24 - 12/10/24 [facility] SOLICITING FREIGHT AGENT Oncology [address] [place] [id number] Encounter Type: Triage Allergies, Adverse Reactions, [...] Active Hematuria Confirmed Active Breast asymmetry between [place] breast and reconstructed breast Confirmed Active Elevated [...] Position: Reference Physician Member Role: PCP Address: [address] [place] [address] [place] [address] Telecom: Name: Kadie Norris RN Position: S [...] [place] Health Plan Information #: 1 Payer: [facility] FF NON P HMO Member Number: NA Policy Number: NA Group Number: NA
--- OUTSIDE RECORDS SUMMARY | 2024-12-22 14:17 | XMS_ITS | Continuity of Care Document ---
Author Organization [facility] ter Address [address] [place] [address]- Care Team Providers Care Internet Developer Name Role Phone Zoltan Weems MD Primary Care Physician Encounter 12/13/24 - 12/14/[address] [address]- Attending Physician: Not on Staff, Attending MD Referring Physician: Not on Staff, Referring MD Encounter Type: SMRI Allergies, Adverse Reactions, Alerts No Known Allergies [...] Active Hematuria Confirmed Active Breast asymmetry between [place] breast and reconstructed breast Confirmed Active Elevated [...] Exam Date Time Procedure Performing Provider Status 12/13/24 12:[address] PET Auth (Verif ied) Notes: (CT PET) Reason For Exam: recurrent endometrial cancer ongoing rise in CA/25 w/no CT correlate;recurrent endometrial cancer ongoing rise in CA/25 w/no CT correlate RESULT: CT PET [facility] PET/CT Imaging VISIT NUMBER :[id number] Patient Name: Ellyn Acosta Date of : 1960 Date of Exam: 12-13-2024 Referring Physician: Arturo Nye [facility] [address] [place] [address] Exam: PT Skull Base to Mid Thigh CPT 52167 Room Description: [facility] Pt4 PET CT History: Recurrent endometrial carcinoma, undergoing treatment. Original treatment in 2020 with modified radical hysterectomy, BSO, pelvic, para-aortic, and sentinel lymphadenopathy 03/13/2021 and radiation. Recurrence identified on CT December 2021 with progression on treatment. The patient also has a history of lumpectomy, breast reduction. Technique: The procedure was explained to the patient. The patient's serum glucose was 102 mg/DL at the time of injection. Beginning 53 minutes following the intravenous administration of 14.1 mCi of F-18 fluorodeoxyglucose in the fusion port, emission images were obtained from the skull base to the proximal thighs. Following this CT was obtained at the same levels without IV or oral contrast with the patient maintaining quiet breathing. Following attenuation correction using the CT images, axial sagittal and coronal images were reconstructed. CT images are used for attenuation correction and image localization and were neither performed, nor intended to replace, diagnostic quality CT. SUV values normalized by body mass. Comparison: PET/CT 03/18/2024. Noncontrast CT chest abdomen pelvis 10/16/2024 reviewed as well as CTA chest/abdomen 06/14/2024. FINDINGS Internal Reference Values: Ascending aortic blood pool: SUV mean 2.2, SUV max 2.6. Right hepatic lobe: SUV mean 2.4, SUV max 3.2. Head and Neck Soft Tissues: Enlarged left thyroid lobe unchanged without hypermetabolic activity. Chest Soft Tissues: Unchanged biapical mild pleural thickening and juxtapleural nodularity. Moderate coronary calcification. Infusion port upper left hemithorax. Abdomen and Pelvis Soft Tissues: Small amount of perihepatic fluid, slightly diminished since CT 10/16/2024. Minimal free fluid in the pelvis. Decreasing intensity of ill-defined distal aortocaval lymphadenopathy (approximately 1 cm, image 105), now with ill-defined margins and SUV max 4.3, compared to SUV max 8.8. Unchanged small hypodensity in the lateral segment of the liver (image 84), 37 Hounsfield units and too small to characterize, but appears to have diminished/absent activity. Mild colonic diverticulosis. Hysterectomy. Bones and Extremities: No suspicious findings. Internal fixation left clavicle. Postradiation marrow changes in the pelvis and lumbar spine. Advanced degenerative disease right hip, similar to prior, cannot exclude osteonecrosis. IMPRESSION: 1. Decreasing activity of mild distal aortic and iliac lymphadenopathy compared to 03/18/2024. 2. Mildly decreasing perihepatic ascites since recent CT 10/16/2024. There is also trace pelvic ascites. Electronically Signed By: Nii Richards MD Dictated By: Not on Staff , BERNIE DE LEÓN Dictated Date/Time: 12/14/24 3:28 pm Reviewed By: Not on Staff , BERNIE DE LEÓN Signed By: Not on Staff , BERNIE DE LEÓN Signed Date/Time: 12/14/24 3:28 pm Transcribed By: SVETLANA Transcribed Date/Time: 12/14/24 3:28 pm Social History Social History Type Response Smoking Status 5-9 cigarettes (betw een 1/4 to 1/2 pack)/day in last 30 days; Other: around 5 cigaretts per day, in the process of quitting; entered on: 07/29/22 Sex Female Sex Representation Female (finding) Patient Care team information Care Team Personnel Name: Jessica Keith RN Position: [facility] RN Member Role: Primary Care Nurse Name: Meryl Balderrama RN Position: S RN Member Role: Primary Care Nurse Name: Zoltan Weems MD Position: Reference Physician Member Role: PCP Address: [address] [place] [id number] Telecom: Name: Kadie Norris RN Position: S RN Member Role: Primary Care Nurse Name: Nisha Miller RN Position: S RN Member Role: Primary Care Nurse Name: Sandra Root RN Position: [facility] RN Member Role: Primary Care Nurse Name: Stella Chacko RN Position: [facility] Onco RN Member Role: Primary Care Nurse Name: Guillermina Bradford RN Position: [facility] Onco RN Member Role: Primary Care Nurse Name: Anita Maldonado RN Position: S RN Member Role: Primary Care Nurse Name: Gilmar Trevizo RN Position: [facility] Onco RN Member Role: Primary Care Nurse Name: Maria T Gaston LPN Position: [facility] RN Member Role: Primary Care Nurse Name: Libby Zaman LPN Position: [facility] RN Member Role: Primary Care Nurse Name: Anibal Courtney RN Position: [facility] RN Member Role: Primary Care Nurse Care Team Related Persons Name: PATRICE HINOJOSA Name: CLIVE ACOSTA Name: TREVA ACOSTA Name: LEO ACOSTA Insurance Providers Guarantor name: ELLYN SANDRINE Health Plan Information #: 1 Payer: [facility] FF NON P HMO Member Number: NA Policy Number: NA Group Number: NA
--- OUTSIDE RECORDS SUMMARY | 2024-12-22 14:17 | XMS_ITS | Continuity of Care Document ---
Author Organization [facility] SPARE HAND Oncolog y Address [address] [place] [address]- Care Team Providers Care Hotel Receptionist Name Role Phone Zoltan Weems MD Primary Care Physician [phone] Encounter [facility] [place] Date(s): 11/04/24 - 12/04/24 [facility] SPARE HAND Oncology [address] [place] [id number] Encounter Type: Triage Allergies, Adverse Reactions, Alerts [...] Active Hematuria Confirmed Active Breast asymmetry between [place] breast and reconstructed breast Confirmed Active Elevated [...] Reference Physician Member Role: PCP Address: [address] [place] [address] [place] [address] Telecom: Name: Kadie Norris RN Position: S [...] [place] Health Plan Information #: 1 Payer: [facility] FF NON P HMO Member Number: NA Policy Number: NA Group Number: NA
== END ==
LOC: HO.CARD 14:01
PROVIDERS: PCP Internal Medicine; Visit Provider Internal Medicine
DX: R07.9 Chest pain, unspecified (principal); R06.00 Dyspnea, unspecified; I77.810 Thoracic aortic ectasia
CPT/HCPCS: 93306

== ENCOUNTER → 2024-12-22 14:03 | Outpatient (BNV) | payer OTHER, SELFPAY | PROVIDERS: PCP Internal Medicine; Visit Provider Internal Medicine | DX: I35.8 Other nonrheumatic aortic valve disorders (principal); I34.0 Nonrheumatic mitral (valve) insufficiency | CPT/HCPCS: 93306 ==

== ENCOUNTER → 2024-12-31 11:20 | Outpatient (BNV) | payer OTHER, SELFPAY | PROVIDERS: PCP Internal Medicine; Referring Provider Internal Medicine; Visit Provider Internal Medicine Medical Oncology | DX: D07.0 Carcinoma in situ of endometrium (principal) | CPT/HCPCS: 99214 ==

== ENCOUNTER 2025-01-18 12:34 | Outpatient (REF) | payer OTHER, SELFPAY ==
--- NOTE | ~2025-01-18 | CT_ITS ---
CLINICAL HISTORY: RLQ pain,?appendicitis, H O endometrial cancer CT pelvis with contrast Comparison: CT of the abdomen and pelvis from 04/04/2021 Findings: New free fluid in the imaged abdomen and in the pelvis is nonspecific. Differential considerations include ascites. Infected fluid and fluid of the carcinomatosis are not excluded given patient's established history of malignancy. Low density lesions of the lower margin of the right lobe of the liver measure 6 mm in the uxdgh-ss-shtb. Question cholelithiasis in the cdlts-cd-hbci. No hydronephrosis of either partially imaged kidney. Small mesenteric lymph nodes are nonspecific. No small bowel obstruction in the fjjqb-ex-zqtm. Imaged appendix is within normal limits (image 22 of series 2). Mild wall thickening of the imaged large intestine is nonspecific with moderate to severe stool burden partially imaged. Calcified and noncalcified plaque involving the imaged aorta and its branches. The uterus is surgically absent. No adnexal soft tissue mass by CT. New zmjnfghb-ym-rjndxy wall thickening of the urinary bladder is nonspecific. Differential considerations include cystitis, and particularly given adjacent fluid. 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 Transitional vertebral anatomy of the lumbosacral junction. Mild lumbar facet arthropathy. Stable sclerosis of the S1 appears non aggressive and likely due to bone island. IMPRESSION: 1. No CT findings of acute appendicitis. 2. New wall thickening of the urinary bladder is nonspecific and concerning for cystitis. 3. Mild free fluid in the imaged abdomen and in the pelvis is nonspecific. 4. Small low-density lesions of the partially imaged liver are less than 1 cm. Please consider short-term follow-up in 3 to six-month to include liver imaging. This document has been electronically signed by: Riley Martinez MD on 01/20/2025 02:53:26
--- NOTE | ~2025-01-18 | XR_ITS ---
EXAMINATION: XR CHEST CLINICAL INFORMATION: SOB, Endometrial ca. COMPARISON: None available. TECHNIQUE: 2 views of the chest were obtained. FINDINGS: Pulmonary reticular pattern. No gross consolidation pleural effusion or pneumothorax. Cardiomediastinal silhouette is mildly enlarged. Left-sided Port-A-Cath tip ends in the SVC. S-shaped curvature of the thoracolumbar spine. Mild to moderate multilevel thoracic spondylosis. XR/XR chest 2V IMPRESSION: Chronic interstitial lung disease. Left-sided Port-A-Cath ends at the SVC. Electronically signed by: Hebert Ch MD 01/18/2025 02:52 PM EDT
--- OUTSIDE RECORDS SUMMARY | 2025-01-18 14:47 | XMS_ITS | Continuity of Care Document ---
Author Organization [facility] WATER TENDER Oncolog y Address [address] [place] [address]- Care Team Providers Care Intake Assessor Name Role Phone Zoltan Weems MD Primary Care Physician Encounter [facility] [place] Date(s): 11/25/24 - 12/25/24 [facility] WATER TENDER Oncology [address] [place] [id number] Encounter Type: Triage Allergies, Adverse Reactions, Alerts [...] Active Hematuria Confirmed Active Breast asymmetry between [place] breast and reconstructed breast Confirmed Active Elevated CA-125 Confirmed Active Diarrhea Confirmed Active Chemotherapy induced diarrhea Confirmed Active Recurrent carcinoma of endometrium Confirmed Active Maintenance chemotherapy Confirmed Active Goiter Confirmed Active History of insomnia Confirmed Active Shingles rash Confirmed Active Right hip pain Confirmed Active Hydronephrosis of left kidney Confirmed [...] Position: Reference Physician Member Role: PCP Address: [address] [place] [address] [place] [address] Telecom: Name: Kadie Norris RN Position: S RN Member Role: Primary Care Nurse Name: Nisha Miller RN Position: S RN Member Role: Primary Care Nurse Name: Sandra Root RN Position: S RN Member Role: Primary Care Nurse Name: Stella Chacko RN Position: [facility] Onco RN Member Role: Primary Care Nurse Name: Guillermina Bradford RN Position: [facility] Onco RN Member Role: Primary Care Nurse Name: Anita Maldonado RN Position: S RN Member Role: Primary Care Nurse Name: Gilmar Trevizo RN Position: [facility] Onco RN Member Role: Primary Care Nurse [...] SANDRINE Health Plan Information #: 1 Payer: [facility] FF NON BHP HMO Member Number: NA Policy Number: NA Group Number: NA
--- OUTSIDE RECORDS SUMMARY | 2025-01-18 14:47 | XMS_ITS | Continuity of Care Document ---
Author Organization [facility] ACID OPERATOR Oncolog y Address [address] [place] [address]- Care Team Providers Care Electrical Superintendent Name Role Phone Zoltan Weems MD Primary Care Physician [place] [facility] [place] 12/31/24 [facility] ACID OPERATOR Oncology [address] [place] [id number] Encounter Type: Triage Allergies, Adverse Reactions, Alerts [...] Active Hematuria Confirmed Active Breast asymmetry between [place] breast and reconstructed breast Confirmed Active Elevated [...] Position: Reference Physician Member Role: PCP Address: [address] [place] [address] [place] [address] Telecom: Name: Kadie Norris RN Position: S RN Member Role: Primary Care Nurse Name: Nisha Miller RN Position: S RN Member Role: Primary Care Nurse Name: Sandra Root RN Position: S RN Member Role: Primary Care Nurse Name: Stella Chacko RN Position: [facility] Onco RN Member Role: Primary Care Nurse Name: Guillermina Bradford RN Position: [facility] Onco RN Member Role: Primary Care Nurse Name: Anita Maldonado RN Position: S RN Member Role: Primary Care Nurse Name: Gilmar Trevizo RN Position: [facility] Onco RN Member Role: Primary Care Nurse [...]
--- OUTSIDE RECORDS SUMMARY | 2025-01-18 14:47 | XMS_ITS | Continuity of Care Document ---
Author Organization [facility] PHOTOGRAPHER SCIENTIFIC Oncolog y Address [address] [place] [address]- Care Team Providers Care Shredded Filler Cigar Maker Machine Name Role Phone Zoltan Weems MD Primary Care Physician [place] [facility] [place] 12[place]02/24 - 01/01/25 [facility] PHOTOGRAPHER SCIENTIFIC Oncology [address] [place] [id number] Encounter Type: Triage Allergies, Adverse Reactions, [...] Active Hematuria Confirmed Active Breast asymmetry between [place] breast and reconstructed breast Confirmed Active Elevated [...] Position: Reference Physician Member Role: PCP Address: [address] [place] [address] [place] [address] Telecom: Name: Kadie Norris RN Position: S RN Member Role: Primary Care Nurse Name: Nisha Miller RN Position: S RN Member Role: Primary Care Nurse Name: Sandra Root RN Position: S RN Member Role: Primary Care Nurse Name: Stella Chacko RN Position: [facility] Onco RN Member Role: Primary Care Nurse Name: Guillermina Bradford RN Position: [facility] Onco RN Member Role: Primary Care Nurse Name: Anita Maldonado RN Position: S RN Member Role: Primary Care Nurse Name: Gilmar Trevizo RN Position: [facility] Onco RN Member Role: Primary [...] SANDRINE Health Plan Information #: 1 Payer: [facility] FF NON BHP HMO Member Number: NA Policy Number: NA Group Number: NA
[2025-01-18] MEDS: iohexoL 350 MG/ML 100 ML INFUS..BTL IV (15:29)
== END 2025-01-18 12:35 | disposition home or self-care (01) ==
LOC: HO.CT 12:34
PROVIDERS: PCP Internal Medicine; Visit Provider Internal Medicine Medical Oncology
DX: R10.31 Right lower quadrant pain (principal); C55 Malignant neoplasm of uterus, part unspecified
CPT/HCPCS: 71046; 72193; Q9967

== ENCOUNTER → 2025-01-18 14:35 | Outpatient (BNV) | payer OTHER, SELFPAY | PROVIDERS: PCP Internal Medicine; Visit Provider Radiology Diagnostic Radiology | DX: K76.89 Other specified diseases of liver (principal); C55 Malignant neoplasm of uterus, part unspecified; Z85.51 Personal history of malignant neoplasm of bladder; M87.051 Idiopathic aseptic necrosis of right femur; M87.052 Idiopathic aseptic necrosis of left femur | CPT/HCPCS: 71046; 72193 ==

== ENCOUNTER 2025-02-25 13:35 | Outpatient (REF) | payer OTHER, SELFPAY | END 2025-02-25 13:36 | disposition home or self-care (01) | LOC: HO.US 13:35 | PROVIDERS: PCP Internal Medicine; Visit Provider Urology | DX: N20.0 Calculus of kidney (principal) | CPT/HCPCS: 76775 ==

== ENCOUNTER → 2025-02-25 13:38 | Outpatient (BNV) | payer OTHER, SELFPAY | PROVIDERS: PCP Internal Medicine; Visit Provider Radiology Diagnostic Radiology | DX: N20.0 Calculus of kidney (principal) | CPT/HCPCS: 76775 ==

== ENCOUNTER 2025-03-04 13:43 | Outpatient (AMB) | payer OTHER, SELFPAY ==
--- NOTE | 2025-03-04 13:48 | MHC.OFFVIS ---
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 Overweight (BMI 25.0-29.9) Insomnia History of breast cancer Peripheral polyneuropathy Primary osteoarthritis of right hip Vitamin D deficiency Smoker Pure hypercholesterolemia Goiter Anxiety Surgical History H/O: hysterectomy (~03/13/21) History of reduction surgery of right breast History of open reduction and internal fixation (ORIF) procedure Family History Father Cancer Mother CVD (cardiovascular disease) Social History Household Members: Family Housing: House Alcohol intake: current Alcohol intake frequency: holidays/special occasions only Patient Tobacco Use Status: Current everyday Tobacco user Tobacco use type: Cigarette Cigarette Packs Per Day: 0.5 e-Cigarette/Vaping Use: Never Used Second Hand Smoke Exposure: Yes service: No Current occupational status: employed 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 Gender identity: Female Cognitive needs: No Hearing needs: No Vision needs: No Office Procedures Post Void Residual Post Residual Void Post Void Residual (PVR): 73 [id number]-[id number] Void Residual by ultrasound Assessment & Plan Assessment & Plan Orders: Orders AMB Urinalysis Automated Today Z13.9 - Encounter for screening, unspecified Urine Cytology Today N39.0 - Urinary tract infection, site not specified Medications: Refilled ascorbic acid (vitamin C) 1 g PO DAILY 90 days 90 tabs 1RF N39.0 - Urinary tract infection, site not specified, N95.8 - Other specified menopausal and perimenopausal disorders methenamine hippurate 1 g PO DAILY 90 days 90 tabs 1RF N39.0 - Urinary tract infection, site not specified, N95.8 - Other specified menopausal and perimenopausal disorders estradiol 0.01%(0.1mg/gram) pea-sized to urethra daily for 2 weeks then 3 times a week 30 days 42.5 grams 2RF N95.8 - Other specified menopausal and perimenopausal disorders Coding CPT Codes Post Residual Void - PVR CPT Code: 87465-Hqeq Void Residual by ultrasound ([id number])
== END 2025-03-04 14:21 | disposition home or self-care (01) ==
LOC: HO.HUSH 13:44
PROVIDERS: PCP Internal Medicine; Visit Provider Urology
DX: Z13.9 Encounter for screening, unspecified (principal)

== ENCOUNTER 2025-03-04 13:43 | Outpatient (REF) | payer OTHER, SELFPAY ==
[2025-03-04 16:27] LABS: Urine Cytology See Pathology rpt
== END 2025-03-04 13:44 | disposition home or self-care (01) ==
LOC: HO.LAB 13:43
PROVIDERS: PCP Internal Medicine; Visit Provider Urology
DX: N39.0 Urinary tract infection, site not specified (principal)
CPT/HCPCS: 51798; 81003; 88112

== ENCOUNTER 2025-05-16 14:20 | Emergency (ER) | payer OTHER, SELFPAY ==
--- NOTE | ~2025-05-16 | CT_ITS ---
EXAMINATION: CT ABDOMEN AND PELVIS WITH CONTRAST CLINICAL INFORMATION: Right-sided abdominal pain, history of endometrial and breast CA COMPARISON: 04/04/2021, 01/08/2021. CT pelvis 01/18/2025. TECHNIQUE: Multidetector volumetric images were obtained from the superior aspect of the liver through the pubic symphysis following administration 85 mL of Omnipaque 350 intravenous contrast. Sagittal and coronal reformatted images were obtained on the technologist's workstation. Oral contrast: No This CT examination was performed using dose optimization techniques as appropriate, variously including the following: *Automated exposure control *Adjustment of mA and/or kV according to patient size (this includes techniques or standardized protocols for targeted exams where dose is matched to indication/reason for exam; i.e. extremities or head) *Use of iterative reconstruction technique FINDINGS: LUNG BASES: Lung bases are clear. There are no effusions. There is borderline cardiac enlargement. LIVER, GALLBLADDER, AND BILIARY TREE: The liver is normal in size, shape, and attenuation. No focal hepatic lesion or biliary ductal dilatation is present. The gallbladder is distended with probable layering sludge and/or sediment layering gallstones. No evidence of gallbladder wall thickening, or gross pericholecystic inflammatory changes. PANCREAS: Unremarkable. SPLEEN: Unremarkable. ADRENAL GLANDS: Unremarkable. KIDNEYS AND URETERS: The kidneys are normal in size, shape, and attenuation. No hydronephrosis, hydroureter, or calculi seen. No perinephric stranding. PERITONEUM: There is small volume ascites present in the perihepatic region, perisplenic region, and within the pelvic recesses. BLADDER: Unremarkable. GASTROINTESTINAL TRACT: Mild wall thickening of the ascending colon is noted. The transverse colon is normal. The descending colon, and sigmoid colon demonstrate mild wall thickening but are decompressed, possibly a spurious finding from underdistention. Mild rectal wall thickening is present. The small bowel is normal in caliber and course. No CT evidence of appendicitis. The stomach, and duodenal sweep appear normal. ABDOMINAL WALL: There is no significant hernia. There is mild to moderate anasarca most notable in the flank regions. LYMPH NODES: No abnormal lymphadenopathy is detected. VASCULAR: Mild to moderate calcific atherosclerotic disease of the aorta and iliac arteries. No aneurysm. PELVIC VISCERA: There has been a hysterectomy. There are no adnexal masses. OSSEOUS STRUCTURES: No suspicious lytic or blastic bone lesions. There is a total right hip arthroplasty in place without complication. Mild to moderate degenerative changes left hip joint. CT/CT abdomen pelvis w IV con IMPRESSION: 1. No definite acute finding in the abdomen or pelvis. 2. The gallbladder is distended with layering sludge and/or small gallstones, although there is no gross wall thickening or pericholecystic inflammation present. 3. There is small volume ascites in the peritoneal space, etiology unclear. 4. There is mild is anasarca. 5. Mild wall thickening of the ascending colon, descending and sigmoid colon in the setting of underdistention. Cannot exclude colitis in the appropriate clinical context. 6. Hysterectomy. Electronically signed by: Benja Upton MD 05/16/2025 04:20 PM EDT
--- NOTE | ~2025-05-16 | US_ITS ---
EXAMINATION: US ABDOMEN LIMITED CLINICAL INFORMATION: Abnormal gallbladder on CT. COMPARISON: Same-day CT TECHNIQUE: Real-time imaging of the right upper quadrant abdominal viscera. FINDINGS: GALLBLADDER: There is no gallbladder wall thickening. Gallbladder content is anechoic. COMMON BILE DUCT: Normal in caliber measuring 0.5 cm in diameter. FREE FLUID: None. US/US abdomen limited IMPRESSION: Unremarkable gallbladder ultrasound. Electronically signed by: Jean Claude Edmonds MD 05/16/2025 05:33 PM EDT
[2025-05-16 14:37] VITALS: BP 113/57; PULSE 84; RESP 17; TEMP 36.8; O2SAT 98; BMI 27.6
[2025-05-16] MEDS: Lactated Ringers 1,000 ML 999 ML IV (15:05)
--- NOTE | 2025-05-16 15:09 | ED.GENADULT ---
HPI - General Adult General Chief complaint: General Medical Stated complaint: Abd Pain/swollen legs on thinners Time Seen by Provider: 05/16/25 14:35 Source: patient and EMS Mode of arrival: EMS Limitations: no limitations History of Present Illness ED Provider: DR. Yi HPI narrative: 65-year-old female history of endometrial carcinoma s/p total hysterectomy with post surgery chemotherapy, s/p right hip total replacement in April complicated with right lower extremity DVT patient currently is on Eliquis, ever since the surgery patient been complaining of intermittent lower abdominal pain that last for few minutes, presented today because the pain for the last 5 days is been constant and becoming severe, pain is associated with nausea but no vomiting, no fever, no chills, normal bowel movement this morning with brown stool, no dysuria, no frequency urination, no hematuria. No blood in the stool. Patient with history of kidney stones. No other significant intra-abdominal surgeries. Related Data Home Medications ?Medication ?Instructions ?Recorded ?Confirmed calcium carbonate 600 mg PO BEDTIME 04/04/21 12/10/24 cholecalciferol (vitamin D3) 25 25 mcg PO DAILY 04/04/21 12/10/24 mcg (1,000 unit) tablet (Vitamin D3) apixaban 5 mg tablet (Eliquis) 5 mg PO BID 02/25/23 12/10/24 gabapentin 300 mg capsule 300 mg PO TID 08/30/24 12/10/24 letrozole 2.5 mg tablet 2.5 mg PO DAILY 08/30/24 12/10/24 oxycodone 5 mg tablet 5 mg PO Q6H PRN pain 08/30/24 12/10/24 prochlorperazine maleate 10 mg 10 mg PO Q6H PRN nausea 08/30/24 12/10/24 tablet everolimus (antineoplastic) 10 mg mg PO DAILY 12/31/24 12/31/24 tablet Previous Rx's ?Medication ?Instructions ?Recorded cyanocobalamin (vitamin B-12) 1,000 mcg PO DAILY 90 days #90 caps 01/30/24 1,000 mcg capsule albuterol sulfate 90 mcg/actuation 2 puff inhalation Q6H PRN 04/08/24 aerosol inhaler (Ventolin HFA) shortness of breath or wheezing 30 days #8.5 grams atorvastatin 80 mg tablet 80 mg PO DAILY #90 tabs 08/30/24 mometasone 0.1 % topical cream 1 appl topical DAILY PRN rash #45 08/30/24 grams trazodone 50 mg tablet 50 - 100 mg (1 - 2 x 50 mg) PO 12/10/24 BEDTIME PRN insomnia 90 days #180 tabs ascorbic acid (vitamin C) 1,000 mg 1 g PO DAILY 90 days #90 tabs 03/04/25 tablet estradiol 0.01% (0.1 mg/gram) See Rx Instructions .Route 3XW 30 03/04/25 vaginal cream days #42.5 grams methenamine hippurate 1 gram tablet 1 g PO DAILY 90 days #90 tabs 03/04/25 pyridoxine (vitamin B6) 100 mg 100 mg PO DAILY 90 days #90 tabs 03/04/25 tablet acetaminophen 325 mg tablet 650 mg (2 x 325 mg) PO Q5H PRN 05/12/25 Pain #90 tabs Allergies Allergy/AdvReac Type Severity Reaction Status Date / Time duloxetine Allergy Intermediate Stomach Verified 05/16/25 14:40 Upset Review of Systems Review of Systems: All other systems are reviewed and are negative Constitutional: Reports as per HPI and Reports no additional constitutional complaints Eyes: Reports as per HPI and Reports no additional eye complaints Reports system reviewed and no additional complaints, except as documented Cardiovascular: Reports as per HPI and Reports no additional cardiovascular complaints Respiratory: Reports as per HPI and Reports no additional respiratory complaints Gastrointestinal: Reports as per HPI and Reports no additional gastrointestinal complaints Genitourinary: Reports no additional female genitourinary complaints Musculoskeletal: Reports no additional musculoskeletal complaints Skin/Breast: Reports system reviewed and no additional complaints, except as docu Psychiatric: Reports no additional psychiatric complaints Endocrine: Reports no additional endocrine complaints Hematologic/Lymphatic: Reports no additional hematologic/lymphatic complaints Allergic/Immunologic: Reports no additional allergic/immunologic complaints Reports system reviewed and no additional complaints, except as documented and Reports Abnormal speech present [facility] Past Medical History Medical History Impaired fasting glucose Neuropathy 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 Overweight (BMI 25.0-29.9) Insomnia History of breast cancer Peripheral polyneuropathy Primary osteoarthritis of right hip Vitamin D deficiency Smoker Pure hypercholesterolemia Goiter Anxiety Surgical History H/O: hysterectomy (~03/13/21) History of reduction surgery of right breast History of open reduction and internal fixation (ORIF) procedure Family History Family History Father Cancer Mother CVD (cardiovascular disease) Social History Social History Household Members: Family Housing: House Alcohol intake: current Alcohol intake frequency: holidays/special occasions only Patient Tobacco Use Status: Current everyday Tobacco user Tobacco use type: Cigarette Cigarette Packs Per Day: 0.5 Smoked in Last 30 Days: Yes e-Cigarette/Vaping Use: Never Used Second Hand Smoke Exposure: Yes Advance Directives: No Advance Directives Information Provided: No service: No Current occupational status: employed 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 Gender identity: Female Cognitive needs: No Hearing needs: No Vision needs: No Physical Exam ED Vital Signs: Vital Signs - 24 hr 05/16/25 14:37 05/16/25 16:25 05/16/25 17:13 Temperature 98.2 F 97.9 F Pulse Rate 84 87 95 Respiratory Rate 17 16 Blood Pressure 113/57 L 108/59 L 107/46 L Pulse Oximetry 98 97 Oxygen Delivery Method Room Air Room Air 05/16/25 18:38 05/16/25 19:31 Temperature 97.3 F 97.3 F Pulse Rate 77 77 Respiratory Rate 16 16 Blood Pressure 102/50 L 102/50 L Pulse Oximetry 100 100 Oxygen Delivery Method Room Air Room Air BMI result Body Mass Index 27.6 Vital signs have been reviewed and appear to be correct. Blood pressure elevated. Heart rate normal. Respiratory rate normal. Temperature normal. Oxygen saturation normal. Appearance: Alert. Oriented X3. No acute distress. Head: Normal external exam. Normocephalic. Atraumatic. No Acosta signs noted. No raccoon eyes noted Eyes: PERRLA. EOMI. Conjunctiva and sclera normal. Eyelids normal. ENT: TM's Normal. Pharynx normal. Uvula midline. Moist mucous membranes. No trismus noted. No drooling noted. No muffled voice noted. Neck: Normal inspection. Neck supple. FROM. No adenopathy. Thyroid Normal. No meningeal signs. No neck mass noted. CVS: Normal heart rate and rhythm. Heart sound normal. No murmurs noted. Pulses normal throughout. Respiratory: No respiratory distress. Painless inspiration. Breath sounds normal. No wheezes/rales/rhonchi noted. Chest nontender. No accessory muscle usage noted or decreased air movement noted. Abdomen: Soft, right lower quadrant abdominal tenderness, no guarding, no rebound tenderness Bowel sounds normal in all 4 quadrants. No distention noted. No organomegaly noted. No visible injury noted. Rectal exam: Brown stool, no blood. Back: No CVA tenderness. Full range of motion noted. Skin: Skin warm and dry. Normal skin color. Normal skin turgor. No rashes/lesions/lacerations noted. Extremities: No lower extremity edema. Extremities exhibit normal range of motion. Extremities nontender. Neuro: Oriented X 3. Cranial nerve exam: II-XII are grossly intact No motor deficit. No sensory deficit. Reflexes normal. Course Reevaluation(s) Reevaluation #1: 65-year-old female came in for evaluation of an abdominal pain, patient feels better after Dilaudid, patient is on Eliquis for right lower extremity DVT. CT abdomen and pelvis/gallbladder ultrasound reveals no clear reason for patient's symptoms. Patient is slightly anemic no known source of blood loss recommended for GI evaluation possible colonoscopy patient will see her PCP tomorrow instructed to request GI referral. Asymptomatic anemia, patient do not need blood transfusion at the current time. Thrombus in the right iliac vein patient is on Eliquis, s/p mechanical thrombectomy for right lower extremity DVT at [facility]. Patient was instructed to continue with Eliquis. Time: 18:14 Medications Administered Discontinued Medications Generic Name Dose Route Start Last Admin Trade Name Freq PRN Reason Stop Dose Admin Hydromorphone HCl 2 mg 05/16/25 14:52 05/16/25 15:35 Hydromorphone Hcl 2 Mg/Ml Vial IVPUSH 05/16/25 14:53 2 mg ONCE ONE Administration Protocol Lactated Ringer's 1,000 mls @ 999 mls/hr 05/16/25 15:00 05/16/25 17:23 Lr IV 05/16/25 16:00 Infused .Q1H1M DAVE Infusion Iohexol 100 ml 05/16/25 16:01 05/16/25 16:01 Iohexol 350 Mg/Ml 100 Ml Infus..Btl IV 05/16/25 16:02 85 ml ONCE ONE Administration Ketorolac Tromethamine 15 mg 05/16/25 14:52 05/16/25 15:35 Ketorolac Tromethamine 15 Mg/Ml Vial IVPUSH 05/16/25 14:53 15 mg ONCE ONE Administration Medical Decision Making Differential Diagnosis Differential Diagnoses: The differential diagnosis associated with the presentation includes (Diverticulitis, colitis, acute appendicitis, acute cholecystitis, pancreatitis, electrolyte derangement, severe anemia) Admission/Observation Consideration of admission/observation: Escalation of care including admission/observation considered Lab Data MDM Lab Attestation statement: I reviewed the patient's lab results. 05/16/25 15:02 05/16/25 15:02 Labs: Lab Results 05/16/25 05/16/25 05/16/25 Range/Units 15:02 17:06 17:30 WBC 5.8 (4.8-10.8) X10*3/uL RBC 3.14 L D (4.20-5.50) X10*6/uL Hgb 7.6 L D (12.0-16.0) g/dl Hct 24.5 L D (37.0-47.0) % MCV 78.0 L (80.0-98.0) fL MCH 24.2 L (27.0-33.0) pg MCHC 31.0 (31.0-35.0) g/dl RDW 17.0 H (11.0-16.0) % Plt Count 369 (160-400) X10*3/uL MPV 8.8 L (9.4-12.3) fL Immature Gran % (Auto) 0.3 (0.0-0.4) % Neut % (Auto) 75.7 H (45-73) % Lymph % (Auto) 14.8 L (20-40) % [place] % (Auto) 7.6 (2-11) % Eos % (Auto) 0.7 (0-4) % Baso % (Auto) 0.9 (0-2) % Lymph # (Auto) 0.9 L (1.2-4.9) X10*3/uL [place] # (Auto) 0.4 (0.1-1.2) X10*3/uL Eos # (Auto) 0.0 (0.0-0.4) X10*3/uL Baso # (Auto) 0.1 (0.0-0.2) X10*3/uL Abs Immat Gran (auto) 0.02 (0.00-0.03) X10*3/uL Absolute Neuts (auto) 4.4 (2.0-8.3) x10*3/uL Absolute Nucleated RBC 0.000 (0.0-0.012) X10*3/uL Nucleated RBC % (auto) 0.0 (0.0-0.2) /100WBC Sodium 142 (135-145) mmol/L Potassium 3.4 (3.3-5.1) mmol/L Chloride 106 (96-108) mmol/L Carbon Dioxide 29 (22-29) mmol/L Anion Gap 10 L (12-20) BUN 12 (9-16) mg/dL Creatinine 0.88 (0.5-1.4) mg/dL Estim Creat Clear Calc 64.7 Estimated GFR > 60 Random Glucose 104 (60-115) mg/dL Calcium 8.7 D (8.4-10.2) mg/dL Total Bilirubin 0.2 (0.0-1.0) mg/dL Direct Bilirubin < 0.2 (0.0-0.5) mg/dL AST 27 (5-31) U/L ALT 22 (0-31) U/L Alkaline Phosphatase 138 H (39-117) U/L Troponin I High Sens 3.7 (<3.5-17.0) ng/L Total Protein 5.9 L (6.5-8.0) g/dL Albumin 3.6 (3.5-5.0) g/dL Lipase 18 (8-78) U/L Stool Occult Blood NEGATIVE (NEGATIVE) Blood Type AB Negative Antibody Screen NEGATIVE Independent Interpretation I performed an independent interpretation of an: Ultrasound (Gallbladder: Unremarkable gallbladder ultrasound) and CT Scan (Abdomen pelvis:1. No definite acute finding in the abdomen or pelvis. 2. The gallbladder is distended with layering sludge and/or small gallstones, although there is no gross wall thickening or pericholecystic inflammation present. 3. There is small volume ascites in the peritoneal space, etiology) Radiology Impression Discussion of test interpretation with radiology: I have reviewed the radiologist's reading. Discharge Plan Discharge Clinical Impression: Anemia, DVT (deep venous thrombosis) Abdominal pain Qualifiers: Abdominal location: lower abdomen, unspecified Qualified Code(s): R10.30 - Lower abdominal pain, unspecified Patient Disposition: Home, Self-Care Instructions: Abdominal Pain (ED) Additional Instructions: Keep your appointment with your PCP tomorrow, ask for GI referral. Prescriptions: No Action albuterol sulfate [Ventolin HFA] 90 mcg/actuation HFA aerosol inhaler 2 puff inhalation Q6H PRN (Reason: shortness of breath or wheezing) 30 Days Qty: 8.5 5RF pyridoxine (vitamin B6) 100 mg tablet 100 mg PO DAILY 90 Days Qty: 90 11RF acetaminophen 325 mg tablet 650 mg PO Q5H PRN (Reason: Pain) Qty: 90 5RF calcium carbonate 600 mg calcium (1,500 mg) Tablet 600 mg PO BEDTIME cholecalciferol (vitamin D3) [Vitamin D3] 25 mcg (1,000 unit) Tablet 25 mcg PO DAILY everolimus (antineoplastic) 10 mg tablet PO DAILY cyanocobalamin (vitamin B-12) 1,000 mcg capsule 1,000 mcg PO DAILY 90 Days Qty: 90 3RF Eliquis 5 mg tablet 5 mg PO BID oxycodone 5 mg tablet 5 mg PO Q6H PRN (Reason: pain) prochlorperazine maleate 10 mg tablet 10 mg PO Q6H PRN (Reason: nausea) letrozole 2.5 mg tablet 2.5 mg PO DAILY gabapentin 300 mg capsule 300 mg PO TID atorvastatin 80 mg tablet 80 mg PO DAILY Qty: 90 3RF mometasone 0.1 % cream 1 appl topical DAILY PRN (Reason: rash) Qty: 45 2RF trazodone 50 mg tablet 50 - 100 mg PO BEDTIME PRN (Reason: insomnia) 90 Days Qty: 180 1RF ascorbic acid (vitamin C) 1,000 mg tablet 1 g PO DAILY 90 Days Qty: 90 1RF methenamine hippurate 1 gram tablet 1 g PO DAILY 90 Days Qty: 90 1RF estradiol 0.01 % (0.1 mg/gram) cream See Rx Instructions .Route 3XW 30 Days Qty: 42.5 2RF Rx Instructions: pea-sized to urethra daily for 2 weeks then 3 times a week Interventions: ED Discharge Assessment Last Done: 05/16/25 19:31 Discharge Date/Time: 05/16/25 19:31 Print Language: Irish
[2025-05-16 15:13] LABS: MANUAL DIFF FLAG NO
[2025-05-16 15:23] LABS: Hematocrit 24.5 % (37.0-47.0); Imm Gran Abs Auto 0.02 X10*3/uL (0.00-0.03); Imm Gran Pct Auto 0.3 % (0.0-0.4); Lymphocytes Absolute Auto 0.9 X10*3/uL (1.2-4.9); Mean Corpuscular HGB Conc 31.0 g/dl (31.0-35.0); Mean Corpuscular Hemoglobin 24.2 pg (27.0-33.0); Mean Corpuscular Volume 78.0 fL (80.0-98.0); NRBC Abs Auto 0.000 X10*3/uL (0.0-0.012); NRBC Pct Auto 0.0 /100WBC (0.0-0.2); Platelet Count 369 X10*3/uL (160-400); Red Blood Count 3.14 X10*6/uL (4.20-5.50); White Blood Count 5.8 X10*3/uL (4.8-10.8)
[2025-05-16 15:26] LABS: Hemoglobin 7.6 g/dl (12.0-16.0)
[2025-05-16 15:33] LABS: Alanine Aminotransferase 22 U/L (0-31); Albumin Level 3.6 g/dL (3.5-5.0); Alkaline Phosphatase 138 U/L (39-117); Anion Gap 10 (12-20); Aspartate Amino Transferase 27 U/L (5-31); Blood Urea Nitrogen 12 mg/dL (9-16); Calcium 8.7 mg/dL (8.4-10.2); Carbon Dioxide 29 mmol/L (22-29); Chloride 106 mmol/L (96-108); Creatinine Clr Calc Pharmacy 64.7; Estimated Glomerular Filt Rate > 60; Lipase 18 U/L (8-78); Potassium 3.4 mmol/L (3.3-5.1); Sodium 142 mmol/L (135-145); Total Protein 5.9 g/dL (6.5-8.0)
[2025-05-16 15:41] LABS: Troponin-I High Sensitivity 3.7 ng/L (<3.5-17.0)
[2025-05-16] MEDS: iohexoL 350 MG/ML 100 ML INFUS..BTL IV (16:01)
[2025-05-16 16:25] VITALS: BP 108/59; PULSE 87; RESP 16; TEMP 36.6; O2SAT 97
--- NOTE | 2025-05-16 16:40 | PC.NURSE ---
Pt to ED 2 from home via EMS. Reports increased abdominal pain with some nausea, no vomiting. Denies diarrhea but reports frequent stools. A/O x 3, respirations even and unlabored on room air. + 2 edema noted to BLE. Pt has left chest port, requested to be accessed. CT pending.
[2025-05-16 17:13] VITALS: BP 107/46; PULSE 95
[2025-05-16 17:26] LABS: OBS Int Ctl Valid YES; OBS1 NEGATIVE (NEGATIVE)
[2025-05-16 18:38] VITALS: BP 102/50; PULSE 77; RESP 16; TEMP 36.3; O2SAT 100
[2025-05-16 19:31] VITALS: BP 102/50; PULSE 77; RESP 16; TEMP 36.3; O2SAT 100
== END 2025-05-16 19:31 | disposition home or self-care (01) ==
PROVIDERS: Emergency Provider Emergency Medicine
DX: R10.30 Lower abdominal pain, unspecified (principal); I82.4Z1 Acute embolism and thrombosis of unspecified deep veins of right distal lower extremity; D64.9 Anemia, unspecified; Z85.42 Personal history of malignant neoplasm of other parts of uterus; Z79.01 Long term (current) use of anticoagulants; Z79.899 Other long term (current) drug therapy
CPT/HCPCS: 36415; 74177; 76705; 80048; 80076; 82272; 83690; 84484; 85025; 86850; 86900; 86901; 96361; 96374; 96375; 99284; J1171; J1885; J7120; Q9967

== ENCOUNTER → 2025-05-16 14:52 | Outpatient (BNV) | payer OTHER, SELFPAY | PROVIDERS: Emergency Provider Emergency Medicine; Visit Provider Radiology Diagnostic Radiology | DX: R18.8 Other ascites (principal); R10.9 Unspecified abdominal pain | CPT/HCPCS: 74177; 76705 ==

== ENCOUNTER 2025-05-17 14:56 | Outpatient (AMB) | payer OTHER, SELFPAY ==
[2025-05-17 15:15] VITALS: BP 116/58; BMI 26.1
--- NOTE | 2025-05-17 15:15 | A.OFFPC_ITS ---
Vital Signs 05/17/25 15:15 Height 5 ft 5 in Weight 157 lb 2 oz BMI 26.1 BP 116/58 L Blood Pressure Location Lt brachial Position Sitting Intake Visit Reasons: [facility] 05/09 Wellness Coach Required: No Allergies duloxetine Allergy (Intermediate, Verified 05/17/25 15:17) Stomach Upset Medication List - Last Reconciled 05/17/25 by Delmis Mccarthy PA-C acetaminophen 650 mg (2 x 325 mg) PO Q5H PRN albuterol sulfate 90 mcg/actuation (Ventolin HFA) 2 puffs inhalation Q6H PRN 30 days apixaban (Eliquis) 5 mg PO BID ascorbic acid (vitamin C) 1 g PO DAILY 90 days atorvastatin 80 mg PO DAILY calcium carbonate 600 mg PO BEDTIME cholecalciferol (vitamin D3) (Vitamin D3) 25 mcg PO DAILY cyanocobalamin (vitamin B-12) 1,000 mcg PO DAILY 90 days estradiol 0.01%(0.1mg/gram) pea-sized to urethra daily for 2 weeks then 3 times a week 30 days everolimus (antineoplastic) mg PO DAILY gabapentin 300 mg PO TID letrozole 2.5 mg PO DAILY methenamine hippurate 1 g PO DAILY 90 days mometasone 0.1% 1 appl topical DAILY PRN oxycodone 5 mg PO Q6H PRN prochlorperazine maleate 10 mg PO Q6H PRN pyridoxine (vitamin B6) 100 mg PO DAILY 90 days trazodone 50 - 100 mg (1 - 2 x 50 mg) PO BEDTIME PRN 90 days Tobacco use date assessed: 12/10/24 Dental Screening Dental Screen Date: 12/10/24 HPI [facility] 05/09 HPI Details 65 year old female with past medical his tory of hypercholesterolemia, tobacco use, peripheral neuropathy, history of breast and uterine cancer, anxiety, insomnia, renal insufficiency, history of DVT, and endometrial carcinoma last seen 12/[address] Patel coming in for HDF. In review of the notes, patient was seen in [facility] [place] [facility] 05/16/2025 for abdominal pain improved with Dilaudid. CT abdomen/pelvis reveals no clear reason for patient's symptoms and consider GI evaluation for possible colonoscopy due to mild anemia and Eliquis was not held. Advised to follow up with PCP. She underwent hip replacement surgery in April, followed by hospitalization for deep vein thrombosis. Post-discharge, she has experienced persistent abdominal pain, nausea, and dietary limitations. She reports daily bowel movements with occasional diarrhea and constipation. A CT scan was performed during a recent ER visit, leading to a gastroenterology referral. Anemia was noted, raising concerns about a potential gastrointestinal bleed. She has a history of cancer and dietary restrictions due to chemotherapy. 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 Overweight (BMI 25.0-29.9) Insomnia History of breast cancer Peripheral polyneuropathy Primary osteoarthritis of right hip Vitamin D deficiency Smoker Pure hypercholesterolemia Goiter Anxiety Surgical History H/O: hysterectomy (~03/13/21) History of reduction surgery of right breast History of open reduction and internal fixation (ORIF) procedure Family History Father Cancer Mother CVD (cardiovascular disease) Social History Household Members: Family Housing: House Alcohol intake: current Alcohol intake frequency: holidays/special occasions only Patient Tobacco Use Status: Current everyday Tobacco user Tobacco use type: Cigarette Cigarette Packs Per Day: 0.5 e-Cigarette/Vaping Use: Never Used Second Hand Smoke Exposure: Yes service: No Current occupational status: employed 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 1. Little interest or pleasure in doing things: nearly every day 2. Feeling down, depressed, or hopeless: not at all 3. Trouble falling or staying asleep, or sleeping too much: nearly every day 4. Feeling tired or having little energy: nearly every day 5. Poor appetite or overeating: nearly every day 6. Feeling bad about yourself - or that you are a failure or have let yourself or your family down: not at all 7. Trouble concentrating on things, such as reading the newspaper or watching television: not at all 8. Moving or speaking so slowly that other people could have noticed. Or the opposite - being so fidgety or restless that you have been moving around a lot more than usual: not at all 9. Thoughts that you would be better off or of hurting yourself in some way: not at all Total score: 12 Source: Developed by Drs. Shay Chen, Charley Xiong, Rsus haider nd colleagues, with an educational caridad from [employer]. Thrive Questionnaire Date Thrive assessed: 12/10/24 I am a: Patient What is your living situation today?: I have a steady place to live Within the past 12 months, did the food you bought not last and you didn't have the money to get more?: I choose not to answer this question Within the past 12 months, did you worry whether your food would run out before you got money to buy more?: I choose not to answer this question Do you have trouble paying for medicines?: I choose not to answer this question Do you have trouble getting transportation to medical appointments?: Yes Do you have trouble paying your heating and electricity bill?: I choose not to answer this question Do you have trouble taking care of your child, family member or friend?: I choose not to answer this question Do you have trouble with day-to-day activities such as bathing, preparing meals, shopping, managing finances, etc.?: Yes Are you currently unemployed and looking for a job?: No Are you interested in more education?: No Please select the resources that you would like help with: None Currently or been in a relationship where the following occur: No concerns reported THRIVE Score: 1 AUDIT C Alcohol Use Questionnaire (AUDIT-C) 1. How often do you have a drink containing alcohol?: Never Total Score: 0 GABRIEL-7 AMB Questionnaire GABRIEL-7 Date GABRIEL - 7 assessed: 12/10/24 Feeling nervous, anxious, or on edge: 2 = More than half the days Not being able to stop or control worryin = Several days Worrying too much about different things: 2 = More than half the days Trouble relaxin = Nearly every day Being so restless that it is hard to sit still: 0 = Not at all Becoming easily annoyed or irritable: 3 = Nearly every day Feeling afraid as if something awful might happen: 0 = Not at all Total GABRIEL-7 score (0-4 normal; 5-9 mild; 10-14 moderate; 15-21 severe): 11 Source: Developed by Drs. Shay Chen, Charley Xiong, Russ Franco and colleagues, with an educational caridad from [employer]. Review of Systems Const Denies body aches, Denies chills and Denies fever(s) Eyes Reports no additional complaints ENT Reports no additional complaints Card Denies chest pain, Denies syncope and Denies dyspnea Resp Denies dyspnea GI Reports as per HPI, Denies melena and Denies hematochezia Reports no additional complaints Musc Reports no additional complaints Skin/Breast Reports system reviewed and no additional complaints, except as documented Neuro Denies syncope Physical exam (Primary Care) Vital Signs: Last Vital Signs BP 116/58 L 05/17/25 15:15 BMI result Body Mass Index 26.1 Tobacco/Smoking Status: Tobacco use Status Tobacco use date assessed 12/10/24 05/17/25 15:19 Patient Tobacco Use Status Current everyday Tobacco 05/17/25 15:19 Tobacco use type Cigarette 05/17/25 15:19 e-Cigarette/Vaping Use Never Used 05/17/25 15:19 PHQ-9: PHQ-9 Score PHQ-9: Total score 12 05/17/25 15:37 Thrive Assessment: Date of Thrive Assessment Date Thrive assessed 12/10/24 05/17/25 15:19 Currently or been in a relationship where the following occur: No concerns reported Const General: cooperative, healthy appearing, comfortable and no acute distress Orientation/consciousness: patient oriented x3 HENMT Head: Yes normocephalic Ears: hearing grossly normal bilaterally General nose exam: Normal external nose present Eyes General: appearance normal, both eyes and all related structures Conjunctivae: conjunctivae normal Neck Neck: Yes full ROM and Yes no lymphadenopathy Resp Effort & Inspection: normal respiratory effort Auscultation: clear to auscultation bilaterally, no crackles, no rales, no rhonchi and no wheezes Cardio Rate: regular rate Rhythm: regular rhythm GI Palpation (GI): Soft to palpation, not firm, Tenderness to palpation present (GI), no guarding and not rigid Skin General skin exam: no rashes or lesions noted Neuro General: patient oriented x3 Gait exam (Neuro): Normal gait present Extrem General: Yes normal to inspection, Yes full ROM and No edema Psych Affect: normal affect Attitude: cooperative Insight: Good insight present (Psych) Judgement: Good judgement present (Psych) Coding Level of Care Code Est Pt Level 3 (33372) Diagnoses Frequent diarrhea R19.7 Abdominal pain R10.30 Abdominal location: lower abdomen, unspecified Anemia D64.9 Assessment & Plan Assessment & Plan (1) Frequent diarrhea: Code(s): R19.7 - Diarrhea, unspecified Category: Medical Plan: Referral was placed to GI recommend fiber supplement. (2) Abdominal pain: Code(s): R10.9 - Unspecified abdominal pain Category: Medical Qualifiers: Abdominal location: lower abdomen, unspecified Qualified Code(s): R10.30 - Lower abdominal pain, unspecified Plan: Discuss this case with Dr. Weems recommended oxycodone to be used as needed for pain until patient can be seen by GI. Based on her cancer history and concern for anemia GI referral should be urgent. Prescription was sent and plan to follow up in [address] Weems (3) Anemia: Code(s): D64.9 - Anemia, unspecified Category: Medical Plan: Repeat CBC tomorrow to trend hemoglobin. If decreasing recommend ED visit for possible transfusion. Patient was urgently referred to GI as well to locate a source of possible bleed. She was advised not to discontinue her Eliquis as advised by the ED. Plan This note was constructed using voice recognition software. While every effort has been made to ensure accuracy and network support engineer, still areas may have been included sometimes these areas may affect the content or meeting of the given symptoms. Total time spent caring for the patient today was 20 minutes. This includes time spent before the visit reviewing the chart, time spent during the visit, and time spent after the visit and documentation. Patient was informed and verbally consented to the use of an ambient scribe for clinic note documentation during this visit. Orders: Orders Complete Blood Count Auto Diff Today D64.9 - Anemia, unspecified Referrals Gastroenterology Referral D64.9 - Anemia, unspecified, R10.30 - Lower abdominal pain, unspecified, R19.7 - Diarrhea, unspecified
== END 2025-05-17 16:02 | disposition home or self-care (01) ==
LOC: HO.HMCH 14:57
PROVIDERS: PCP Internal Medicine
DX: R19.7 Diarrhea, unspecified (principal); R10.30 Lower abdominal pain, unspecified; D64.9 Anemia, unspecified

== ENCOUNTER 2025-05-28 14:01 | Outpatient (REF) | payer OTHER, SELFPAY ==
[2025-05-28 15:11] LABS: MANUAL DIFF FLAG NO
[2025-05-28 15:14] LABS: Hematocrit 30.9 % (37.0-47.0); Hemoglobin 9.4 g/dl (12.0-16.0); Imm Gran Abs Auto 0.02 X10*3/uL (0.00-0.03); Imm Gran Pct Auto 0.3 % (0.0-0.4); Lymphocytes Absolute Auto 1.1 X10*3/uL (1.2-4.9); Mean Corpuscular HGB Conc 30.4 g/dl (31.0-35.0); Mean Corpuscular Hemoglobin 23.8 pg (27.0-33.0); Mean Corpuscular Volume 78.2 fL (80.0-98.0); NRBC Abs Auto 0.000 X10*3/uL (0.0-0.012); NRBC Pct Auto 0.0 /100WBC (0.0-0.2); Platelet Count 343 X10*3/uL (160-400); Red Blood Count 3.95 X10*6/uL (4.20-5.50); White Blood Count 7.7 X10*3/uL (4.8-10.8)
[2025-05-28 15:36] LABS: Alanine Aminotransferase 24 U/L (0-31); Albumin Level 3.9 g/dL (3.5-5.0); Alkaline Phosphatase 145 U/L (39-117); Anion Gap 15 (12-20); Aspartate Amino Transferase 23 U/L (5-31); Blood Urea Nitrogen 10 mg/dL (9-16); Calcium 9.2 mg/dL (8.4-10.2); Carbon Dioxide 24 mmol/L (22-29); Chloride 105 mmol/L (96-108); Cholesterol 118 mg/dL (<200); Estimated Glomerular Filt Rate > 60; HDL Cholesterol 36 mg/dL (>40); Potassium 3.7 mmol/L (3.3-5.1); Sodium 140 mmol/L (135-145); Total Protein 6.3 g/dL (6.5-8.0); Triglycerides 125 mg/dL (<150)
[2025-05-28 16:04] LABS: Folate 6.4 ng/mL (> or = 4.0); Vitamin B12 1694 pg/mL (200-900)
== END 2025-05-28 14:02 | disposition home or self-care (01) ==
LOC: HO.HMGCLDS 14:01
PROVIDERS: PCP Internal Medicine; Visit Provider Internal Medicine
DX: M79.604 Pain in right leg (principal); M79.605 Pain in left leg; E53.8 Deficiency of other specified B group vitamins; M79.7 Fibromyalgia; E78.00 Pure hypercholesterolemia, unspecified; E55.9 Vitamin D deficiency, unspecified; D64.9 Anemia, unspecified
CPT/HCPCS: 36415; 80053; 80061; 82306; 82607; 82746; 84443; 85025; 85652; 86140

== ENCOUNTER 2025-05-31 10:40 | Outpatient (AMB) | payer OTHER, SELFPAY ==
--- OUTSIDE RECORDS SUMMARY | 2025-05-30 23:59 | XMS_ITS | Continuity of Care Document ---
Author Organization [facility] Address [address] [place] [address]- Care Team Providers Care Parachute Inspector Name Role Phone Zoltan Weems MD Primary Care Physician Encounter [facility] [phone] Date(s): 05/23/25 - 05/30/25 [facility] [address], [place] [address] Encounter Diagnosis History of DVT in adulthood(Discharge Diagnosis) - 05/23/25 Lymphedema(Discharge Diagnosis) - 05/23/25 Attending Physician: Zoltan Weems MD Admitting Physician: Zoltan Weems MD Referring Physician: Elvin Wei MD Encounter Type: Office Visit Allergies, Adverse Reactions, Alerts No Known Allergies Immunizations Given and Recorded Vaccine Date Status Refusal Reason SARS-CoV-2 (COVID-19) mRNA-1273 vaccine 04/19/21 G iven SARS-CoV-2 (COVID-19) mRNA-1273 vaccine 04/19/21 R ecorded SARS-CoV-2 (COVID-19) mRNA-1273 vaccine 03/22/21 G iven SARS-CoV-2 (COVID-19) mRNA-1273 vaccine 03/22/21 R ecorded Medications acetaminophen 325 mg oral tablet 975 mg, 3, tablet, By Mouth, Every 6 hours, # 120 tablet, Refills 2, Tot. Refills 2, Maintenance, 11/26/22 2:44:00 PM EST, Route to Pharmacy Electronically, [facility]/pharmacy #[id number], Partial fill upon patient request if the prescription is for a schedule II opioid drug., 166.2, cm, 11/26/22 14:17:00 EST, Height, 75.8, kg, 11/26/22 14:17:00 EST, Dry Weight Start Date: 11/26/22 Status: Ordered Quantity: 120.0 Unit: tablet Repeat number: 3 apixaban Starter Pack 5 mg oral tablet See Instructions, 10 mg By Mouth 2 times a day for 7 days, followed by 5 mg BID thereafter; skip first dose given in the Hospital. as directed on package labeling, # 1 pack/packet, 0 Refills, Maintenance, 04/18/25 12:46:00 PM EDT, Tablet, [facility], Partial fill upon patient request if the prescription is for a schedule II opioid drug., 166, cm, 04/18/25 7:28:00 EDT, Height, 67.1, kg, 04/05/25 11:44:00 EDT, Dry Weight Start Date: 04/18/25 Status: Ordered Quantity: 1.0 Unit: pack/packet Repeat number: 1 Ascorbic Acid 0 Refills, Maintenance, 12/25/21 1:20:00 PM EST, Partial fill upon patient request if the prescription is for a schedule II opioid drug. Start Date: 12/25/21 Status: Ordered Repeat number: 1 atorvastatin 80 mg oral tablet 1 tablet = 80 mg, By Mouth, Daily at bedtime, 0 Refills, Maintenance, 06/01/14 1:39:13 PM EDT Start Date: 06/01/14 Status: Ordered Repeat number: 1 Bilateral Juxtafit Knee-high Compression Garments with 2 pairs of hybrid socks Bilateral Juxtafit Knee-high Compression Garments with 2 pairs of hybrid socks, See Instructions, #1 kit, Refills 0, Tot. Refills 0, Maintenance, Dx: Lymphedema Use daily up to 23 hours per day., 05/23/25 9:49:00 AM EDT, Supply Start Date: 05/23/25 Status: Ordered Quantity: 1.0 Unit: kit Repeat number: 1 Indications: Lymphedema, not elsewhere classified; docusate sodium 100 mg oral capsule 100 mg, 1, capsule, By Mouth, 2 times a day, # 60 capsule, Refills 0, Tot. Refills 0, Maintenance, 04/06/25 8:36:00 AM EDT, Route to Pharmacy Electronically, [facility], Partial fill uponpatient request if the prescription is for a schedule II opioid drug., 164, cm, 04/06/25 7:41:00 EDT, Height, 67.1, kg, 04/05/25 11:44:00 EDT, Dry Weight Start Date: 04/06/25 Status: Ordered Quantity: 60.0 Unit: capsule Repeat number: 1 estradiol 0.1 mg/g vaginal cream APPLYA PEA-SIZED TO URETHRA DAILY FOR 2 WEEKS THEN 3 TIMES A WEEK FOR 30 DAYS Start Date: 03/18/25 Status: Ordered Repeat number: 1 everolimus 10 mg oral tablet 1 tablet = 10 mg, By Mouth, Daily, # 90 tablet, 2 Refills, Maintenance, 05/24/25 9:25:00 AM EDT, Tablet, [facility], Partial fill upon patient request if the prescription is for a schedule II opioid drug., 166, cm, 05/24/25 8:54:00 EDT, Height, 72.7, kg, 05/24/25 8:54:00 EDT, Dry Weight Start Date: 05/24/25 Status: Ordered Quantity: 90.0 Unit: tablet Repeat number: 3 furosemide 20 mg oral tablet 20 mg, 1, tablet, By Mouth, Daily, # 7 tablet, Refills 0, Tot. Refills 0, Maintenance, 05/10/25 2:47:00 PM EDT, Route to Pharmacy Electronically, [facility]/pharmacy #[id number], Partial fill upon patient request if the prescription is for a schedule II opioid drug., 166, cm, 05/10/25 10:16:00 EDT, Height, 67, kg, 05/10/25 10:16:00 EDT, Dry Weight Start Date: 05/10/25 Stop Date: 05/17/25 Status: Ordered Quantity: 7.0 Unit: tablet Repeat number: 1 gabapentin 300 mg oral capsule See Instructions, TAKE 1 CAPSULE BY MOUTH EVERY MORNING AND 2 CAPSULES AT BEDTIME, # 90 capsule, Refills 5, Maintenance, 03/28/25 9:16:00 PM EDT, Instructions Replace Required Details, Route to Pharmacy Electronically, [id number], 165.5, cm, 03/22/25 10:07:00 EDT, Height, 70, kg, 03/22/25 10:07:00 EDT, Dry Weight Start Date: 03/28/25 Status: Ordered Quantity: 90.0 Unit: capsule Repeat number: 1 Juzo Dynamic knee high compression socks Juzo Dynamic knee high compression socks, See Instructions, # 2 each, Refills 0, Tot. Refills 0, Maintenance, size 2 regular, 30-40mmHg 2 pairs, 06/17/23 9:22:00 AM EDT, Supply Start Date: 06/17/23 Status: Ordered Quantity: 2.0 Unit: each Repeat number: 1 Indications: Lymphedema, not elsewhere classified; Malignant neoplasm of endometrium; letrozole 2.5 mg oral tablet 1 tablet = 2.5 mg, By Mouth, Daily, for 90 days, # 90 tablet, 3 Refills, Hard Stop 05/19/26 9:25:00 AM EDT, 05/24/25 9:25:00 AM EDT, Tablet, [facility], Partial fill upon patient request if the prescription is for a schedule II opioid drug., 166, cm, 05/24/25 8:54:00 EDT, Height, 72.7, kg, 05/24/25 8:54:00 EDT, Dry Weight Start Date: 05/24/25 Stop Date: 05/19/26 Status: Ordered Quantity: 90.0 Unit: tablet Repeat number: 4 lidocaine-prilocaine 2.5%-2.5% topical cream 1 application, Topically, Once, # 30 Gm, 2 Refills, Soft Stop, 10/31/23 3:27:00 PM EST, Cream, [facility]/pharmacy #[id number], Partial fill upon patient request if the prescription is for a schedule II opioid drug., 1 application Topically Once, 166.7, cm, 09/23/23 13:04:00 EST, Height, 77.1, kg, 09/23/23 13:04:00 EST, Dry Weight Start Date: 10/31/23 Status: Ordered Quantity: 30.0 Unit: g Repeat number: 3 methenamine hippurate 1 gm oral tablet 1 tablet = 1 Gm, By Mouth, 2 times a day, 0 Refills, Maintenance, 12/16/24 12:28:00 PM EST, Partial fill upon patient request if the prescription is for a schedule II opioid drug. Start Date: 12/16/24 Status: Ordered Repeat number: 1 MiraLax oral powder for reconstitution = 17 Gm, By Mouth, Daily, # 238 Gm, 1 Refills, Maintenance, 05/24/25 9:18:00 AM EDT, REC Powder, [facility]/pharmacy #1972, Partial fill upon patient request if the prescription is for a schedule II opioid drug., 17 Gm By Mouth Daily, 166, cm, 05/24/25 8:54:00 EDT, Height, 72.7, kg, 05/24/25 8:54:00 EDT, Dry Weight Start Date: 05/24/25 Status: Ordered Quantity: 238.0 Unit: g Repeat number: 2 MiraLax Powder 1 pack/packet = 17 Gm, By Mouth, Daily, PRN Constipation, 0 Refills, Maintenance, 04/06/25 8:40:00 AMEDT, Powder, Partial fill upon patient request if the prescription is for a schedule II opioid drug. Start Date: 04/06/25 Status: Ordered Repeat number: 1 mometasone 0.1% topical cream 1 application, Topically, Daily, # 15 Gm, 0 Refills, Maintenance, 03/18/25 9:55:00 AM EDT, Cream, Partial fill upon patient request if the prescription is for a schedule II opioid drug. Start Date: 03/18/25 Status: Ordered Quantity: 15.0 Unit: g Repeat number: 1 oxyCODONE 5 mg oral tablet 10 mg, 2, tablet, By Mouth, Every 6 hours, PRN, # 60 tablet, Refills 0, Tot. Refills 0, Maintenance, as needed for pain, 05/24/25 9:15:00 AM EDT, Route to Pharmacy Electronically, [facility]/pharmacy #[id number], Partial fill upon patient request if the prescription is for a schedule II opioid drug., 166, cm, 05/24/25 8:54:00 EDT, Height, 72.7, kg, 05/24/25 8:54:00 EDT, Dry Weight Start Date: 05/24/25 Status: Ordered Quantity: 60.0 Unit: tablet Repeat number: 1 OxyCONTIN 10 mg oral tablet, extended release 10 mg, 1, tablet, By Mouth, Every 12 hours, # 60 tablet, Refills 0, Tot. Refills 0, Maintenance, 05/24/25 9:14:00 AM EDT, Route to Pharmacy Electronically, [facility]/pharmacy #1972, Partial fill upon patient request if the prescription is for a schedule II opioid drug., 166, cm, 05/24/25 8:54:00 EDT, Height, 72.7, kg, 05/24/25 8:54:00 EDT, Dry Weight Start Date: 05/24/25 Status: Ordered Quantity: 60.0 Unit: tablet Repeat number: 1 Patient's Own Meds MAGNESIUM 500MG AM ;250 MG PM, By Mouth, Maintenance, 01/27/15 9:41:16 AM EDT Start Date: 01/27/15 Status: Ordered Repeat number: 1 prochlorperazine 10 mg oral tablet 1 tablet = 10 mg, By Mouth, Every 6 hours, PRN Nausea, # 30 tablet, 2 Refills, Maintenance, 254:09:00 PM EDT, Tablet, [facility]/pharmacy #1972, Partial fill upon patient request if the prescription is for a schedule II opioid drug., 165.5, cm, 03/22/25 10:07:00 EDT, Height, 70, kg, 03/22/25 10:07:00 EDT, Dry Weight Start Date: 03/31/25 Status: Ordered Quantity: 30.0 Unit: tablet Repeat number: 3 senna 187 mg oral tablet 1 tablet = 8.6 mg, By Mouth, Daily at bedtime, PRN as needed for constipation, 0 Refills, Maintenance, 04/06/25 8:40:00 AM EDT, Tablet, Partial fill upon patient request if the prescription is for a schedule II opioid drug. Start Date: 04/06/25 Status: Ordered Repeat number: 1 trazodone 50 mg oral tablet 1 tablet = 50 mg, By Mouth, Daily at bedtime, # 30 tablet, 0 Refills, Maintenance, 06/01/14 1:38:47 PM EDT, Tablet Start Date: 06/01/14 Status: Ordered Quantity: 30.0 Unit: tablet Repeat number: 1 Vitamin B12 = 1,000 mcg, By Mouth, Daily in AM, 0 Refills, Maintenance, 11/28/14 9:42:47 AM EST Start Date: 11/28/14 Status: Ordered Repeat number: 1 Vitamin D3 = 1,000 International_Units, By Mouth, Daily, 0 Refills, Maintenance, 06/01/14 1:40:05 PM EDT Start Date: 06/01/14 Status: Ordered Repeat number: 1 Problem List Condition Confirmation Course Effective Dates Status H ealth Status Informant Anxiety Confirmed Active Back pain Confirmed Active Hematuria Confirmed Active Breast asymmetry between [place] breast and reconstructed breast Confirmed Active Elevated CA-125 Confirmed Active Diarrhea Confirmed Active Chemotherapy induced diarrhea Confirmed Active Recurrent carcinoma of endometrium Confirmed Active Maintenance chemotherapy Confirmed Active Goiter Confirmed Active History of insomnia Confirmed Active Shingles rash Confirmed Active Right hip pain Confirmed Active Hydronephrosis of left kidney Confirmed Active Elevated cholesterol Confirmed Active Hypokalemia Confirmed Active Lymphedema of both lower extremities Confirmed Active Endometrial cancer Confirmed Active Malignant tumor of breast Confirmed Active Elevated triglycerides with high cholesterol Confirmed Active Neck pain, acute Confirmed Active Neuropathic pain Confirmed Active Chemotherapy-induced neuropathy Confirmed Active Osteoarthritis of right hip Confirmed Active Peripheral polyneuropathy Confirmed Active Aromatase inhibitor use Confirmed Active Chest congestion Confirmed Active 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 UTI symptoms Confirmed Active Vitamin D deficiency Confirmed Active Diagnosis Diagnosis Type Effective Dates Health Status Clinical Service Informant History of DVT in adulthood Discharge Diagnosis 05/23/25 Lymphedema Discharge Diagnosis 05/23/25 Social History Social History Type Response Smoking Status 5-9 cigarettes (betw een 1/4 to 1/2 pack)/day in last 30 days; Other: around 5 cigaretts per day, in the process of quitting; entered on: 07/29/22 Sex Sex Representation Female (finding) Note * Fina Kowalski: PERFORM Event Display: Patient Education/Instruction Authored Date: [id number] Ambulatory [place] [address] Name: EMERALD DELUCA : 1960?? Visit: 05/23/2025 09:25?? Ambulatory Visit Instructions ?? Your Care Team Primary Care Provider Dank DE LEÓN, Zoltan Black? This Visit Provider Ashok HALL, Nadia Your Diagnosis History of DVT in adulthood Lymphedema Vitals Signs Pulse Rate:??100 bpm??High Height: 166 cm Systolic Blood Pressure: 90 mm Hg Weight: 67 kg Diastolic Blood Pressure:??48 mm Hg??Low Body Mass Index: 24.31 kg/m2 Oxygen Saturation: 94 % Body surface area: 1.76 What to do next Scheduled Follow-Up Appointments Friday 8:00 AM EDT ?? With: Popeye DE LEÓN, Arturo Wick Where: [facility] [address] [place] [address] [place] [address]- Status: Pending Friday 4:00 PM EDT ?? Where: [facility] [address] [place] [address]- Status: Pending Friday 3:30 PM EDT ?? With: Nadia Pulido NP Where: [facility] [address] [place] [address]- Status: Pending Future Orders Comprehensive Metabolic Panel - Routine, Once, 06/15/24 3:00:00 EDT every 28 days for 12 months, Single or Recurring Future Order, [facility], Blood?? CBC w/ Differential - Routine, Once, 06/15/24 3:00:00 EDT every 28 days for 12 months, Single or Recurring Future Order, [facility], Blood?? Magnesium Level - Routine, Once, 06/15/24 3:00:00 EDT every 28 days for 12 months, Single or Recurring Future Order, [facility], Blood?? Phosphorus Level - Routine, Once, 06/15/24 3:00:00 EDT every 28 days for 12 months, Single or Recurring Future Order, [facility], Blood?? Cholesterol Total - Routine, Once, 06/15/24 3:00:00 EDT every 28 days for 12 months, Single or Recurring Future Order, [facility], Blood?? Triglycerides - Routine, Once, 06/15/24 3:00:00 EDT every 28 days for 12 months, Single or Recurring Future Order, [facility], Blood?? CA 125 - Routine, Once, 07/22/24 3:00:00 EDT every 28 days for 12 months, Single or Recurring Future Order, [facility], Blood?? Urine Culture (Culture Urine) - Routine, Once, 09/29/24 9:21:00 EST, Order for Today, [facility], Urine?? Medications The list below reflects the information in our records and provided by you today along with any changes made during this visit. Please continue your medications until treatment is completed or stopped by your provider. If this is different from the information you have or there are other questions,please contact the prescribing provider. What How Much When Why Instructions New Durable Medical Equipment (Bilateral Juxtafit Knee-high Compression Garments with 2 pairs of hybrid socks) See instructions Lymphedema Dx: Lymphedema ?Use daily up to 23 hours per day. ?? Printed Prescription Unchanged Acetaminophen (acetaminophen 325 mg oral tablet) 3 tab(s) Oral Every 6 hours Unchanged apixaban (apixaban Starter Pack 5 mg oral tablet) See instructions 10 mg By Mouth 2 times a day for 7 days, followed by 5 mg BID thereafter; skip first dose given in the Hospital. as directed on package labeling ?? Unchanged Ascorbic Acid Unchanged Atorvastatin (atorvastatin 80 mg oral tablet) 1 tab(s) Oral Daily at Bedtime Unchanged Cholecalciferol (Vitamin D3) 1,000 International Unit Oral Daily Unchanged Cyanocobalamin (Vitamin B12) 1,000 Microgram Oral Daily in the morning Unchanged Docusate (docusate sodium 100 mg oral capsule) 1 capsule Oral Twice a day Unchanged Durable Medical Equipment (Juzo Dynamic knee high compression socks) See instructions Endometrial ca Lymphedema size 2 regular, 30-40mmHg 2 pairs ?? Unchanged Estradiol Topical (estradiol 0.1 mg/ g vaginal cream) APPLYA PEA-SIZED TO URETHRA DAILY FOR 2 WEEKS THEN 3 TIMES A WEEK FOR 30 DAYS ?? Unchanged Furosemide (furosemide 20 mg oral tablet) 1 tab(s) Oral Daily Duration: 7 Days Unchanged Gabapentin (gabapentin 300 mg oral capsule) See instructions TAKE 1 CAPSULE BY MOUTH EVERY MORNING AND 2 CAPSULES AT BEDTIME ?? Unchanged Lidocaine/ Prilocaine Topical (lidocaine-prilocaine 2.5%-2.5% topical cream) 1 merline Topically Once Unchanged Methenamine (methenamine hippurate 1 gm oral tablet) 1 tab(s) Oral Twice a day Unchanged Mometasone Topical (mometasone 0.1% topical cream) 1 merline Topically Daily Unchanged Polyethylene Glycol 3350 (MiraLax Powder) 17 gram Oral Daily as needed for Constipation Unchanged PROCHLORperazine (prochlorperazine 10 mg oral tablet) 1 tab(s) Oral Every 6 hours as needed for Nausea Unchanged Pt.'s Own Meds (Patient's Own Meds) MAGNESIUM 500MG AM ;250 MG PM Oral Unchanged Senna (senna 187 mg oral tablet) 1 tab(s) Oral Daily at Bedtime as needed for as needed for constipation Unchanged Trazodone (trazodone 50 mg oral tablet) 1 tab(s) Oral Daily at Bedtime Medications and Immunizations Administered Medications Given During Visit No medications given during this visit.?? Allergies (NKA means No Known Allergies) NKA No Known Medication Allergies Common Emergency Awareness Tips IS IT A [...] are strongly encouraged to quit. Please call [facility] at [phone] or 5-795-892Sociact ([phone]) or log in to [email or web address] for referrals to smoking cessation programs. ?? The National Suicide Prevention Hotline is available 26/05 if you or someone you know needs to find a reason to keep living. By calling 2-106-779-NOW! [employer] (4189) you'll be connected to a skilled, trained counselor at a crisis center in your area. [facility] Portal You can view and manage your care through the patient portal or by using a health care merline of your choosing. [employer] is a website that allows you to securely view your medical information including your hospital discharge summary, office visit summaries, medications and follow-up visits. You can also request appointments, renew medications, and request access to your medical information using a health care merline of your choosing, or just ask a question. You can enroll at [email or web address] or register during your next office visit. [facility], in keeping with [facility] guidance, no longer requires face masks for [...] medical provider or home test kit. ?? Disclaimer: The information provided is of a general nature and is intended to be used in conjunction with the recommendations and advice of your health care practitioner. Every effort has been made to ensure that the information provided is accurate and complete at the time it is provided to you however, as your needs change, or, as new information becomes available, different or additional instructions may be required. ?? If you have questions, please consult with your primary care provider or pharmacist, as appropriate. This information is not intended to serve as substitution for assessment and evaluation by a qualified health care provider. If you do not have a primary care provider, you may find a [facility] provider by calling [facility] Link at [phone]. Patient Care team information Care Team Personnel Name: Krystyna Merlos RN Position: S RN Member Role: Primary Care Nurse Name: Jessica Keith RN Position: S RN Member Role: Primary Care Nurse Name: Meryl Balderrama RN Position: S RN Member Role: Primary Care Nurse Name: Zoltan Weems MD Position: Reference Physician Member Role: PCP Address: [address] [place] [address] Telecom: Name: Rory Camargo RN Position: S RN Member Role: Primary Care Nurse Name: Karen Moore RN Position: S RN Member Role: Primary Care Nurse Name: Kadie Norris RN Position: S RN Member Role: Primary Care Nurse Name: Lacey Yi RN Position: S RN Member Role: Primary Care Nurse Name: Lexie Carnes RN Position: S RN Member Role: Primary Care Nurse Name: Gabby MAYERS Paz Farzaneh Position: [facility] RN Member Role: Primary Care Nurse Name: Nisha Miller RN Position: [facility] RN Member Role: Primary Care Nurse Name: Fatou Fuller RN Position: S RN Member Role: Primary Care Nurse Name: Milly Parry RN Position: [facility] RN Member Role: Primary Care Nurse Name: Sandra Root RN Position: [facility] RN Member Role: Primary Care Nurse Name: Yvonne Jansen RN Position: [facility] Onco RN Member Role: Primary Care Nurse Name: Stella Chacko RN Position: [facility] Onco RN Member Role: Primary Care Nurse Name: Guillermina Bradford RN Position: [facility] Onco RN Member Role: Primary Care Nurse Name: Anita Maldonado RN Position: [facility] RN Member Role: Primary Care Nurse Name: Gilmar Trevizo RN Position: [facility] Onco RN Member Role: Primary Care Nurse Name: Maria T Gaston LPN Position: [facility] RN Member Role: Primary Care Nurse Name: Anibal Courtney RN Position: [facility] RN Member Role: Primary Care Nurse Care Team Related Persons Name: ASHISH, DEFAULTED Name: CLIVE DELUCA Name: TREVA DELUCA Name: LEO DELUCA Insurance Providers Guarantor name: EMERALD DELUCA Health Plan Information #: 1 Payer: [facility] [employer] Payer Identifier: Member Number: [id number] Group Number: [id number] Subscriber Identifier: [id number] Relationship to Subscriber: self Coverage Type: NA Coverage Verification Date: Telecom: NA Address: Health Plan Information #: 2 Payer: [facility] FF NON BHP HMO P Payer Identifier: NA Member Number: [id number] Group Number: [id number] Subscriber Identifier: [id number] Relationship to Subscriber: self Coverage Type: Other Private Insurance Coverage Verification Date: Telecom: Address:
--- NOTE | 2025-05-31 10:44 | MHC.OFFVIS ---
Vital Signs 05/31/25 10:45 Height 5 ft 5 in Weight 155 lb BMI 25.8 BP 102/58 L Blood Pressure Location Lt brachial Position Sitting Pulse 88 Pulse Source Pulse Oximeter Pulse Oximetry (%) 96 Oxygen Delivery Method Room Air Intake Visit Reasons: Abd pain, anemia. 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 ANGELINE 2021. CC: C.O. acute lower abd pain, black stools, recent hx of anemia. No additional sx. Pt wants to question whether linzess is necessary, has taken in the past. Assurance Senior Manager Insurance Required: No Accompanied by: Self / Same As Patient Allergies duloxetine Allergy (Intermediate, Verified 05/31/25 10:44) Stomach Upset HPI HPI Abd pain, anemia. Urgent consult per Middle [employer] History Teacher: Details: LAST VISIT 01/15/2022 Colon cancer screening Patient denies any melena, hematochezia, unintentional weight loss or ribbon like stools. Patient would rather wait for her colonoscopy screening as she is going to have chemotherapy for recently diagnosed lymphoma Frequent diarrhea Patient reports to have frequent diarrhea. Usually happens almost immediately after she eats or drinks anything. Patient does reports that it happens more frequently if she has milk products. Will order stool studies, C reactive protein and transglutaminase IBS (irritable bowel syndrome) Patient reports postprandial abdominal bloating and diarrhea. Discussed with patient FODMAP diet. We will will rule out IBD, celiac, however patient denies any abdominal pain or cramping. Most likely IBS with both diarrhea and constipation, predominantly diarrhea related to the food she eats. Discussed with patient avoiding food that is now recommended. List provided to patient of food that is recommended as well as food to avoid. Patient was encouraged to try elimination diet. I will start her on Citrucel hopefully this will help to bulk her stools. Abdominal bloating Postprandial abdominal bloating will start him on simethicone. Discussed with patient also FODMAP diet. Patient will try eliminating certain food. We will also check pancreatic elastase, patient might need enzyme therapy. I will see her in 4 weeks to re-evaluate her. Patient will call me sooner if she will have any GI concerning symptoms or if her symptoms will get worse. She is agreeable to this plan and verbalizes understanding of instructions. She was given the opportunity to ask questions all questions answered. ? Thank you for allowing me to participate in her care Plan Orders Orders C Reactive Protein Today K58.9 Transglutaminase IgA Today R10.11 Transglutaminase Ab IgG Today R14.0 Stool Culture Today R19.7 CDiff Gene PCR Today R19.7 Ova and Parasite Today R19.7 Leukocytes Stool Qualitative Today R19.7 Pancreatic Elastase-1 Today R19.7 Medications New methylcellulose (laxative) (Citrucel) take it with full glass of water 500 mg PO DAILY 30 tabs 2RF K59.00 simethicone (Gas Relief (simethicone)) 125 mg PO TID-QID PRN 120 caps 2RF abdominal distention ED VISIT 05/16/2025 HPI narrative: 65-year-old female history of endometrial carcinoma s/p total hysterectomy with post surgery chemotherapy, s/p right hip total replacement in April complicated with right lower extremity DVT patient currently is on Eliquis, ever since the surgery patient been complaining of intermittent lower abdominal pain that last for few minutes, presented today because the pain for the last 5 days is been constant and becoming severe, pain is associated with nausea but no vomiting, no fever, no chills, normal bowel movement this morning with brown stool, no dysuria, no frequency urination, no hematuria. No blood in the stool. TODAY'S VISIT Patient is here today for requested visit. Patient has been dealing with severe constipation ever since her hip surgery. Patient had his hip surgery last month and reports since then she has been dealing with severe constipation. Patient reports abdominal pain. Last seen in 2021 and patient opted not to go for colonoscopy at that time as she was going for chemotherapy for endometrial carcinoma. Currently patient is also going for chemotherapy. Just diagnosed after her hip surgery in April with DVT and currently is on Eliquis. Patient reports that she is unable to lay on her back for CT enterography or CT colonography if we were going to get 1 done. Patient states that she is unable to stop the Eliquis right now as well as unable to lay on the side for colonoscopy. Patient will do rather do that Cologuard. Her abdominal pain is pretty severe. She is not moving her bowels. Patient is on daily oxycodone 10 mg extended release and occasionally takes extra 5 mg oxycodone if she has pain. Patient is taking [id number]-zbt-uxoebiz laxatives and stool softeners without any results. Occasional postprandial diarrhea depending on what she eats and abdominal bloating. Patient denies melena, hematochezia. Reports to have fair appetite. Patient is frustrated with her pain. Patient is accompanied by her daughter throughout the visit. Has a very good support system [facility] Medical History Impaired fasting glucose Neuropathy 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 Overweight (BMI 25.0-29.9) Insomnia History of breast cancer Peripheral polyneuropathy Primary osteoarthritis of right hip Vitamin D deficiency Smoker Pure hypercholesterolemia Goiter Anxiety Surgical History Status post right hip replacement H/O: hysterectomy (~03/13/21) History of reduction surgery of right breast History of open reduction and internal fixation (ORIF) procedure Family History Father Cancer Mother CVD (cardiovascular disease) Social History Household Members: Family Housing: House Alcohol intake: current Alcohol intake frequency: holidays/special occasions only Patient Tobacco Use Status: Current everyday Tobacco user Tobacco use type: Cigarette Cigarette Packs Per Day: 0.5 e-Cigarette/Vaping Use: Never Used Second Hand Smoke Exposure: Yes service: No Current occupational status: employed 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 Gender identity: Female Cognitive needs: No Hearing needs: No Vision needs: No Review of Systems Const Denies body aches, Denies chills and Denies fever(s) Eyes Reports no additional complaints ENT Reports no additional complaints Card Denies chest pain, Denies syncope and Denies dyspnea Resp Denies dyspnea GI Reports as per HPI, Denies melena, Denies hematochezia and Reports constipation Reports no additional complaints Musc Reports no additional complaints Skin/Breast Reports system reviewed and no additional complaints, except as documented Neuro Denies syncope Physical Exam Vital Signs: Last Vital Signs Pulse 88 05/31/25 10:45 BP 102/58 L 05/31/25 10:45 Pulse Ox 96 05/31/25 10:45 Oxygen Delivery Method Room Air 05/31/25 10:45 BMI result Body Mass Index 25.8 Const General: cooperative, healthy appearing and comfortable Nutritional Appearance: average body habitus Orientation/consciousness: patient oriented x3 Limitations: no limitations Resp Effort & Inspection: normal respiratory effort and able to speak in complete sentences Auscultation: clear to auscultation bilaterally Cardio Rate: regular rate Peripheral pulses: Peripheral pulses 2+ throughout GI Inspection: Yes normal to inspection and No distended Palpation (GI): No hepatosplenomegaly present and No Rebound tenderness present Percussion: Yes normal to percussion Auscultation: normal bowel sounds Back/Spine/Pelvis Cervical Spine: cervical ROM normal and No cervical muscular tenderness Thoracic/Lumbar Spine: thoracic and lumbar spine normal to inspection Skin General skin exam: no rashes or lesions noted, elasticity normal and turgor normal Neuro General: patient oriented x3 Extrem General: Yes normal to inspection, Yes full ROM and Yes capillary refill normal Psych Appearance: grossly normal Mental Status: mental status grossly normal Results Reviewed Results Reviewed: CT SCAN OF ABDOMEN AND PELVIS 05/16/2025 FINDINGS: LUNG BASES: Lung bases are clear. There are no effusions. There is borderline cardiac enlargement. LIVER, GALLBLADDER, AND BILIARY TREE: The liver is normal in size, shape, and attenuation. No focal hepatic lesion or biliary ductal dilatation is present. The gallbladder is distended with probable layering sludge and/or sediment layering gallstones. No evidence of gallbladder wall thickening, or gross pericholecystic inflammatory changes. PANCREAS: Unremarkable. SPLEEN: Unremarkable. ADRENAL GLANDS: Unremarkable. KIDNEYS AND URETERS: The kidneys are normal in size, shape, and attenuation. No hydronephrosis, hydroureter, or calculi seen. No perinephric stranding. PERITONEUM: There is small volume ascites present in the perihepatic region, perisplenic region, and within the pelvic recesses. BLADDER: Unremarkable. GASTROINTESTINAL TRACT: Mild wall thickening of the ascending colon is noted. The transverse colon is normal. The descending colon, and sigmoid colon demonstrate mild wall thickening but are decompressed, possibly a spurious finding from underdistention. Mild rectal wall thickening is present. The small bowel is normal in caliber and course. No CT evidence of appendicitis. The stomach, and duodenal sweep appear normal. ABDOMINAL WALL: There is no significant hernia. There is mild to moderate anasarca most notable in the flank regions. LYMPH NODES: No abnormal lymphadenopathy is detected. VASCULAR: Mild to moderate calcific atherosclerotic disease of the aorta and iliac arteries. No aneurysm. PELVIC VISCERA: There has been a hysterectomy. There are no adnexal masses. OSSEOUS STRUCTURES: No suspicious lytic or blastic bone lesions. There is a total right hip arthroplasty in place without complication. Mild to moderate degenerative changes left hip joint. CT/CT abdomen pelvis w IV con IMPRESSION: 1. No definite acute finding in the abdomen or pelvis. 2. The gallbladder is distended with layering sludge and/or small gallstones, although there is no gross wall thickening or pericholecystic inflammation present. 3. There is small volume ascites in the peritoneal space, etiology unclear. 4. There is mild is anasarca. 5. Mild wall thickening of the ascending colon, descending and sigmoid colon in the setting of underdistention. Cannot exclude colitis in the appropriate clinical context. 6. Hysterectomy. ABDOMINAL ULTRASOUND 05/16/2025 FINDINGS: GALLBLADDER: There is no gallbladder wall thickening. Gallbladder content is anechoic. COMMON BILE DUCT: Normal in caliber measuring 0.5 cm in diameter. FREE FLUID: None. US/US abdomen limited IMPRESSION: Unremarkable gallbladder ultrasound. Assessment & Plan Assessment & Plan (1) Frequent diarrhea: Code(s): R19.7 - Diarrhea, unspecified Category: Medical (2) Abdominal pain: Code(s): R10.9 - Unspecified abdominal pain Category: Medical Qualifiers: Abdominal location: lower abdomen, unspecified Qualified Code(s): R10.30 - Lower abdominal pain, unspecified (3) IBS (irritable bowel syndrome): Code(s): K58.9 - Irritable bowel syndrome, unspecified Qualifiers: Irritable bowel syndrome type: with both diarrhea and constipation Qualified Code(s): K58.2 - Mixed irritable bowel syndrome (4) Constipation: Code(s): K59.00 - Constipation, unspecified Qualifiers: Constipation type: drug induced constipation Qualified Code(s): K59.03 - Drug induced constipation Plan Long discussion with patient about trying to bulk her stools. Patient will get Cologuard and in the meantime we will make her feel better. Patient will try low FODMAP diet. Discussed with patient avoiding dietary triggers. Possible food that might be causing postprandial loose stools. Patient is not emptying her bowels completely. Reports postprandial distension and bloating. List of food recommended as well as list of food to avoid given to patient. Patient will return in 2 months to re-evaluate. She is agreeable to this plan and verbalizes understanding of instructions. She was given the opportunity to ask questions and all questions answered. Thank you for allowing me to participate in her care Coding Level of Care Code New Pt Level 4 (01276) Complex EM visit Add On G2211 Diagnoses Frequent diarrhea R19.7 Abdominal pain R10.30 Abdominal location: lower abdomen, unspecified Irritable bowel syndrome with both constipation and diarrhea K58.2 Irritable bowel syndrome type: with both diarrhea and constipation Drug-induced constipation K59.03 Constipation type: drug induced constipation Time Spent (min) 50 Comment 35 minutes spent with patient and additional 15 minutes spent reviewing her records
[2025-05-31 10:45] VITALS: BP 102/58; PULSE 88; O2SAT 96; BMI 25.8
--- OUTSIDE RECORDS SUMMARY | 2025-05-31 11:48 | XMS_ITS | Clinical Summary ---
Author Organization [facility] Address [address] [facility] [address] [place] [id number] Phone Care Team Providers Care Historical Society Director Name Role Phone Zoltan Weems MD Primary Care Provider [phone] Arturo Nye MD Unavailable [phone] Allergies No known active allergies Medications atorvastatin (LIPITOR) 80 MG tablet Take 80 mg by mouth daily. 11/27/2021 Active citalopram (CELEXA) 10 MG tablet Take 10 mg by mouth daily. 11/27/2021 Active loperamide (IMODIUM A-D) 2 mg tablet Take 4 mg by mouth. 05/30/2021 Active traZODone (DESYREL) 50 MG tablet Take 50 mg by mouth nightly at bedtime as needed. Active Social History Tobacco Use Types Packs/Day Years Used Date Smoking Tobacco: Never Assessed Education Answer Date Recorded Are you interested in more education? Not on dana e 03/01/2023 Are you concerned about learning? Not on file 03/01/2023 No 03/01/2023 No 03/01/2023 Digital Access Answer Date Recorded No 03/30/2023 No 03/30/2023 No 03/30/2023 Reliable internet access at home? Not on file 03/30/2023 Device with a working camera? Not on file Comments Unknown Sex and Gender Information Value Date Recorded Sex Assigned at Not on file Legal Sex Female 12:53 PM EST Gender Identity Not on file Sexual Orientation Not on file Plan of Treatment Health Maintenance Due Date Last Done Comments Adult Td,Tdap Booster 1960 LIPID PANEL 1960 DEPRESSION SCREENING 1972 SMOKING Hx and SMOKELESS TOBACCO SCREENING 1973 HEPATITIS C SCREENING 1978 HIV ONE-TIME SCREENING (18-6 5 YEARS) 1978 MAMMOGRAM 2000 COLOGUARD 2005 COLONOSCOPY 2005 COLORECTAL CANCER SCREENING 2005 FIT TEST 2005 FOBT 2005 SIGMOIDOSCOPY 2005 VIRTUAL COLONOSCOPY 2005 PNEUMOCOCCAL VACCINES (50+ years) (1 of 1 - PCV) 2010 ZOSTER VACCINES (1 of 2) 2010 COVID-19 VACCINE (3 - 2023-2 5 season) 2024 04/19/2021, 03/22/2021 OSTEOPOROSIS SCREENING INITI AL (ONE-TIME) 2025 RSV VACCINE (1 - 1-dose 75+ series) 2035 HEPATITIS A VACCINES Aged Out No long er eligible based on patient's age to complete this topic HIB VACCINES Aged Out No longer eligi ble based on patient's age to complete this topic MENINGOCOCCAL VACCINES (ACWY) Aged Out No longer eligible based on patient's age to complete this topic MENINGOCOCCAL VACCINES (B) Aged Out N o longer eligible based on patient's age to complete this topic Medical Devices Not on file [place] [address] [address] [address] HMO HMO HMO HMO HMO O O O [facility] HMO Care Teams Historical Society Director Relationship Specialty Start Date End Date Zoltan Weems MD [address] [place] [id number] PCP - General Internal Medicine 01/02/22 Arturo Nye MD [address] [place] [address] 4B_OB/[place] [address] Obstetrics and Gynecology 01/02/22 Additional Source Comments The information contained in this document represents components of the legal health record. It is not the complete legal health record.[facility]
== END 2025-05-31 11:33 | disposition home or self-care (01) ==
LOC: HO.HGI 10:40
PROVIDERS: PCP Internal Medicine; Visit Provider Nurse Practitioner Family
DX: R19.7 Diarrhea, unspecified (principal); R10.30 Lower abdominal pain, unspecified; K58.2 Mixed irritable bowel syndrome; K59.03 Drug induced constipation
CPT/HCPCS: 99204; G2211

== ENCOUNTER 2025-06-10 11:05 | Outpatient (AMB) | payer OTHER, SELFPAY ==
--- NOTE | 2025-06-10 11:09 | MHC.OFFVIS ---
Vital Signs 06/10/25 11:11 Height 5 ft 5 in Weight 155 lb BMI 25.8 BP 112/56 L Blood Pressure Location Lt brachial Position Sitting Pulse 106 H Pulse Source Pulse Oximeter Pulse Oximetry (%) 98 Oxygen Delivery Method Room Air Intake Visit Reasons: Worsening abd pain. Req appt. Intake Note: Est pt mgmt for lower abd pain, anemia, melena. Worsening abd pain. CC: No additional sx or concerns beyond worsening abd pain. 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 Req appt.: Details: LAST VISIT Frequent diarrhea Abdominal pain IBS (irritable bowel syndrome) Constipation Plan Long discussion with patient about trying to bulk her stools. Patient will get Cologuard and in the meantime we will make her feel better. Patient will try low FODMAP diet. Discussed with patient avoiding dietary triggers. Possible food that might be causing postprandial loose stools. Patient is not emptying her bowels completely. Reports postprandial distension and bloating. List of food recommended as well as list of food to avoid given to patient. Patient will return in 2 months to re-evaluate. She is agreeable to this plan and verbalizes understanding of instructions. She was given the opportunity to ask questions and all questions answered. ? Thank you for allowing me to participate in her care TODAY'S VISIT Patient food today for requested visit. Patient reports abdominal pain and cramping. Patient was taking MiraLax daily and states that she was moving her bowels too much so she stopped. Patient reports that she was following low FODMAP diet, however she continues to have the symptoms. Abdominal bloating, very gassy and crampy in lower part of her abdomen. Pain not only after meals but also at bedtime. Patient denies dyspepsia, dysphagia or odynophagia. Patient denies epigastric pain. Denies any nausea or vomiting. Denies any blood in her stool. Patient did Cologuard testing few days ago. Patient denies any diarrhea. Denies melena, hematochezia. [facility]LY [facility], [facility] Medical History Impaired fasting glucose Neuropathy 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 Overweight (BMI 25.0-29.9) Insomnia History of breast cancer Peripheral polyneuropathy Primary osteoarthritis of right hip Vitamin D deficiency Smoker Pure hypercholesterolemia Goiter Anxiety Surgical History Status post right hip replacement H/O: hysterectomy (~03/13/21) History of reduction surgery of right breast History of open reduction and internal fixation (ORIF) procedure Family History Father Cancer Mother CVD (cardiovascular disease) Social History Household Members: Family Housing: House Alcohol intake: current Alcohol intake frequency: holidays/special occasions only Patient Tobacco Use Status: Current everyday Tobacco user Tobacco use type: Cigarette Cigarette Packs Per Day: 0.5 e-Cigarette/Vaping Use: Never Used Second Hand Smoke Exposure: Yes service: No Current occupational status: employed 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 Gender identity: Female Cognitive needs: No Hearing needs: No Vision needs: No Physical Exam Vital Signs: Last Vital Signs Pulse 106 H 06/10/25 11:11 BP 112/56 L 06/10/25 11:11 Pulse Ox 98 06/10/25 11:11 Oxygen Delivery Method Room Air 06/10/25 11:11 BMI result Body Mass Index 25.8 Assessment & Plan Assessment & Plan (1) Frequent diarrhea: Code(s): R19.7 - Diarrhea, unspecified Category: Medical (2) Abdominal pain: Code(s): R10.9 - Unspecified abdominal pain Category: Medical Qualifiers: Abdominal location: lower abdomen, unspecified Qualified Code(s): R10.30 - Lower abdominal pain, unspecified (3) Irritable bowel syndrome: Code(s): K58.9 - Irritable bowel syndrome, unspecified Qualifiers: Irritable bowel syndrome type: with both diarrhea and constipation Qualified Code(s): K58.2 - Mixed irritable bowel syndrome (4) Constipation: Code(s): K59.00 - Constipation, unspecified Qualifiers: Constipation type: drug induced constipation Qualified Code(s): K59.03 - Drug induced constipation Plan Will start patient on Cipro, suspect diverticulitis/colitis. Patient is unable to lay down for CT scan. CT scan was done while in the ED couple weeks ago. Patient was not started on any antibiotics, however the results showed: GASTROINTESTINAL TRACT: Mild wall thickening of the ascending colon is noted. The transverse colon is normal. The descending colon, and sigmoid colon demonstrate mild wall thickening but are decompressed, possibly a spurious finding from underdistention. Mild rectal wall thickening is present. The small bowel is normal in caliber and course. No CT evidence of appendicitis. The stomach, and duodenal sweep appear normal. Patient will also start taking dicyclomine as needed for cramps. Simethicone for gas. She will wait couple days before starting fiber therapy with pre and probiotics. If she will become constipated she can start taking MiraLax again. Patient will call our office next week with update. Patient has appointment for follow-up in August. She will call us if she will have any GI concerning symptoms. Patient is agreeable to this plan and verbalizes understanding of instructions. She was given the opportunity to ask questions and all questions answered. Thank you for allowing me to participate in her care Medications: New simethicone 125 mg PO BID-QID PRN 120 caps 3RF abdominal distention ciprofloxacin HCl 500 mg PO BID 14 tabs 0RF dicyclomine 10 mg PO TID 90 caps 2RF K58.9 - Irritable bowel syndrome, unspecified Coding Level of Care Code Est Pt Level 4 (35328) Complex EM visit Add On G2211 Diagnoses Frequent diarrhea R19.7 Abdominal pain R10.30 Abdominal location: lower abdomen, unspecified Irritable bowel syndrome with both constipation and diarrhea K58.2 Irritable bowel syndrome type: with both diarrhea and constipation Drug-induced constipation K59.03 Constipation type: drug induced constipation Time Spent (min) 35 Comment 25 minutes spent with patient and additional 10 minutes spent reviewing her records
--- OUTSIDE RECORDS SUMMARY | 2025-06-10 11:09 | XMS_ITS | Clinical Summary ---
Author Organization [facility] Address [address] [facility] [address] [place] [address] Phone Care Team Providers Care Glass Washer And Carrier Name Role Phone Zoltan Weems MD Primary Care Provider [phone] Arturo Nye MD Unavailable [phone] Allergies No known active allergies Medications atorvastatin [...] topic Medical Devices Not on file [place] [address] [place] [address] HMO HMO HMO HMO HMO O O O [facility] HMO Care Teams Glass Washer And Carrier Relationship Specialty Start Date End Date Zoltan Weems MD [address] [place] [id number] PCP - General Internal Medicine 01/02/22 Arturo Nye MD [address] [place] [address] 4B_OB/[place] [address] Obstetrics and Gynecology 01/02/22 Additional Source Comments The information contained in this document represents components of the legal health record. It is not the complete legal health record.[facility]
[2025-06-10 11:11] VITALS: BP 112/56; PULSE 106; O2SAT 98; BMI 25.8
== END 2025-06-10 12:08 | disposition home or self-care (01) ==
LOC: HO.HGI 11:06
PROVIDERS: PCP Internal Medicine; Visit Provider Nurse Practitioner Family
DX: R19.7 Diarrhea, unspecified (principal); R10.30 Lower abdominal pain, unspecified; K58.2 Mixed irritable bowel syndrome; K59.03 Drug induced constipation
CPT/HCPCS: 99214; G2211

== ENCOUNTER 2025-06-16 12:10 | Outpatient (AMB) | payer OTHER, SELFPAY ==
[2025-06-16 12:13] VITALS: BP 100/62; PULSE 102; O2SAT 94; BMI 24.8
--- NOTE | 2025-06-16 12:13 | MHC.PC.OV ---
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 Accompanied by: Self / Same As Patient Allergies duloxetine Allergy (Intermediate, Verified 06/16/25 12:24) Stomach Upset Medication List - Last Reconciled 06/16/25 by Zoltan Weems MD acetaminophen 650 mg (2 x 325 mg) PO Q5H PRN albuterol sulfate 90 mcg/actuation (Ventolin HFA) 2 puffs inhalation Q6H PRN 30 days apixaban (Eliquis) 5 mg PO BID ascorbic acid (vitamin C) 1 g PO DAILY 90 days atorvastatin 80 mg PO DAILY calcium carbonate 600 mg PO BEDTIME cholecalciferol (vitamin D3) (Vitamin D3) 25 mcg PO DAILY ciprofloxacin HCl 500 mg PO BID cyanocobalamin (vitamin B-12) 1,000 mcg PO DAILY 90 days dicyclomine 10 mg PO TID estradiol 0.01%(0.1mg/gram) pea-sized to urethra daily for 2 weeks then 3 times a week 30 days everolimus (antineoplastic) mg PO DAILY gabapentin 300 mg PO TID letrozole 2.5 mg PO DAILY methenamine hippurate 1 g PO DAILY 90 days mometasone 0.1% 1 appl topical DAILY PRN oxycodone 5 mg PO Q6H PRN 7 days polyethylene glycol 3350 (Miralax) 17 grams PO DAILY prochlorperazine maleate 10 mg PO Q6H PRN pyridoxine (vitamin B6) 100 mg PO DAILY 90 days simethicone 125 mg PO BID-QID PRN trazodone 50 - 100 mg (1 - 2 x 50 mg) PO BEDTIME PRN 90 days Tobacco use date assessed: 06/16/25 Fall risk assessment: No Falls in past year Last assessed Fall Risk: 06/16/25 Dental Screening Dental Screen Date: 06/16/25 Did you have a dental visit in the last 12 months?: Yes Did you have a dental problem in the last 6 months where you did not have access to dental care?: No Was dental information given to patient?: Patient has dentist RADHA f/u w/ Jorge vegas 1 mo with him HPI Details Patient comes in today for her follow-up visit States that she continues to experience recurrent/frequent abdominal pain She has been seen by GI recently for her abdominal complaints and was initially advised on a bowel regimen that includes a low FODMAP diet but patient felt that this has not really helped at all She was seen again a few days ago by GI and was started on a trial of Cipro for suspected diverticulitis due to findings of a mild wall thickening of the ascending colon seen on her abdominal and pelvic CT done last month but patient has not started the medication yet due to concerns that it may interact with her chemotherapy medications - states that she wanted to check these would me 1st before she proceeds to make sure that it is safe for her to take She has since resumed her chemotherapy for her endometrial carcinoma continues to experience the previous side effects that she gets from her chemotherapy treatments, including on and off nausea but no vomiting, on and off loose stools and increased fatigue but states that she has not seen any blood in her stool lately She denies any fever, headaches or dizziness Denies any exertional chest pains or increased shortness of breath She also needs her Eliquis Rx refilled today [facility] Medical History Impaired fasting glucose Neuropathy 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 Overweight (BMI 25.0-29.9) Insomnia History of breast cancer Peripheral polyneuropathy Primary osteoarthritis of right hip Vitamin D deficiency Smoker Pure hypercholesterolemia Goiter Anxiety Surgical History Status post right hip replacement H/O: hysterectomy (~03/13/21) History of reduction surgery of right breast History of open reduction and internal fixation (ORIF) procedure Family History Father Cancer Mother CVD (cardiovascular disease) Social History Household Members: Family Housing: House Alcohol intake: current Alcohol intake frequency: holidays/special occasions only Patient Tobacco Use Status: Current everyday Tobacco user Tobacco use type: Cigarette Cigarette Packs Per Day: 0.5 e-Cigarette/Vaping Use: Never Used Second Hand Smoke Exposure: Yes service: No Current occupational status: employed 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 1. Little interest or pleasure in doing things: nearly every day 2. Feeling down, depressed, or hopeless: not at all 3. Trouble falling or staying asleep, or sleeping too much: nearly every day 4. Feeling tired or having little energy: nearly every day 5. Poor appetite or overeating: nearly every day 6. Feeling bad about yourself - or that you are a failure or have let yourself or your family down: not at all 7. Trouble concentrating on things, such as reading the newspaper or watching television: not at all 8. Moving or speaking so slowly that other people could have noticed. Or the opposite - being so fidgety or restless that you have been moving around a lot more than usual: not at all 9. Thoughts that you would be better off or of hurting yourself in some way: not at all Total score: 12 Depression Screening Interpretation: Positive Depression Screening Follow-up: Follow-up Visit Requested Depression Screening Done: Yes 90994 - PHQ-9 Billing: Yes Source: Developed by Drs. Shay Chen, Charley Xiong, Russ Franoc and colleagues, with an educational caridad from [employer]. Thrive Questionnaire Date Thrive assessed: 06/16/25 I am a: Patient What is your living situation today?: I have a steady place to live Within the past 12 months, did the food you bought not last and you didn't have the money to get more?: I choose not to answer this question Within the past 12 months, did you worry whether your food would run out before you got money to buy more?: I choose not to answer this question Do you have trouble paying for medicines?: I choose not to answer this question Do you have trouble getting transportation to medical appointments?: Yes Do you have trouble paying your heating and electricity bill?: I choose not to answer this question Do you have trouble taking care of your child, family member or friend?: I choose not to answer this question Do you have trouble with day-to-day activities such as bathing, preparing meals, shopping, managing finances, etc.?: Yes Are you currently unemployed and looking for a job?: No Are you interested in more education?: No Please select the resources that you would like help with: None Currently or been in a relationship where the following occur: No concerns reported THRIVE Score: 1 AUDIT C Alcohol Use Questionnaire (AUDIT-C) 1. How often do you have a drink containing alcohol?: Never 3. How often do you have six or more drinks on one occasion?: Never Total Score: 0 Score Reviewed/Action Taken: Yes GABRIEL-7 AMB Questionnaire GABRIEL-7 Date GABRIEL - 7 assessed: 06/16/25 Feeling nervous, anxious, or on edge: 2 = More than half the days Not being able to stop or control worryin = Several days Worrying too much about different things: 2 = More than half the days Trouble relaxin = Nearly every day Being so restless that it is hard to sit still: 0 = Not at all Becoming easily annoyed or irritable: 3 = Nearly every day Feeling afraid as if something awful might happen: 0 = Not at all Total GABRIEL-7 score (0-4 normal; 5-9 mild; 10-14 moderate; 15-21 severe): 11 Source: Developed by Drs. Shay Chen, Charley Xiong, Russ Franco and colleagues, with an educational caridad from [employer]. Review of Systems Const Denies chills, Reports fatigue, Denies fever(s), Denies headache(s) and Reports poor appetite ENT Denies dysphagia, Denies dizziness, Denies otalgia, Denies headache(s), Denies neck pain, Denies odynophagia and Denies sore throat Card Denies chest pain, Denies palpitations and Reports dyspnea on exertion Resp Denies chest congestion, Denies cough and Reports dyspnea on exertion GI Reports abdominal pain (on and off, diffuse but more prominent on the right side and the lower abd), Denies hematochezia, Denies constipation, Denies dysphagia, Denies heartburn, Reports diarrhea (often postprandial - states this depends mostly on what she eats), Reports loose stools (on and off), Reports nausea (at times), Denies odynophagia and Denies vomiting Denies difficulty voiding, Denies nocturia, Denies dysuria and Denies urinary urgency Musc Reports back pain and Denies neck pain Skin/Breast Denies rash Neuro Denies dizziness and Denies headache(s) Endo Reports fatigue and Denies palpitations Physical exam (Primary Care) Vital Signs: Last Vital Signs Pulse 102 H 06/16/25 12:13 BP 100/62 06/16/25 12:13 Pulse Ox 94 06/16/25 12:13 Oxygen Delivery Method Room Air 06/16/25 12:13 BMI result Body Mass Index 24.8 Tobacco/Smoking Status: Tobacco use Status Tobacco use date assessed 06/16/25 06/16/25 12:18 Patient Tobacco Use Status Current everyday Tobacco 06/16/25 12:18 Tobacco use type Cigarette 06/16/25 12:18 e-Cigarette/Vaping Use Never Used 06/16/25 12:18 PHQ-9: PHQ-9 Score PHQ-9: Total score 12 06/16/25 12:48 Depression Screening Interpretation: Positive Depression Screening Follow-up: Follow-up Visit Requested Thrive Assessment: Date of Thrive Assessment Date Thrive assessed 06/16/25 06/16/25 12:18 Currently or been in a relationship where the following occur: No concerns reported Const General: no acute distress and alert HENMT Ears: TM's normal bilaterally and EAC's normal Throat: Yes posterior oropharynx normal and Yes tonsils normal (no TP congestion) Neck Neck: Yes supple and No lymphadenopathy Thyroid: diffusely enlarged and nontender Resp Auscultation: clear to auscultation bilaterally, no rales and no wheezes Cardio Rate: regular rate Rhythm: regular rhythm Heart sounds: no murmurs GI Palpation (GI): Soft to palpation, Tenderness to palpation present (GI) (diffuse but more prominent over the right side and lower abdomen), no guarding, not rigid and No Rebound tenderness present Auscultation: normal bowel sounds General: Yes no CVA tenderness Back/Spine/Pelvis Back: no CVA tenderness Thoracic/Lumbar Spine: No lumbar spinal tenderness Skin Rashes: no rashes Extrem General: Yes no clubbing, cyanosis or edema Coding Level of Care Code Est Pt Level 4 (79487) Diagnoses Abdominal pain R10.30 Abdominal location: lower abdomen, unspecified Frequent diarrhea R19.7 Endometrioid adenocarcinoma Neuropathy G62.9 Deep vein thrombosis (DVT) of iliac vein of right lower extremity, unspecified chronicity I82.421 Chronicity: unspecified Goiter E04.9 Pure hypercholesterolemia E78.00 Exertional dyspnea R06.09 Impaired fasting glucose R73.01 Vitamin D deficiency E55.9 History of breast cancer Z85.3 Insomnia, unspecified type G47.00 Insomnia type: unspecified Anxiety F41.9 Smoker F17.200 Additional Codes PHQ-9 - 74172 - PHQ-9 Billing: Yes ([id number]) Assessment & Plan Assessment & Plan (1) Abdominal pain: Code(s): R10.9 - Unspecified abdominal pain Category: Medical Qualifiers: Abdominal location: lower abdomen, unspecified Qualified Code(s): R10.30 - Lower abdominal pain, unspecified Plan: Patient states that this has been going on for a few months now and led to her recent hospitalization She is now seeing GI felt that the recommendations given to her recently, including a low FODMAP diet, have not really helped much She was started on a trial of Cipro a few days ago due to findings on her recent abdominal and pelvis CT done last month that suggested the possibility of diverticulitis but patient has not started on any antibiotics yet she is concerned that it may interact with her chemotherapy agent and wanted to check with us first before proceeding Have advised her that Cipro should be safe to take as it does not appear to have any significant interactions potentially with her current chemotherapy and immunotherapy Rx and patient states that she will start taking this later today Follow-up with GI as scheduled (2) Frequent diarrhea: Code(s): R19.7 - Diarrhea, unspecified Category: Medical Plan: She is advised that her recurrent diarrhea/loose stools may be in part due to her chemotherapy but may also be made worse by her current potential diverticulitis and may improve with a trial of oral Cipro, as prescribed by GI, which patient states that she will start taking later today (3) Endometrioid adenocarcinoma: Comment: S/P radical hysterectomy, bilateral salpingo-oophorectomy and lymph node dissection by Dr. Arturo Nye on 03/13/2021 - pathology came out as endometrioid adenocarcinoma of the endometrium with extensive squamous cell differentiation, FIGO grade 3 - underwent adjuvant radiation therapy Follow up CT and Bx done in 2021 revealed (+) RECURRENT DISEASE Category: Medical Plan: (+) recurrent disease, despite completing chemotherapy with Pembrolizumab, Carboplatin and Paclitaxel and concurrent immunotherapy She has been previously advised that her cancer is now incurable and that the goal of treatment is to prolong her life and reduce her cancer volume and symptoms She was also on immunotherapy as part of a clinical trial ([id number]) but this was discontinued and she has opted for aggressive radiation therapy to her PA vitaliy chain - she has been reportedly advised of potential damage to the small bowels given their proximity to the treatment area She completed her most recent radiation therapy for recurrent metastatic endometrial cancer on 04/03/[address] done at the time revealed a significant interval decrease in the size of the known metastases involving the infrarenal IVC Her PET scan done at [facility] in October 2023 (for her 3 month follow-up) came out negative and her subsequent imaging studies since have revealed NO progression of her cancer so far Follow-up with gynecologic oncology and radiation oncology as scheduled (4) Neuropathy: Code(s): G62.9 - Polyneuropathy, unspecified Category: Medical Plan: Continue Gabapentin 300 mg TID but patient feels that this is not helping much She was previously tried on Duloxetine but could not tolerate Rx due to side effects (stomach upset) Have advised patient there is no curative treatment for neuropathy and the best that we can do is to try to help control her symptoms so they are at least tolerable She prefers not to increase her Gabapentin dose as she recalls feeling very sedated while on 400 mg in the past (5) Deep vein thrombosis of iliac vein of right lower extremity: Comment: Most likely provoked DVT secondary to recurrent endometrioid adenocarcinoma Code(s): I82.421 - Acute embolism and thrombosis of right iliac vein Category: Medical Qualifiers: Chronicity: unspecified Qualified Code(s): I82.421 - Acute embolism and thrombosis of right iliac vein Plan: This was incidentally seen on outpatient CT in January 2023 - (+) thrombus in the right iliac vein, extending through the distal IVC and common iliac vein bifurcation Continue Eliquis 5 mg BID - Rx refilled (6) Goiter: Code(s): E04.9 - Nontoxic goiter, unspecified Category: Medical Plan: Thyroid US done back in September 2018 revealed (+) multiple cystic nodules bilaterally Repeat US done in February 2021 showed enlarged thyroid gland with multiple nodules - the majority of nodules are compatible with colloid cysts and there are 2 nodules in the left medial lobe near the isthmus and inferior lobe that appear solid and complex cystic and are decreased in size from previous exam Recent thyroid US done on 09/27/2022 at [facility] revealed a generalized thyromegaly with multiple colloid cysts within both lobes and the isthmus, especially in the midportion of the right lobe. There is a 1.6 cm TI-RADS category 4 nodule in the lower pole of the left lobe and a 1 year follow-up exam is recommended to assess stability of this Biopsies done in the past were all reportedly benign She had another thyroid biopsy done in September 2023 that also came back benign Her most recent TFTs redone at [facility] a few months ago were reportedly within normal limits; she has had no follow-up TFTs done since Follow up with [facility] Endocrinology as scheduled (7) Pure hypercholesterolemia: Code(s): E78.00 - Pure hypercholesterolemia, unspecified Category: Medical Plan: Reiiforced low cholesterol diet Continue Atorvastatin 80 mg QD (8) Exertional dyspnea: Code(s): R06.09 - Other forms of dyspnea Category: Medical Plan: CT chest done over the past couple of years have mentioned that patient has a borderline heart size She has also undergone Tx with Carboplatin and Paclitaxel for her endometrial carcinoma and these are known to be associated with cardiac side effects, including CHF and myocardial toxicity Echocardiogram done in December 2024 revealed (+) mildly decreased left ventricular systolic function with the calculated ejection fraction at 52% by biplane method and possible basal inferior hypokinesis. There is (+) aortic valve sclerosis but no significant stenosis, with mild mitral valve regurgitation and mild dilatation of the ascending aorta measuring 4.10 cm (9) Impaired fasting glucose: Code(s): R73.01 - Impaired fasting glucose Category: Medical Plan: Her fasting serum glucose was slightly elevated at 108 mg/dl on her labs done about 3 weeks ago In-office HgbA1c was normal at 5.3% when previously checked Reinforced low calorie/low carb diet (10) Vitamin D deficiency: Code(s): E55.9 - Vitamin D deficiency, unspecified Category: Medical Plan: Continue Vitamin D3 1000 units QD (11) History of breast cancer: Code(s): Z85.3 - Personal history of malignant neoplasm of breast Category: Medical Plan: She was previously on Tamoxifen 20 mg QD but this was held due to her recurrent endometrial cancer She was eventually switched over to Letrozole 2.5 mg QD but this was also held recently due to side effects - (+) abdominal pain and back pain while on the medication Follow up with oncology as scheduled for continuing surveillance (12) Insomnia: Code(s): G47.00 - Insomnia, unspecified Category: Medical Qualifiers: Insomnia type: unspecified Qualified Code(s): G47.00 - Insomnia, unspecified Plan: Sleep hygiene reinforced Continue Trazodone 50 mg 1 to 2 tablets Q HS PRN (13) Anxiety: Code(s): F41.9 - Anxiety disorder, unspecified Category: Medical Plan: Continue Lorazepam 1 mg 2 to 3 times a day as needed She was also on Citalopram 10 mg QD in the past but this was discontinued when she was started on Duloxetine for her increasing neuropathic symptoms in her legs a few months ago Duloxetine has since been discontinued due to side effects (upset stomach) Will consider starting her back on Citalopram if her anxiety symptoms get worse (14) Smoker: Code(s): F17.200 - Nicotine dependence, unspecified, uncomplicated Category: Social Hx Plan: Patient is again counseled on complete smoking cessation Plan Follow up in 2 months Medications: Changed From apixaban (Eliquis) 5 mg PO BID To Eliquis (apixaban) 5 mg PO BID 180 tabs 1RF 90 days NS
--- OUTSIDE RECORDS SUMMARY | 2025-06-16 13:05 | XMS_ITS | Clinical Summary ---
Author Organization [facility] Address [address] [facility] [address] [place] [phone] Phone Care Team Providers Care Oil Analyst Name Role Phone Zoltan Weems MD Primary Care Provider [phone] Arturo Nye MD Unavailable [phone] Allergies No known active allergies Medications atorvastatin [...] topic Medical Devices Not on file [place] [address] [place] [address] HMO HMO HMO HMO HMO O O O [facility] HMO Care Teams Oil Analyst Relationship Specialty Start Date End Date Zoltan Weems MD [address] [place] [id number] PCP - General Internal Medicine 01/02/22 Arturo Nye MD [address] [place] [address] 4B_OB/[place] [address] Obstetrics and Gynecology 01/02/22 Additional Source Comments The information contained in this document represents components of the legal health record. It is not the complete legal health record.[facility]
== END 2025-06-16 12:53 | disposition home or self-care (01) ==
LOC: HO.HMCH 12:11
PROVIDERS: PCP Internal Medicine; Visit Provider Internal Medicine
DX: R10.30 Lower abdominal pain, unspecified (principal); R19.7 Diarrhea, unspecified; G62.9 Polyneuropathy, unspecified; I82.421 Acute embolism and thrombosis of right iliac vein; E04.9 Nontoxic goiter, unspecified; E78.00 Pure hypercholesterolemia, unspecified; R06.09 Other forms of dyspnea; R73.01 Impaired fasting glucose; E55.9 Vitamin D deficiency, unspecified; Z85.3 Personal history of malignant neoplasm of breast; G47.00 Insomnia, unspecified; F41.9 Anxiety disorder, unspecified; F17.200 Nicotine dependence, unspecified, uncomplicated

== ENCOUNTER → 2025-06-16 12:10 | Outpatient (BNVA) | payer OTHER, SELFPAY | PROVIDERS: PCP Internal Medicine; Visit Provider Internal Medicine | DX: I82.421 Acute embolism and thrombosis of right iliac vein (principal); R10.30 Lower abdominal pain, unspecified; R19.7 Diarrhea, unspecified; E04.9 Nontoxic goiter, unspecified; E78.00 Pure hypercholesterolemia, unspecified; R06.09 Other forms of dyspnea; R73.01 Impaired fasting glucose; E55.9 Vitamin D deficiency, unspecified; G47.00 Insomnia, unspecified; F41.9 Anxiety disorder, unspecified; F17.210 Nicotine dependence, cigarettes, uncomplicated; Z85.3 Personal history of malignant neoplasm of breast | CPT/HCPCS: 96127 ==

== ENCOUNTER 2025-06-29 14:54 | Outpatient (REF) | payer OTHER, SELFPAY ==
[2025-06-29 16:19] LABS: MANUAL DIFF FLAG NO
[2025-06-29 17:22] LABS: Hematocrit 32.7 % (37.0-47.0); Hemoglobin 9.7 g/dl (12.0-16.0); Imm Gran Abs Auto 0.03 X10*3/uL (0.00-0.03); Imm Gran Pct Auto 0.4 % (0.0-0.4); Lymphocytes Absolute Auto 1.1 X10*3/uL (1.2-4.9); Mean Corpuscular HGB Conc 29.7 g/dl (31.0-35.0); Mean Corpuscular Hemoglobin 23.0 pg (27.0-33.0); Mean Corpuscular Volume 77.5 fL (80.0-98.0); NRBC Abs Auto 0.000 X10*3/uL (0.0-0.012); NRBC Pct Auto 0.0 /100WBC (0.0-0.2); Platelet Count 373 X10*3/uL (160-400); Red Blood Count 4.22 X10*6/uL (4.20-5.50); White Blood Count 6.8 X10*3/uL (4.8-10.8)
[2025-06-29 17:31] LABS: INTERNATIONAL NORM RATIO 1.3 (0.9-1.1); Prothrombin Time 15.1 SEC (10.9-12.4)
[2025-06-29 17:33] LABS: Partial Thromboplastin Time 29.4 SEC (26.7-34.1)
[2025-06-29 17:59] LABS: Alanine Aminotransferase 26 U/L (0-31); Albumin Level 4.2 g/dL (3.5-5.0); Alkaline Phosphatase 128 U/L (39-117); Anion Gap 12 (12-20); Aspartate Amino Transferase 25 U/L (5-31); Blood Urea Nitrogen 15 mg/dL (9-16); Calcium 9.2 mg/dL (8.4-10.2); Carbon Dioxide 27 mmol/L (22-29); Chloride 103 mmol/L (96-108); Estimated Glomerular Filt Rate > 60; Lipase 21 U/L (8-78); Potassium 3.3 mmol/L (3.3-5.1); Sodium 139 mmol/L (135-145); Total Protein 6.8 g/dL (6.5-8.0)
== END 2025-06-29 14:55 | disposition home or self-care (01) ==
LOC: HO.LAB 14:54
PROVIDERS: PCP Internal Medicine; Visit Provider Nurse Practitioner Family
DX: K58.2 Mixed irritable bowel syndrome (principal); R10.30 Lower abdominal pain, unspecified; R14.0 Abdominal distension (gaseous); K92.1 Melena; D64.9 Anemia, unspecified
CPT/HCPCS: 36415; 80053; 83605; 83690; 85025; 85610; 85652; 85730; 86140

== ENCOUNTER 2025-06-29 14:54 | Outpatient (AMB) | payer OTHER, SELFPAY ==
--- OUTSIDE RECORDS SUMMARY | 2025-06-23 23:59 | XMS_ITS | Continuity of Care Document ---
Author Organization [facility] SMART ENERGY SPECIALIST Oncolog y Address [address] [place] [address]- Care Team Providers Care Event Marketing Representative Name Role Phone Dank DE LEÓN, Zoltan Black Primary Care Physician Encounter [facility] Date(s): 05/24/25 - 06/23/25 [facility] SMART ENERGY SPECIALIST Oncology [address] [place] [address] Encounter Type: Triage Allergies, Adverse Reactions, [...] 2:44:00 PM EST, Route to Pharmacy Electronically, [facility]/pharmacy #1972, Partial fill upon patient request if [...] 2:47:00 PM EDT, Route to Pharmacy Electronically, [facility]/pharmacy #1972, Partial fill upon patient request if [...] Replace Required Details, Route to Pharmacy Electronically, [facility] STORE [id number], 165.5, cm, 03/22/25 10:07:00 EDT, Height, 70, [...] Soft Stop, 10/31/23 3:27:00 PM EST, Cream, [facility], Partial fill upon patient request if [...] Maintenance, 05/24/25 9:18:00 AM EDT, REC Powder, [facility], Partial fill upon patient request if [...] 9:15:00 AM EDT, Route to Pharmacy Electronically, [facility], Partial fill upon patient request if [...] 9:14:00 AM EDT, Route to Pharmacy Electronically, [facility], Partial fill upon patient request if [...] Nausea, # 30 tablet, 2 Refills, Maintenance, :09:00 PM EDT, Tablet, [facility]/pharmacy #1972, Partial fill upon patient request if [...] Active Hematuria Confirmed Active Breast asymmetry between [place] breast and reconstructed breast Confirmed Active Elevated [...] on: 07/29/22 Sex Sex Representation Female (finding) Patient Care team information Care Team Personnel Name: Krystyna Merlos RN Position: [facility] RN Member Role: Primary Care Nurse Name: Jessica Keith RN Position: [facility] RN Member Role: Primary Care Nurse Name: Meryl Balderrama RN Position: [facility] RN Member Role: Primary Care Nurse Name: Zoltan Weems MD Position: Reference Physician Member Role: PCP Address: [address] [place] [address] Telecom: Name: Rory Camargo RN Position: [facility] RN Member Role: Primary Care Nurse Name: Karen Moore RN Position: [facility] RN Member Role: Primary Care Nurse Name: Kadie Norris RN Position: [facility] RN Member Role: Primary Care Nurse Name: Lacey Yi RN Position: [facility] RN Member Role: Primary Care Nurse Name: Lexie Carnes RN Position: [facility] RN Member Role: Primary Care Nurse Name: Paz Pierre LPN Position: [facility] RN Member Role: Primary Care Nurse Name: Nisha Miller RN Position: S RN Member Role: Primary Care Nurse Name: Fatou Fuller RN Position: S RN Member Role: Primary Care Nurse Name: Milly Parry RN Position: [facility] RN Member Role: Primary Care Nurse Name: Sandra Root RN Position: [facility] RN Member Role: Primary Care Nurse Name: Yvonne Jansen RN Position: [facility] Onco RN Member Role: Primary Care Nurse Name: Stella Chacko RN Position: [facility] Onco RN Member Role: Primary Care Nurse Name: Guillermina Bradford RN Position: [facility] Onco RN Member Role: Primary Care Nurse Name: Anita Maldonado RN Position: [facility] RN Member Role: Primary Care Nurse Name: Gilmar Trevizo RN Position: [facility] Onco RN Member Role: Primary Care Nurse Name: Maria T Gaston LPN Position: [facility] RN Member Role: Primary Care Nurse Name: Anibal Courtney RN Position: [facility] RN Member Role: Primary Care Nurse Care Team Related Persons Name: PATRICE HINOJOSA Name: CLIVE DELUCA Name: TREVA DELUCA Name: LEO DELUCA Insurance Providers Guarantor name: EMERALD SANDRINE Health Plan Information #: 1 Payer: [facility] BAYCARE HP Payer Identifier: PRINCE Member Number: [id number] Group Number: [id number] Subscriber Identifier: [id number] Relationship to Subscriber: self Coverage Type: NA Coverage Verification Date: Telecom: NA Address: Health Plan Information #: 2 Payer: [facility] FF NON P HMO P Payer Identifier: PRINCE Member Number: [id number] Group Number: [id number] Subscriber Identifier: [id number] Relationship to Subscriber: self Coverage Type: Other Private Insurance Coverage Verification Date: Telecom: Address:
--- OUTSIDE RECORDS SUMMARY | 2025-06-23 23:59 | XMS_ITS | Continuity of Care Document ---
Author Organization [facility] Oncolog y Address [address] [place] [address]- Care Team Providers Care Telemetry Tech Name Role Phone Dank DE LEÓN, Zoltan Black Primary Care Physician Encounter [facility] Date(s): 05/24/25 - 06/23/25 [facility] Oncology [address] [place] [address]- Attending Physician: Admtr, Ar8 Admitting Physician: Admtr, Ar8 Referring Physician: Admtr, Ar8 Encounter Type: Triage [...] 2:44:00 PM EST, Route to Pharmacy Electronically, [facility]/pharmacy #1972, Partial fill upon patient request if [...] Refills, Maintenance, 04/18/25 12:46:00 PM EDT, Tablet, [facility], Partial fill upon patient request [...] 8:36:00 AM EDT, Route to Pharmacy Electronically, [facility], Partial fill uponpatient request if [...] Refills, Maintenance, 05/24/25 9:25:00 AM EDT, Tablet, [facility], Partial fill upon patient request [...] 2:47:00 PM EDT, Route to Pharmacy Electronically, [facility]/pharmacy #1972, Partial fill upon patient request if [...] Replace Required Details, Route to Pharmacy Electronically, [facility] STORE [id number], 165.5, cm, 03/22/25 10:07:00 EDT, Height, 70, [...] AM EDT, 05/24/25 9:25:00 AM EDT, Tablet, [facility], Partial fill upon patient request [...] Soft Stop, 10/31/23 3:27:00 PM EST, Cream, [facility]/pharmacy #1972, Partial fill upon patient request if [...] 2 Refills, Maintenance, 254:09:00 PM EDT, Tablet, [facility], Partial fill upon patient request [...] Active Hematuria Confirmed Active Breast asymmetry between [place] breast and reconstructed breast Confirmed Active Elevated [...] on: 07/29/22 Sex Sex Representation Female (finding) Laboratory * Event Display: Non Lab Results Authored Date: * Event Display: Non Lab Results Authored Date: * Event Display: Non Lab Results Authored Date: Radiology * Event Display: IR Special Procedures, Non-BH Authored Date: Patient Care team information Care Team Personnel Name: Krystyna Merlos RN Position: S RN Member Role: Primary Care Nurse Name: Jessica Keith RN Position: [facility] RN Member Role: Primary Care Nurse Name: Meryl Balderrama RN Position: S RN Member Role: Primary Care Nurse Name: Zoltan Weems MD Position: Reference Physician Member Role: PCP Address: [address] [place] [address] [place] [address]- Telecom: Name: Rory Camargo RN Position: S RN Member Role: Primary Care Nurse Name: Karen Moore RN Position: S RN Member Role: Primary Care Nurse Name: Kadie Norris RN Position: S RN Member Role: Primary Care Nurse Name: Lacey Yi RN Position: [facility] RN Member Role: Primary Care Nurse Name: Lexie Carnes RN Position: [facility] RN Member Role: Primary Care Nurse Name: Paz Pierre LPN Position: [facility] RN Member Role: Primary Care Nurse Name: Nisha Miller RN Position: S RN Member Role: Primary Care Nurse Name: Fatou Fuller RN Position: [facility] RN Member Role: Primary Care Nurse Name: Milly Parry RN Position: [facility] RN Member Role: Primary Care Nurse Name: Sandra Root RN Position: [facility] RN Member Role: Primary Care Nurse Name: Yvonne Jansen RN Position: [facility] Onco RN Member Role: Primary Care Nurse Name: Stella Chacko RN Position: [facility] Onco RN Member Role: Primary Care Nurse Name: Guillermina Bradford RN Position: [facility] Onco RN Member Role: Primary Care Nurse Name: Anita Maldonado RN Position: [facility] RN Member Role: Primary Care Nurse Name: Gilmar Trevizo RN Position: [facility] Onco RN Member Role: Primary Care Nurse Name: Maria T Gaston LPN Position: [facility] RN Member Role: Primary Care Nurse Name: Anibal Courtney RN Position: [facility] RN Member Role: Primary Care Nurse Care Team Related Persons Name: ASHISH, PATRICE Name: CLIVE DELUCA Name: TREVA DELUCA Name: LEO DELUCA Insurance Providers Guarantor name: EMERALD DELUCA Health Plan Information #: 1 Payer: [facility] H[facility] BAYCARE HP Payer Identifier: NA Member Number: [id number] Group Number: [id number] Subscriber Identifier: [id number] Relationship to Subscriber: self Coverage Type: NA Coverage Verification Date: NA Telecom: NA Address: NA Health Plan Information #: 2 Payer: [facility] FF NON BHP HMO P Payer Identifier: NA Member Number: [id number] Group Number: [id number] Subscriber Identifier: [id number] Relationship to Subscriber: self Coverage Type: Other Private Insurance Coverage Verification Date: NA Telecom: NA Address:
--- OUTSIDE RECORDS SUMMARY | 2025-06-23 23:59 | XMS_ITS | Continuity of Care Document ---
Author Organization [facility] PACKER Oncolog y Address [address] [place] [address]- Care Team Providers Care Math Interventionist Name Role Phone Dank DE LEÓN, Zoltan Black Primary Care Physician [phone] [id number] Date[facility]): [facility] - 06/23/25 [facility]UNDLE PACKER Oncology [address] [place] [address] Attending Physician: Arturo Nye MD Admitting Physician: Arturo Nye MD Encounter Type: Pre-OutPatient One Time Allergies, Adverse Reactions, Alerts No Known Allergies [...] 2:44:00 PM EST, Route to Pharmacy Electronically, [facility]/pharmacy #1972, Partial fill upon patient request [...] Refills, Maintenance, 04/18/25 12:46:00 PM EDT, Tablet, [facility], Partial fill upon patient request [...] 8:36:00 AM EDT, Route to Pharmacy Electronically, [facility], Partial fill uponpatient request if [...] Refills, Maintenance, 05/24/25 9:25:00 AM EDT, Tablet, [facility], Partial fill upon patient request [...] 2:47:00 PM EDT, Route to Pharmacy Electronically, [facility]/pharmacy #1972, Partial fill upon patient request [...] Replace Required Details, Route to Pharmacy Electronically, [facility] STORE [id number], 165.5, cm, 03/22/25 10:07:00 EDT, Height, 70, [...] AM EDT, 05/24/25 9:25:00 AM EDT, Tablet, [facility], Partial fill upon patient request [...] Soft Stop, 10/31/23 3:27:00 PM EST, Cream, [facility]/pharmacy #1972, Partial fill upon patient request [...] Active Hematuria Confirmed Active Breast asymmetry between [place] breast and reconstructed breast Confirmed Active Elevated [...] Team Personnel Name: Krystyna Merlos RN Position: [facility] RN Member Role: Primary Care Nurse Name: Jessica Keith RN Position: [facility] RN Member Role: Primary Care Nurse Name: Meryl Balderrama RN Position: [facility] RN Member Role: Primary Care Nurse Name: Zoltan Weems MD Position: Reference Physician Member Role: PCP Address: [address] [place] [address] Telecom: Name: Rory Camargo RN Position: [facility] RN Member Role: Primary Care Nurse Name: Karen Moore RN Position: S RN Member Role: Primary Care Nurse Name: Kadie Norris RN Position: S RN Member Role: Primary Care Nurse Name: Lacey Yi RN Position: S RN Member Role: Primary Care Nurse Name: Lexie Carnes RN Position: [facility] RN Member Role: Primary Care Nurse Name: Paz Pierre LPN Position: [facility] RN Member Role: Primary Care Nurse Name: Nisha Miller RN Position: [facility] RN Member Role: Primary Care Nurse Name: Fatou Fuller RN Position: [facility] RN Member Role: Primary Care Nurse Name: Milly Parry RN Position: [facility] RN Member Role: Primary Care Nurse Name: Sandra Root RN Position: [facility] RN Member Role: Primary Care Nurse Name: Yvonne Jansen RN Position: [facility] Onco RN Member Role: Primary Care Nurse Name: Stella Chacko RN Position: [facility] Onco RN Member Role: Primary Care Nurse Name: Guillermina Bradford RN Position: [facility] Onco RN Member Role: Primary Care Nurse Name: Anita Maldonado RN Position: [facility] RN Member Role: Primary Care Nurse Name: Gilmar Trevizo RN Position: [facility] Onco RN Member Role: Primary Care Nurse Name: Maria T Gaston LPN Position: [facility] RN Member Role: Primary Care Nurse Name: Anibal Courtney RN Position: [facility] RN Member Role: Primary Care Nurse Care Team Related Persons Name: ASHISH, DEFAULTED Name: CLIVE DELUCA Name: TREVA DELUCA Name: LEO DELUCA Insurance Providers Guarantor name: EMERALD DELUCA Health Plan Information #: 1 Payer: [facility] BAYCARE HP Payer Identifier: Member Number: [id number] Group Number: [id number] Subscriber Identifier: [id number] Relationship to Subscriber: self Coverage Type: NA Coverage Verification Date: Telecom: NA Address: [facility] Information #: 2 Payer: [facility] FF NON BHP HMO P Payer Identifier: Member Number: [id number] Group Number: [id number] Subscriber Identifier: [id number] Relationship to Subscriber: self Coverage Type: Other Private Insurance Coverage Verification Date: Telecom: Address:
--- OUTSIDE RECORDS SUMMARY | 2025-06-24 23:59 | XMS_ITS | Continuity of Care Document ---
Author Organization [facility] ter Address [address] [place] [address]- Care Team Providers Care Environmental Planner Name Role Phone Dank DE LEÓN, Zoltan Black Primary Care Physician [place] [id number] Date(s): 05/24/25 - 06/24/[address] [address] Attending Physician: Arturo Nye MD Admitting Physician: Arturo Nye MD Referring Physician: Arturo Nye MD Encounter Type: Pre-Outpt Allergies, Adverse Reactions, Alerts No Known Allergies [...] EST, Route to Pharmacy Electronically, [facility]/pharmacy #1972, Partial fill upon patient [...] Refills, Maintenance, 04/18/25 12:46:00 PM EDT, Tablet, [facility], Partial fill upon patient request [...] 8:36:00 AM EDT, Route to Pharmacy Electronically, [facility], Partial fill uponpatient request if [...] Refills, Maintenance, 05/24/25 9:25:00 AM EDT, Tablet, [facility], Partial fill upon patient request [...] EDT, Route to Pharmacy Electronically, [facility]/pharmacy #1972, Partial fill upon patient [...] Details, Route to Pharmacy Electronically, [facility] STORE 11661, 165.5, cm, 03/22/25 10:07:00 EDT, Height, 70, [...] AM EDT, 05/24/25 9:25:00 AM EDT, Tablet, [facility], Partial fill upon patient request if [...] 10/31/23 3:27:00 PM EST, Cream, [facility]/pharmacy #1972, Partial fill upon patient [...] 2 Refills, Maintenance, :09:00 PM EDT, Tablet, [facility]/pharmacy #1972, Partial fill upon patient [...] Active Hematuria Confirmed Active Breast asymmetry between [place] breast and reconstructed breast Confirmed Active Elevated [...] Team Personnel Name: Krystyna Merlos RN Position: [facility] RN Member Role: Primary Care Nurse Name: Jessica Keith RN Position: [facility] RN Member Role: Primary Care Nurse Name: Meryl Balderrama RN Position: [facility] RN Member Role: Primary Care Nurse Name: Zoltan Weems MD Position: Reference Physician Member Role: PCP Address: [address] [place] [address] Telecom: Name: Rory Camargo RN Position: [facility] RN Member Role: Primary Care Nurse Name: Karen Moore RN Position: [facility] RN Member Role: Primary Care Nurse Name: Kadie Norris RN Position: [facility] RN Member Role: Primary Care Nurse Name: Lacey Yi RN Position: [facility] RN Member Role: Primary Care Nurse Name: Lexie Carnes RN Position: [facility] RN Member Role: Primary Care Nurse Name: Paz Pierre LPN Position: S RN Member Role: Primary Care Nurse Name: Nisha Miller RN Position: [facility] RN Member Role: Primary Care Nurse Name: Fatou Fuller RN Position: [facility] RN Member Role: Primary Care Nurse Name: Milly Parry RN Position: [facility] RN Member Role: Primary Care Nurse Name: Sandra Root RN Position: [facility] RN Member Role: Primary Care Nurse Name: Yvonne Jansen RN Position: [facility] Onco RN Member Role: Primary Care Nurse Name: Stella Chacko RN Position: [facility] Onco RN Member Role: Primary Care Nurse Name: Guillermina Bradford RN Position: [facility] Onco RN Member Role: Primary Care Nurse Name: Anita Maldonado RN Position: [facility] RN Member Role: Primary Care Nurse Name: Gilmar Trevizo RN Position: [facility] Onco RN Member Role: Primary Care Nurse Name: Maria T Gaston LPN Position: [facility] RN Member Role: Primary Care Nurse Name: Anibal Courtney RN Position: [facility] RN Member Role: Primary Care Nurse Care Team Related Persons Name: ASHISH, DEFAULTED Name: CLIVE DELUCA Name: TREVA DELUCA Name: LEO DELUCA Insurance Providers Guarantor name: EMERALD DELUCA Health Plan Information #: 1 Payer: [facility] HMO BAYCARE HP Payer Identifier: Member Number: [id number] Group Number: [id number] Subscriber Identifier: [id number] Relationship to Subscriber: self Coverage Type: NA Coverage Verification Date: NA Telecom: NA Address: NA [facility] Plan Information #: 2 Payer: [facility] FF NON BHP HMO P Payer Identifier: Member Number: [id number] Group Number: [id number] Subscriber Identifier: [id number] Relationship to Subscriber: self Coverage Type: Other Private Insurance Coverage Verification Date: NA Telecom: NA Address:
[2025-06-29 15:00] VITALS: BP 88/52; PULSE 102; O2SAT 96; BMI 24.5
--- NOTE | 2025-06-29 15:00 | A.OFFVIS_ITS ---
Vital Signs 06/29/25 15:00 Height 5 ft 5 in Weight 147 lb BMI 24.5 BP 88/52 L Blood Pressure Location Lt brachial Position Sitting Pulse 102 H Pulse Source Pulse Oximeter Pulse Oximetry (%) 96 Oxygen Delivery Method Room Air Intake Visit Reasons: Urgent appt. Sx persistence despite trx. Intake Note: Est pt mgmt for lower abd pain, anemia, melena. Worsening abd pain. CC: C.O. chronic sx mgmt + progressively worsening presentation. Pt denies any new sx or concerns at this time. Rn Recovery Required: No Accompanied by: Family/Other Allergies duloxetine Allergy (Intermediate, Verified 06/29/25 15:00) Stomach Upset HPI HPI Urgent appt. Sx persistence despite trx.: Details: LAST VISIT: Frequent diarrhea Abdominal pain Irritable bowel syndrome Constipation Plan Will start patient on Cipro, suspect diverticulitis/colitis. Patient is unable to lay down for CT scan. CT scan was done while in the ED couple weeks ago. Patient was not started on any antibiotics, however the results showed: ? GASTROINTESTINAL TRACT: Mild wall thickening of the ascending colon is noted. The transverse colon is normal. The descending colon, and sigmoid colon demonstrate mild wall thickening but are decompressed, possibly a spurious finding from underdistention. Mild rectal wall thickening is present. The small bowel is normal in caliber and course. No CT evidence of appendicitis. The stomach, and duodenal sweep appear normal. ? Patient will also start taking dicyclomine as needed for cramps. Simethicone for gas. She will wait couple days before starting fiber therapy with pre and probiotics. If she will become constipated she can start taking MiraLax again. Patient will call our office next week with update. Patient has appointment for follow-up in August. She will call us if she will have any GI concerning symptoms. Patient is agreeable to this plan and verbalizes understanding of instructions. She was given the opportunity to ask questions and all questions answered. ? Thank you for allowing me to participate in her care New simethicone 125 mg PO BID-QID PRN 120 caps 3RF abdominal distention ciprofloxacin HCl 500 mg PO BID 14 tabs 0RF dicyclomine 10 mg PO TID 90 caps 2RF K58.9 TODAY'S VISIT: Patient is here today for requested visit. She continues to have a postprandial loose stools occasionally. Currently is on chemotherapy. Patient reports abdominal bloating. Symptoms of bloating no matter what she eats. Sometimes feeling bloated without even eating anything. Patient denies any nausea or vomiting. Denies any dyspepsia, dysphagia or odynophagia. Denies melena, hem atochezia, unintentional weight loss or ribbon like stools. Patient reports abdominal cramping and pain in the left upper in left lower quadrant. Sometimes patient reports pain in the right lower quadrant as well. 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 Overweight (BMI 25.0-29.9) Insomnia History of breast cancer Peripheral polyneuropathy Primary osteoarthritis of right hip Vitamin D deficiency Smoker Pure hypercholesterolemia Goiter Anxiety Surgical History Status post right hip replacement H/O: hysterectomy (~03/13/21) History of reduction surgery of right breast History of open reduction and internal fixation (ORIF) procedure Family History Father Cancer Mother CVD (cardiovascular disease) Social History Household Members: Family Housing: House Alcohol intake: current Alcohol intake frequency: holidays/special occasions only Patient Tobacco Use Status: Current everyday Tobacco user Tobacco use type: Cigarette Cigarette Packs Per Day: 0.5 e-Cigarette/Vaping Use: Never Used Second Hand Smoke Exposure: Yes service: No Current occupational status: employed 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 Current occupational exposures/hazards: No Gender identity: Female Cognitive needs: No Hearing needs: No Vision needs: No Review of Systems Const Denies body aches, Denies chills and Denies fever(s) Eyes Reports no additional complaints ENT Reports no additional complaints Card Denies chest pain, Denies syncope and Denies dyspnea Resp Denies dyspnea GI Reports as per HPI, Denies melena, Denies hematochezia and Reports constipation Reports no additional complaints Musc Reports no additional complaints Skin/Breast Reports system reviewed and no additional complaints, except as documented Neuro Denies syncope Physical Exam Vital Signs: Last Vital Signs Pulse 102 H 06/29/25 15:00 BP 88/52 L 06/29/25 15:00 Pulse Ox 96 06/29/25 15:00 Oxygen Delivery Method Room Air 06/29/25 15:00 BMI result Body Mass Index 24.5 Const General: cooperative, healthy appearing and comfortable Nutritional Appearance: average body habitus Orientation/consciousness: patient oriented x3 Limitations: no limitations Resp Effort & Inspection: normal respiratory effort and able to speak in complete sentences Auscultation: clear to auscultation bilaterally Cardio Rate: regular rate Peripheral pulses: Peripheral pulses 2+ throughout GI Inspection: Yes normal to inspection and No distended Palpation (GI): No hepatosplenomegaly present and No Rebound tenderness present Percussion: Yes normal to percussion Auscultation: normal bowel sounds Back/Spine/Pelvis Cervical Spine: cervical ROM normal and No cervical muscular tenderness Thoracic/Lumbar Spine: thoracic and lumbar spine normal to inspection Skin General skin exam: no rashes or lesions noted, elasticity normal and turgor normal Neuro General: patient oriented x3 Extrem General: Yes normal to inspection, Yes full ROM and Yes capillary refill normal Psych Appearance: grossly normal Mental Status: mental status grossly normal Assessment & Plan Assessment & Plan (1) Frequent diarrhea: Code(s): R19.7 - Diarrhea, unspecified Category: Medical (2) Abdominal pain: Code(s): R10.9 - Unspecified abdominal pain Category: Medical Qualifiers: Abdominal location: lower abdomen, unspecified Qualified Code(s): R10.30 - Lower abdominal pain, unspecified (3) Irritable bowel syndrome: Code(s): K58.9 - Irritable bowel syndrome, unspecified Qualifiers: Irritable bowel syndrome type: with both diarrhea and constipation Qualified Code(s): K58.2 - Mixed irritable bowel syndrome (4) Constipation: Code(s): K59.00 - Constipation, unspecified Qualifiers: Constipation type: slow transit constipation Qualified Code(s): K59.01 - Slow transit constipation Plan Will check CRP and fecal calprotectin to rule out colitis. Patient was encouraged to take fiber supplement with pre and probiotic and take senna to help her empty her bowels. Continue low FODMAP diet even though patient believes that it is not helping. It my me help and decrease bloating. May use dicyclomine as needed for cramping, use simethicone for bloating. Patient has a follow-up appointment end of this month. Patient is agreeable to current plan of care and verbalizes understanding of instructions. She was given the opportunity to ask questions and all questions answered. Thank you for allowing me to participate in her care Orders: Orders C Reactive Protein 06/29/25 K58.9 - Irritable bowel syndrome, unspecified Calprotectin, Fecal 07/01/25 R15.9 - Full incontinence of feces Medications: New sennosides (Natural Senna Laxative) 17.2 mg (2 x 8.6 mg) PO BEDTIME 60 tabs 3RF constipation K59.00 - Constipation, unspecified Coding Level of Care Code Est Pt Level 4 (79577) Complex EM visit Add On G2211 Diagnoses Frequent diarrhea R19.7 Abdominal pain R10.30 Abdominal location: lower abdomen, unspecified Irritable bowel syndrome with both constipation and diarrhea K58.2 Irritable bowel syndrome type: with both diarrhea and constipation Slow transit constipation K59.01 Constipation type: slow transit constipation Time Spent (min) 35 Comment 25 minutes spent with patient and additional 10 minutes spent reviewing her records
--- OUTSIDE RECORDS SUMMARY | 2025-06-29 16:17 | XMS_ITS | Clinical Summary ---
Author Organization [facility] Address [address] [facility] [address] [place] [address] Phone Care Team Providers Care Caster Helper Name Role Phone Zoltan Weems MD Primary Care Provider [phone] Arturo Nye MD Unavailable [phone] Allergies No known active allergies Medications atorvastatin [...] topic Medical Devices Not on file [place] [address] [address] HMO HMO HMO HMO HMO O O O [facility] HMO Care Teams Caster Helper Relationship Specialty Start Date End Date Zoltan Weems MD [address] [place] [address] PCP - General Internal Medicine 01/02/22 Arturo Nye MD [address] [place] [address] 4B_OB/GUEST [place] [address] Obstetrics and Gynecology 01/02/22 Additional Source Comments The information contained in this document represents components of the legal health record. It is not the complete legal health record.[facility]
== END 2025-06-29 16:10 | disposition home or self-care (01) ==
LOC: HO.HGI 14:55
PROVIDERS: PCP Internal Medicine; Visit Provider Nurse Practitioner Family
DX: R19.7 Diarrhea, unspecified (principal); R10.30 Lower abdominal pain, unspecified; K58.2 Mixed irritable bowel syndrome; K59.01 Slow transit constipation
CPT/HCPCS: 99214; G2211

== ENCOUNTER 2025-07-01 15:38 | Outpatient (REF) | payer OTHER, SELFPAY ==
--- OUTSIDE RECORDS SUMMARY | 2025-07-01 15:40 | XMS_ITS | Clinical Summary ---
Author Organization [facility] Address [address] [employer] [facility] [address] [place] [address] Phone Care Team Providers Care Acetaldehyde Converter Operator Name Role Phone Zoltan Weems MD Primary Care Provider [phone] Arturo Nye MD Unavailable [phone] Allergies No known active allergies Medications atorvastatin [...] topic Medical Devices Not on file [place] [address] [address] [address] HMO HMO HMO HMO HMO O O O [facility] HMO Care Teams Acetaldehyde Converter Operator Relationship Specialty Start Date End Date Zoltan Weems MD [address] [place] [id number] PCP - General Internal Medicine 01/02/22 Arturo Nye MD [address] [place] [address] 4B_OB/[place] [address] Obstetrics and Gynecology 01/02/22 Additional Source Comments The information contained in this document represents components of the legal health record. It is not the complete legal health record.[facility]
[2025-07-09 18:59] LABS: Calprotectin, Fecal 89 mcg/g
== END 2025-07-01 15:39 | disposition home or self-care (01) ==
LOC: HO.LNP 15:38
PROVIDERS: Visit Provider Nurse Practitioner Family
DX: R15.9 Full incontinence of feces (principal)
CPT/HCPCS: 83993

== ENCOUNTER 2025-08-01 09:29 | Outpatient (AMB) | payer OTHER, SELFPAY ==
--- NOTE | 2025-08-01 09:30 | A.OFFVIS_ITS ---
Vital Signs 08/01/25 09:38 Height 5 ft 5 in Weight 147 lb BMI 24.5 BP 136/72 Blood Pressure Location Lt radial Position Sitting Pulse 86 Pulse Source Pulse Oximeter Pulse Oximetry (%) 97 Oxygen Delivery Method Room Air Intake Visit Reasons: 8w cologuard Intake Note: Est pt mgmt for lower abd pain, anemia, melena. CC: C.O. sx persistence despite current therapies. Pt reports having multiple episodes throughout the weekend. 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 Patient was encouraged to take fiber supplement with pre and probiotic and take senna to help her empty her bowels. Continue low FODMAP diet even though patient believes that it is not helping. It my me help and decrease bloating. May use dicyclomine as needed for cramping, use simethicone for bloating. Patient has a follow-up appointment end of this month. Patient is agreeable to current plan of care and verbalizes understanding of instructions. She was given the opportunity to ask questions and all questions answered. ? Thank you for allowing me to participate in her care Orders C Reactive Protein 06/29/25 K58.9 Calprotectin, Fecal 07/01/25 R15.9 New sennosides (Natural Senna Laxative) 17.2 mg (2 x 8.6 mg) PO BEDTIME 60 tabs 3RF constipation K59.00 TODAY'S VISIT Patient is here today for follow-up. Patient reports that she continues to have right lower quadrant pain. Patient reports that the pain is sharp and she is unable to ambulate when this happens. Patient reports that she is moving her bowels better now. Fecal calprotectin normal. Patient denies melena, hematochezia. Patient is losing weight as she is unable to eat because she is afraid that she will have the pain. Pain occasionally radiates to her back. Patient denies any epigastric pain, reflux, dyspepsia, dysphagia or odynophagia. [facility] Medical History Impaired fasting glucose Neuropathy 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 Overweight (BMI 25.0-29.9) Insomnia History of breast cancer Peripheral polyneuropathy Primary osteoarthritis of right hip Vitamin D deficiency Smoker Pure hypercholesterolemia Goiter Anxiety Surgical History Status post right hip replacement H/O: hysterectomy (~03/13/21) History of reduction surgery of right breast History of open reduction and internal fixation (ORIF) procedure Family History Father Cancer Mother CVD (cardiovascular disease) Social History Household Members: Family Housing: House Alcohol intake: current Alcohol intake frequency: holidays/special occasions only Patient Tobacco Use Status: Current everyday Tobacco user Tobacco use type: Cigarette Cigarette Packs Per Day: 0.5 e-Cigarette/Vaping Use: Never Used Second Hand Smoke Exposure: Yes service: No Current occupational status: employed 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 Current occupational exposures/hazards: No Gender identity: Female Cognitive needs: No Hearing needs: No Vision needs: No Review of Systems Const Denies body aches, Denies chills and Denies fever(s) Eyes Reports no additional complaints ENT Reports no additional complaints, Denies dysphagia and Denies odynophagia Card Denies chest pain, Denies syncope and Denies dyspnea Resp Denies dyspnea GI Denies melena, Reports bloating, Denies hematochezia, Reports constipation, Denies dysphagia, Denies dyspepsia, Denies heartburn, Reports diarrhea, Denies nausea and Denies odynophagia Reports no additional complaints Musc Reports no additional complaints Skin/Breast Reports system reviewed and no additional complaints, except as documented Neuro Denies syncope Physical Exam Vital Signs: Last Vital Signs Pulse 86 08/01/25 09:38 BP 136/72 08/01/25 09:38 Pulse Ox 97 08/01/25 09:38 Oxygen Delivery Method Room Air 08/01/25 09:38 BMI result Body Mass Index 24.5 Const Other: Patient sitting in a wheelchair General: cooperative, healthy appearing and no acute distress Nutritional Appearance: average body habitus Orientation/consciousness: patient oriented x3 Limitations: no limitations Resp Effort & Inspection: normal respiratory effort and able to speak in complete sentences Auscultation: clear to auscultation bilaterally Cardio Rate: regular rate Peripheral pulses: Peripheral pulses 2+ throughout GI Inspection: Yes normal to inspection and No distended Palpation (GI): No hepatosplenomegaly present and No Rebound tenderness present Percussion: Yes normal to percussion Auscultation: normal bowel sounds Back/Spine/Pelvis Cervical Spine: cervical ROM normal and No cervical muscular tenderness Thoracic/Lumbar Spine: thoracic and lumbar spine normal to inspection Skin General skin exam: no rashes or lesions noted, elasticity normal and turgor normal Neuro General: patient oriented x3 Extrem General: Yes normal to inspection, Yes full ROM and Yes capillary refill normal Psych Appearance: grossly normal Mental Status: mental status grossly normal Assessment & Plan Assessment & Plan (1) Abdominal pain: Code(s): R10.9 - Unspecified abdominal pain Category: Medical Qualifiers: Abdominal location: lower abdomen, unspecified Qualified Code(s): R10.30 - Lower abdominal pain, unspecified (2) RLQ abdominal pain: Code(s): R10.31 - Right lower quadrant pain (3) Irritable bowel syndrome: Code(s): K58.9 - Irritable bowel syndrome, unspecified Qualifiers: Irritable bowel syndrome type: with both diarrhea and constipation Qualified Code(s): K58.2 - Mixed irritable bowel syndrome Plan Patient tender to right lower quadrant. She is unable to go for CT scan, only able to lay flat. Patient will be sent for ultrasound to rule out appendicitis versus inguinal hernia. Referral made to general surgery. Patient will be started on Creon for abdominal bloating. Patient will try food diary and diary of her stooling. Patient will call as on to so let us know how she is doing. She will follow-up in our office in 2-3 months, sooner on as needed basis. She is agreeable to this plan and verbalizes understanding of instructions. She was given the opportunity to ask questions and all questions answered. Thank you for allowing me to participate in her care Orders: Orders US abdomen limited Today R10.31 - Right lower quadrant pain Referrals General Surgery Referral K40.90 - Unilateral inguinal hernia, without obstruction or gangrene, not specified as recurrent Medications: New Creon 36,000-114,000- 180,000 unit ([id number]) administer with meals and/or snacks 1 cap PO QID 120 caps 3RF NS K86.89 - Other specified diseases of pancreas Coding Level of Care Code Est Pt Level 4 (44985) Complex EM visit Add On G2211 Diagnoses Abdominal pain R10.30 Abdominal location: lower abdomen, unspecified RLQ abdominal pain R10.31 Irritable bowel syndrome with both constipation and diarrhea K58.2 Irritable bowel syndrome type: with both diarrhea and constipation Time Spent (min) 35 Comment 25 minutes spent with patient and additional 10 minutes spent reviewing her records
[2025-08-01 09:38] VITALS: BP 136/72; PULSE 86; O2SAT 97; BMI 24.5
--- OUTSIDE RECORDS SUMMARY | 2025-08-01 10:18 | XMS_ITS | Clinical Summary ---
Author Organization [facility] Address [address] [facility] [address] [place] [address] Phone Care Team Providers Care Director Clinical Information Services Name Role Phone Zoltan Weems MD Primary Care Provider [phone] Arturo Nye MD Unavailable [phone] Allergies No known active allergies Medications atorvastatin [...] 2010 ZOSTER VACCINES (1 of 2) 2010 OSTEOPOROSIS SCREENING INITI AL (ONE-TIME) 2025 INFLUENZA VACCINE (#1) 2025 COVID-19 VACCINE (3 - 2024-2 6 season) 2025 04/19/2021, 03/22/2021 RSV VACCINE (1 - 1-dose 75+ series) [...] topic Medical Devices Not on file Insurance [facility] HMO [place] [address] [place] [address] HMO HMO O O O [facility] HMO C. [facility] Address[address] [address] Care Teams Director Clinical Information Services Relationship Specialty Start Date End Date Zoltan Weems MD [address] [place] [address] [address] PCP - General Internal Medicine 01/02/22 Arturo Nye MD [address] [place] [address] 4B_OB/[place] [address] Obstetrics and Gynecology 01/02/22 Additional Source Comments The information contained in this document represents components of the legal health record. It is not the complete legal health record.[facility]
== END 2025-08-01 10:09 | disposition home or self-care (01) ==
LOC: HO.HGI 09:30
PROVIDERS: PCP Internal Medicine; Visit Provider Nurse Practitioner Family
DX: R10.30 Lower abdominal pain, unspecified (principal); R10.31 Right lower quadrant pain; K58.2 Mixed irritable bowel syndrome
CPT/HCPCS: 99214; G2211

== ENCOUNTER 2025-08-01 16:03 | Outpatient (REF) | payer OTHER, SELFPAY ==
--- NOTE | ~2025-08-01 | US_ITS ---
EXAMINATION: US PELVIS, LIMITED/FOLLOW UP CLINICAL INFORMATION: R10.31 - Right lower quadrant pain COMPARISON: CT on May 16, 2025 TECHNIQUE: Grayscale images were obtained of the right lower quadrant. FINDINGS: No hernia, mass, or other abnormality was identified. US/US pelvic limited IMPRESSION: Unremarkable examination. Electronically signed by: Jean Claude Edmonds MD 08/01/2025 05:06 PM EDT
== END 2025-08-01 16:04 | disposition home or self-care (01) ==
LOC: HO.US 16:03
PROVIDERS: PCP Internal Medicine; Visit Provider Nurse Practitioner Family
DX: R10.31 Right lower quadrant pain (principal)
CPT/HCPCS: 76857

== ENCOUNTER → 2025-08-01 16:08 | Outpatient (BNV) | payer OTHER, SELFPAY | PROVIDERS: PCP Internal Medicine; Visit Provider Radiology Diagnostic Radiology | DX: R10.31 Right lower quadrant pain (principal) | CPT/HCPCS: 76857 ==

== ENCOUNTER 2025-08-15 15:44 | Outpatient (AMB) | payer OTHER, SELFPAY ==
--- OUTSIDE RECORDS SUMMARY | 2025-08-15 15:47 | XMS_ITS | Clinical Summary ---
Author Organization [facility] Address [address] [employer] [facility] [address] [place] [address] Phone Care Team Providers Care Paper Mill Superintendent Name Role Phone Zoltan Weems MD Primary Care Provider [phone] Arturo Nye MD Unavailable [phone] Allergies No known active allergies Medications atorvastatin [...] topic Medical Devices Not on file Insurance [facility] H[place] [address] [place] [address] HMO HMO O O O [facility] HMO Care Teams Paper Mill Superintendent Relationship Specialty Start Date End Date Zoltan Weems MD [address] [place] [address] [address] PCP - General Internal Medicine 01/02/22 Arturo Nye MD [address] [place] [address] 4B_OB/[place] [address] Obstetrics and Gynecology 01/02/22 Additional Source Comments The information contained in this document represents components of the legal health record. It is not the complete legal health record.[facility]
--- NOTE | 2025-08-15 15:49 | A.OFFPC_ITS ---
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 Accompanied by: Self / Same As Patient Allergies duloxetine Allergy (Intermediate, Verified 08/22/25 01:37) Stomach Upset Medication List - Last Reconciled 08/15/25 by Zoltan Weems MD acetaminophen 650 mg (2 x 325 mg) PO Q5H PRN albuterol sulfate 90 mcg/actuation (Ventolin HFA) 2 puffs inhalation Q6H PRN 30 days ascorbic acid (vitamin C) 1 g PO DAILY 90 days atorvastatin 80 mg PO DAILY calcium carbonate 600 mg PO BEDTIME cholecalciferol (vitamin D3) (Vitamin D3) 25 mcg PO DAILY Creon 36,000-114,000- 180,000 unit (wsoyjp-mfrrcgzp-cxtidsf (pork)) 1 cap PO QID NS cyanocobalamin (vitamin B-12) 1,000 mcg PO DAILY 90 days dicyclomine 10 mg PO TID Eliquis (apixaban) 5 mg PO BID 90 days NS [enzymes PO] estradiol 0.01%(0.1mg/gram) pea-sized to urethra daily for 2 weeks then 3 times a week 30 days everolimus (antineoplastic) mg PO DAILY gabapentin 300 mg PO TID letrozole 2.5 mg PO DAILY methenamine hippurate 1 g PO DAILY 90 days mometasone 0.1% 1 appl topical DAILY PRN oxycodone ER (OxyContin) 10 mg PO Q12H polyethylene glycol 3350 (Miralax) 17 grams PO DAILY prochlorperazine maleate 10 mg PO Q6H PRN pyridoxine (vitamin B6) 100 mg PO DAILY 90 days sennosides (Natural Senna Laxative) 17.2 mg (2 x 8.6 mg) PO BEDTIME simethicone 125 mg PO BID-QID PRN simethicone (Gas Relief (simethicone)) 125 mg PO BID-QID PRN trazodone 50 - 100 mg (1 - 2 x 50 mg) PO BEDTIME PRN 90 days Tobacco use date assessed: 08/15/25 Fall risk assessment: No Falls in past year Last assessed Fall Risk: 08/15/25 Dental Screening Dental Screen Date: 08/15/25 Did you have a dental visit in the last 12 months?: Yes Did you have a dental problem in the last 6 months where you did not have access to dental care?: No Was dental information given to patient?: Patient has dentist HPI Follow Up HPI Details Patient comes in today for her follow up visit She continues to experience frequent severe abdominal pain and discomfort, which started months ago She also continues to have frequent loose stools and abdominal gas She is currently being seen and followed up by GI for the above issue and was advised to go for a CT of the abdomen for further evaluation but patient is not able to lie flat on her back due to her severe pain so she would not be able to undergo the CT She was instead sent for an pelvic ultrasound as an alternative - this was done a couple of weeks ago and came out normal She will be seeing GI again for follow-up later this week is wondering if there is anything else that can be done to speed up her workups as she has been losing a lot of weight due to her above abdominal and GI symptoms - she also has had a decreased appetite since her abdominal pain and diarrhea started a few months ago She denies any nausea or vomiting States that her abdominal pain is significantly impacting and limiting her daily activities Adds that she has a small cyst near her tailbone that she feels has been present for the past couple of weeks now and notes (+) pain over this area especially when she is sitting down - is wondering if this is due to an abscess or an infected cyst She denies any fever, headaches or dizziness Denies any chest pains, no increased shortness of breath [facility] Medical History Impaired fasting glucose Neuropathy 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 Overweight (BMI 25.0-29.9) Insomnia History of breast cancer Peripheral polyneuropathy Primary osteoarthritis of right hip Vitamin D deficiency Smoker Pure hypercholesterolemia Goiter Anxiety Surgical History Status post right hip replacement H/O: hysterectomy (~03/13/21) History of reduction surgery of right breast History of open reduction and internal fixation (ORIF) procedure Family History Father Cancer Mother CVD (cardiovascular disease) Social History Household Members: Family Housing: House Alcohol intake: current Alcohol intake frequency: holidays/special occasions only Patient Tobacco Use Status: Current everyday Tobacco user Tobacco use type: Cigarette Cigarette Packs Per Day: 0.5 e-Cigarette/Vaping Use: Never Used Second Hand Smoke Exposure: Yes service: No Current occupational status: employed 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 Depression Screening Interpretation: Positive Depression Screening Follow-up: Follow-up Visit Requested Depression Screening Done: Yes Source: Developed by Drs. Shay Chen, Charley Xiong, Russ Franco and colleagues, with an educational caridad from [employer]. Thrive Questionnaire Date Thrive assessed: 05/17/25 I am a: Patient What is your living situation today?: I have a steady place to live Within the past 12 months, did the food you bought not last and you didn't have the money to get more?: I choose not to answer this question Within the past 12 months, did you worry whether your food would run out before you got money to buy more?: I choose not to answer this question Do you have trouble paying for medicines?: I choose not to answer this question Do you have trouble getting transportation to medical appointments?: Yes Do you have trouble paying your heating and electricity bill?: I choose not to answer this question Do you have trouble taking care of your child, family member or friend?: I choose not to answer this question Do you have trouble with day-to-day activities such as bathing, preparing meals, shopping, managing finances, etc.?: Yes Are you currently unemployed and looking for a job?: No Are you interested in more education?: No Please select the resources that you would like help with: None Currently or been in a relationship where the following occur: No concerns rep orted THRIVE Score: 1 AUDIT C Alcohol Use Questionnaire (AUDIT-C) 1. How often do you have a drink containing alcohol?: Never 3. How often do you have six or more drinks on one occasion?: Never Total Score: 0 Score Reviewed/Action Taken: Yes GABRIEL-7 AMB Questionnaire GABRIEL-7 Date GABRIEL - 7 assessed: 06/16/25 Source: Developed by Drs. Shay Chen, Charley Xiong, Russ Franco and colleagues, with an educational caridad from [employer]. Review of Systems Const Denies chills, Reports fatigue, Denies fever(s), Denies headache(s), Reports poor appetite and Reports weight loss ENT Denies dysphagia, Denies dizziness, Denies otalgia, Denies headache(s), Denies neck pain, Denies odynophagia and Denies sore throat Card Denies chest pain, Denies palpitations and Reports dyspnea on exertion Resp Denies chest congestion, Denies cough and Reports dyspnea on exertion GI Reports abdominal pain (on and off, diffuse but more prominent on the right side and the lower abd), Denies hematochezia, Denies constipation, Denies dysphagia, Denies heartburn, Reports diarrhea (often postprandial - states this depends mostly on what she eats), Reports loose stools (on and off), Reports nausea (at times), Denies odynophagia and Denies vomiting Denies difficulty voiding, Denies nocturia, Denies dysuria and Denies urinary urgency Musc Reports back pain and Denies neck pain Skin/Breast Details: (+) painful cyst at the tailbone area Denies rash Neuro Denies dizziness and Denies headache(s) Psych Reports depression Endo Reports fatigue and Denies palpitations Physical exam (Primary Care) Vital Signs: Last Vital Signs Pulse 95 08/15/25 15:50 BP 100/72 08/15/25 15:50 Pulse Ox 97 08/15/25 15:50 Oxygen Delivery Method Room Air 08/15/25 15:50 BMI result Body Mass Index 23.3 Tobacco/Smoking Status: Tobacco use Status Tobacco use date assessed 08/15/25 08/15/25 16:01 Patient Tobacco Use Status Current everyday Tobacco 08/15/25 15:51 Tobacco use type Cigarette 08/15/25 15:51 e-Cigarette/Vaping Use Never Used 08/15/25 15:51 Depression Screening Interpretation: Positive Depression Screening Follow-up: Follow-up Visit Requested Thrive Assessment: Date of Thrive Assessment Date Thrive assessed 05/17/25 08/15/25 15:51 Currently or been in a relationship where the following occur: No concerns reported Const General: no acute distress and alert HENMT Throat: Yes posterior oropharynx normal and Yes tonsils normal (no TP conge stion) Neck Neck: Yes supple and No lymphadenopathy Thyroid: diffusely enlarged and nontender Resp Auscultation: clear to auscultation bilaterally, no rales and no wheezes Cardio Rate: regular rate Rhythm: regular rhythm Heart sounds: no murmurs GI Palpation (GI): Soft to palpation, Tenderness to palpation present (GI) (diffuse but more prominent over the right side and lower abdomen), no guarding, not rigid and No Rebound tenderness present General: Yes no CVA tenderness Back/Spine/Pelvis Other: (+) tenderness on palpation over the tip of the coccyx; no cutaneous cyst, lesion or abscess were noted on exam Back: no CVA tenderness Thoracic/Lumbar Spine: No lumbar spinal tenderness Skin Rashes: no rashes Extrem General: Yes no clubbing, cyanosis or edema Coding Level of Care Code Est Pt Level 4 (40051) Diagnoses Right sided abdominal pain R10.9 Endometrioid adenocarcinoma Neuropathy G62.9 Deep vein thrombosis (DVT) of iliac vein of right lower extremity, unspecified chronicity I82.421 Chronicity: unspecified Goiter E04.9 Pure hypercholesterolemia E78.00 Exertional dyspnea R06.09 Impaired fasting glucose R73.01 Vitamin D deficiency E55.9 History of breast cancer Z85.3 Insomnia, unspecified type G47.00 Insomnia type: unspecified Anxiety F41.9 Smoker F17.200 Assessment & Plan Assessment & Plan (1) Right sided abdominal pain: Code(s): R10.9 - Unspecified abdominal pain Category: Medical Plan: Abdominal US done recently was negative but her abdominal CT done back in May 2025 revealed no definite acute finding in the abdomen or pelvis; the gallbladder is distended with layering sludge and/or small gallstones, although there is no gross wall thickening or pericholecystic inflammation present. There is small volume ascites in the peritoneal space, etiology unclear, as well as mild anasarca. Mild wall thickening of the ascending colon, descending and sigmoid colon in the setting of underdistention were also seen then but cannot exclude colitis in the appropriate clinical context Will try sending her for abdominal x-rays but advised that this may also not reveal any pertinent findings at this time Follow up with GI as scheduled (2) Endometrioid adenocarcinoma: Comment: S/P radical hysterectomy, bilateral salpingo-oophorectomy and lymph node disse ction by Dr. Arturo Nye on 03/13/2021 - pathology came out as endometrioid adenocarcinoma of the endometrium with extensive squamous cell differentiation, FIGO grade 3 - underwent adjuvant radiation therapy Follow up CT and Bx done in 2021 revealed (+) RECURRENT DISEASE Category: Medical Plan: (+) recurrent disease, despite completing chemotherapy with Pembrolizumab, Carboplatin and Paclitaxel and concurrent immunotherapy She has been previously advised that her cancer is now incurable and that the goal of treatment is to prolong her life and reduce her cancer volume and symptoms She was also on immunotherapy as part of a clinical trial ([id number]) but this was discontinued and she has opted for aggressive radiation therapy to her PA vitaliy chain - she has been reportedly advised of potential damage to the small bowels given their proximity to the treatment area She completed her most recent radiation therapy for recurrent metastatic endometrial cancer on 04/03/[address] done at the time revealed a significant interval decrease in the size of the known metastases involving the infrarenal IVC Her PET scan done at [facility] in October 2023 (for her 3 month follow-up) came out negative and her subsequent imaging studies since have revealed NO progression of her cancer so far Follow-up with gynecologic oncology and radiation oncology as scheduled (3) Neuropathy: Code(s): G62.9 - Polyneuropathy, unspecified Category: Medical Plan: Continue Gabapentin 300 mg TID but patient feels that this is not helping much She was previously tried on Duloxetine but could not tolerate Rx due to side effects (stomach upset) Have advised patient there is no curative treatment for neuropathy and the best that we can do is to try to help control her symptoms so they are at least tolerable She prefers not to increase her Gabapentin dose as she recalls feeling very sedated while on 400 mg in the past (4) Deep vein thrombosis of iliac vein of right lower extremity: Comment: Most likely provoked DVT secondary to recurrent endometrioid adenocarcinoma Code(s): I82.421 - Acute embolism and thrombosis of right iliac vein Category: Medical Qualifiers: Chronicity: unspecified Qualified Code(s): I82.421 - Acute embolism and thrombosis of right iliac vein Plan: This was incidentally seen on outpatient CT in January 2023 - (+) thrombus in the right iliac vein, extending through the distal IVC and common iliac vein bifurcation Continue Eliquis 5 mg BID (5) Goiter: Code(s): E04.9 - Nontoxic goiter, unspecified Category: Medical Plan: Thyroid US done back in September 2018 revealed (+) multiple cystic nodules ana luisa aterally Repeat US done in February 2021 showed enlarged thyroid gland with multiple nodules - the majority of nodules are compatible with colloid cysts and there are 2 nodules in the left medial lobe near the isthmus and inferior lobe that appear solid and complex cystic and are decreased in size from previous exam Recent thyroid US done on 09/27/2022 at [facility] revealed a generalized thyromegaly with multiple colloid cysts within both lobes and the isthmus, especially in the midportion of the right lobe. There is a 1.6 cm TI-RADS category 4 nodule in the lower pole of the left lobe and a 1 year follow-up exam is recommended to assess stability of this Biopsies done in the past were all reportedly benign She had another thyroid biopsy done in September 2023 that also came back benign Her most recent TFTs redone at [facility] a few months ago were reportedly within normal limits; she has had no follow-up TFTs done since Follow up with [facility] Endocrinology as scheduled (6) Pure hypercholesterolemia: Code(s): E78.00 - Pure hypercholesterolemia, unspecified Category: Medical Plan: Reiiforced low cholesterol diet Continue Atorvastatin 80 mg QD (7) Exertional dyspnea: Code(s): R06.09 - Other forms of dyspnea Category: Medical Plan: CT chest done over the past couple of years have mentioned that patient has a borderline heart size She has also undergone Tx with Carboplatin and Paclitaxel for her endometrial carcinoma and these are known to be associated with cardiac side effects, including CHF and myocardial toxicity Echocardiogram done in December 2024 revealed (+) mildly decreased left ventricular systolic function with the calculated ejection fraction at 52% by biplane method and possible basal inferior hypokinesis. There is (+) aortic valve sclerosis but no significant stenosis, with mild mitral valve regurgitation and mild dilatation of the ascending aorta measuring 4.10 cm (8) Impaired fasting glucose: Code(s): R73.01 - Impaired fasting glucose Category: Medical Plan: Her fasting serum glucose was slightly elevated at 108 mg/dl on her labs done a few months ago In-office HgbA1c was normal at 5.3% when previously checked Reinforced low calorie/low carb diet (9) Vitamin D deficiency: Code(s): E55.9 - Vitamin D deficiency, unspecified Category: Medical Plan: Continue Vitamin D3 1000 units QD (10) History of breast cancer: Code(s): Z85.3 - Personal history of malignant neoplasm of breast Category: Medical Plan: She was previously on Tamoxifen 20 mg QD but this was held due to her recurrent endometrial cancer She was eventually switched over to Letrozole 2.5 mg QD but this was also held recently due to side effects - (+) abdominal pain and back pain while on the medication Follow up with oncology as scheduled for continuing surveillance (11) Insomnia: Code(s): G47.00 - Insomnia, unspecified Category: Medical Qualifiers: Insomnia type: unspecified Qualified Code(s): G47.00 - Insomnia, unspecified Plan: Sleep hygiene reinforced Continue Trazodone 50 mg 1 to 2 tablets Q HS PRN (12) Anxiety: Code(s): F41.9 - Anxiety disorder, unspecified Category: Medical Plan: Continue Lorazepam 1 mg 2 to 3 times a day as needed She was also on Citalopram 10 mg QD in the past but this was discontinued when she was started on Duloxetine for her increasing neuropathic symptoms in her legs a few months ago Duloxetine has since been discontinued due to side effects (upset stomach) Will consider starting her back on Citalopram if her anxiety symptoms get worse (13) Smoker: Code(s): F17.200 - Nicotine dependence, unspecified, uncomplicated Category: Social Hx Plan: Patient is again counseled on complete smoking cessation Plan Follow up in 2 months Orders: Orders XR abdomen min 2V 08/15/25 R10.9 - Unspecified abdominal pain
[2025-08-15 15:50] VITALS: BP 100/72; PULSE 95; O2SAT 97; BMI 23.3
== END 2025-08-15 16:43 | disposition home or self-care (01) ==
LOC: HO.HMCH 15:45
PROVIDERS: PCP Internal Medicine; Visit Provider Internal Medicine
DX: R10.9 Unspecified abdominal pain (principal); G62.9 Polyneuropathy, unspecified; I82.421 Acute embolism and thrombosis of right iliac vein; E04.9 Nontoxic goiter, unspecified; E78.00 Pure hypercholesterolemia, unspecified; R06.09 Other forms of dyspnea; R73.01 Impaired fasting glucose; E55.9 Vitamin D deficiency, unspecified; Z85.3 Personal history of malignant neoplasm of breast; G47.00 Insomnia, unspecified; F41.9 Anxiety disorder, unspecified; F17.200 Nicotine dependence, unspecified, uncomplicated

== ENCOUNTER 2025-08-19 16:07 | Outpatient (AMB) | payer OTHER, SELFPAY ==
[2025-08-19 16:19] VITALS: BP 99/66; PULSE 104; O2SAT 99; BMI 23.1
--- NOTE | 2025-08-19 16:19 | MHC.OFFVIS ---
Vital Signs 08/19/25 16:19 Height 5 ft 5 in Weight 139 lb BMI 23.1 BP 99/66 Blood Pressure Location Lt brachial Position Sitting Pulse 104 H Pulse Oximetry (%) 99 Oxygen Delivery Method Room Air Intake Visit Reasons: Chronic sx persistence. 1 mos FUV. Intake Note: Patient follow up for chronic sx persistence Patient cc:L abdominal pain with bloating, gasses coming up, fatigue/tiredness, and for this last 5 month she is been loosing a lot of weight. 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 1 mos FUV.: Details: LAST VISIT Abdominal pain RLQ abdominal pain Irritable bowel syndrome Plan Patient tender to right lower quadrant. She is unable to go for CT scan, only able to lay flat. Patient will be sent for ultrasound to rule out appendicitis versus inguinal hernia. Referral made to general surgery. Patient will be started on Creon for abdominal bloating. Patient will try food diary and diary of her stooling. Patient will call as on to so let us know how she is doing. She will follow-up in our office in 2-3 months, sooner on as needed basis. She is agreeable to this plan and verbalizes understanding of instructions. She was given the opportunity to ask questions and all questions answered. ? Thank you for allowing me to participate in her care Orders US abdomen limited Today R10.31 Referrals General Surgery Referral K40.90 New Creon 36,000-114,000- 180,000 unit (baekub-lgtzomat-vvdrxbo) administer with meals and/or snacks 1 cap PO QID 120 caps 3RF NS K86.89 TODAY'S VISIT: Patient is here today for follow-up. She continues to have a left lower quadrant pain. Patient reports pain sharp feeling very gassy and bloated. She is having pain so sharp that she is unable to move or do anything. Patient is losing appetite and not eating as much as she should. Patient is eating smaller meals. Reports that she is moving her bowels without any issues. She is taking enzymes. She feels like she is moving her bowels. Takes senna which probably is causing her to have cramping before bowel movement. Patient denies any nausea or vomiting. Denies dyspepsia, dysphagia or odynophagia. Long discussion with patient about of sending her for colonoscopy as well as endoscopy. Worry the patient might have inflammation from radiation therapies that she had in the past. 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 Overweight (BMI 25.0-29.9) Insomnia History of breast cancer Peripheral polyneuropathy Primary osteoarthritis of right hip Vitamin D deficiency Smoker Pure hypercholesterolemia Goiter Anxiety Surgical History Status post right hip replacement H/O: hysterectomy (~03/13/21) History of reduction surgery of right breast History of open reduction and internal fixation (ORIF) procedure Family History Father Cancer Mother CVD (cardiovascular disease) Social History Household Members: Family Housing: House Alcohol intake: current Alcohol intake frequency: holidays/special occasions only Patient Tobacco Use Status: Current everyday Tobacco user Tobacco use type: Cigarette Cigarette Packs Per Day: 0.5 e-Cigarette/Vaping Use: Never Used Second Hand Smoke Exposure: Yes service: No Current occupational status: employed 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 Current occupational exposures/hazards: No Gender identity: Female Cognitive needs: No Hearing needs: No Vision needs: No Review of Systems Const Denies body aches, Denies chills and Denies fever(s) Eyes Reports no additional complaints ENT Reports no additional complaints, Denies dysphagia and Denies odynophagia Card Denies chest pain, Denies syncope and Denies dyspnea Resp Denies dyspnea GI Denies melena, Reports bloating, Denies hematochezia, Reports constipation, Denies dysphagia, Denies dyspepsia, Denies heartburn, Reports diarrhea, Denies nausea and Denies odynophagia Reports no additional complaints Musc Reports no additional complaints Skin/Breast Reports system reviewed and no additional complaints, except as documented Neuro Denies syncope Physical Exam Vital Signs: Last Vital Signs Pulse 104 H 08/19/25 16:19 BP 99/66 08/19/25 16:19 Pulse Ox 99 08/19/25 16:19 Oxygen Delivery Method Room Air 08/19/25 16:19 BMI result Body Mass Index 23.1 Const Other: Patient sitting in a wheelchair General: cooperative, healthy appearing and no acute distress Nutritional Appearance: average body habitus Orientation/consciousness: patient oriented x3 Limitations: no limitations Resp Effort & Inspection: normal respiratory effort and able to speak in complete sentences Auscultation: clear to auscultation bilaterally Cardio Rate: regular rate Peripheral pulses: Peripheral pulses 2+ throughout GI Inspection: Yes normal to inspection and No distended Palpation (GI): No hepatosplenomegaly present and No Rebound tenderness present Percussion: Yes normal to percussion Auscultation: normal bowel sounds Back/Spine/Pelvis Cervical Spine: cervical ROM normal and No cervical muscular tenderness Thoracic/Lumbar Spine: thoracic and lumbar spine normal to inspection Skin General skin exam: no rashes or lesions noted, elasticity normal and turgor normal Neuro General: patient oriented x3 Extrem General: Yes normal to inspection, Yes full ROM and Yes capillary refill normal Psych Appearance: grossly normal Mental Status: mental status grossly normal Assessment & Plan Assessment & Plan (1) Abdominal pain: Code(s): R10.9 - Unspecified abdominal pain Category: Medical Qualifiers: Abdominal location: lower abdomen, unspecified Qualified Code(s): R10.30 - Lower abdominal pain, unspecified (2) Right lower quadrant abdominal pain: Code(s): R10.31 - Right lower quadrant pain (3) Irritable bowel syndrome: Code(s): K58.9 - Irritable bowel syndrome, unspecified Qualifiers: Irritable bowel syndrome type: with constipation Qualified Code(s): K58.1 - Irritable bowel syndrome with constipation (4) Constipation: Code(s): K59.00 - Constipation, unspecified Qualifiers: Constipation type: drug induced constipation Qualified Code(s): K59.03 - Drug induced constipation Plan Message sent to Surgical schedules to book procedure for patient as soon as we can fit her into the schedule. Ask to put patient on cancellation list. Will start patient on prednisone to see if that will help with inflammation. Patient was educated about taking prednisone in the morning with food. Taper every 4 days. I will send her script for hyoscyamine to help with cramping. Continue enzyme therapy with meals to prevent the bloating. Patient will be sent also for upper endoscopy to rule out gastritis or duodenitis. Patient does have occasional epigastric pain. Patient will need to hold Eliquis for 48 hours before her procedure and will restart taking depending on how many polypectomies and size of the polyps. Patient will see me after the procedure. Patient was encouraged to call our office if she will have any worsening symptoms. Patient is agreeable to current plan of care and verbalizes understanding of instructions. She was given the opportunity to ask questions and all questions answered. Thank you for allowing me to participate in her care Orders: Referrals GI Procedure Notification Z12.11 - Encounter for screening for malignant neoplasm of colon, K21.9 - Gastro-esophageal reflux disease without esophagitis Medications: New prednisone 40 mg x 4 days, 30 mg x 4 days, 20 mg x 4 days, 10 mg x 4 days and 5 mg x 4 days 10 mg PO DIRECTED 42 tabs 0RF hyoscyamine sulfate 0.125 mg PO BID-QID PRN 90 tabs 0RF abdominal discomfort bisacodyl (Dulcolax (bisacodyl)) take 4 tabs at noon the day before your colonoscopy 20 mg (4 x 5 mg) PO ONCE 4 tabs 0RF constipation 1 day Z12.11 - Encounter for screening for malignant neoplasm of colon polyethylene glycol 3350 (Miralax) As directed by gastroenterology department at [facility] 238 grams PO ONCE 238 grams 0RF Z12.11 - Encounter for screening for malignant neoplasm of colon Refilled Creon 36,000-114,000- 180,000 unit (mseami-isatoghv-wjvnjhi (pork)) administer with meals and/or snacks 1 cap PO QID 120 caps 3RF NS K86.89 - Other specified diseases of pancreas Discontinued dicyclomine Discontinued Reason: Doctor's Order 10 mg PO TID 90 caps 2RF K58.9 - Irritable bowel syndrome, unspecified Coding Level of Care Code Est Pt Level 5 (82381) Complex EM visit Add On G2211 Diagnoses Abdominal pain R10.30 Abdominal location: lower abdomen, unspecified Right lower quadrant abdominal pain R10.31 Irritable bowel syndrome with constipation K58.1 Irritable bowel syndrome type: with constipation Drug-induced constipation K59.03 Constipation type: drug induced constipation Time Spent (min) 45 Comment 30 minutes spent with patient and additional 15 minutes spent reviewing her records
--- OUTSIDE RECORDS SUMMARY | 2025-08-19 18:22 | XMS_ITS | Clinical Summary ---
Author Organization [facility] Address [address] [facility] [address] [place] [id number] Phone Care Team Providers Care Filter Press Pumper Name Role Phone Zoltan Weems MD Primary Care Provider [phone] Arturo Nye MD Unavailable [phone] Allergies No known active allergies Medications atorvastatin [...] topic Medical Devices Not on file Insurance [facility] HMO [place] [address] [place] [address] HMO HMO O O O [facility] HMO [facility] Address: [address] [address] Care Teams Filter Press Pumper Relationship Specialty Start Date End Date Zoltan Weems MD [address] [place] [address] [address] PCP - General Internal Medicine 01/02/22 Arturo Nye MD [address] [place] [address] [address] [address] Obstetrics and Gynecology 01/02/22 Additional Source Comments The information contained in this document represents components of the legal health record. It is not the complete legal health record.[facility]
== END 2025-08-19 18:56 | disposition home or self-care (01) ==
LOC: HO.HGI 16:08
PROVIDERS: PCP Internal Medicine; Visit Provider Nurse Practitioner Family
DX: R10.30 Lower abdominal pain, unspecified (principal); R10.31 Right lower quadrant pain; K58.1 Irritable bowel syndrome with constipation; K59.03 Drug induced constipation
CPT/HCPCS: 99215; G2211

== ENCOUNTER 2025-09-02 12:57 | Day surgery (SDC) | payer OTHER, SELFPAY ==
--- OUTSIDE RECORDS SUMMARY | 2025-08-30 14:32 | XMS_ITS | Clinical Summary ---
Author Organization [facility] Address [address] [facility] [address] [place] [address] Phone Care Team Providers Care Terrazzo Roller Name Role Phone Zoltan Weems MD Primary Care Provider [phone] Arturo Nye MD Unavailable [phone] Allergies No known active allergies Medications atorvastatin [...] topic Medical Devices Not on file Insurance [facility] H[place] [address] [address] HMO HMO O O O [facility] HMO Care Teams Terrazzo Roller Relationship Specialty Start Date End Date Zoltan Weems MD [address] [place] [address] [address] PCP - General Internal Medicine 01/02/22 Arturo Nye MD [address] [place] [address] [address] [address] Obstetrics and Gynecology 01/02/22 Additional Source Comments The information contained in this document represents components of the legal health record. It is not the complete legal health record.[facility]
--- NOTE | 2025-08-31 09:21 | HO.ANESPROP2 ---
Documented by User: Tata Burnette NP 08/31/25 09:34 HPI - Anesthesia Eval Consult details Narrative: 65yo F for Upper Endoscopy and Colonoscopy Eliquis for hx DVT ? port in situ (hx edometrial adenocarcinoma s/p hyst 2020) PMF Active Problems Active Problems: All Active Problems Right sided abdominal pain (Acute) Anemia (Acute) Abdominal pain (Acute) Primary squamous cell carcinoma of endometrium (Acute) Rash (Acute) Exertional dyspnea (Acute) Impaired fasting glucose (Acute) Weight loss (Acute) Neuropathy (Acute) Ascending aorta dilatation (Acute) Dyspnea (Acute) Uterine cancer (Acute) Genitourinary syndrome of menopause (Acute) Recurrent UTI (Acute) Lower extremity pain, bilateral (Acute) Deep vein thrombosis of iliac vein of right lower extremity (Acute) Bronchitis (Acute) Lower extremity edema (Acute) Thyromegaly (Acute) Renal insufficiency (Acute) Colon cancer screening (Acute) Status post radiation therapy (Acute) Frequent diarrhea (Acute) Breast cancer (Acute) Anxiety and depression (Acute) Hypercholesterolemia (Acute) Tobacco abuse (Acute) Hematuria (Acute) Renal calculus, right (Acute) Nephrolithiasis (Acute) Endometrioid adenocarcinoma (Acute) Overweight (BMI 25.0-29.9) (Acute) Anxiety (Acute) Insomnia (Acute) History of breast cancer (Acute) Peripheral polyneuropathy (Acute) Primary osteoarthritis of right hip (Acute) Vitamin D deficiency (Acute) Smoker (Acute) Pure hypercholesterolemia (Acute) Goiter (Acute) Past Medical History Medical History Impaired fasting glucose Neuropathy 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 Overweight (BMI 25.0-29.9) Insomnia History of breast cancer Peripheral polyneuropathy Primary osteoarthritis of right hip Vitamin D deficiency Smoker Pure hypercholesterolemia Goiter Anxiety Family History Family History Father Cancer Mother CVD (cardiovascular disease) Surgical History Surgical History Status post right hip replacement H/O: hysterectomy (~03/13/21) History of reduction surgery of right breast History of open reduction and internal fixation (ORIF) procedure Social History Social History Household Members: Family Housing: House Alcohol intake: current Alcohol intake frequency: holidays/special occasions only Patient Tobacco Use Status: Current everyday Tobacco user Tobacco use type: Cigarette Cigarette Packs Per Day: 0.5 e-Cigarette/Vaping Use: Never Used Second Hand Smoke Exposure: Yes Use of substances other than those prescribed or required for medical reasons: No Advance Directives: No Advance Directives Information Provided: Yes service: No Current occupational status: employed 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 Current occupational exposures/hazards: No Gender identity: Female Cognitive needs: No Hearing needs: No Vision needs: No Meds Allergies Allergy/AdvReac Type Severity Reaction Status Date / Time duloxetine Allergy Intermediate Stomach Verified 08/22/25 01:37 Upset Home Medications ?Medication ?Instructions ?Recorded ?Confirmed ?Last Taken ?Type calcium carbonate 600 mg PO BEDTIME 04/04/21 08/15/25 04/04/21 History cholecalciferol (vitamin D3) 25 25 mcg PO DAILY 04/04/21 08/15/25 04/04/21 History mcg (1,000 unit) tablet (Vitamin D3) gabapentin 300 mg capsule 300 mg PO TID 08/30/24 08/15/25 Unknown History letrozole 2.5 mg tablet 2.5 mg PO DAILY 08/30/24 08/15/25 Unknown History prochlorperazine maleate 10 mg 10 mg PO Q6H PRN nausea 08/30/24 08/15/25 Unknown History tablet everolimus (antineoplastic) 10 mg mg PO DAILY 12/31/24 08/15/25 Unknown History tablet polyethylene glycol 3350 17 17 g PO DAILY 05/31/25 08/15/25 Unknown History gram/dose oral powder (Miralax) oxycodone 10 mg tablet,crush 10 mg PO Q12H 06/29/25 08/15/25 Unknown History resistant,extended release 12 hr (OxyContin) enzymes PO 08/15/25 08/15/25 Unknown History simethicone 125 mg capsule (Gas 125 mg PO BID-QID PRN 08/15/25 08/15/25 Unknown History Relief (simethicone)) oxycodone 5 mg tablet 10 mg PO Q6H PRN pain 09/02/25 09/02/25 Unknown History oxycodone 5 mg tablet 10 mg PO Q6H PRN pain 09/02/25 09/02/25 09/02/25 History Exam Pertinent Lab Results Pertinent Lab Results: Laboratory Tests 06/29/25 16:17 WBC 6.8 Hgb 9.7 L Hct 32.7 L Plt Count 373 Sodium 139 Potassium 3.3 Chloride 103 Carbon Dioxide 27 BUN 15 Creatinine 0.90 Narrative Narrative: CT abdomen pelvis w IV con 05/2025 IMPRESSION: 1. No definite acute finding in the abdomen or pelvis. 2. The gallbladder is distended with layering sludge and/or small gallstones, although there is no gross wall thickening or pericholecystic inflammation present. 3. There is small volume ascites in the peritoneal space, etiology unclear. 4. There is mild is anasarca. 5. Mild wall thickening of the ascending colon, descending and sigmoid colon in the setting of underdistention. Cannot exclude colitis in the appropriate clinical context. 6. Hysterectomy. Assessment and Plan Assessment Anesthesia Assessment: Chart Reviewed Documented by User: Stella Trent MD 09/02/25 14:52 [facility] Past Medical History Medical History Impaired fasting glucose Neuropathy 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 Overweight (BMI 25.0-29.9) Insomnia History of breast cancer Peripheral polyneuropathy Primary osteoarthritis of right hip Vitamin D deficiency Smoker Pure hypercholesterolemia Goiter Anxiety Family History Family History Father Cancer Mother CVD (cardiovascular disease) Family history of problems with anesthesia: No Surgical History Surgical History Status post right hip replacement H/O: hysterectomy (~03/13/21) History of reduction surgery of right breast History of open reduction and internal fixation (ORIF) procedure History of Problems with Anesthesia: No Social History Social History Household Members: Family Housing: House Alcohol intake: current Alcohol intake frequency: holidays/special occasions only Patient Tobacco Use Status: Current everyday Tobacco user Tobacco use type: Cigarette Cigarette Packs Per Day: 0.5 e-Cigarette/Vaping Use: Never Used Second Hand Smoke Exposure: Yes Use of substances other than those prescribed or required for medical reasons: No Advance Directives: No Advance Directives Information Provided: Yes service: No Current occupational status: employed 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 Current occupational exposures/hazards: No Gender identity: Female Cognitive needs: No Hearing needs: No Vision needs: No Meds Allergies Allergy/AdvReac Type Severity Reaction Status Date / Time duloxetine Allergy Intermediate Stomach Verified 08/22/25 01:37 Upset Home Medications ?Medication ?Instructions ?Recorded ?Confirmed ?Last Taken ?Type calcium carbonate 600 mg PO BEDTIME 04/04/21 08/15/25 04/04/21 History cholecalciferol (vitamin D3) 25 25 mcg PO DAILY 04/04/21 08/15/25 04/04/21 History mcg (1,000 unit) tablet (Vitamin D3) gabapentin 300 mg capsule 300 mg PO TID 08/30/24 08/15/25 Unknown History letrozole 2.5 mg tablet 2.5 mg PO DAILY 08/30/24 08/15/25 Unknown History prochlorperazine maleate 10 mg 10 mg PO Q6H PRN nausea 08/30/24 08/15/25 Unknown History tablet everolimus (antineoplastic) 10 mg mg PO DAILY 12/31/24 08/15/25 Unknown History tablet polyethylene glycol 3350 17 17 g PO DAILY 05/31/25 08/15/25 Unknown History gram/dose oral powder (Miralax) oxycodone 10 mg tablet,crush 10 mg PO Q12H 06/29/25 08/15/25 Unknown History resistant,extended release 12 hr (OxyContin) enzymes PO 08/15/25 08/15/25 Unknown History simethicone 125 mg capsule (Gas 125 mg PO BID-QID PRN 08/15/25 08/15/25 Unknown History Relief (simethicone)) oxycodone 5 mg tablet 10 mg PO Q6H PRN pain 09/02/25 09/02/25 Unknown History oxycodone 5 mg tablet 10 mg PO Q6H PRN pain 09/02/25 09/02/2525 History Exam Airway Mallampati Class: II TM Dist: >3cm Neck ROM: Full Denture: Upper Heart: rrr Lungs: cta Assessment and Plan Assessment Anesthesia Assessment: Anesthesia Plan Discussed Final Anesthetic Review Family History of Problems with Anesthesia: No History of Problems with Anesthesia: No NPO: Yes ASA Class: III Final Preanesthetic Review: No Changes in Pt Med Stat, Meds/Allgs Chart Reviewed and Consent Obtained/Reviewed Patient Risk: Low Procedure Risk: Intermediate Anesthetic Plan Anesthetic Plan: MAC: Disposition: Standard PACU
[2025-09-02 13:15] VITALS: BMI 23.4
[2025-09-02 13:41] VITALS: BP 121/67; PULSE 81; RESP 16; TEMP 36.7; O2SAT 97
[2025-09-02] MEDS: Lactated Ringers 1,000 ML 100 ML IVCONT (13:45)
--- NOTE | 2025-09-02 14:49 | MHC.SHP ---
Pre-Procedural Eval Section A - 24 Hr Update-Section A only Date of Service: 09/02/25 The patient is an INPATIENT: No The patient has been examined within 24 hours of the surgical procedure. The History & Physical has been completed within 30 days and I have reviewed it.: Yes Section B - Complete if H&P > 30 days Chief Complaint: abd pain, unintentional weight loss Details of Present Illness: Pt booked for egd/colo for abd pain and unintentional weight loss. Present Medications: see Short Stay Collaborative assessment Allergies: Allergies Allergy/AdvReac Type Severity Reaction Status Date / Time duloxetine Allergy Intermediate Stomach Verified 08/22/25 01:37 Upset Plan Diagnosis/Plan: Unchanged I have reviewed the history and physical and performed a pertinent physical examination on my patient. No changes have occurred unless specified. Time Spent With Patient Time: Total time managing care of this patient today ____ minutes.
[2025-09-02 15:48] VITALS: BP 129/72; PULSE 96; RESP 22; TEMP 36.6; O2SAT 92
[2025-09-02 16:03] VITALS: BP 133/65; PULSE 96; RESP 20; O2SAT 93
[2025-09-02 16:18] VITALS: BP 144/66; PULSE 93; RESP 20; O2SAT 94
--- NOTE | 2025-09-02 16:18 | P.OPN-COLO_ITS ---
Colonoscopy Operative Note Operative Note Date of Service: 09/02/25 Narrative: Procedure: Upper endoscopy and colonoscopy Indication: Abd pain, unintentional weight loss Endoscopist: Virginia Harris MD Anesthesia Provider: Dr Stella Abdi MD Anesthesia type: MAC Instrument: [id number] and [id number] EGD Procedure:?? The procedure, indications, preparation and potential complications were reviewed with the patient, who indicated understanding and gave written informed consent to proceed. The endoscope was introduced through the mouth, and advanced to the 2nd part of the duodenum. The mucosa was carefully examined on slow withdrawal of the endoscope. The patient tolerated the procedure well. There were no immediate complications.? EGD Findings:? * Esophagus:? Normal esophageal mucosa was noted. The Z-line was at 39 cm displaced by a small hiatal hernia with the pinch at 41 cm. * Stomach:? Mild erythema with scant flecks of heme noted in antrum and body without any obvious erosions. Retroflexion was performed in the cardia that showed Hill grade III hiatal hernia. Random cold forceps biopsies were taken from the stomach. * Duodenum:? Normal duodenal mucosa. Cold forceps biopsies were taken from the duodenal bulb and 2nd portion of the duodenum. Colonoscopy Procedure:? The patient was then turned for the colonoscopy. A digital rectal exam was performed which was abnormal for external hemorrhoids.? A distal attachment cap was affixed to the tip of the scope and the colonoscope was then inserted through the anus and advanced through the colon and advanced to the cecum at 80 cm.? Appendiceal orifice and ileocecal valve were identified. Mucosa was carefully examined under high definition white light as the instrument was slowly withdrawn in a retrograde panoramic fashion. Retroflexion was performed in rectum. The procedure was somewhat difficult due to a fixed sigmoid but was eventually maneuvered with water irrigation technique. 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 Mosaic vascular pattern noted in rectum ? radiation proctopathy. Cold forceps biopsies were taken from R colon, L colon and rectum. Protruding lesions: * 1 sessile polyp of size 3 mm in cecum. Cold forceps polyptomy was performed. The polyp was completely removed and retrieved. * 1 sessile polyp of size 5 mm in sigmoid colon. Cold forceps polyptomy was performed. The polyp was completely removed and retrieved. * Large internal hemorrhoids without stigmata of recent bleeding. Excavated lesions: * Moderate diverticulosis of sigmoid colon. Impression: 1. Normal esophagus 2. Hiatal hernia 3. Gastritis (biopsy) 4. Normal duodenum (biopsy) 5. Melanosis coli (biopsy) 6. Abnormal rectal mucosa (biopsy) 7. Total 2 polyps removed 8. Diverticulosis 9. Internal and external hemorrhoids Recommendations:?? * Follow-up path results * Avoid NSAIDs * Start famotidine 20 mg once daily * HOLD eliquis for 24h. OK to resume tmrw evening. * Repeat colonoscopy in 5 years if pt is in good health.
[2025-09-02] MEDS: oxyCODONE HCl Immed Release 5 MG TABLET PO (16:20)
[2025-09-02 16:33] VITALS: BP 139/67; PULSE 97; RESP 20; TEMP 36.3; O2SAT 96
== END 2025-09-02 16:55 | disposition home or self-care (01) ==
PROVIDERS: PCP Internal Medicine; Visit Provider Internal Medicine
PROC: (CPT 45380; principal; 2025-09-02 15:10)
DX: Z12.11 Encounter for screening for malignant neoplasm of colon (principal); R14.0 Abdominal distension (gaseous); R63.4 Abnormal weight loss; R10.9 Unspecified abdominal pain; K29.80 Duodenitis without bleeding; K44.9 Diaphragmatic hernia without obstruction or gangrene; K64.8 Other hemorrhoids; K64.4 Residual hemorrhoidal skin tags; K63.89 Other specified diseases of intestine; B96.81 Helicobacter pylori [H. pylori] as the cause of diseases classified elsewhere; D12.0 Benign neoplasm of cecum; D12.5 Benign neoplasm of sigmoid colon
CPT/HCPCS: 45380; 43239; 88305; 88313; 88342; J1642; J2003; J2704

== ENCOUNTER → 2025-09-02 12:57 | Outpatient (BNV) | payer OTHER, SELFPAY | PROVIDERS: PCP Internal Medicine; Visit Provider Internal Medicine | DX: R10.9 Unspecified abdominal pain (principal); R63.4 Abnormal weight loss; K29.70 Gastritis, unspecified, without bleeding; K63.89 Other specified diseases of intestine; K63.5 Polyp of colon; K57.30 Diverticulosis of large intestine without perforation or abscess without bleeding; K64.8 Other hemorrhoids | CPT/HCPCS: 43239; 45380 ==